=== PATIENT | female | born 1945 | race Caucasian/White ===

== ENCOUNTER 2019-10-15 10:19 | Emergency (ER) | payer OTHER ==
[2019-10-15] MEDS ORDERED: IPRATROPIUM BROM 0.5MG/2.5ML ONE (12:04)
[2019-10-15] MEDS ORDERED: ALBUTEROL 2.5 MG/3 ML NEB SOL ONE (12:04)
--- OUTSIDE RECORDS SUMMARY | 2019-10-15 14:35 | XMS REPORT | Summary of Care ---
:1945 Author Name MARCOS SALDIVAR M.D. Address Unavailable Unavailable , Care Team Providers Name Role Phone JANNA Garzon, MARCOS Unavailable Unavailable JANNA MERCADO [place], MARCOS Espinal Unavailable Unavailable Functional Status Name Dates Details Functional status health issues are not documented Status: Name Dates Details Cognitive status health issues are not documented Status: Problems Name Dates Details Aftercare following right knee joint replacement surgery (V54.81, Z47.1) Status: Active Primary osteoarthritis of left knee (715.16, M17.12) Status: Active Primary osteoarthritis of right knee (715.16, M17.11) Status: Active Status post total right knee replacement using cement (V43.65, Z96.651) Status: Active Left knee pain (719.46, M25.562) Status: Active Medications Name Dates Details Piroxicam 10 MG Oral Capsule Refills: 0 Active Triamterene-HCTZ CAPS Refills: 0 Active Biotin TABS Refills: 0 Active NexIUM CPDR Refills: 0 Active Sucralfate TABS Refills: 0 Active Zyrtec TABS Refills: 0 Active Singulair TABS Refills: 0 Active Premarin TABS Refills: 0 Active Levothyroxine Sodium TABS Refills: 0 Active Allergies and Adverse Reactions Name Dates Details Erythromycin Derivatives (Allergy) Status: Active Penicillins (Allergy) Status: Active Sulfa Drugs (Allergy) Status: Active Past Medical History Name Dates Details History of High blood pressure (401.9, I10) Status: Resolved Procedures Procedure Dates Details History of Total Knee Replacement Right Completed History of Hysterectomy Completed History of Thyroidectomy Completed Immunization Name Dates Details Immunizations not documented Family History Name Dates Details Family history of malignant neoplasm (V16.9, Z80.9) Status: Active Family history of cardiac disorder (V17.49, Z82.49) Status: Active Name Dates Details Family history of cardiac disorder (V17.49, Z82.49) Status: Active Social History Name Dates Details - Status: Name Dates Details Never smoker Vital Signs Date Test Result Details No Known Vitals to report Results Date Description Value Details [id number] [U] XRAY KNEE 3 VWS RIGHT 83675 XR KNEE 3 VWS RIGHT Images acquired, not reported on this accession number. Plan of Care Name Dates Details Planned Observations Planned Goals not documented Planned Encounters Appointment; MARCOS SALDIVAR M.D. On: 05-Sep-2018 11:30 Interventions Provided Labs/Procedures/Imaging[U] XRAY KNEE 3 VWS RIGHT 15096; Done: 13 Jun 2018PlanCSI left knee given today, we went over brief surgical talk and that pt would have to wait 3 months for surgery after injection and pt wants to wait 3 months so opted for injection to help her get through her trip, home exercise program for quad and ITB range of motion stretching and strengthening education provided, recommend water aerobic and/or elliptical for exercise program, can consider cane inopposite hand when flared up or for her trip, activity modification and advance as tolerated, therapeutic NSAID celebrex 200mg can increase to twice daily call if not helping after 2 weeks can considera different medication in the family, follow up in 2.5 months for possible surgical talk Instructions Name Dates Details Instructions not documented Encounters Appointment; MARCOS SALDIVAR M.D. On: 13-Jun-2018 8:30 Encounter Diagnosis: Problem not documented
--- NOTE | 2019-10-15 15:40 | RAD REPORT ---
EXAM DESCRIPTION: RAD - Chest Single View - 10/15/2019 2:53 pm CLINICAL HISTORY: SOB Chest pain. COMPARISON: CHEST PA AND LAT 2 VIEW dated 12/16/2014; CHEST SINGLE VIEW dated 05/22/2009 FINDINGS: Portable technique limits examination quality. The lungs are grossly clear. The heart is normal in size. No displaced fractures. IMPRESSION: No acute intrathoracic process suspected.
--- NOTE | 2019-10-15 23:32 | EDPHYS ---
Physician Documentation [facility] Name: Carol Ann Matute Age: 74 yrs Sex: Female : 1945 Arrival Date: 10/15/2019 Time: 10:26 Bed DIS1 Private MD: Domingo Cortez V ED Physician Clarice Aguilar HPI: 10/15 11:22 This 74 yrs old Female presents to ER via Ambulatory with complaints of Cough. jr8 11:22 The patient or guardian reports cough, that is intermittent, described as mild, with jr8 productive sputum, that is green. Onset: The symptoms/episode began/occurred acutely, yesterday. Severity of symptoms: At their worst the symptoms were mild, in the emergency department the symptoms are unchanged. Modifying factors: The symptoms are alleviated by nothing, the symptoms are aggravated by nothing. Associated signs and symptoms: Pertinent positives: rhinorrhea, sore throat, headaches. The patient has not experienced similar symptoms in the past. The patient has not recently seen a physician. - Immunization history:: Pneumococcal vaccine is up to date, Flu vaccine is up to date. - Social history:: Smoking status: Patient/guardian denies using tobacco. - Ebola Screening: : No symptoms or risks identified at this time. ROS: 11:22 Eyes: Negative for injury, pain, redness, and discharge, Neck: Negative for injury, jr8 pain, and swelling, Cardiovascular: Negative for chest pain, palpitations, and edema, Abdomen/GI: Negative for abdominal pain, nausea, vomiting, diarrhea, and constipation, Back: Negative for injury and pain, MS/Extremity: Negative for injury and deformity, Skin: Negative for injury, rash, and discoloration. 11:22 ENT: Positive for rhinorrhea, sore throat. 11:22 Respiratory: Positive for cough, with green sputum, Negative for dyspnea on exertion, shortness of breath, wheezing. 11:22 Neuro: Positive for headache, Negative for altered mental status, dizziness, gait disturbance. Exam: 11:22 Eyes: Pupils equal round and reactive to light, extra-ocular motions intact. Lids and jr8 lashes normal. Conjunctiva and sclera are non-icteric and not injected. Cornea within normal limits. Periorbital areas with no swelling, redness, or edema. ENT: Nares patent. No nasal discharge, no septal abnormalities noted. Tympanic membranes are normal and external auditory canals are clear. Oropharynx with no redness, swelling, or masses, exudates, or evidence of obstruction, uvula midline. Mucous membranes moist. Neck: Trachea midline, no thyromegaly or masses palpated, and no cervical lymphadenopathy. Supple, full range of motion without nuchal rigidity, or vertebral point tenderness. No Meningismus. Cardiovascular: Regular rate and rhythm with a normal S1 and S2. No gallops, murmurs, or rubs. Normal PMI, no JVD. No pulse deficits. Respiratory: Lungs have equal breath sounds bilaterally, clear to auscultation and percussion. No rales, rhonchi or wheezes noted. No increased work of breathing, no retractions or nasal flaring. Abdomen/GI: Soft, non-tender, with normal bowel sounds. No distension or tympany. No guarding or rebound. No evidence of tenderness throughout. Back: No spinal tenderness. No costovertebral tenderness. Full range of motion. Skin: Warm, dry with normal turgor. Normal color with no rashes, no lesions, and no evidence of cellulitis. MS/ Extremity: Pulses equal, no cyanosis. Neurovascular intact. Full, normal range of motion. Neuro: Awake and alert, GCS 15, oriented to person, place, time, and situation. Cranial nerves II-XII grossly intact. Motor strength 5/5 in all extremities. Sensory grossly intact. Cerebellar exam normal. Normal gait. Vital Signs: 10:32 BP 128 / 83; Pulse 73; Resp 16 S; Temp 97.5(O); Pulse Ox 98% on R/A; Weight 90.72 kg aa5 (R); Height 5 ft. 6 in. (167.64 cm) (R); 12:30 BP 122 / 78; Pulse 70; Resp 15; Pulse Ox 100% on R/A; Pain 0/10; hb 10:32 Body Mass Index 32.28 (90.72 kg, 167.64 cm) aa5 MDM: 11:04 Patient medically screened. jr8 11:50 Data reviewed: vital signs, nurses notes, lab test result(s), radiologic studies, plain jr8 films. Data interpreted: Pulse oximetry: on room air is 98 %. Interpretation: normal. Counseling: I had a detailed discussion with the patient and/or guardian regarding: the historical points, exam findings, and any diagnostic results supporting the discharge/admit diagnosis, lab results, radiology results, the need for outpatient follow up, a family practitioner, to return to the emergency department if symptoms worsen or persist or if there are any questions or concerns that arise at home. Administered Medications: 12:12 Drug: Albuterol 2.5 mg Route: Inhalation; hb 12:34 Follow up: Response: No adverse reaction hb Disposition: 15:52 Co-signature as Attending Physician, Clarice Aguilar MD. ma2 Disposition: 10/15/19 11:51 Discharged to Home. Impression: Acute upper respiratory infection, unspecified, Acute bronchitis. - Condition is Stable. - Discharge Instructions: Acute Bronchitis, Adult, Upper Respiratory Infection, Adult. - Prescriptions for Prednisone 20 mg Oral Tablet - take 1 tablet by ORAL route once daily for 5 days; 5 tablet. Tessalon Perles 100 mg Oral Capsule - take 1 capsule by ORAL route every 8 hours As needed; 15 capsule. Albuterol Sulfate 90 mcg/actuation - inhale 1-2 puff by INHALATION route every 4-6 hours; 1 Inhaler. - Medication Reconciliation Form, Thank You Letter, Antibiotic Education, Prescription Opioid Use form. - Follow up: Domingo Cortez MD; When: 5 - 6 days; Reason: Recheck today's complaints, Continuance of care, Re-evaluation by your physician. - Problem is new. - Symptoms have improved. Signatures: Santa Orellana RN RN aa5 Ben Lundy PA PA jr8 Jing Moreno RN RN Clarice Aguilar MD MD ma2 Corrections: (The following items were deleted from the chart) 11:57 11:51 10/15/2019 11:51 Discharged to Home. Impression: Acute upper respiratory jr8 infection, unspecified. Condition is Stable. Forms are Medication Reconciliation Form, Thank You Letter, Antibiotic Education, Prescription Opioid Use. Follow up: Domingo Cortez; When: 5 - 6 days; Reason: Recheck today's complaints, Continuance of care, Re-evaluation by your physician. Problem is new. Symptoms have improved. jr8 12:35 11:57 10/15/2019 11:51 Discharged to Home. Impression: Acute upper respiratory hb infection, unspecified; Acute bronchitis. Condition is Stable. Discharge Instructions: Upper Respiratory Infection, Adult. Prescriptions for Prednisone 20 mg Oral Tablet - take 1 tablet by ORAL route once daily for 5 days; 5 tablet, Tessalon Perles 100 mg Oral Capsule - take 1 capsule by ORAL route every 8 hours As needed; 15 capsule, Albuterol Sulfate 90 mcg/actuation - inhale 1-2 puff by INHALATION route every 4-6 hours; 1 Inhaler. and Forms are Medication Reconciliation Form, Thank You Letter, Antibiotic Education, Prescription Opioid Use. Follow up: Domingo Cortez; When: 5 - 6 days; Reason: Recheck today's complaints, Continuance of care, Re-evaluation by your physician. Problem is new. Symptoms have improved. jr8
--- NOTE | 2019-10-15 23:32 | ER ---
Nurse's Notes [facility] Name: Carol Ann Matute Age: 74 yrs Sex: Female : 1945 Arrival Date: 10/15/2019 Time: 10:26 Bed DIS1 Private MD: Domingo Cortez V Diagnosis: Acute upper respiratory infection, unspecified;Acute bronchitis Presentation: 10/15 10:31 Presenting complaint: Patient states: cough, sore throat, and ha ear pain that began aa5 on Monday. Transition of care: patient was not received from another setting of care. Onset of symptoms was September 2019. Risk Assessment: Do you want to hurt yourself or someone else? Patient reports no desire to harm self or others. Initial Sepsis Screen: Does the patient meet any 2 criteria? No. Patient's initial sepsis screen is negative. Does the patient have a suspected source of infection? No. Patient's initial sepsis screen is negative. Care prior to arrival: None. 10:31 Acuity: ALTHEA 4 aa5 10:31 Method Of Arrival: Ambulatory aa5 - Immunization history:: Pneumococcal vaccine is up to date, Flu vaccine is up to date. - Social history:: Smoking status: Patient/guardian denies using tobacco. - Ebola Screening: : No symptoms or risks identified at this time. Assessment: 11:13 Reassessment: see paper chart. hb 12:34 Reassessment: Patient appears in no apparent distress at this time. Patient and/or hb family updated on plan of care and expected duration. Pain level reassessed. Patient is alert, oriented x 3, equal unlabored respirations, skin warm/dry/pink. Vital Signs: 10:32 BP 128 / 83; Pulse 73; Resp 16 S; Temp 97.5(O); Pulse Ox 98% on R/A; Weight 90.72 kg aa5 (R); Height 5 ft. 6 in. (167.64 cm) (R); 12:30 BP 122 / 78; Pulse 70; Resp 15; Pulse Ox 100% on R/A; Pain 0/10; hb 10:32 Body Mass Index 32.28 (90.72 kg, 167.64 cm) aa5 ED Course: 10:26 Patient arrived in ED. ag5 10:27 Domingo Cortez MD is Private Physician. ag5 10:31 Triage completed. aa5 10:31 Arm band placed on. aa5 10:42 Hilario Peters PA is PHCP. [facility] 10:42 Clarice Aguilar MD is Attending Physician. [facility] 10:43 PHCP role handed off by Hilario Peters PA jr 10:43 Ben Lundy PA is PHCP. jr8 11:51 Domingo Cortez MD is Referral Physician. jr 12:12 Jing Moreno, RN is Primary Nurse. hb 12:35 No provider procedures requiring assistance completed. Patient did not have IV access hb during this emergency room visit. Administered Medications: 12:12 Drug: Albuterol 2.5 mg Route: Inhalation; hb 12:34 Follow up: Response: No adverse reaction hb Outcome: 11:51 Discharge ordered by MD. jr8 12:35 Discharged to home ambulatory, with family. hb 12:35 Condition: stable 12:35 Discharge instructions given to patient, Instructed on discharge instructions, follow up and referral plans. medication usage, Demonstrated understanding of instructions, follow-up care, medications, Prescriptions given X 3. 12:35 Patient left the ED. hb Signatures: Hilario Peters PA PA jmm Calderon, Audri, RN RN [facility] Ben Lundy PA [facility] Jing Moreno, RN RN [place] [id number]
== END 2019-10-15 12:35 | disposition home or self-care (01) ==
LOC: ER 12:35
DX: J20.9 Acute bronchitis, unspecified (principal)
CPT/HCPCS: 71045; 87804; 99284

== ENCOUNTER 2019-11-02 11:43 | Emergency (ER) | payer OTHER ==
[2019-11-02] MEDS ORDERED: TRAMADOL HCL 50 MG TAB ONE (12:05)
[2019-11-02] MEDS ORDERED: predniSONE 20 MG TAB ONE (12:05)
--- NOTE | 2019-11-02 12:06 | EDPHYS ---
Physician Documentation [facility] Name: Carol Ann Matute Age: 74 yrs Sex: Female : 1945 Arrival Date: 11/02/2019 Time: 11:45 Bed 23 Private MD: Domingo Cortez V ED Physician Bryan Vicente HPI: 11/02 12:02 This 74 yrs old Female presents to ER via Ambulatory with complaints of kb Shoulder Pain. 12:02 The patient or guardian complains of pain, that is acute. left scapular area. Context: kb The problem was sustained at home, resulted from an unknown reason, The patient reports no decreased range of motion. The patient reports no obvious deformity. Onset: The symptoms/episode began/occurred 5 day(s) ago. Modifying factors: the symptoms are alleviated by nothing. The symptoms are aggravated by left arm adduction across chest. Associated signs and symptoms: The patient has no apparent associated signs or symptoms. Severity of symptoms: At their worst the symptoms were moderate, in the emergency department the symptoms are unchanged. Treatment prior to arrival includes: prescription medications. The patient has not experienced similar symptoms in the past. The patient has been recently seen by a physician: the patient's primary care provider, Dr. Cortez in the office, 4 day(s) ago, with similar presenting complaints. Pt reports left scapular pain started on Monday. Denies injury or trauma. Saw Dr Cortez on Monday and was given a shot of steroids, rx for muscle relaxers and a cream. Reports the pain was better for about 24 hours then came back and the medications aren't working. Full ROM of shoulder/arm. . Historical: - Allergies: 11:48 PENICILLINS; sv - PMHx: 11:48 Hypertension; Thyroid problem; sv - PSHx: 11:48 Knee surgery; Hysterectomy; thumb; thyroid; sv - Immunization history:: Adult Immunizations up to date. - Social history:: Smoking status: Patient/guardian denies using tobacco. - Ebola Screening: : No symptoms or risks identified at this time. ROS: 12:00 Constitutional: Negative for fever, chills, and weight loss, ENT: Negative for injury, kb pain, and discharge, Neck: Negative for injury, pain, and swelling, Cardiovascular: Negative for chest pain, palpitations, and edema, Respiratory: Negative for shortness of breath, cough, wheezing, and pleuritic chest pain, Abdomen/GI: Negative for abdominal pain, nausea, vomiting, diarrhea, and constipation, : Negative for injury, bleeding, discharge, and swelling, MS/Extremity: Negative for injury and deformity, Skin: Negative for injury, rash, and discoloration, Neuro: Negative for headache, weakness, numbness, tingling, and seizure. 12:00 Back: Positive for pain at rest, pain with movement, radiated pain, of the left scapular area. Exam: 12:00 Constitutional: This is a well developed, well nourished patient who is awake, alert, kb and in no acute distress. Head/Face: Normocephalic, atraumatic. ENT: Nares patent. No nasal discharge, no septal abnormalities noted. Tympanic membranes are normal and external auditory canals are clear. Oropharynx with no redness, swelling, or masses, exudates, or evidence of obstruction, uvula midline. Mucous membranes moist. Neck: Trachea midline, no thyromegaly or masses palpated, and no cervical lymphadenopathy. Supple, full range of motion without nuchal rigidity, or vertebral point tenderness. No Meningismus. Chest/axilla: Normal chest wall appearance and motion. Nontender with no deformity. No lesions are appreciated. Cardiovascular: Regular rate and rhythm with a normal S1 and S2. No gallops, murmurs, or rubs. Normal PMI, no JVD. No pulse deficits. Respiratory: Lungs have equal breath sounds bilaterally, clear to auscultation and percussion. No rales, rhonchi or wheezes noted. No increased work of breathing, no retractions or nasal flaring. Abdomen/GI: Soft, non-tender, with normal bowel sounds. No distension or tympany. No guarding or rebound. No evidence of tenderness throughout. Back: No spinal tenderness. No costovertebral tenderness. Full range of motion. Point tenderness to left scapula on exam. Pt also reports pain with adduction of arm across chest. Skin: Warm, dry with normal turgor. Normal color with no rashes, no lesions, and no evidence of cellulitis. MS/ Extremity: Pulses equal, no cyanosis. Neurovascular intact. Full, normal range of motion. Neuro: Awake and alert, GCS 15, oriented to person, place, time, and situation. Cranial nerves II-XII grossly intact. Motor strength 5/5 in all extremities. Sensory grossly intact. Cerebellar exam normal. Normal gait. Vital Signs: 11:48 BP 172 / 71; Pulse 67; Resp 20; Temp 97.2; Pulse Ox 99% ; Weight 90.72 kg; Height 5 ft. sv 6 in. (167.64 cm); Pain 8/10; 11:48 Body Mass Index 32.28 (90.72 kg, 167.64 cm) sv MDM: 11:50 Patient medically screened. kb 12:02 Data reviewed: vital signs, nurses notes. Data interpreted: Pulse oximetry: on room air kb is 99 %. Interpretation: normal. Counseling: I had a detailed discussion with the patient and/or guardian regarding: the historical points, exam findings, and any diagnostic results supporting the discharge/admit diagnosis, the need for outpatient follow up, a family practitioner, to return to the emergency department if symptoms worsen or persist or if there are any questions or concerns that arise at home. Administered Medications: 12:05 Drug: traMADol 50 mg Route: PO; 12:05 Drug: predniSONE 40 mg Route: PO; Disposition: 15:34 Co-signature as Attending Physician, Bryan Vicente MD. rn Disposition: 11/02/19 12:05 Discharged to Home. Impression: Radiculopathy. - Condition is Stable. - Discharge Instructions: Radicular Pain. - Prescriptions for Prednisone 20 mg Oral Tablet - take 1 tablet by ORAL route once daily for 5 days; 5 tablet. - Medication Reconciliation Form, Thank You Letter, Antibiotic Education, Prescription Opioid Use form. - Follow up: Emergency Department; When: As needed; Reason: Worsening of condition. Follow up: Domingo Cortez MD; When: 2 - 3 days; Reason: Recheck today's complaints, Continuance of care, Re-evaluation by your physician. Signatures: Dispatcher [employer] EDChani Mane FNP-C FNP-Ckb Verde, Stephanie, RN RN Bob Torre RN RN Bryan Hanson MD MD education intern: (The following items were deleted from the chart) 12:12 12:05 11/02/2019 12:05 Discharged to Home. Impression: Radiculopathy. Condition is sg Stable. Forms are Medication Reconciliation Form, Thank You Letter, Antibiotic Education, Prescription Opioid Use. Follow up: Emergency Department; When: As needed; Reason: Worsening of condition. Follow up: Domingo Cortez; When: 2 - 3 days; Reason: Recheck today's complaints, Continuance of care, Re-evaluation by your physician. kb
--- NOTE | 2019-11-02 12:06 | ER ---
Nurse's Notes [facility] Name: Carol Ann Matute Age: 74 yrs Sex: Female : 1945 Arrival Date: 11/02/2019 Time: 11:45 Bed 23 Private MD: Domingo Cortez V Diagnosis: Radiculopathy Presentation: 11/02 11:46 Presenting complaint: Patient states: left shoulder pain since Monday. Denies injury sv or fall, reports seeing her PCP and was given prescriptions but they are not helping. Transition of care: patient was not received from another setting of care. Onset of symptoms was October 29, 2019. Risk Assessment: Do you want to hurt yourself or someone else? Patient reports no desire to harm self or others. Care prior to arrival: None. 11:46 Method Of Arrival: Ambulatory sv 11:46 Acuity: ALTHEA 4 sv 11:49 Initial Sepsis Screen: Does the patient meet any 2 criteria? No. Patient's initial sv sepsis screen is negative. Does the patient have a suspected source of infection? No. Patient's initial sepsis screen is negative. Historical: - Allergies: 11:48 PENICILLINS; sv - PMHx: 11:48 Hypertension; Thyroid problem; sv - PSHx: 11:48 Knee surgery; Hysterectomy; thumb; thyroid; sv - Immunization history:: Adult Immunizations up to date. - Social history:: Smoking status: Patient/guardian denies using tobacco. - Ebola Screening: : No symptoms or risks identified at this time. Screenin:00 Abuse screen: Denies threats or abuse. Denies injuries from another. Nutritional sg screening: No deficits noted. Tuberculosis screening: No symptoms or risk factors identified. Never had TB. Fall Risk None identified. Assessment: 12:00 General: Appears in no apparent distress. well groomed, well developed, well nourished, sg Behavior is calm, cooperative, appropriate for age. Pain: Complains of pain in left scapular area Quality of pain is described as aching, sharp. 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 Cardiovascular: Capillary refill is brisk in bilateral fingers Patient's skin is warm and dry. Chest pain is denied. Respiratory: Airway is patent Respiratory effort is even, unlabored, Respiratory pattern is regular, symmetrical. GI: No signs and/or symptoms were reported involving the gastrointestinal system. : No signs and/or symptoms were reported regarding the genitourinary system. EENT: No signs and/or symptoms were reported regarding the EENT system. Derm: Skin is pink, warm \T\ dry. Musculoskeletal: Circulation, motion, and sensation intact. Range of motion: limited in left shoulder. 12:10 Reassessment: Patient appears in no apparent distress at this time. pt informed ben Koo TOY MAKER states that the prednisone will be only prescription for discharge as patient has been medicated for pain in the unit with Tramadol PO, pt states understanding and stated that will be fine, pt to be dc to home. Vital Signs: 11:48 BP 172 / 71; Pulse 67; Resp 20; Temp 97.2; Pulse Ox 99% ; Weight 90.72 kg; Height 5 ft. sv 6 in. (167.64 cm); Pain 8/10; 11:48 Body Mass Index 32.28 (90.72 kg, 167.64 cm) sv ED Course: 11:45 Patient arrived in ED. as 11:45 Domingo Cortez MD is Private Physician. as 11:46 Arm band placed on. sv 11:47 Triage completed. sv 11:50 Chani Ly F[facility]-C [facility]. kb 11:50 Bryan Vicente MD is Attending Physician. kb 12:00 Patient has correct armband on for positive identification. Bed in low position. Call sg light in reach. Pulse ox on. NIBP on. 12:00 No provider procedures requiring assistance completed. Patient did not have IV access sg during this emergency room visit. 12:01 Bob Chilel, RN is Primary Nurse. sg 12:05 Domingo Cortez MD is Referral Physician. kb Administered Medications: 12:05 Drug: traMADol 50 mg Route: PO; sg 12:05 Drug: predniSONE 40 mg Route: PO; sg Outcome: 12:05 Discharge ordered by . kb 12:10 Discharged to home ambulatory, with family. sg 12:10 Condition: good 12:10 Discharge instructions given to patient, Instructed on discharge instructions, follow up and referral plans. medication usage, safety practices, Demonstrated understanding of instructions, follow-up care, medications, Prescriptions given X 1. 12:12 Patient left the ED. sg Signatures: Chani Ly FNP-C FNP-Ivis Ambrose RN RN Bob Torre RN RN Yovana Shah as Corrections: (The following items were deleted from the chart) 11:50 11:48 Pulse 67bpm; Resp 20bpm; Pulse Ox 99%; Temp 97.2F; 90.72 kg; Height 5 ft. 6 in.; sv BMI: 32.2; Pain 8/10; sv
[2019-11-02 12:32] VITALS: BP 172/71; TEMP 97.2; O2SAT 99
== END 2019-11-02 12:12 | disposition home or self-care (01) ==
LOC: ER 11:43
DX: M54.10 Radiculopathy, site unspecified (principal); I10 Essential (primary) hypertension; Z88.0 Allergy status to penicillin
CPT/HCPCS: 99283; J7512

== ENCOUNTER 2023-03-27 10:11 | Emergency (ER) | payer OTHER ==
[2023-03-27] MEDS ORDERED: MECLIZINE HCL 12.5 MG TAB ONE (10:47)
--- OUTSIDE RECORDS SUMMARY | 2023-03-27 10:54 | XMS REPORT | Continuity of Care Document ---
:1945 Author Organization [facility] t Address [address] [facility] [address] [place] [address] Care Team Providers Name Role Phone Domingo Cortez Attending Clinician Unavailable MARCOS SALDIVAR M.D. Attending Clinician Unavailable Payers Payer Name Policy Type Policy Number Effective Date Expiration Date [facility] [id number] Common Spiri t [facility] Problems Condition Condition Condition Status Onset Resolution Last Treating Co mments Source Name Details Category Date Date Treatment Clinician Date Primary Primary Problem Active [facility] osteoarthr osteoarthr HL7.CCDAR2 Physici itis of itis of ans right knee right knee Status Status Problem Active [facility] post total post total HL7.CCDAR2 Physici right knee right knee an s replacemen replacemen t using t using cement cement Aftercare Aftercare Problem Active [facility] following following HL7.CCDAR2 Physici right knee right knee an s joint joint replacemen replacemen t surgery t surgery Left knee Left knee Problem Active [facility] pain pain HL7.CCDAR2 Physic i ans Primary Primary Problem Active [facility] osteoarthr osteoarthr HL7.CCDAR2 Physici itis of itis of ans left knee left knee History of History of Problem Resolve UT High blood High blood HL7.CCDAR2 d Physici pressure pressure ans [id number] Arthritis Problem Co mmon [id number] of knee, [facility] Allergies, Adverse Reactions, Alerts Allergy Allergy Status Severity Reaction(s) Onset Inactive Treating Comm ents Source Name Type Date Date Clinician Erythrom drug Active [facility] ycin allergy Physici Derivati ans ves Penicill drug Active [facility] ins allergy Physici ans penicill penicill Active Unknown Commo n in G in G [facility] Sulfa drug Active [facility] Drugs allergy Physici ans Family History Family Member Diagnosis Comments Start Date Stop Date Source Mother Family history of cardiac [facility] disorder Mother Family history of malignant [facility] neoplasm Father Family history of cardiac [facility] disorder Social History Social Habit Start Date Stop Date Quantity Comments Source History of Tobacco Use Co mmon [facility] Sex Assigned At Com mon [facility] Smoking Status Start Date Stop Date Source Never Smoker Common [facility] Medications Ordered Filled Start Stop Current Ordering Indication Dosage Frequency Signature Comments Components Source Medication Medication Date Date Medication? Clinician (SIG) Name Name [facility] No 16mg Common 1- [facility] 00:00: - [facility]-10 No 16mg Common - [facility] 00:00: - [facility] Synvis Synvisc 2021-10 No 16mg Common 2-29 Spirit 00:00: - [facility] Synvis Synvisc 2021-10 No 16mg Common - [facility] 00:00: - [facility] Klaudia Rudolph 2021-10 No 40mg Common (Triamcinol (Triamcinol 2-19 S pirit one) one) 00:00: - [facility] Bupivicaine Bupivicaine 2021-10 No 2.5mg Common Eureka Eureka 2-19 Spirit 00:00: - [facility] Bupivicaine Bupivicaine 2021-10 No 2.5mg Common [place] Eureka 2-19 Spirit 00:00: - [facility] Synvisc Synvisc 2021-10 No 16mg Common 2-19 Spirit 00:00: - [facility] Kengracia Kenalog 2021-10 No 40mg Common (Triamcinol (Triamcinol 2-19 S pirit one) one) 00:00: - [facility] 00 [facility] Bupivicaine Bupivicaine 2021-1 No 2.5mg Common E[place] Eureka 2-19 Spirit 00:00: - [facility] 00 [facility] Synvisc Synvisc 2021-1 No 16mg Common 2-19 [facility] 00:00: - [facility] 00 [facility] Kenalog Kenalog 1 No 40mg Common (Triamcinol (Triamcinol 2-19 S pirit one) one) 00:00: - [facility] 00 [facility] Kenalog Kenalog 2021-0 No 40mg Common (Triamcinol (Triamcinol 7-11 S pirit one) one) 00:00: - [facility] 00 [facility] Bupivicaine Bupivicaine 2021-0 No 2.5mg Common E[place]ka Eureka 7-11 Spirit 00:00: - [facility] 00 [facility] Kenalog Kenalog 2021-0 No 40mg Common (Triamcinol (Triamcinol 7-11 S pirit one) one) 00:00: - [facility] 00 [facility] Bupivicaine Bupivicaine 2021-0 No 2.5mg Common E[place] Eureka 7-11 Spirit 00:00: - [facility] 00 [facility] Kenalog Kenalog 2021-0 No 40mg Common (Triamcinol (Triamcinol 7-11 S pirit one) one) 00:00: - [facility] 00 [facility] Bupivicaine Bupivicaine 2021-0 No 2.5mg Common E[place] Eureka 7-11 Spirit 00:00: - [facility] 00 [facility] Kenalog Kenalog 2021-0 No 40mg Common (Triamcinol (Triamcinol 7-11 S pirit one) one) 00:00: - [facility] 00 [facility] Bupivicaine Bupivicaine 2021-0 No 2.5mg Common E[place] Eureka 7-11 Spirit 00:00: - [facility] 00 [facility] Kenalog Kenalog 2021-0 No 40mg Common (Triamcinol (Triamcinol 7-11 S pirit one) one) 00:00: - [facility] 00 [facility] Bupivicaine Bupivicaine 2021-0 No 2.5mg Common E[place] Eureka 7-11 Spirit 00:00: - [facility] 00 [facility] Kenalog Kenalog 2021-0 No 40mg Common (Triamcinol (Triamcinol 7-11 S pirit one) one) 00:00: - [facility] 00 [facility] Bupivicaine Bupivicaine 2021-0 No 2.5mg Common E[place] Eureka 7-11 Spirit 00:00: - [facility] 00 [facility] Synvisc Synvisc 2021-0 No 16mg Common 3-10 Spirit 00:00: - [facility] 00 [facility] Synvisc Synvisc 2021-0 No 16mg Common 3-10 Spirit 00:00: - [facility] 00 [facility] Synvisc Synvisc 2-0 No 16mg Common 3-10 Spirit 00:00: - [facility] 00 [facility] Synvisc Synvisc 2-0 No 16mg Common 3-10 Spirit 00:00: - [facility] 00 [facility] Synvisc Synvisc 2-0 No 16mg Common 3-10 Spirit 00:00: - [facility] 00 [facility] Synvisc Synvisc 2-0 No 16mg Common 3-10 Spirit 00:00: - [facility] 00 [facility] Synvisc Synvisc 2-0 No 16mg Common 3-10 Spirit 00:00: - [facility] 00 [facility] Synvisc Synvisc 2-0 No 16mg Common 3-03 Spirit 00:00: - [facility] 00 [facility] Synvisc Synvisc 2-0 No 16mg Common 3-03 Spirit 00:00: - [facility] 00 [facility] Synvisc Synvisc 2-0 No 16mg Common 3-03 Spirit 00:00: - [facility] 00 [facility] Synvisc Synvisc 2-0 No 16mg Common 3-03 Spirit 00:00: - [facility] 00 [facility] Synvisc Synvisc 2-0 No 16mg Common 3-03 Spirit 00:00: - [facility] 00 [facility] Synvisc Synvisc 2-0 No 16mg Common 3-03 Spirit 00:00: - [facility] 00 [facility] Synvisc Synvisc 2021-0 No 16mg Common 3-03 Spirit 00:00: - [facility] 00 [facility] Synvisc Synvisc 2021-0 No 16mg Common 3-03 [facility] 00:00: - [facility] 00 [facility] Kenalog Kenalog 2021-0 No 40mg Common (Triamcinol (Triamcinol 2-24 S pirit one) one) 00:00: - [facility] 00 [facility] Bupivicaine Bupivicaine 2021-0 No Common Eureka Eureka 2-24 Spirit 00:00: - [facility] 00 [facility] Synvisc Synvisc 2021-0 No 16mg Common 2-24 [facility] 00:00: - [facility] 00 [facility] Kenalog Kenalog 2021-0 No 40mg Common (Triamcinol (Triamcinol 2-24 S pirit one) one) 00:00: - [facility] 00 [facility] Bupivicaine Bupivicaine 2021-0 No 2.5mg Common E[place] Eureka 2-24 [facility] 00:00: - [facility] 00 [facility] Synvisc Synvisc 2021-0 No 16mg Common 2-24 [facility] 00:00: - [facility] 00 [facility] Kenalog Kenalog 2021-0 No 40mg Common (Triamcinol (Triamcinol 2-24 S pirit one) one) 00:00: - [facility] 00 [facility] Bupivicaine Bupivicaine 2021-0 No 2.5mg Common E[place] Eureka 2-24 Spirit 00:00: - [facility] 00 [facility] Synvisc Synvisc 2021-0 No 16mg Common 2-24 [facility] 00:00: - [facility] 00 [facility] Kenalog Kenalog 2-0 No 40mg Common (Triamcinol (Triamcinol 2-24 S pirit one) one) 00:00: - [facility] 00 [facility] Bupivicaine Bupivicaine 2-0 No 2.5mg Common E[place] Eureka 2-24 Spirit 00:00: - [facility] 00 [facility] Synvisc Synvisc 2021-0 No 16mg Common 2-24 Spirit 00:00: - [facility] 00 [facility] Kenalog Kenalog 2021-0 No 40mg Common (Triamcinol (Triamcinol 2-24 S pirit one) one) 00:00: - [facility] 00 [facility] Bupivicaine Bupivicaine 2-0 No 2.5mg Common E[place] Eureka 2-24 Spirit 00:00: - [facility] 00 [facility] Synvisc Synvisc 2021-0 No 16mg Common 2-24 Spirit 00:00: - [facility] 00 [facility] Kenalog Kenalog 2021-0 No 40mg Common (Triamcinol (Triamcinol 2-24 S pirit one) one) 00:00: - [facility] 00 [facility] Kenalog Kenalog 2021-0 No 40mg Common (Triamcinol (Triamcinol 2-24 S pirit one) one) 00:00: - [facility] 00 [facility] Bupivicaine Bupivicaine 2021-0 No 2.5mg Common E[place] Eureka 2-24 Spirit 00:00: - [facility] 00 [facility] Synvisc Synvisc 2021-0 No 16mg Common 2-24 [facility] 00:00: - [facility] 00 [facility] Kengracia Kenalog 2021-0 No 40mg Common (Triamcinol (Triamcinol 2-24 S pirit one) one) 00:00: - [facility] 00 [facility] Bupivicaine Bupivicaine 2021-0 No 2.5mg Common E[place] Eureka 2-24 Spirit 00:00: - [facility] 00 [facility] Synvisc Synvisc 2021-0 No 16mg Common 2-24 [facility] 00:00: - [facility] 00 [facility] Bupivicaine Bupivicaine 2-0 No Common Eureka Eureka 2-24 Spirit 00:00: - [facility] 00 [facility] Synvisc Synvisc 2021-0 No 16mg Common 2-24 [facility] 00:00: - [facility] 00 [facility] Kenalog Kenalog 2-0 No 40mg Common (Triamcinol (Triamcinol 2-24 S pirit one) one) 00:00: - [facility] 00 [facility] Bupivicaine Bupivicaine 2-0 No Common Eureka Eureka 2-24 Spirit 00:00: - [facility] 00 [facility] Synvisc Synvisc 2-0 No 16mg Common 2-24 [facility] 00:00: - [facility] 00 [facility] Kenalog Kenalog 2020-0 No 40mg Common (Triamcinol (Triamcinol 8-24 S pirit one) one) 00:00: - [facility] 00 [facility] Bupivicaine Bupivicaine 2020-0 No Common E[place] Eureka 8-24 Spirit 00:00: - [facility] 00 [facility] Kenalog Kenalog 2020-0 No 40mg Common (Triamcinol (Triamcinol 8-24 S pirit one) one) 00:00: - [facility] 00 [facility] Bupivicaine Bupivicaine 2020-0 No 2.5mg Common E[place] Eureka 8-24 Spirit 00:00: - [facility] 00 [facility] Kenalog Kenalog 2020-0 No 40mg Common (Triamcinol (Triamcinol 8-24 S pirit one) one) 00:00: - [facility] 00 [facility] Bupivicaine Bupivicaine 2020-0 No 2.5mg Common E[place] Eureka 8-24 [facility] 00:00: - [facility] 00 [facility] Kenalog Kenalog 2020-0 No 40mg Common (Triamcinol (Triamcinol 8-24 S pirit one) one) 00:00: - [facility] 00 [facility] Bupivicaine Bupivicaine 1-0 No 2.5mg Common E[place] Eureka 8-24 [facility] 00:00: - [facility] 00 [facility] Kenalog Kenalog 2020-0 No 40mg Common (Triamcinol (Triamcinol 8-24 S pirit one) one) 00:00: - [facility] 00 [facility] Bupivicaine Bupivicaine 1-0 No 2.5mg Common [place] Eureka 8-24 [facility] 00:00: - [facility] 00 [facility] Kenalog Kenalog 1-0 No 40mg Common (Triamcinol (Triamcinol 8-24 S pirit one) one) 00:00: - [facility] 00 [facility] Bupivicaine Bupivicaine 1-0 No 2.5mg Common E[place] Eureka 8-24 [facility] 00:00: - [facility] Kenalog Kenalog No 40mg Common (Triamcinol (Triamcinol 8-24 S pirit one) one) 00:00: - [facility] Bupivicaine Bupivicaine 0 No 2.5mg Common E[place] Eureka 8-24 [facility] 00:00: - [facility] Kenalog Kenalog No 40mg Common (Triamcinol (Triamcinol 8-24 S pirit one) one) 00:00: - [facility] Bupivicaine Bupivicaine 2020-0 No Common Eureka Eureka 8-24 [facility] 00:00: - [facility] Klaudia Kenalog No 40mg Common (Triamcinol (Triamcinol 8-24 S pirit one) one) 00:00: - [facility] Bupivicaine Bupivicaine No Common E[place] Eureka 8-24 [facility] 00:00: - [facility] 00 [facility] Piroxicam Piroxicam Yes UT 10 MG Oral 10 MG Oral Phy sici Capsule Capsule ans Triamterene Triamterene Yes U T -HCTZ CAPS -HCTZ CAPS Phy sici ans Biotin TABS Biotin TABS Yes U T Physici ans NexIUM CPDR NexIUM CPDR Yes U T Physici ans Bisoprolol- Bisoprolol- No Bisoprolol hydroCHLORO hydroCHLORO -hydroCHLO thiazide thiazide ROthiazide Azithromyci Azithromyci No Azithromyc n n in methylPREDN methylPREDN No methylPRED ISolone ISolone NISolone Denta 5000 Denta 5000 No Denta 5000 Plus Plus Plus Sucralfate Sucralfate Yes UT TABS TABS Physici ans Premarin Premarin No Premarin Cosamin ASU Cosamin ASU No Cosamin for Joint for Joint ASU for Health Health Joint Health ZyrTEC ZyrTEC No ZyrTEC Levothyroxi Levothyroxi No Levothyrox ne Sodium ne Sodium ine Sodium Caltrate Caltrate No Caltrate 600 600 600 Celecoxib Celecoxib No Celecoxib Co Q 10 Co Q 10 No Co Q 10 Montelukast Montelukast No Montelukas Sodium Sodium t Sodium Famotidine Famotidine No Famotidine methylPREDN methylPREDN No methylPRED ISolone ISolone NISolone Zyrtec TABS Zyrtec TABS Yes U T Physici ans Co Q 10 Co Q 10 No Co Q 10 Levothyroxi Levothyroxi No Levothyrox ne Sodium ne Sodium ine Sodium Cosamin ASU Cosamin ASU No Cosamin for Joint for Joint ASU for [facility] Caltrate Caltrate No Caltrate 600 600 600 Denta 5000 Denta 5000 No Denta 5000 Plus Plus Plus Premarin Premarin No Premarin Azithromyci Azithromyci No Azithromyc n n in Celecoxib Celecoxib No Celecoxib Montelukast Montelukast No Montelukas Sodium Sodium t Sodium Famotidine Famotidine No Famotidine Singulair Singulair Yes UT TABS TABS Physici ans Bisoprolol- Bisoprolol- No Bisoprolol hydroCHLORO hydroCHLORO -hydroCHLO thiazide thiazide ROthiazide ZyrTEC ZyrTEC No ZyrTEC Bisoprolol- Bisoprolol- No Bisoprolol hydroCHLORO hydroCHLORO -hydroCHLO thiazide thiazide ROthiazide ZyrTEC ZyrTEC No ZyrTEC Montelukast Montelukast No Montelukas Sodium Sodium t Sodium methylPREDN methylPREDN No methylPRED ISolone ISolone NISolone Denta 5000 Denta 5000 No Denta 5000 Plus Plus Plus Caltrate Caltrate No Caltrate 600 600 600 Celecoxib Celecoxib No Celecoxib Azithromyci Azithromyci No Azithromyc n n in Premarin Premarin Yes UT TABS TABS Physici ans Cosamin ASU Cosamin ASU No Cosamin for Joint for Joint ASU for [facility] Levothyroxi Levothyroxi No Levothyrox ne Sodium ne Sodium ine Sodium Co Q 10 Co Q 10 No Co Q 10 Premarin Premarin No Premarin Famotidine Famotidine No Famotidine Bisoprolol- Bisoprolol- No Bisoprolol hydroCHLORO hydroCHLORO -hydroCHLO thiazide thiazide ROthiazide ZyrTEC ZyrTEC No ZyrTEC Montelukast Montelukast No Montelukas Sodium Sodium t Sodium methylPREDN methylPREDN No methylPRED ISolone ISolone NISolone Denta 5000 Denta 5000 No Denta 5000 Plus Plus Plus Levothyroxi Levothyroxi Yes U T ne Sodium ne Sodium Physi ci TABS TABS ans Caltrate Caltrate No Caltrate 600 600 600 Celecoxib Celecoxib No Celecoxib Azithromyci Azithromyci No Azithromyc n n in Cosamin ASU Cosamin ASU No Cosamin for Joint for Joint ASU for [facility] Levothyroxi Levothyroxi No Levothyrox ne Sodium ne Sodium ine Sodium Co Q 10 Co Q 10 No Co Q 10 Premarin Premarin No Premarin Famotidine Famotidine No Famotidine Levothyroxi Levothyroxi No Levothyrox ne Sodium ne Sodium ine Sodium methylPREDN methylPREDN No methylPRED ISolone ISolone NISolone Denta 5000 Denta 5000 No Denta 5000 Plus Plus Plus Montelukast Montelukast No Montelukas Sodium Sodium t Sodium Premarin Premarin No Premarin Co Q 10 Co Q 10 No Co Q 10 Caltrate Caltrate No Caltrate 600 600 600 Bisoprolol- Bisoprolol- No Bisoprolol hydroCHLORO hydroCHLORO -hydroCHLO thiazide thiazide ROthiazide ZyrTEC ZyrTEC No ZyrTEC Famotidine Famotidine No Famotidine Cosamin ASU Cosamin ASU No Cosamin for Joint for Joint ASU for [facility] Azithromyci Azithromyci No Azithromyc n n in Celecoxib Celecoxib No Celecoxib Denta 5000 Denta 5000 No Denta 5000 Plus Plus Plus Denta 5000 Denta 5000 No Denta 5000 Plus Plus Plus Bisoprolol- Bisoprolol- No Bisoprolol hydroCHLORO hydroCHLORO -hydroCHLO thiazide thiazide ROthiazide Co Q 10 Co Q 10 No Co Q 10 Cosamin ASU Cosamin ASU No Cosamin for Joint for Joint ASU for [facility] Caltrate Caltrate No Caltrate 600 600 600 Cosamin ASU Cosamin ASU No Cosamin for Joint for Joint ASU for [facility] Levothyroxi Levothyroxi No Levothyrox ne Sodium ne Sodium ine Sodium Azithromyci Azithromyci No Azithromyc n n in Montelukast Montelukast No Montelukas Sodium Sodium t Sodium Celecoxib Celecoxib No Celecoxib Premarin Premarin No Premarin Famotidine Famotidine No Famotidine ZyrTEC ZyrTEC No ZyrTEC methylPREDN methylPREDN No methylPRED ISolone ISolone NISolone Caltrate Caltrate No Caltrate 600 600 600 Co Q 10 Co Q 10 No Co Q 10 Levothyroxi Levothyroxi No Levothyrox ne Sodium ne Sodium ine Sodium ZyrTEC ZyrTEC No ZyrTEC methylPREDN methylPREDN No methylPRED ISolone ISolone NISolone Denta 5000 Denta 5000 No Denta 5000 Plus Plus Plus Montelukast Montelukast No Montelukas Sodium Sodium t Sodium Premarin Premarin No Premarin Famotidine Famotidine No Famotidine Celecoxib Celecoxib No Celecoxib methylPREDN methylPREDN No methylPRED ISolone ISolone NISolone Bisoprolol- Bisoprolol- No Bisoprolol hydroCHLORO hydroCHLORO -hydroCHLO thiazide thiazide ROthiazide Caltrate Caltrate No Caltrate 600 600 600 Cosamin ASU Cosamin ASU No Cosamin for Joint for Joint ASU for Health [facility] Levothyroxi Levothyroxi No Levothyrox ne Sodium ne Sodium ine Sodium Azithromyci Azithromyci No Azithromyc n n in Co Q 10 Co Q 10 No Co Q 10 Montelukast Montelukast No Montelukas Sodium Sodium t Sodium ZyrTEC ZyrTEC No ZyrTEC Celecoxib Celecoxib No Celecoxib Premarin Premarin No Premarin Bisoprolol- Bisoprolol- No Bisoprolol hydroCHLORO hydroCHLORO -hydroCHLO thiazide thiazide ROthiazide Famotidine Famotidine No Famotidine Azithromyci Azithromyci No Azithromyc n n in Denta 5000 Denta 5000 No Denta 5000 Plus Plus Plus Cosamin ASU Cosamin ASU No Cosamin for Joint for Joint ASU for [facility] Caltrate Caltrate No Caltrate 600 600 600 Co Q 10 Co Q 10 No Co Q 10 Levothyroxi Levothyroxi No Levothyrox ne Sodium ne Sodium ine Sodium methylPREDN methylPREDN No methylPRED ISolone ISolone NISolone Montelukast Montelukast No Montelukas Sodium Sodium t Sodium ZyrTEC ZyrTEC No ZyrTEC Celecoxib Celecoxib No Celecoxib Premarin Premarin No Premarin Bisoprolol- Bisoprolol- No Bisoprolol hydroCHLORO hydroCHLORO -hydroCHLO thiazide thiazide ROthiazide Famotidine Famotidine No Famotidine Azithromyci Azithromyci No Azithromyc n n in Montelukast Montelukast No Montelukas Sodium Sodium t Sodium Levothyroxi Levothyroxi No Levothyrox ne Sodium ne Sodium ine Sodium Co Q 10 Co Q 10 No Co Q 10 Cosamin ASU Cosamin ASU No Cosamin for Joint for Joint ASU for [facility] Famotidine Famotidine No Famotidine ZyrTEC ZyrTEC No ZyrTEC methylPREDN methylPREDN No methylPRED ISolone ISolone NISolone Caltrate Caltrate No Caltrate 600 600 600 Bisoprolol- Bisoprolol- No Bisoprolol hydroCHLORO hydroCHLORO -hydroCHLO thiazide thiazide ROthiazide Denta 5000 Denta 5000 No Denta 5000 Plus Plus Plus Azithromyci Azithromyci No Azithromyc n n in Celecoxib Celecoxib No Celecoxib Premarin Premarin No Premarin Cosamin ASU Cosamin ASU No Cosamin for Joint for Joint ASU for [facility] Denta 5000 Denta 5000 No Denta 5000 Plus Plus Plus Azithromyci Azithromyci No Azithromyc n n in Bisoprolol- Bisoprolol- No Bisoprolol hydroCHLORO hydroCHLORO -hydroCHLO thiazide thiazide ROthiazide Montelukast Montelukast No Montelukas Sodium Sodium t Sodium ZyrTEC ZyrTEC No ZyrTEC Premarin Premarin No Premarin Caltrate Caltrate No Caltrate 600 600 600 methylPREDN methylPREDN No methylPRED ISolone ISolone NISolone Levothyroxi Levothyroxi No Levothyrox ne Sodium ne Sodium ine Sodium Co Q 10 Co Q 10 No Co Q 10 Celecoxib Celecoxib No Celecoxib Famotidine Famotidine No Famotidine Immunizations Ordered Immunization Filled Immunization Date Status Commen ts Source Name Name Klaudia Rudolph 2021-06-15 Completed [facility] (Triamcinolone) (Triamcinolone) 10:41:00 - I [facility] Bupivicaine [place] Bupivicaine [place] 2021-06-15 Completed [facility] 10:40:[facility] Vital Signs Vital Name Observation Time Observation Value Comments Source height 2022-10-28 08:00:00 66 [in_i] [facility] weight 2022-10-28 08:00:00 203 [lb_av] Common [facility] temperature 2022-10-28 08:00:00 97.7 [degF] [facility] bmi 2022-10-28 08:00:00 32.76 kg/m2 [facility] blood pressure 2022-10-28 08:00:00 128 mm[Hg] [facility] - systolic [facility] blood pressure 2022-10-28 08:00:00 78 mm[Hg] [facility] - diastolic [facility] height 2022-10-20 13:15:00 66 [in_i] Common [facility] weight 2022-10-20 13:15:00 203 [lb_av] [facility] temperature 2022-10-20 13:15:00 97.2 [degF] Common [facility] bmi 2022-10-20 13:15:00 32.76 kg/m2 [facility] blood pressure 2022-10-20 13:15:00 126 mm[Hg] [facility] - systolic [facility] blood pressure 2022-10-20 13:15:00 80 mm[Hg] [facility] - diastolic [facility] height 2022-10-10 14:15:00 66 [in_i] Common [facility] weight 2022-10-10 14:15:00 203 [lb_av] [facility] temperature 2022-10-10 14:15:00 97.9 [degF] [facility] bmi 2022-10-10 14:15:00 32.76 kg/m2 [facility] blood pressure 2022-10-10 14:15:00 125 mm[Hg] [facility] - systolic [facility] blood pressure 2022-10-10 14:15:00 80 mm[Hg] [facility] - diastolic [facility] height 2022-08-29 09:45:00 66 [in_i] [facility] - [facility] weight 2022-08-29 09:45:00 203.1 [lb_av] [facility] - [facility] temperature 2022-08-29 09:45:00 96.5 [degF] [facility] - [facility] bmi 2022-08-29 09:45:00 32.78 kg/m2 [facility] - [facility] blood pressure 2022-08-29 09:45:00 126 mm[Hg] [facility] - systolic [facility] blood pressure 2022-08-29 09:45:00 82 mm[Hg] [facility] - diastolic [facility] height 2022-05-02 15:15:00 66 [in_i] [facility] - [facility] weight 2022-05-02 15:15:00 200 [lb_av] [facility] - [facility] temperature 2022-05-02 15:15:00 98.3 [degF] [facility] - [facility] bmi 2022-05-02 15:15:00 32.28 kg/m2 [facility] blood pressure 2022-05-02 15:15:00 124 mm[Hg] [facility] - systolic [facility] blood pressure 2022-05-02 15:15:00 78 mm[Hg] [facility] - diastolic [facility] height 2021-12-30 09:30:00 66 [in_i] [facility] - [facility] weight 2021-12-30 09:30:00 200 [lb_av] [facility] temperature 2021-12-30 09:30:00 97.3 [degF] [facility] bmi 2021-12-30 09:30:00 32.28 kg/m2 [facility] - [facility] blood pressure 2021-12-30 09:30:00 128 mm[Hg] [facility] - systolic [facility] blood pressure 2021-12-30 09:30:00 84 mm[Hg] [facility] - diastolic [facility] height 2021-12-23 15:00:00 66 [in_i] [facility] - [facility] weight 2021-12-23 15:00:00 200 [lb_av] [facility] - [facility] bmi 2021-12-23 15:00:00 32.28 kg/m2 [facility] - [facility] blood pressure 2021-12-23 15:00:00 126 mm[Hg] [facility] blood pressure 2021-12-23 15:00:00 84 mm[Hg] [facility] diastolic [facility] height 2021-12-16 09:00:00 66 [in_i] [facility] weight 2021-12-16 09:00:00 200 [lb_av] [facility] temperature 2021-12-16 09:00:00 96.2 [degF] [facility] bmi 2021-12-16 09:00:00 32.28 kg/m2 [facility] blood pressure 2021-12-16 09:00:00 138 mm[Hg] [facility] blood pressure 2021-12-16 09:00:00 84 mm[Hg] [facility] height 2021-06-15 09:30:00 66 [in_i] [facility] weight 2021-06-15 09:30:00 200.1 [lb_av] [facility] bmi 2021-06-15 09:30:00 32.29 kg/m2 [facility] blood pressure 2021-06-15 09:30:00 153 mm[Hg] [facility] blood pressure 2021-06-15 09:30:00 80 mm[Hg] [facility] [place] Procedures Procedure Date / Time Performed Performing Clinician [facility] e History of [facility] K[facility]ste[facility]roidectomy [facility] Encounters Start End Encounter Admission Attending Care Care Encounter Source Date/Time Date/Time Type Type Clinicians Facility Department ID 2022-10-28 Outpatient Dana, STLMLC STLMLC [id number] Common 09:38:02 Domingo [id number] [facility] 2021-12-16 Outpatient Dana, STLMLC STLMLC [id number] Common 08:45:02 Domingo [facility] 2021-11-17 Outpatient Dana, STLMLC STLMLC [id number] Common 13:41:59 Domingo [id number] [facility] 2022-10-28 2022-10-28 (IN/ASP) STLMLC STLMLC [id number] C ommon 00:00:00 00:00:00 INJ ASP [facility] 2022-10-20 2022-10-20 (IN/ASP) STLMLC STLMLC [id number] C ommon 00:00:00 00:00:00 INJ ASP [facility] 2022-10-10 2022-10-10 (IN/ASP) STLMLC STLMLC [id number] C ommon 00:00:00 00:00:00 INJ ASP [facility] 2022-09-22 2022-09-22 (TEL) STLMLC STLMLC [id number] Co mmon 00:00:00 00:00:00 [facility] 2022-08-29 2022-08-29 OFFICE STLMLC STLMLC [id number] Co mmon 00:00:00 00:00:00 [facility] - CHI LEVEL 4 [facility] 2022-05-02 2022-05-02 OFFICE STLMLC STLMLC [id number] Co mmon 00:00:00 00:00:00 [facility] - CHI LEVEL 4 [facility] 2021-12-30 2021-12-30 (IN/ASP) STLMLC STLMLC [id number] C ommon 00:00:00 00:00:00 INJ ASP [facility] 2021-12-23 2021-12-23 (IN/ASP) STLMLC STLMLC [id number] C ommon 00:00:00 00:00:00 INJ ASP [facility] 2021-12-16 2021-12-16 (IN/ASP) STLMLC STLMLC [id number] C ommon 00:00:00 00:00:00 INJ ASP [facility] 2021-11-15 2021-11-15 (TEL) STLMLC STLMLC [id number] Co mmon 00:00:00 00:00:00 [facility] 2021-06-15 2021-06-15 OFFICE STLMLC STLMLC [id number] Co mmon 00:00:00 00:00:00 VISIT NEW [facility] it PT LEVEL 4 - [facility] 2018-06-13 2018-06-13 Appointmen CHRIS SALDIVAR [facility] [id number] 08:30:00 08:30:00 t; Ryann [facility] SALDIVAR [facility] ans Diann RODRÍGUEZ M.D. [place] Results Test Description Test Time Test Comments Results Result Sour e Comments [U] XRAY KNEE 3 2018-06-13 Images [facility] VWS RIGHT [id number] 08:04:00 acquired, not reported on this accession number.
[2023-03-27 11:04] LABS: Absolute Lymphocytes (CBC) 1.3 K/uL (0.7-4.9); Hematocrit 39.3 % (36.0-45.0); Lymphocytes % 17.7 % (15.3-44.8); MCV 93.4 fL (80-100); MPV 7.5 fL (7.6-11.3); RBC Red Blood Cell Count 4.21 M/uL (3.86-4.86)
[2023-03-27 11:22] LABS: Albumin 2.9 g/dL (3.4-5.0); Bilirubin Total 0.7 mg/dL (0.2-1.0); Potassium 4.2 mEq/L (3.5-5.1); Protein, Total 6.3 g/dL (6.4-8.2); Troponin High Sensitivity 7.3 pg/mL (<58.9)
--- NOTE | 2023-03-27 11:56 | RAD REPORT ---
EXAM DESCRIPTION: Mikayla Single View03/27/2023 11:21 am CLINICAL HISTORY: Syncope COMPARISON: 2018 FINDINGS: The lungs appear clear of acute infiltrate. The heart is normal size IMPRESSION: No acute abnormalities displayed
--- NOTE | 2023-03-27 12:10 | ER ---
Nurse's Notes [facility] Name: Carol Ann Matute Age: 77 yrs Sex: Female : 1945 Arrival Date: 03/27/2023 Time: 10:11 Bed 8 Private MD: Diagnosis: Benign paroxysmal vertigo Presentation: 03/27 10:37 Chief complaint: EMS states: SYNCOPE IN SHOWER THIS AM. Coronavirus screen: At this bp time, the client does not indicate any symptoms associated with coronavirus-19. Ebola Screen: No symptoms or risks identified at this time. Initial Sepsis Screen: Does the patient meet any 2 criteria? No. Patient's initial sepsis screen is negative. Does the patient have a suspected source of infection? No. Patient's initial sepsis screen is negative. Risk Assessment: Do you want to hurt yourself or someone else? Patient reports no desire to harm self or others. Onset of symptoms was March 27, 2023 at 10:00. Care prior to arrival: IV initiated. 20 GA, in the left hand. 10:37 Method Of Arrival: EMS: [facility] bp 10:37 Acuity: ALTHEA 3 bp Historical: - Allergies: 10:39 PENICILLINS; bp - PMHx: 10:39 Hypertension; Thyroid problem; bp - Immunization history:: Adult Immunizations up to date. - Social history:: Smoking status: Patient denies any tobacco usage or history of. Screenin:30 [facility] ED Fall Risk Assessment (Adult) History of falling in the last 3 months, bp including since admission No falls in past 3 months (0 pts) Confusion or Disorientation No (0 pts) Intoxicated or Sedated No (0 pts) Impaired Gait No (0 pts) Mobility Assist Device Used No (0 pt) Altered Elimination No (0 pt) Score/Fall Risk Level 0 - 2 = Low Risk Oriented to surroundings, Maintained a safe environment, Educated pt \T\ family on fall prevention, incl call for assistance when getting out of bed, Assessed \T\ reinforced patient's understanding of fall precautions, Provided non-skid footwear, Hourly rounding (assess needs \T\ fall precautionary measures) done, Used ambulatory aids as needed (educated on \T\ assisted with), Used gait belt as appropriate. Abuse screen: Denies threats or abuse. Denies injuries from another. Nutritional screening: No deficits noted. Tuberculosis screening: No symptoms or risk factors identified. Assessment: 10:30 General: Appears in no apparent distress. comfortable, Behavior is calm, cooperative, bp appropriate for age. Pain: Denies pain. Neuro: No deficits noted. Cardiovascular: Reports syncope. Respiratory: No deficits noted. GI: No deficits noted. : No deficits noted. EENT: No deficits noted. Derm: No deficits noted. Musculoskeletal: No deficits noted. Vital Signs: 10:37 BP 136 / 87; Pulse 76; Resp 16; Temp 97.5; Pulse Ox 100% ; bp 11:00 BP 152 / 77; Pulse 71; Resp 16; Pulse Ox 97% on R/A; ko1 11:30 BP 151 / 76; Pulse 65; Resp 16; Pulse Ox 100% on R/A; ko1 ED Course: 10:26 Patient arrived in ED. ko1 10:26 Edna Ware, RN is Primary Nurse. ko1 10:26 Dino Nicolas MD is Attending Physician. rt 10:30 No provider procedures requiring assistance completed. bp 10:30 Patient has correct armband on for positive identification. Placed in gown. Bed in low bp position. Side rails up X2. Client placed on continuous cardiac and pulse oximetry monitoring. NIBP monitoring applied. bus driver/monitor on. Door closed. Noise minimized. Lights dimmed. Warm blanket given. 10:30 Arm band placed on right wrist. Patient placed in an exam room, on a stretcher, on nj1 bus driver/monitor, on pulse oximetry, Patient notified of wait time. 10:38 Triage completed. bp 10:39 Maintain EMS IV. Dressing intact. Good blood return noted. Site clean \T\ dry. Gauge \T\ bp site: 20 GA LEFT HAND. 11:23 Chest Single View XRAY In Process Unspecified. EDMS 12:30 IV discontinued, intact, bleeding controlled, No redness/swelling at site. Pressure bp dressing applied. Administered Medications: 10:48 Drug: Meclizine PO 50 mg Route: PO; bp 12:30 Follow up: Response: No adverse reaction bp Medication: 10:30 VIS not applicable for this client. bp Outcome: 12:09 Discharge ordered by . rt 12:45 Discharged to home via wheelchair, with family. nj1 12:45 Condition: stable 12:45 Discharge instructions given to patient, family, Instructed on discharge instructions, follow up and referral plans. medication usage, Demonstrated understanding of instructions, follow-up care, medications. 12:45 Patient left the ED. nj1 Signatures: Dispatcher [employer] EDSocrates Beauchamp, RN RN bp Edna Ware RN RN ko1 Dino Nicolas MD MD rt Kristine Fagan RN RN nj1
--- NOTE | 2023-03-27 12:10 | EDPHYS ---
Physician Documentation [facility] Name: Carol Ann Matute Age: 77 yrs Sex: Female : 1945 Arrival Date: 03/27/2023 Time: 10:11 Bed 8 Private MD: SHAI Physician Dino Nicolas HPI: 03/27 10:51 This 77 yrs old Female presents to ER via EMS with complaints of Dizziness. rt 10:51 Patient presents to the ED with dizziness. The patient was in the shower when she rt became acutely lightheaded, felt that the vision was closing in. Patient eased herself down, denies completely losing consciousness, or hitting her head. Denies any pain currently. She states that she still does feel dizzy. She states that it is worse with position changes of the head, not worse with sitting or standing up. Denies other acute complaints at this time. Symptoms are moderate in severity, no other aggravating or alleviating factors.. Historical: - Allergies: 10:39 PENICILLINS; bp - PMHx: 10:39 Hypertension; Thyroid problem; bp - Immunization history:: Adult Immunizations up to date. - Social history:: Smoking status: Patient denies any tobacco usage or history of. ROS: 10:51 Constitutional: Negative for fever, chills, and weight loss, Cardiovascular: Negative rt for chest pain, palpitations, and edema, Respiratory: Negative for shortness of breath, cough, wheezing, and pleuritic chest pain, Abdomen/GI: Negative for abdominal pain, nausea, vomiting, diarrhea, and constipation, MS/Extremity: Negative for injury and deformity, Skin: Negative for injury, rash, and discoloration, Psych: Negative for depression, anxiety, suicide ideation, homicidal ideation, and hallucinations. 10:51 Neuro: Positive for dizziness, syncope. Exam: 10:51 Constitutional: This is a well developed, well nourished patient who is awake, alert, rt and in no acute distress. Head/Face: Normocephalic, atraumatic. Chest/axilla: Normal chest wall appearance and motion. Nontender with no deformity. No lesions are appreciated. Cardiovascular: Regular rate and rhythm with a normal S1 and S2. No gallops, murmurs, or rubs. Normal PMI, no JVD. No pulse deficits. Respiratory: Lungs have equal breath sounds bilaterally, clear to auscultation and percussion. No rales, rhonchi or wheezes noted. No increased work of breathing, no retractions or nasal flaring. Abdomen/GI: Soft, non-tender, with normal bowel sounds. No distension or tympany. No guarding or rebound. No evidence of tenderness throughout. Skin: Warm, dry with normal turgor. Normal color with no rashes, no lesions, and no evidence of cellulitis. MS/ Extremity: Pulses equal, no cyanosis. Neurovascular intact. Full, normal range of motion. Neuro: Awake and alert, GCS 15, oriented to person, place, time, and situation. Cranial nerves II-XII grossly intact. Motor strength 5/5 in all extremities. Sensory grossly intact. Cerebellar exam normal. Normal gait. Psych: Awake, alert, with orientation to person, place and time. Behavior, mood, and affect are within normal limits. 10:51 ENT: No nystagmus on lateral gaze, extraocular muscles intact, head impulse and test of skew negative. 10:51 ECG was reviewed by the Attending Physician. Vital Signs: 10:37 BP 136 / 87; Pulse 76; Resp 16; Temp 97.5; Pulse Ox 100% ; bp 11:00 BP 152 / 77; Pulse 71; Resp 16; Pulse Ox 97% on R/A; ko1 11:30 BP 151 / 76; Pulse 65; Resp 16; Pulse Ox 100% on R/A; ko1 MDM: 10:26 Patient medically screened. rt 12:11 Differential Diagnosis: Vasovagal syncope, dehydration, dysrhythmia, vertigo. Data rt reviewed: vital signs, nurses notes, lab test result(s), EKG, radiologic studies. Consideration of Admission/Observation Escalation of care including admission/observation considered. HI NTS exam is consistent with a peripheral vertigo, not consistent with central vertigo, does not require admission for CVA rule out, symptoms are improving, patient comfortable with discharge, follow-up with primary, return precautions discussed. I considered the following discharge prescriptions or medication management in the emergency department Medications were administered in the Emergency Department. See MAR. Test considered but Not performed: CT: No focal neurodeficits, hints exam benign, no head trauma, CT scan of the head not indicated. Care significantly affected by the following chronic conditions: Hypertension. Counseling: I had a detailed discussion with the patient and/or guardian regarding: the historical points, exam findings, and any diagnostic results supporting the discharge/admit diagnosis, lab results, radiology results, the need for outpatient follow up, to return to the emergency department if symptoms worsen or persist or if there are any questions or concerns that arise at home. 03/27 10:27 Order name: CBC with Diff; Complete Time: 11:08 rt 03/27 10:27 Order name: CMP; Complete Time: 11: rt 03/27 10:27 Order name: Troponin High Sensitivity; Complete Time: 11: rt 03/27 10:27 Order name: Chest Single View XRAY; Complete Time: 11:59 rt 03/27 10: Order name: EKG; Complete Time: : rt 03/27 10:27 Order name: EKG - Nurse/Tech; Complete Time: 10:32 rt EC:51 Rate is 67 beats/min. Rhythm is regular, Normal Sinus Rhythm with Occasional PVCs. QRS rt [place] is Normal. NC interval is normal. QRS interval is normal. QT interval is normal. No Q waves. Clinical impression: NSR w/ Non-specific ST/T Changes. Administered Medications: 10:48 Drug: Meclizine PO 50 mg Route: PO; bp 12:30 Follow up: Response: No adverse reaction bp Disposition Summary: 03/27/23 12:09 Discharge Ordered Location: Home rt Problem: an acute exacerbation rt Symptoms: have improved rt Condition: Stable rt Diagnosis - Benign paroxysmal vertigo rt Followup: rt - With: Private Physician - When: 2 - 3 days - Reason: Discharge Instructions: - Discharge Summary Sheet rt - Benign Positional Vertigo rt Forms: - Medication Reconciliation Form rt - Thank You Letter rt - Antibiotic Education rt - Prescription Opioid Use rt Signatures: Dispatcher [employer] Socrates Pichardo RN RN bp Dino Nicolas MD MD rt
[2023-03-27 12:50] VITALS: TEMP 97.5
[2023-03-27 12:53] VITALS: BP 151/76; O2SAT 100
--- NOTE | 2023-03-29 07:22 | EKG ---
Test Date: 2023-03-27 Test Time: 10:27:53 [employer]: BP MEASUREMENT RESULTS: Intervals: Rate: 67 RI: 188 QRSD: 110 QT: 438 QTc: 462 Gary: P: 38 RI: 188 QRS: -1 T: 111 INTERPRETIVE STATEMENTS: Sinus rhythm Anteroseptal infarct, age undetermined Abnormal ECG Compared to ECG 05/24/2009 13:57:37 Myocardial infarct finding now present Electronically Signed On 03-29-23 07:15:23 CDT by Saad Whitley
== END 2023-03-27 12:45 | disposition home or self-care (01) ==
LOC: ER 10:11
DX: H81.10 Benign paroxysmal vertigo, unspecified ear (principal); I10 Essential (primary) hypertension; Z88.0 Allergy status to penicillin
CPT/HCPCS: 93005; 85025; 36415; 84484; 80053; 71045; 99284; J8597

== ENCOUNTER 2023-05-07 15:58 | Emergency (ER) | payer OTHER ==
--- OUTSIDE RECORDS SUMMARY | 2023-05-07 16:03 | XMS REPORT | Continuity of Care Document ---
:1945 Author Organization [facility] t Address [address] [place] [address] Care Team Providers Name Role Phone Domingo Cortez Attending Clinician Unavailable MARCOS SALDIVAR M.D. Attending Clinician Unavailable Payers Payer Name Policy Type Policy Number Effective Date Expiration Date [facility] [id number] Common Spiri t Medicare - [facility] [...] blood [id number] d Physici pressure pressure ans [id number] Arthritis Problem Co mmon [id number] of knee, [facility] Allergies, Adverse Reactions, Alerts Allergy Allergy Status Severity Reaction(s) Onset Inactive Treating Comm ents Source Name Type Date Date Clinician Erythrom drug Active [facility] ycin allergy Physici Derivati ans ves Penicill drug Active [facility] ins allergy Physici ans penicill penicill Active Unknown Commo n in G in G [facility] Sulfa drug Active [facility] allergy Physici ans Family History Family Member Diagnosis Comments Start Date Stop Date Source Mother Family history of cardiac [facility] disorder Mother Family history of malignant [facility] neoplasm Father Family history of cardiac [facility] disorder Social History Social Habit Start Date Stop Date Quantity Comments Source History of Tobacco Use Co mmon [facility] Sex Assigned At Com mon [facility] Smoking Status Start Date Stop Date Source Never Smoker Common [facility] Medications Ordered Filled Start Stop Current Ordering Indication Dosage Frequency Signature Comments Components Source Medication Medication Date Date Medication? Clinician (SIG) Name Name [facility] No 16mg Common 1- Spirit 00:00: - [facility] Synvisc 2021-10 No 16mg Common - Spirit 00:00: - [facility] Synvis Synvisc 2021-10 No 16mg Common 2-29 Spirit 00:00: - [facility] Synvis Synvisc 2021-10 No 16mg Common - Spirit 00:00: - [facility] Klaudia Rudolph 2021-10 No 40mg Common (Triamcinol (Triamcinol 2-19 S pirit one) one) 00:00: - [facility] Bupivicaine Bupivicaine 2021-10 No 2.5mg Common Crowley Crowley 2-19 Spirit 00:00: - [facility] Bupivicaine Bupivicaine 2021-10 No 2.5mg Common Crowley Crowley 2-19 Spirit 00:00: - [facility] Synvisc Synvisc 2021-10 No 16mg Common 2-19 Spirit 00:00: - [facility] Kengracia Kenalog 2021-10 No 40mg Common (Triamcinol (Triamcinol 2-19 S pirit one) one) 00:00: - [facility] 00 [facility] Bupivicaine Bupivicaine 2021-1 No 2.5mg Common Crowley Crowley 2-19 Spirit 00:00: - [facility] 00 [facility] Synvisc Synvisc 2021-1 No 16mg Common 2-19 Spirit 00:00: - [facility] 00 [facility] Kenalog Kenalog 1 No 40mg Common (Triamcinol (Triamcinol 2-19 S pirit one) one) 00:00: - [facility] 00 [facility] Kenalog Kenalog 2021-0 No 40mg Common (Triamcinol (Triamcinol 7-11 S pirit one) one) 00:00: - [facility] 00 [facility] Bupivicaine Bupivicaine 2021-0 No 2.5mg Common Crowley Crowley 7-11 Spirit 00:00: - [facility] 00 [facility] Kenalog Kenalog 2021-0 No 40mg Common (Triamcinol (Triamcinol 7-11 S pirit one) one) 00:00: - [facility] 00 [facility] Bupivicaine Bupivicaine 2021-0 No 2.5mg Common Crowley Crowley 7-11 Spirit 00:00: - [facility] 00 [facility] Kenalog Kenalog 2021-0 No 40mg Common (Triamcinol (Triamcinol 7-11 S pirit one) one) 00:00: - [facility] 00 [facility] Bupivicaine Bupivicaine 2021-0 No 2.5mg Common Crowley Crowley 7-11 Spirit 00:00: - [facility] 00 [facility] Kenalog Kenalog 2021-0 No 40mg Common (Triamcinol (Triamcinol 7-11 S pirit one) one) 00:00: - [facility] 00 [facility] Bupivicaine Bupivicaine 2021-0 No 2.5mg Common Crowley Crowley 7-11 Spirit 00:00: - [facility] 00 [facility] Kenalog Kenalog 2021-0 No 40mg Common (Triamcinol (Triamcinol 7-11 S pirit one) one) 00:00: - [facility] 00 [facility] Bupivicaine Bupivicaine 2021-0 No 2.5mg Common Crowley Crowley 7-11 Spirit 00:00: - [facility] 00 [facility] Kenalog Kenalog 2021-0 No 40mg Common (Triamcinol (Triamcinol 7-11 S pirit one) one) 00:00: - [facility] 00 [facility] Bupivicaine Bupivicaine 2021-0 No 2.5mg Common Crowley Crowley 7-11 Spirit 00:00: - [facility] 00 [facility] Synvisc Synvisc 2021-0 No 16mg Common 3-10 Spirit 00:00: - [facility] 00 [facility] Synvisc Synvisc 2021-0 No 16mg Common 3-10 Spirit 00:00: - [facility] 00 [facility] Synvisc Synvisc 2-0 No 16mg Common 3-10 Spirit 00:00: - [facility] 00 [facility] Synvisc Synvisc 2-0 No 16mg Common 3-10 Spirit 00:00: - [facility] 00 [facility] Synvisc Synvisc 2-0 No 16mg Common 3-10 Spirit 00:00: - [facility] 00 [facility] Synvisc Synvisc 2-0 No 16mg Common 3-10 Spirit 00:00: - [facility] 00 [facility] Synvisc Synvisc 2-0 No 16mg Common 3-10 Spirit 00:00: - [facility] 00 [facility] Synvisc Synvisc 2-0 No 16mg Common 3-03 Spirit 00:00: - [facility] 00 [facility] Synvisc Synvisc 2-0 No 16mg Common 3-03 Spirit 00:00: - [facility] 00 [facility] Synvisc Synvisc 2-0 No 16mg Common 3-03 Spirit 00:00: - [facility] 00 [facility] Synvisc Synvisc 2-0 No 16mg Common 3-03 Spirit 00:00: - [facility] 00 [facility] Synvisc Synvisc 2-0 No 16mg Common 3-03 Spirit 00:00: - [facility] 00 [facility] Synvisc Synvisc 2-0 No 16mg Common 3-03 Spirit 00:00: - [facility] 00 [facility] Synvisc Synvisc 2021-0 No 16mg Common 3-03 Spirit 00:00: - [facility] 00 [facility] Synvisc Synvisc 2021-0 No 16mg Common 3-03 Spirit 00:00: - [facility] 00 [facility] Kenalog Kenalog 2021-0 No 40mg Common (Triamcinol (Triamcinol 2-24 S pirit one) one) 00:00: - [facility] 00 [facility] Bupivicaine Bupivicaine 2021-0 No Common Crowley Crowley 2-24 Spirit 00:00: - [facility] 00 [facility] Synvisc Synvisc 2021-0 No 16mg Common 2-24 Spirit 00:00: - [facility] 00 [facility] Kenalog Kenalog 2021-0 No 40mg Common (Triamcinol (Triamcinol 2-24 S pirit one) one) 00:00: - [facility] 00 [facility] Bupivicaine Bupivicaine 2021-0 No 2.5mg Common Crowley Crowley 2-24 Spirit 00:00: - [facility] 00 [facility] Synvisc Synvisc 2021-0 No 16mg Common 2-24 Spirit 00:00: - [facility] 00 [facility] Kenalog Kenalog 2021-0 No 40mg Common (Triamcinol (Triamcinol 2-24 S pirit one) one) 00:00: - [facility] 00 [facility] Bupivicaine Bupivicaine 2021-0 No 2.5mg Common Crowley Crowley 2-24 Spirit 00:00: - [facility] 00 [facility] Synvisc Synvisc 2021-0 No 16mg Common 2-24 Spirit 00:00: - [facility] 00 [facility] Kenalog Kenalog 2-0 No 40mg Common (Triamcinol (Triamcinol 2-24 S pirit one) one) 00:00: - [facility] 00 [facility] Bupivicaine Bupivicaine 2-0 No 2.5mg Common Crowley Crowley 2-24 Spirit 00:00: - [facility] 00 [facility] Synvisc Synvisc 2021-0 No 16mg Common 2-24 Spirit 00:00: - [facility] 00 [facility] Kenalog Kenalog 2021-0 No 40mg Common (Triamcinol (Triamcinol 2-24 S pirit one) one) 00:00: - [facility] 00 [facility] Bupivicaine Bupivicaine 2-0 No 2.5mg Common Crowley Crowley 2-24 Spirit 00:00: - [facility] 00 [facility] Synvisc Synvisc 2021-0 No 16mg Common 2-24 Spirit 00:00: - [facility] 00 [facility] Kenalog Kenalog 2021-0 No 40mg Common (Triamcinol (Triamcinol 2-24 S pirit one) one) 00:00: - [facility] 00 [facility] Kenalog Kenalog 2021-0 No 40mg Common (Triamcinol (Triamcinol 2-24 S pirit one) one) 00:00: - [facility] 00 [facility] Bupivicaine Bupivicaine 2021-0 No 2.5mg Common Crowley Crowley 2-24 Spirit 00:00: - [facility] 00 [facility] Synvisc Synvisc 2021-0 No 16mg Common 2-24 Spirit 00:00: - [facility] 00 [facility] Kengracia Kenalog 2021-0 No 40mg Common (Triamcinol (Triamcinol 2-24 S pirit one) one) 00:00: - [facility] 00 [facility] Bupivicaine Bupivicaine 2021-0 No 2.5mg Common Crowley Crowley 2-24 Spirit 00:00: - [facility] 00 [facility] Synvisc Synvisc 2021-0 No 16mg Common 2-24 Spirit 00:00: - [facility] 00 [facility] Bupivicaine Bupivicaine 2-0 No Common Crowley Crowley 2-24 Spirit 00:00: - [facility] 00 [facility] Synvisc Synvisc 2021-0 No 16mg Common 2-24 Spirit 00:00: - [facility] 00 [facility] Kenalog Kenalog 2-0 No 40mg Common (Triamcinol (Triamcinol 2-24 S pirit one) one) 00:00: - [facility] 00 [facility] Bupivicaine Bupivicaine 2-0 No Common Crowley Crowley 2-24 Spirit 00:00: - [facility] 00 [facility] Synvisc Synvisc 2-0 No 16mg Common 2-24 Spirit 00:00: - [facility] 00 [facility] Kenalog Kenalog 2020-0 No 40mg Common (Triamcinol (Triamcinol 8-24 S pirit one) one) 00:00: - [facility] 00 [facility] Bupivicaine Bupivicaine 2020-0 No Common Crowley Crowley 8-24 Spirit 00:00: - [facility] 00 [facility] Kenalog Kenalog 2020-0 No 40mg Common (Triamcinol (Triamcinol 8-24 S pirit one) one) 00:00: - [facility] 00 [facility] Bupivicaine Bupivicaine 2020-0 No 2.5mg Common Crowley Crowley 8-24 Spirit 00:00: - [facility] 00 [facility] Kenalog Kenalog 2020-0 No 40mg Common (Triamcinol (Triamcinol 8-24 S pirit one) one) 00:00: - [facility] 00 [facility] Bupivicaine Bupivicaine 2020-0 No 2.5mg Common Crowley Crowley 8-24 Spirit 00:00: - [facility] 00 [facility] Kenalog Kenalog 2020-0 No 40mg Common (Triamcinol (Triamcinol 8-24 S pirit one) one) 00:00: - [facility] 00 [facility] Bupivicaine Bupivicaine 1-0 No 2.5mg Common Crowley Crowley 8-24 Spirit 00:00: - [facility] 00 [facility] Kenalog Kenalog 2020-0 No 40mg Common (Triamcinol (Triamcinol 8-24 S pirit one) one) 00:00: - [facility] 00 [facility] Bupivicaine Bupivicaine 1-0 No 2.5mg Common Crowley Crowley 8-24 Spirit 00:00: - [facility] 00 [facility] Kenalog Kenalog 1-0 No 40mg Common (Triamcinol (Triamcinol 8-24 S pirit one) one) 00:00: - [facility] 00 [facility] Bupivicaine Bupivicaine 1-0 No 2.5mg Common Crowley Crowley 8-24 Spirit 00:00: - [facility] Kenalog Kenalog No 40mg Common (Triamcinol (Triamcinol 8-24 S pirit one) one) 00:00: - CH[facility] Bupivicaine Bupivicaine 0 No 2.5mg Common Crowley Crowley 8-24 Spirit 00:00: - [facility] Kenalog Kenalog No 40mg Common (Triamcinol (Triamcinol 8-24 S pirit one) one) 00:00: - [facility] Bupivicaine Bupivicaine 2020-0 No Common Crowley Crowley 8-24 Spirit 00:00: - [facility] Klaudia Kenalog No 40mg Common (Triamcinol (Triamcinol 8-24 S pirit one) one) 00:00: - CHI [facility] Bupivicaine Bupivicaine No Common Crowley Crowley 8-24 Spirit 00:00: - [facility] 00 [facility] Piroxicam Piroxicam Yes UT 10 MG [...] Cosamin for Joint for Joint ASU for [facility] Caltrate Caltrate No Caltrate 600 600 600 [...] Cosamin for Joint for Joint ASU for [facility] Levothyroxi Levothyroxi No Levothyrox ne Sodium ne [...] Cosamin for Joint for Joint ASU for [facility] Levothyroxi Levothyroxi No Levothyrox ne Sodium ne [...] Cosamin for Joint for Joint ASU for [facility] Azithromyci Azithromyci No Azithromyc n n in Celecoxib Celecoxib No Celecoxib Denta 5000 Denta 5000 No Denta 5000 Plus Plus Plus Denta 5000 Denta 5000 No Denta 5000 Plus Plus Plus Bisoprolol- Bisoprolol- No Bisoprolol hydroCHLORO hydroCHLORO -hydroCHLO thiazide thiazide ROthiazide Co Q 10 Co Q 10 No Co Q 10 Cosamin ASU Cosamin ASU No Cosamin for Joint for Joint ASU for [facility] Caltrate Caltrate No Caltrate 600 600 600 Cosamin ASU Cosamin ASU No Cosamin for Joint for Joint ASU for [facility] Levothyroxi Levothyroxi No Levothyrox ne Sodium ne [...] for Joint for Joint ASU for Health [facility] Levothyroxi Levothyroxi No Levothyrox ne Sodium [...] Cosamin for Joint for Joint ASU for [facility] Caltrate Caltrate No Caltrate 600 600 600 [...] Cosamin for Joint for Joint ASU for [facility] Famotidine Famotidine No Famotidine ZyrTEC ZyrTEC No [...] Cosamin for Joint for Joint ASU for [facility] Denta 5000 Denta 5000 No Denta 5000 [...] [facility] (Triamcinolone) (Triamcinolone) 10:41:00 - I [facility] Bupivicaine Crowley Bupivicaine Crowley 2021-06-15 Completed [facility] 10:40:00 [facility] Vital Signs Vital Name Observation Time Observation Value Comments Source height 2022-10-28 08:00:00 66 [in_i] Common pirit [facility] weight 2022-10-28 08:00:00 203 [lb_av] Common [facility] temperature 2022-10-28 08:00:00 97.7 [degF] Common S pirit [facility] bmi 2022-10-28 08:00:00 32.76 kg/m2 Common S pirit [facility] blood pressure 2022-10-28 08:00:00 128 mm[Hg] Common [facility] - systolic [facility] blood pressure 2022-10-28 08:00:00 78 mm[Hg] Common [facility] - diastolic [facility] height 2022-10-20 13:15:00 66 [in_i] Common [facility] weight 2022-10-20 13:15:00 203 [lb_av] [facility] temperature 2022-10-20 13:15:00 97.2 [degF] Common S [facility] bmi 2022-10-20 13:15:00 32.76 kg/m2 [facility] blood pressure 2022-10-20 13:15:00 126 mm[Hg] Common [facility] - systolic [facility] blood pressure 2022-10-20 13:15:00 80 mm[Hg] Common [facility] - diastolic [facility] height 2022-10-10 14:15:00 66 [in_i] Common S pirit [facility] weight 2022-10-10 14:15:00 203 [lb_av] Common [facility] temperature 2022-10-10 14:15:00 97.9 [degF] Common [facility] bmi 2022-10-10 14:15:00 32.76 kg/m2 [facility] blood pressure 2022-10-10 14:15:00 125 mm[Hg] Common [facility] - systolic [facility] blood pressure 2022-10-10 14:15:00 80 mm[Hg] Common [facility] - diastolic [facility] height 2022-08-29 09:45:00 66 [in_i] Common S pirit - [facility] weight 2022-08-29 09:45:00 203.1 [lb_av] Common [facility] - [facility] temperature 2022-08-29 09:45:00 96.5 [degF] Common S pirit - [facility] bmi 2022-08-29 09:45:00 32.78 kg/m2 Common S pirit - [facility] blood pressure 2022-08-29 09:45:00 126 mm[Hg] Common [facility] - systolic [facility] blood pressure 2022-08-29 09:45:00 82 mm[Hg] Common [facility] - diastolic [facility] height 2022-05-02 15:15:00 66 [in_i] Common S pirit - [facility] weight 2022-05-02 15:15:00 200 [lb_av] Common S pirit - [facility] temperature 2022-05-02 15:15:00 98.3 [degF] Common S pirit - [facility] bmi 2022-05-02 15:15:00 32.28 kg/m2 Common S pirit [facility] blood pressure 2022-05-02 15:15:00 124 mm[Hg] Common [facility] - systolic [facility] blood pressure 2022-05-02 15:15:00 78 mm[Hg] Common [facility] - diastolic [facility] height 2021-12-30 09:30:00 66 [in_i] Common S pirit - [facility] weight 2021-12-30 09:30:00 200 [lb_av] Common S pirit [facility] temperature 2021-12-30 09:30:00 97.3 [degF] Common S pirit [facility] bmi 2021-12-30 09:30:00 32.28 kg/m2 Common S pirit - [facility] blood pressure 2021-12-30 09:30:00 128 mm[Hg] Common [facility] - systolic [facility] blood pressure 2021-12-30 09:30:00 84 mm[Hg] Common [facility] - diastolic [facility] height 2021-12-23 15:00:00 66 [in_i] Common S pirit - [facility] weight 2021-12-23 15:00:00 200 [lb_av] Common S pirit - [facility] bmi 2021-12-23 15:00:00 32.28 kg/m2 Common S pirit - [facility] blood pressure 2021-12-23 15:00:00 126 mm[Hg] Common [facility] - systolic [facility] blood pressure 2021-12-23 15:00:00 84 mm[Hg] Common [facility] - diastolic [facility] height 2021-12-16 09:00:00 66 [in_i] Common S pirit - [facility] weight 2021-12-16 09:00:00 200 [lb_av] Common S pirit - [facility] temperature 2021-12-16 09:00:00 96.2 [degF] Common S pirit [facility] bmi 2021-12-16 09:00:00 32.28 kg/m2 Common S pirit - [facility] blood pressure 2021-12-16 09:00:00 138 mm[Hg] Common [facility] - systolic [facility] blood pressure 2021-12-16 09:00:00 84 mm[Hg] Common [facility] - diastolic [facility] height 2021-06-15 09:30:00 66 [in_i] Common S pirit - [facility] weight 2021-06-15 09:30:00 200.1 [lb_av] Common [facility] - [facility] bmi 2021-06-15 09:30:00 32.29 kg/m2 Common S pirit - [facility] blood pressure 2021-06-15 09:30:00 153 mm[Hg] Common [facility] - systolic [facility] blood pressure 2021-06-15 09:30:00 80 mm[Hg] Common [facility] Procedures Procedure Date / Time Performed Performing Clinician [facility] e History of Total Knee [facility] Replacement Right History of Hysterectomy [facility] History of Thyroidectomy [facility] Encounters Start End Encounter Admission Attending Care Care Encounter Source Date/Time Date/Time Type Type Clinicians Facility Department ID 2022-10-28 Outpatient Dana, STLMLC STLMLC [id number] Common 09:38:02 Domingo [id number] [facility] 2021-12-16 Outpatient Dana, STLMLC STLMLC [id number] Common 08:45:02 Domingo [facility] 2021-11-17 Outpatient Dana, STLMLC STLMLC [id number] Common 13:41:59 Domingo [id number] [facility] 2022-10-28 2022-10-28 (IN/ASP) STLMLC STLMLC [id number] C ommon 00:00:00 00:00:00 INJ ASP [facility] 2022-10-20 2022-10-20 (IN/ASP) STLMLC STLMLC [id number] C ommon 00:00:00 00:00:00 INJ ASP [facility] 2022-10-10 2022-10-10 (IN/ASP) STLMLC STLMLC [id number] C ommon 00:00:00 00:00:00 INJ ASP [facility] 2022-09-22 2022-09-22 (TEL) STLMLC STLMLC [id number] Co mmon 00:00:00 00:00:00 [facility] 2022-08-29 2022-08-29 OFFICE STLMLC STLMLC [id number] Co mmon 00:00:00 00:00:00 VISIT Spirit ESTAB PT - CHI LEVEL 4 [facility] 2022-05-02 2022-05-02 OFFICE STLMLC STLMLC [id number] Co mmon 00:00:00 00:00:00 VISIT Spirit ESTAB PT - [facility] LEVEL 4 [facility] 2021-12-30 2021-12-30 (IN/ASP) STLMLC STLMLC [id number] C ommon 00:00:00 00:00:00 INJ ASP [facility] 2021-12-23 2021-12-23 (IN/ASP) STLMLC STLMLC [id number] C ommon 00:00:00 00:00:00 INJ ASP [facility] 2021-12-16 2021-12-16 (IN/ASP) STLMLC STLMLC [id number] C ommon 00:00:00 00:00:00 INJ ASP [facility] 2021-11-15 2021-11-15 (TEL) STLMLC STLMLC [id number] Co mmon 00:00:00 00:00:00 [facility] 2021-06-15 2021-06-15 OFFICE STLMLC STLMLC [id number] Co mmon 00:00:00 00:00:00 VISIT NEW [facility] it PT LEVEL 4 - [facility] 2018-06-13 2018-06-13 Appointmen [facility] [id number] [place] 08:30:00 08:30:00 t; Ryann RODRÍGUEZ [facility] ans Diann RODRÍGUEZ M.D. [place] Results Test Description Test Time Test Comments Results Result Sour e Comments [U] XRAY KNEE 3 2018-06-13 Images [facility] VWS RIGHT [id number] 08:04:00 acquired, not reported on this accession number.
[2023-05-07 16:14] LABS: Absolute Lymphocytes (CBC) 1.8 K/uL (0.7-4.9); Hematocrit 42.1 % (36.0-45.0); Lymphocytes % 18.4 % (15.3-44.8); MCV 93.2 fL (80-100); MPV 7.6 fL (7.6-11.3); RBC Red Blood Cell Count 4.52 M/uL (3.86-4.86)
[2023-05-07 16:21] LABS: Protime INR 1.05
--- NOTE | 2023-05-07 16:27 | RAD REPORT ---
EXAM DESCRIPTION: CT - Ct Stroke Brain Wo Cont - 05/07/2023 4:06 pm CLINICAL HISTORY: STROKE ALERT COMPARISON: SINUS W O CONTRAST dated 11/21/2008; Brain W/Wo Cont dated 04/17/2023 TECHNIQUE: Noncontrast head CT images were obtained without IV contrast. Multiplanar reformats were generated and reviewed. All CT scans are performed using dose optimization technique as appropriate and may include automated exposure control or mA/KV adjustment according to patient size. FINDINGS: No intracranial hemorrhage, mass, or edema. Midline structures are unremarkable. Normal ventricular caliber for age. Foci of white matter and left basal ganglia hypoattenuation are nonspecific and could relate to chron ic small vessel ischemic changes, although 1 of these may represent a small infarct of indeterminate age. Nunez-white matter differentiation is otherwise preserved, without evidence of acute infarct. No abnormal extra-axial fluid collections. Mastoid air cells and visualized portions of the paranasal sinuses are clear. No acute bony findings. IMPRESSION: No acute intracranial hemorrhage or territorial infarcts. Foci of white matter and left basal ganglia hypoattenuation are nonspecific and could relate to chronic small vessel ischemic johnson es, although 1 of these may represent a small infarct of indeterminate age. The findings were communicated to Barry Nino on 05/07/2023 at 16:21 hours.
[2023-05-07 16:33] LABS: Troponin High Sensitivity 9.8 pg/mL (<58.9)
[2023-05-07] MEDS ORDERED: NA CHLORIDE 0.9% 1,000 ML ONE (16:35)
[2023-05-07] MEDS ORDERED: FOLIC ACID 5 MG/ML VIAL ONE (16:35)
[2023-05-07 16:41] LABS: Albumin 3.6 g/dL (3.4-5.0); Bilirubin Direct 0.2 mg/dL (0-0.2); Bilirubin Indirect, Calculated 0.8 mg/dL (0.2-0.8); C-Reactive Protein 4.92 mg/L (<3.00); Protein, Total 7.4 g/dL (6.4-8.2)
--- NOTE | 2023-05-07 16:57 | RAD REPORT ---
EXAM DESCRIPTION: RADChest Single View05/07/2023 4:37 pm CLINICAL HISTORY: ams COMPARISON: Chest Single View dated 03/27/2023; Chest Single View dated 10/15/2019; CHEST PA AND LAT 2 VIEW dated 12/16/2014; CHEST SINGLE VIEW dated 05/22/2009 TECHNIQUE: Portable AP view of the chest. FINDINGS: Developing left basilar hazy opacification 3 No pneumothorax or effusion. The cardiomedias tinal contours are unremarkable. IMPRESSION: Developing left basilar hazy opacification, raising concern for pneumonia.
[2023-05-07] MEDS ORDERED: ASPIRIN 81 MG CHEWABLE TABLET ONE (17:29)
[2023-05-07] MEDS ORDERED: CLOPIDOGREL 75 MG TABLET ONE (17:29)
[2023-05-07] MEDS ORDERED: ATORVASTATIN 20 MG TAB ONE (17:30)
[2023-05-07] MEDS ORDERED: Levofloxacin500mg IV 500 MG/100 ML BAG IV ONE (17:30)
--- NOTE | 2023-05-07 17:34 | RAD REPORT ---
EXAM DESCRIPTION: CT - Head angio - 05/07/2023 5:08 pm CLINICAL HISTORY: TIA COMPARISON: Ct Stroke Brain Wo Cont dated 05/07/2023; SINUS W O CONTRAST dated 11/21/2008; Neck Angio dated 05/07/2023 TECHNIQUE: Axial CT angiography images of the head was performed with multiplanar and maximum intens ity projection reconstructions. Images performed following intravenous administration of 90mL Isovue 370. All CT scans are performed using dose optimization technique as appropriate and may include automated exposure control or mA/KV adjustment according to patient size. 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 Some of the left MCA branches demonstrate sluggish flow, including abrupt transition of an M3 branch 2 minimal opacification within the sylvian fissure, images 77-78 of the same series. Bilatera l JOSS, and right MCA, and bilateral vertebral arteries, basilar artery, and bilateral patient svcs mgr with their proximal branches are patent. No evidence of aneurysm or dissection flap is detected. No vascular malformation. Antegrade flow is seen in the vertebral arteries. The vertebral arteries are codominant. The visualized dural venous sinuses are grossly patent. 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 Sluggish dex w along more distal branches of the left MCA as above. The findings were communicated to Barry Nino on 05/07/2023 at 17:27 hours.
--- NOTE | 2023-05-07 17:37 | ER ---
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 AOx4 at baseline. Last known normal was 8pm last night. BP 158/78, HR 61, SpO2 96%, BLG 110. 20g LAC. Coronavirus screen: At this time, the client does not indicate any symptoms associated with coronavirus-19. Ebola Screen: No symptoms or risks identified at this time. Initial Sepsis Screen: Does the patient meet any 2 criteria? No. Patient's initial sepsis screen is negative. Does the patient have a suspected source of infection? No. Patient's initial sepsis screen is negative. Risk Assessment: Do you want to hurt yourself or someone else? Patient reports no desire to harm self or others. Onset of symptoms was May 07, 2023. 16:00 Method Of Arrival: EMS: [facility] hb 16:00 Acuity: ALTHEA 2 hb Triage Assessment: 16:00 General: Appears in no apparent distress. comfortable, Behavior is calm, cooperative, eh3 appropriate for age. Historical: - Allergies: 16:03 PENICILLINS; hb - Home Meds: 16:03 Meclizine Oral [Active]; hb - PMHx: 16:03 Hypertension; Thyroid problem; hb - PSHx: 16:03 Unable to Obtain; hb - Immunization history:: Adult Immunizations up to date. - Social history:: Smoking status: unknown. Screenin:00 [facility] ED Fall Risk Assessment (Adult) Score/Fall Risk Level 0 - 2 = Low Risk. Abuse eh3 screen: Denies threats or abuse. Denies injuries from another. Nutritional screening: No deficits noted. Tuberculosis screening: No symptoms or risk factors identified. 16:32 [place] Swallow Protocol Exclusion Criteria: Exclusion Criteria Result: Proceed Brief eh3 Cognitive Screen What is your name? Abnormal: cannot form the words of her name but responds yes when asked if her name is Carol Ann. Where are you right now? Abnormal: cannot form the word hospital but responds yes when asked if she is at the hospital. What year is it? Abnormal: not oriented to time. Oral Mechanism Examination Facial Symmetry: Normal, Motion: Normal, Lip Closure: Normal, Oral Mechanism Result: Normal. 3 oz Water Swallow Challenge: Pt able to drink all water without stopping, coughing, choking or throat clearing: Yes Result: PASS MD Notified: Barry Nino MD. Assessment: 15:47 Reassessment: CODE STROKE CALLED, PT IN CT DIRECT FROM EMS BAY. hb 16:00 General: Appears in no apparent distress. comfortable, Behavior is calm, cooperative, eh3 appropriate for age. Pain: Denies pain. Neuro: Level of Consciousness is awake, alert, obeys commands, Oriented to person, place. Neuro: Channel Specialist are weak on right Speech with expressive aphasia noted, Facial symmetry appears normal, Pupils are PERRLA. Cardiovascular: Capillary refill < 3 seconds Patient's skin is warm and dry. Cardiovascular: Rhythm is sinus rhythm. Respiratory: Airway is patent Respiratory effort is even, unlabored, Respiratory pattern is regular, symmetrical. GI: Abdomen is round non-distended. Derm: Skin is pink, warm \T\ dry. 18:31 Reassessment: Nurse to nurse report received by ALAYNA Brown at [facility]. 3 Vital Signs: 16:00 BP 167 / 67; Pulse 61; Resp 16; Temp 98.3; Pulse Ox 100% on R/A; Weight 99.79 kg; hb Height 5 ft. 6 in. ; Pain 0/10; 16:00 BP 146 / 79; Pulse 58; Resp 15; Pulse Ox 99% on R/A; mb9 16:30 BP 162 / 67; Pulse 62; Resp 16; Pulse Ox 100% on R/A; eh3 17:00 BP 164 / 76; Pulse 59; Resp 14; Pulse Ox 100% on R/A; mb9 17:30 BP 140 / 117; Pulse 57; Resp 20; Pulse Ox 100% on R/A; mb9 18:00 BP 157 / 117; Pulse 58; Resp 15; Pulse Ox 100% on R/A; mb9 16:00 Body Mass Index 35.51 (99.79 kg, 167.64 cm) hb 16:00 Pain Scale: Adult hb NIH Stroke Scale Scores: 17:08 NIHSS Score: 2 vipul ED Course: 16:00 Patient arrived in ED. hb 16:02 Maintain EMS IV. Dressing intact. Good blood return noted. Site clean \T\ dry. Gauge \T\ eh 3 site: 20g LAC. 16:03 Triage completed. hb 16:03 Barry Nino MD is Attending Physician. [facility] 16:04 Joyce Frazier, ALAYNA is Primary Nurse. eh3 16:05 Arm band placed on. hb 16:06 CT Stroke Brain w/o Contrast In Process Unspecified. EDMS 16:39 Stroke CXR 1 View In Process Unspecified. EDMS 16:48 Initial lab(s) drawn, by me, sent to lab. EKG done, by ED staff, reviewed by Barry Nino MD. 16:49 Patient has correct armband on for positive identification. Fall risk band placed. mm9 Placed in gown. Bed in low position. Call light in reach. Side rails up X 1. Side rails up X2. Adult w/ patient. Warm blanket given. Pillow given. Client placed on continuous cardiac and pulse oximetry monitoring. NIBP monitoring applied. bus monitor on. Pulse ox on. 17:10 CT Head Angio In Process Unspecified. EDMS 17:10 CT Neck Angio In Process Unspecified. EDMS 17:30 Inserted saline lock: 22 gauge in right antecubital area, using aseptic technique. eh3 Blood collected. 17:32 First set of blood cultures drawn by me. eh3 17:48 Second set of blood cultures drawn by ar. eh3 17:58 Clayton cath inserted, using sterile technique, 16 Fr., by me, balloon inflated, to mb9 gravity drainage, returned rick urine. Patient tolerated well. 18:14 Provided Education on: N/A. 3 18:14 No provider procedures requiring assistance completed. Patient transferred, IV remains eh3 in place. Administered Medications: 16:32 Drug: foLIC Acid IVPB 1 mg Route: IVPB; Site: left antecubital; 3 18:14 Follow up: Response: No adverse reaction; IV Status: Completed infusion; IV Intake: eh3 0.2ml 16:32 Drug: NS 0.9% IV 1000 ml Route: IV; Rate: 1 bolus; Site: left antecubital; 3 18:14 Follow up: IV Status: Completed infusion; IV Intake: 1000ml 3 18:00 Drug: Aspirin PO Chewable Tablet 324 mg Route: PO; mb9 18:14 Follow up: Response: No adverse reaction eh3 18:00 Drug: Clopidogrel PO 75 mg Route: PO; mb9 18:14 Follow up: Response: No adverse reaction eh3 18:00 Drug: Atorvastatin PO 20 mg Route: PO; mb9 18:14 Follow up: Response: No adverse reaction 3 18:12 Drug: levofloxacin IVPB 500 mg Volume: 100 ml; Route: IVPB; Infused Over: 60 mins; mb9 Site: left antecubital; 18:14 Follow up: Response: No adverse reaction; IV Status: [facility] Medication: 18:14 VIS not applicable for this client. 3 Intake: 18:14 IV: 1ml; Total: 1ml. eh3 18:14 IV: 1000ml; Total: 1001ml. eh3 18:14 IV: 0ml; Total: 1001ml. 3 Outcome: 17:37 ER care complete, transfer ordered by . vipul 18:14 Patient left the ED. mb9 18:14 Transferred by helicopter to [facility], Transfer form completed. 3 18:14 Condition: stable 18:14 Instructed on the need for transfer. NIH Stroke Scale - NIH Stroke Score Date: 05/07/2023 Time: 17:08 Total Score = 2 10. Dysarthria (speech clarity - read or repeat words) - 1(Mild to Moderate) 11. Extinction and Inattention (visual/tactile/auditory/spatial/personal) - 0(No abnormality) 1a. Level of Consciousness (LOC) - 0(Alert) 1b. Level of Consciousness (LOC) (Month \T\ Age) - 0(Both) 1c. LOC Commands (Open \T\ Closes Eyes/Set Up Operator) - 0(Both) 2. Best Gaze (Lateral Gaze Paresis) - 0(Normal) 3. Visual Field Loss - 0(No visual loss) 4. Facial Palsy - 0(Normal) 5a. Left Arm: Motor (10-second hold) - 0(No drift) 5b. Right Arm: Motor (10-second hold) - 0(No drift) 6a. Left Leg: Motor (5-second hold - always test supine) - 0(No drift) 6b. Right Leg: Motor (5-second hold - always test supine) - 0(No drift) 7. Limb Ataxia (finger/nose \T\ heel/hodgson - test with eyes open) - 0(Absent) 8. Sensory Loss (pinprick arms/legs/face) - 0(Normal) 9. Best Language: Aphasia (description/naming/reading) - 1(Mild to moderate aphasia) Initials: [facility] Signatures: Dispatcher [employer] Barry Culver MD MD cha Baxter, Heather, RN RN Joyce Frazier RN RN 3 Gail Champagne mm9 Ryan, Marlen Mitchell, RN RN mb9 Corrections: (The following items were deleted from the chart) 16:05 16:03 PSHx: None; [facility] 21:04 21:04 Social history: Smoking status: eh3 eh3
--- NOTE | 2023-05-07 17:37 | EDPHYS ---
Physician Documentation [facility] Name: Carol Ann Matute Age: 77 yrs Sex: Female : 1945 Arrival Date: 05/07/2023 Time: 15:58 Bed 16 Private MD: ED Physician Barry Nino HPI: 05/07 17:05 This 77 yrs old Female presents to ER via EMS with complaints of S/S of vipul Possible Stroke. 17:05 The patient's problem is reported as dysphasia, incoherent speech. Onset: The vipul symptoms/episode began/occurred this morning. Duration: The episode is continuous. Context: the episode(s) was witnessed, by family, son, granddaughter. The symptoms are alleviated by nothing. The symptoms are aggravated by nothing. Associated signs and symptoms: Pertinent positives: gait abnormality, lightheadedness, weakness. Severity of symptoms: At their worst the symptoms were moderate in the emergency department the symptoms are unchanged. Patient's baseline: Neuro: alert and fully oriented. The patient has not experienced similar symptoms in the past. Historical: - Allergies: 16:03 PENICILLINS; hb - Home Meds: 16:03 Meclizine Oral [Active]; hb - PMHx: 16:03 Hypertension; Thyroid problem; hb - PSHx: 16:03 Unable to Obtain; hb - Immunization history:: Adult Immunizations up to date. - Social history:: Smoking status: unknown. ROS: 17:08 Constitutional: Negative for fever, chills, and weight loss, Eyes: Negative for injury, vipul pain, redness, and discharge, ENT: Negative for injury, pain, and discharge, Neck: Negative for injury, pain, and swelling, Cardiovascular: Negative for chest pain, palpitations, and edema, Respiratory: Negative for shortness of breath, cough, wheezing, and pleuritic chest pain, Abdomen/GI: Negative for abdominal pain, nausea, vomiting, diarrhea, and constipation, Back: Negative for injury and pain, : Negative for injury, bleeding, discharge, and swelling, MS/Extremity: Negative for injury and deformity, Skin: Negative for injury, rash, and discoloration, Psych: Negative for depression, anxiety, suicide ideation, homicidal ideation, and hallucinations, Allergy/Immunology: Negative for hives, rash, and allergies, Endocrine: Negative for neck swelling, polydipsia, polyuria, polyphagia, and marked weight changes, Hematologic/Lymphatic: Negative for swollen nodes, abnormal bleeding, and unusual bruising. 17:08 Neuro: Positive for speech changes, weakness. Exam: 17:08 CT study not indicated or reported. Reason for not performing CT: ischemic changes vipul 17:08 Constitutional: This is a well developed, well nourished patient who is awake, alert, and in no acute distress. Head/Face: Normocephalic, atraumatic. Eyes: Pupils equal round and reactive to light, extra-ocular motions intact. Lids and lashes normal. Conjunctiva and sclera are non-icteric and not injected. Cornea within normal limits. Periorbital areas with no swelling, redness, or edema. ENT: Nares patent. No nasal discharge, no septal abnormalities noted. Tympanic membranes are normal and external auditory canals are clear. Oropharynx with no redness, swelling, or masses, exudates, or evidence of obstruction, uvula midline. Mucous membranes moist. Neck: Trachea midline, no thyromegaly or masses palpated, and no cervical lymphadenopathy. Supple, full range of motion without nuchal rigidity, or vertebral point tenderness. No Meningismus. Chest/axilla: Normal chest wall appearance and motion. Nontender with no deformity. No lesions are appreciated. Cardiovascular: Regular rate and rhythm with a normal S1 and S2. No gallops, murmurs, or rubs. Normal PMI, no JVD. No pulse deficits. Respiratory: Lungs have equal breath sounds bilaterally, clear to auscultation and percussion. No rales, rhonchi or wheezes noted. No increased work of breathing, no retractions or nasal flaring. Abdomen/GI: Soft, non-tender, with normal bowel sounds. No distension or tympany. No guarding or rebound. No evidence of tenderness throughout. Back: No spinal tenderness. No costovertebral tenderness. Full range of motion. Female : Normal external genitalia. Skin: Warm, dry with normal turgor. Normal color with no rashes, no lesions, and no evidence of cellulitis. MS/ Extremity: Pulses equal, no cyanosis. Neurovascular intact. Full, normal range of motion. Psych: Awake, alert, with orientation to person, place and time. Behavior, mood, and affect are within normal limits. 17:08 ECG was reviewed by the Attending Physician. 17:08 Neuro: Orientation: unable to test, aphasic, Mentation: appropriate for stated age, no acute changes, responsive to voice slow to respond, Memory: unable to test, Cranial nerves: grossly normal, is grossly normal based on the patient's age, no acute changes, Cerebellar function: is grossly normal, is grossly normal based on the patient's age, no acute changes, Motor: is normal, is grossly normal based on the patient's age, no acute changes, moves all fours, strength is normal, strength is 5/5 in all extremities, Sensation: is normal, no obvious gross deficits, appropriate no acute changes, Gait: not tested. Deep tendon reflexes are 1 (trace) + in the bilateral brachioradialis, bicep, tricep and patellar and Achilles tendons, Babinski testing is normal, seizure activity, is not displayed by the patient. Vital Signs: 16:00 BP 167 / 67; Pulse 61; Resp 16; Temp 98.3; Pulse Ox 100% on R/A; Weight 99.79 kg; hb Height 5 ft. 6 in. ; Pain 0/10; 16:00 BP 146 / 79; Pulse 58; Resp 15; Pulse Ox 99% on R/A; mb9 16:30 BP 162 / 67; Pulse 62; Resp 16; Pulse Ox 100% on R/A; eh3 17:00 BP 164 / 76; Pulse 59; Resp 14; Pulse Ox 100% on R/A; mb9 17:30 BP 140 / 117; Pulse 57; Resp 20; Pulse Ox 100% on R/A; mb9 18:00 BP 157 / 117; Pulse 58; Resp 15; Pulse Ox 100% on R/A; mb9 16:00 Body Mass Index 35.51 (99.79 kg, 167.64 cm) hb 16:00 Pain Scale: Adult hb NIH Stroke Scale Scores: 17:08 NIHSS Score: 2 vipul MDM: 16:04 Patient medically screened. vipul 17:16 Differential diagnosis: CVA, TIA, Dementia, paralysis. Data reviewed: vital signs, [facility] nurses notes, lab test result(s), EKG, radiologic studies, CT scan, plain films. Consideration of Admission/Observation Escalation of care including admission/observation considered. I considered the following discharge prescriptions or medication management in the emergency department Medications were administered in the Emergency Department. See MAR. Independent interpretation of the following test(s) in the Emergency Department EKG: See my EKG interpretation above. Test considered but Not performed: MRI: no mri available. Historians other than the Patient: Family Member: granddaughter and son. Care significantly affected by the following chronic conditions: Hypertension. Counseling: I had a detailed discussion with the patient and/or guardian regarding: the historical points, exam findings, and any diagnostic results supporting the discharge/admit diagnosis, the presence of at least one elevated blood pressure reading (>120/80) during this emergency department visit, lab results, radiology results, the need for further work-up and treatment in the hospital. 05/07 16:03 Order name: Basic Metabolic Panel; Complete Time: 16:58 [facility] 05/07 16:03 Order name: CBC with Diff; Complete Time: 16:58 [facility] 05/07 16:03 Order name: High Sensitivity Troponin; Complete Time: 16:58 [facility] 05/07 16:03 Order name: Protime (+inr); Complete Time: 16:58 [facility] 05/07 16:03 Order name: Ptt, Activated; Complete Time: 16:58 [facility] 05/07 16:05 Order name: LFT's; Complete Time: 16:58 [facility] 05/07 16:05 Order name: Magnesium; Complete Time: 16:58 [facility] 05/07 16:05 Order name: NT PRO-BNP; Complete Time: 16:58 [facility] 05/07 16:05 Order name: CRP; Complete Time: 16:58 [facility] 05/07 16:17 Order name: Glucose, Ancillary Testing; Complete Time: 16:58 [facility] 05/07 17:00 Order name: Blood Culture Adult (2) 05/07 17:00 Order name: Lactate w/ 2H reflex if indic. 05/07 17:05 Order name: Lipid Profile [facility] 05/07 16:03 Order name: CT Stroke Brain w/o Contrast; Complete Time: 16:58 [facility] 05/07 16:03 Order name: Stroke CXR 1 View; Complete Time: 16:58 [facility] 05/07 16:05 Order name: CT Head Angio 05/07 16:05 Order name: CT Neck Angio 05/07 16:03 Order name: EKG; Complete Time: 16:04 kj 16 16:03 Order name: Accucheck; Complete Time: 16:04 05/07 16:03 Order name: Cardiac monitoring; Complete Time: 16:04 05/07 16:03 Order name: EKG - Nurse/Tech; Complete Time: 16:23 05/07 16:03 Order name: IV Saline Lock; Complete Time: 16:05 05/07 16:03 Order name: Labs collected and sent; Complete Time: 16:32 05/07 16:03 Order name: NPO; Complete Time: 16:05 05/07 16:03 Order name: O2 Per Protocol; Complete Time: 16:05 05/07 16:03 Order name: O2 Sat Monitoring; Complete Time: 16:05 05/07 16:03 Order name: Stroke Swallow Screen; Complete Time: 16:32 05/07 16:05 Order name: Clayton; Complete Time: 17:58 vipul EC:08 Rate is 57 beats/min. Rhythm is regular. QRS [place] is Normal. UT interval is normal. QRS vipul interval is normal. QT interval is normal. No Q waves. T waves are Normal. No ST changes noted. Clinical impression: NSR w/ Non-specific ST/T Changes and No evidence of ischemia. Interpreted by me. Reviewed by me. Administered Medications: 16:32 Drug: foLIC Acid IVPB 1 mg Route: IVPB; Site: left antecubital; 3 18:14 Follow up: Response: No adverse reaction; IV Status: Completed infusion; IV Intake: eh3 0.2ml 16:32 Drug: NS 0.9% IV 1000 ml Route: IV; Rate: 1 bolus; Site: left antecubital; eh3 18:14 Follow up: IV Status: Completed infusion; IV Intake: 1000ml eh3 18:00 Drug: Aspirin PO Chewable Tablet 324 mg Route: PO; mb9 18:14 Follow up: Response: No adverse reaction eh3 18:00 Drug: Clopidogrel PO 75 mg Route: PO; mb9 18:14 Follow up: Response: No adverse reaction eh3 18:00 Drug: Atorvastatin PO 20 mg Route: PO; mb9 18:14 Follow up: Response: No adverse reaction 3 18:12 Drug: levofloxacin IVPB 500 mg Volume: 100 ml; Route: IVPB; Infused Over: 60 mins; mb9 Site: left antecubital; 18:14 Follow up: Response: No adverse reaction; IV Status: Infusion continued upon transfer; eh3 IV Intake: 1ml Disposition Summary: 05/07/23 17:37 Transfer Ordered Transfer Location: [facility] vipul Reason: Higher level of care vipul Condition: Fair vipul Problem: new vipul Symptoms: are unchanged vipul Accepting Physician: to nicu(05/07/23 18:14) mb9 Diagnosis - Cerebral infarction, unspecified vipul - Aphasia following cerebral infarction vipul - Essential (primary) hypertension vipul - Cerebral infarction due to unspecified occlusion or stenosis of left middle vipul cerebral artery Forms: - Medication Reconciliation Form vipul - SBAR form vipul NIH Stroke Scale - NIH Stroke Score Date: 05/07/2023 Time: 17:08 Total Score = 2 10. Dysarthria (speech clarity - read or repeat words) - 1(Mild to Moderate) 11. Extinction and Inattention (visual/tactile/auditory/spatial/personal) - 0(No abnormality) 1a. Level of Consciousness (LOC) - 0(Alert) 1b. Level of Consciousness (LOC) (Month \T\ Age) - 0(Both) 1c. LOC Commands (Open \T\ Closes Eyes/Wave Solder Offbearer) - 0(Both) 2. Best Gaze (Lateral Gaze Paresis) - 0(Normal) 3. Visual Field Loss - 0(No visual loss) 4. Facial Palsy - 0(Normal) 5a. Left Arm: Motor (10-second hold) - 0(No drift) 5b. Right Arm: Motor (10-second hold) - 0(No drift) 6a. Left Leg: Motor (5-second hold - always test supine) - 0(No drift) 6b. Right Leg: Motor (5-second hold - always test supine) - 0(No drift) 7. Limb Ataxia (finger/nose \T\ heel/hodgson - test with eyes open) - 0(Absent) 8. Sensory Loss (pinprick arms/legs/face) - 0(Normal) 9. Best Language: Aphasia (description/naming/reading) - 1(Mild to moderate aphasia) Initials: vipul Signatures: Dispatcher [employer] Barry Culver MD MD cha Baxter, Heather, RN RN hb Jackson, Kandis kj1 Joyce Frazier RN RN eh3 Marlen Davis RN RN mb9 Corrections: (The following items were deleted from the chart) 16:05 16:03 PSHx: None; hb hb 18:14 17:37 to nicu vipul mb9 21:04 21:04 Social history: Smoking status: 3 3
--- NOTE | 2023-05-07 17:40 | RAD REPORT ---
EXAM DESCRIPTION: CT - Neck Angio - 05/07/2023 5:09 pm CLINICAL HISTORY: SWELLING COMPARISON: Head angio dated 05/07/2023; Ct Stroke Brain Wo Cont dated 05/07/2023 TECHNIQUE: Axial CT angiography images of the head was performed with multiplanar and maximum intens ity projection reconstructions. Images performed following intravenous administration of mL Isovue [address] scans are performed using dose optimization technique as appropriate and may include automated exposure control or mA/KV adjustment according to patient size. Quantification of carotid stenosis, if any, is performed according to NASCET criteria. FINDINGS: A left aortic arch is identified with normal three vessel configuration of the great vesse ls. No significant flow abnormality is seen of the common carotid bilaterally. No significant stenosis is identified involving the cervical segments of both internal carotid arteri es. Normal flow is seen within both vertebral arteries. Cervical spine degenerative changes are present with gentle reversal of cervical lordosis and multile radha neural foraminal narrowing. IMPRESSION: No significant flow abnormality of the neck vessels is identified. CAROTID STENOSIS REFERENCE USING NASCET CRITERIA: % ICA stenosis = (1 - narrowest ICA diameter/diameter of distal cervical ICA) x 100. Mild - <50% stenosis. Moderate - 50-69% stenosis. Severe - 70-94% stenosis. Near occlusion - 95-99% stenosis. Occluded - 100% stenosis.
[2023-05-07 18:18] VITALS: TEMP 98.3
[2023-05-07 18:19] VITALS: O2SAT 100
[2023-05-07 18:23] VITALS: BP 157/117
--- NOTE | 2023-05-08 11:44 | EKG ---
Test Date: 2023-05-07 Test Time: 16:11:11 Immigration Guard: JB MEASUREMENT RESULTS: Intervals: Rate: 70 SD: 216 QRSD: 116 QT: 488 QTc: 527 [place]: P: 90 SD: 216 QRS: 56 T: 92 INTERPRETIVE STATEMENTS: Normal sinus rhythm with artifact Low voltage QRS Septal infarct, age undetermined ST & T wave abnormality, consider lateral ischemia Prolonged QT Abnormal ECG Compared to ECG 03/27/2023 10:27:53 Low QRS voltage now present ST (T wave) deviation now present Possible ischemia now present Prolonged QT interval now present Myocardial infarct finding still present Electronically Signed On 05-08-23 11:43:40 CDT by Bora Mendez
--- NOTE | 2023-05-08 15:41 | EKG ---
Test Date: 2023-05-07 Test Time: 16:17:26 Fish Icer: JB MEASUREMENT RESULTS: Intervals: Rate: 57 MI: 186 QRSD: 112 QT: 488 QTc: 474 [place]: P: 60 MI: 186 QRS: 53 T: 90 INTERPRETIVE STATEMENTS: Sinus bradycardia Low voltage QRS Septal infarct, age undetermined Abnormal ECG Compared to ECG 05/07/2023 16:11:11 Sinus rhythm no longer present ST (T wave) deviation no longer present Possible ischemia no longer present Prolonged QT interval no longer present Myocardial infarct finding still present Electronically Signed On 05-08-23 15:41:02 CDT by Bora Mendez
== END 2023-05-07 18:14 | disposition short-term general hospital (02) ==
LOC: ER 15:58
DX: I63.512 Cerebral infarction due to unspecified occlusion or stenosis of left middle cerebral artery (principal); I10 Essential (primary) hypertension; R29.702 NIHSS score 2; Z88.0 Allergy status to penicillin
CPT/HCPCS: 96365; 93005 ×2; 87040 ×2; 85025; 80048; 36415; 83735; 85610; 80061; 82947; 80076; 83605; 85730; 84484; 83880; 86140; 70496; 70498; 70450; 71045; 51702; 96375; 99285; 96366; Q9967; J7030

== ENCOUNTER 2023-06-01 08:32 | Emergency (ER) | payer OTHER ==
--- NOTE | 2023-06-01 08:56 | RAD REPORT ---
EXAM DESCRIPTION: CT - Head Brain Wo Cont - 06/01/2023 8:48 am CLINICAL HISTORY: HEADACHE Headache, drowsiness, history of CVA COMPARISON: Head angio dated 05/07/2023; Ct Stroke Brain Wo Cont dated 05/07/2023 TECHNIQUE: All CT scans are performed using dose optimization technique as appropriate and may inclu de automated exposure control or mA/KV adjustment according to patient size. FINDINGS: No intracranial hemorrhage, hydrocephalus or extra-axial fluid collection.Mild generalized brain atrophy is present with mild periventricular and deep white matter chronic microvascular ische matthew changes.No areas of brain edema or evidence of midline shift. The paranasal sinuses and mastoids are clear. The calvarium is intact. IMPRESSION: No acute intracranial abnormality.
--- OUTSIDE RECORDS SUMMARY | 2023-06-01 08:57 | XMS REPORT | Continuity of Care Document ---
:1945 Author Organization [facility] t Address [address] [facility] [address] [place] [address] Care Team Providers Name Role Phone PABLO MONTE Attending Clinician Unavailable Kemar Vides Anavella Attending Clinician Unava ilable [id number] Attending Clinician Unavailable BHARATHI NOEL Attending Clinician Unavailable JESUS LOVETT Attending Clinician Unavailable AILIN MEDRANO Attending Clinician Unavailable Domingo Cortez Attending Clinician Unavailable KASEY KIMBALL Attending Clinician Unavailable MARCOS SALDIVAR M.D. Attending Clinician Unavailable AILIN MEDRANO Admitting Clinician Unavailable Santosh Vides Anav Admitting Clinician Unavailable [id number] Admitting Clinician Unavailable LIOR BAUTISTA Admitting Clinician Unavailable KASEY KIMBALL Admitting Clinician Unavailable Payers Payer Name Policy Type Policy Number Effective Date Expiration Date S ource UNITED MEDICARE [id number] 2022 HMO 00:00:00 [facility] [id number] [facility] [id number] [facility] t Medicare [facility] Problems Condition Condition Condition Status Onset Resolution Last Treating Co mments Source Name Details Category Date Date Treatment Clinician Date [id number] Arthritis Problem Co mmon [id number] of knee, [facility] Primary Primary Problem Active [place] osteoarthr osteoarthr [...] blood [id number] d Physici pressure pressure ans Allergies, Adverse Reactions, Alerts Allergy Allergy Status Severity Reaction(s) Onset Inactive Treating Comm ents Source Name Type Date Date Clinician PENICILL Allergy Active ENCCLR IN 05-30 10:45: 23 Erythrom drug Active [facility] ycin allergy Physici Derivati ans ves Penicill drug Active [facility] ins allergy Physici ans Sulfa drug Active [facility] Drugs allergy Physici ans NO KNOWN Allergy Active [facility] penicill penicill Active Unknown Commo n in G in G [facility] Family History Family Member Diagnosis Comments Start Date Stop Date Source Mother Family history of malignant [facility] neoplasm Mother Family history of cardiac [facility] disorder Father Family history of cardiac [facility] disorder Social History Social Habit Start Date Stop Date Quantity Comments Source History of Tobacco Use Co mmon [facility] Sex Assigned At Com mon [facility] Smoking Status Start Date Stop Date Source Never Smoker Common [facility] Medications Ordered Filled Start Stop Current Ordering Indication Dosage Frequency Signature Comments Components Source Medication Medication Date Date Medication? Clinician (SIG) Name Name Synvisc Synvisc 2023-0 No 16mg Common 1-06 Spirit 00:00: - [facility] Synvisc Synvisc 2021-10 No 16mg Common 2- Spirit 00:00: - [facility] 00 [facility] Synvis Synvisc 2021-10 No 16mg Common 2-29 Spirit 00:00: - [facility] 00 [facility] Synvis Synvisc 2021-10 No 16mg Common 2- [facility] 00:00: - [facility] 00 [facility] Kenalog Kenalog 2021-10 No 40mg Common (Triamcinol (Triamcinol 2-19 S pirit one) one) 00:00: - [facility] 00 [facility] Bupivicaine Bupivicaine 2021-10 No 2.5mg [facility] [place] 2-19 Spirit 00:00: - [facility] 00 [facility] Bupivicaine Bupivicaine 2021-10 No 2.5mg [facility] [place] 2-19 Spirit 00:00: - [facility] 00 [facility] Synvisc Synvisc 2021-10 No 16mg Common 2- Spirit 00:00: - [facility] 00 [facility] Kenalog Kenalog 2021-10 No 40mg Common (Triamcinol (Triamcinol 2-19 S pirit one) one) 00:00: - [facility]I 00 [facility] Bupivicaine Bupivicaine 2021-10 No 2.5mg [facility] [place] 2-19 Spirit 00:00: - [facility] 00 [facility] Synvis Synvisc 2021-10 No 16mg Common 2-19 Spirit 00:00: - [facility] 00 [facility] Kenalog Kenalog 2021-10 No 40mg [facility] (Triamcinol (Triamcinol 2-19 S pirit one) one) 00:00: - [facility]I 00 [facility] Kenalog Kenalog No 40mg Common (Triamcinol (Triamcinol 7-11 S pirit one) one) 00:00: - [facility]I 00 [facility] Bupivicaine Bupivicaine No 2.5mg [facility] [place] 7-11 Spirit 00:00: - [facility] 00 [facility] Kenalog Kenalog 2022-0 No 40mg Common (Triamcinol (Triamcinol 7-11 S pirit one) one) 00:00: - [facility]I 00 [facility] Bupivicaine Bupivicaine 2-0 No 2.5mg [facility] [place] 7-11 Spirit 00:00: - [facility] 00 [facility] Kenalog Kenalog 2-0 No 40mg Common (Triamcinol (Triamcinol 7-11 S pirit one) one) 00:00: - [facility] 00 [facility] Bupivicaine Bupivicaine 2-0 No 2.5mg [facility] [place] 7-11 Spirit 00:00: - [facility] 00 [facility] Kenalog Kenalog 2-0 No 40mg Common (Triamcinol (Triamcinol 7-11 S pirit one) one) 00:00: - [facility]I 00 [facility] Bupivicaine Bupivicaine 2-0 No 2.5mg [facility] [place] 7-11 Spirit 00:00: - [facility] 00 [facility] Kenalog Kenalog 2021-0 No 40mg Common (Triamcinol (Triamcinol 7-11 S pirit one) one) 00:00: - CHI 00 [facility] Bupivicaine Bupivicaine 2-0 No 2.5mg [facility] [place] 7-11 Spirit 00:00: - [facility] 00 [facility] Kenalog Kenalog 2-0 No 40mg Common (Triamcinol (Triamcinol 7-11 S pirit one) one) 00:00: - [facility]I 00 [facility] Bupivicaine Bupivicaine 2-0 No 2.5mg [facility] [place] 7-11 Spirit 00:00: - [facility] 00 [facility] Synvisc Synvisc 2-0 No 16mg Common 3-10 Spirit 00:00: - [facility] 00 [facility] Synvisc Synvisc 2-0 No 16mg Common 3-10 Spirit 00:00: - [facility]I 00 [facility] Synvisc Synvisc 2-0 No 16mg Common 3-10 Spirit 00:00: - [facility] 00 [facility] Synvisc Synvisc 2021-0 No 16mg Common 3-10 Spirit 00:00: - [facility] 00 [facility] Synvisc Synvisc 2-0 No 16mg Common 3- Spirit 00:00: - [facility] 00 [facility] Synvisc Synvisc 2-0 No 16mg Common 3- Spirit 00:00: - [facility] 00 [facility] Synvisc Synvisc 2-0 No 16mg Common 3- Spirit 00:00: - [facility] 00 [facility] Synvisc Synvisc 2-0 No 16mg Common 3- Spirit 00:00: - [facility]I 00 [facility] Synvisc Synvisc 2-0 No 16mg Common 3- Spirit 00:00: - [facility]I 00 [facility] Synvisc Synvisc 2-0 No 16mg Common 3- Spirit 00:00: - [facility] 00 [facility] Synvisc Synvisc 2-0 No 16mg Common 3- Spirit 00:00: - [facility] 00 [facility] Synvisc Synvisc 2-0 No 16mg Common 3- Spirit 00:00: - [facility]I 00 [facility] Synvisc Synvisc 2-0 No 16mg Common 3- Spirit 00:00: - [facility]I 00 [facility] Synvisc Synvisc 2-0 No 16mg Common 3- Spirit 00:00: - [facility] 00 [facility] Synvisc Synvisc 2-0 No 16mg Common 3- Spirit 00:00: - [facility]I 00 [facility] Kenalog Kenalog 2-0 No 40mg Common (Triamcinol (Triamcinol 2-24 S pirit one) one) 00:00: - CHI 00 [facility] Bupivicaine Bupivicaine 2-0 No [place] 2-24 Spirit 00:00: - [facility] 00 [facility] Synvisc Synvisc 2-0 No 16mg Common 2- Spirit 00:00: - [facility]I 00 [facility] Kenalog Kenalog 2-0 No 40mg Common (Triamcinol (Triamcinol 2-24 S pirit one) one) 00:00: - CHI 00 [facility] Bupivicaine Bupivicaine 2-0 No 2.5mg [place] 2-24 Spirit 00:00: - [facility]I 00 [facility] Synvisc Synvisc 2021-0 No 16mg Common 2-24 Spirit 00:00: - [facility]I 00 [facility] Kenalog Kenalog 2021-0 No 40mg Common (Triamcinol (Triamcinol 2-24 S pirit one) one) 00:00: - CHI 00 [facility] Bupivicaine Bupivicaine 2021-0 No 2.5mg [facility] [place] 2-24 Spirit 00:00: - [facility]I 00 [facility] Synvisc Synvisc 2021-0 No 16mg Common 2-24 Spirit 00:00: - [facility]I 00 [facility] Kenalog Kenalog 2021-0 No 40mg Common (Triamcinol (Triamcinol 2-24 S pirit one) one) 00:00: - CHI 00 [facility] Bupivicaine Bupivicaine 2021-0 No 2.5mg [place] 2-24 Spirit 00:00: - [facility]I 00 [facility] Synvisc Synvisc 2021-0 No 16mg Common 2-24 Spirit 00:00: - [facility]I 00 [facility] Kenalog Kenalog 2021-0 No 40mg Common (Triamcinol (Triamcinol 2-24 S pirit one) one) 00:00: - CHI 00 [facility] Bupivicaine Bupivicaine 2-0 No 2.5mg [place] 2-24 Spirit 00:00: - [facility]I 00 [facility] Synvisc Synvisc 2021-0 No 16mg Common 2-24 Spirit 00:00: - [facility]I 00 [facility] Kenalog Kenalog 2-0 No 40mg Common (Triamcinol (Triamcinol 2-24 S pirit one) one) 00:00: - CHI 00 [facility] Kenalog Kenalog 2-0 No 40mg Common (Triamcinol (Triamcinol 2-24 S pirit one) one) 00:00: - CHI 00 [facility] Bupivicaine Bupivicaine 2-0 No 2.5mg [place] 2-24 Spirit 00:00: - [facility]I 00 [facility] Synvisc Synvisc 2021-0 No 16mg Common 2-24 Spirit 00:00: - CHI 00 [facility] Kenalog Kenalog 2021-0 No 40mg [facility] (Triamcinol (Triamcinol 2-24 S pirit one) one) 00:00: - CHI 00 [facility] Bupivicaine Bupivicaine 2021-0 No 2.5mg [place] 2-24 Spirit 00:00: - CHI 00 [facility] Synvisc Synvisc 2021-0 No 16mg [facility] 2-24 Spirit 00:00: - [facility]I 00 [facility] Bupivicaine Bupivicaine 2021-0 No [place] 2-24 Spirit 00:00: - [facility] 00 [facility] Synvisc Synvisc 2021-0 No 16mg Common 2-24 Spirit 00:00: - CHI 00 [facility] Kenalog Kenalog 2021-0 No 40mg Common (Triamcinol (Triamcinol 2-24 S pirit one) one) 00:00: - CHI 00 [facility] Bupivicaine Bupivicaine 2021-0 No [place] 2-24 Spirit 00:00: - [facility] 00 [facility] Synvisc Synvisc 2021-0 No 16mg Common 2-24 Spirit 00:00: - [facility]I 00 [facility] Kenalog Kenalog 2020-0 No 40mg Common (Triamcinol (Triamcinol 8-24 S pirit one) one) 00:00: - CHI 00 [facility] Bupivicaine Bupivicaine 2020-0 No [place] 8-24 Spirit 00:00: - CHI 00 [facility] Kenalog Kenalog 2020-0 No 40mg Common (Triamcinol (Triamcinol 8-24 S pirit one) one) 00:00: - CHI 00 [facility] Bupivicaine Bupivicaine 1-0 No 2.5mg [facility] [place] 8-24 Spirit 00:00: - CHI 00 [facility] Kenalog Kenalog 2020-0 No 40mg Common (Triamcinol (Triamcinol 8-24 S pirit one) one) 00:00: - CHI 00 [facility] Bupivicaine Bupivicaine 2020-0 No 2.5mg [facility] [place] 8-24 Spirit 00:00: - [facility]I 00 [facility] Kenalog Kenalog 2020-0 No 40mg Common (Triamcinol (Triamcinol 8-24 S pirit one) one) 00:00: - CHI 00 [facility] Bupivicaine Bupivicaine 2020-0 No 2.5mg [facility] [place] 8-24 Spirit 00:00: - [facility]I 00 [facility] Kenalog Kenalog 2020-0 No 40mg Common (Triamcinol (Triamcinol 8-24 S pirit one) one) 00:00: - CHI 00 [facility] Bupivicaine Bupivicaine 2020-0 No 2.5mg [facility] [place] 8-24 Spirit 00:00: - [facility]I 00 [facility] Kenalog Kenalog 2020-0 No 40mg Common (Triamcinol (Triamcinol 8-24 S pirit one) one) 00:00: - CHI 00 [facility] Bupivicaine Bupivicaine 2020-0 No 2.5mg [facility] [place] 8-24 Spirit 00:00: - CHI 00 [facility] Kenalog Kenalog 2020-0 No 40mg Common (Triamcinol (Triamcinol 8-24 S pirit one) one) 00:00: - CHI 00 [facility] Bupivicaine Bupivicaine 2020-0 No 2.5mg [facility] [place] 8-24 Spirit 00:00: - CHI 00 [facility] Kenalog Kenalog 2020-0 No 40mg Common (Triamcinol (Triamcinol 8-24 S pirit one) one) 00:00: - CHI 00 [facility] Bupivicaine Bupivicaine 2020-0 No [place] 8-24 Spirit 00:00: - CHI 00 [facility] Kenalog Kenalog 2020-0 No 40mg Common (Triamcinol (Triamcinol 8-24 S pirit one) one) 00:00: - CHI 00 [facility] Bupivicaine Bupivicaine 0 No [place] 8-24 Spirit 00:00: - [facility]I 00 [facility] Bisoprolol- Bisoprolol- No Bisoprolol hydroCHLORO hydroCHLORO -hydroCHLO thiazide thiazide ROthiazide Azithromyci Azithromyci No Azithromyc n n in methylPREDN methylPREDN No methylPRED ISolone ISolone NISolone Denta 5000 Denta 5000 No Denta 5000 Plus Plus Plus Premarin Premarin No Premarin Cosamin ASU Cosamin ASU No Cosamin for Joint for Joint ASU for [facility] ZyrTEC ZyrTEC No ZyrTEC Levothyroxi Levothyroxi No Levothyrox ne Sodium ne Sodium ine Sodium Caltrate Caltrate No Caltrate 600 600 600 Celecoxib Celecoxib No Celecoxib Co Q 10 Co Q 10 No Co Q 10 Montelukast Montelukast No Montelukas Sodium Sodium t Sodium Famotidine Famotidine No Famotidine methylPREDN methylPREDN No methylPRED ISolone ISolone NISolone Co Q 10 Co Q 10 No Co Q 10 Levothyroxi Levothyroxi No Levothyrox ne Sodium ne Sodium ine Sodium Cosamin ASU Cosamin ASU No Cosamin for Joint for Joint ASU for [facility] Caltrate Caltrate No Caltrate 600 600 600 Denta 5000 Denta 5000 No Denta 5000 Plus Plus Plus Premarin Premarin No Premarin Azithromyci Azithromyci No Azithromyc n n in Celecoxib Celecoxib No Celecoxib Montelukast Montelukast No Montelukas Sodium Sodium t Sodium Famotidine Famotidine No Famotidine Bisoprolol- Bisoprolol- No [...] Cosamin for Joint for Joint ASU for [facility] Levothyroxi Levothyroxi No Levothyrox ne Sodium [...] Cosamin for Joint for Joint ASU for [facility] Levothyroxi Levothyroxi No Levothyrox ne Sodium [...] Cosamin for Joint for Joint ASU for [facility] Azithromyci Azithromyci No Azithromyc n n in Celecoxib Celecoxib No Celecoxib Denta 5000 Denta 5000 No Denta 5000 Plus Plus Plus Denta 5000 Denta 5000 No Denta 5000 Plus Plus Plus Bisoprolol- Bisoprolol- No Bisoprolol hydroCHLORO hydroCHLORO -hydroCHLO thiazide thiazide ROthiazide Co Q 10 Co Q 10 No Co Q 10 Cosamin ASU Cosamin ASU No Cosamin for Joint for Joint ASU for [facility] Caltrate Caltrate No Caltrate 600 600 600 Cosamin ASU Cosamin ASU No Cosamin for Joint for Joint ASU for [facility] Levothyroxi Levothyroxi No Levothyrox ne Sodium [...] Cosamin for Joint for Joint ASU for [facility] Levothyroxi Levothyroxi No Levothyrox ne Sodium [...] Cosamin for Joint for Joint ASU for [facility] Health Caltrate Caltrate No Caltrate 600 600 600 [...] Cosamin for Joint for Joint ASU for [facility] Famotidine Famotidine No Famotidine ZyrTEC ZyrTEC No [...] Cosamin for Joint for Joint ASU for [facility] Denta 5000 Denta 5000 No Denta 5000 [...] Celecoxib No Celecoxib Famotidine Famotidine No Famotidine Piroxicam Piroxicam Yes UT 10 MG Oral 10 MG Oral Phy sici Capsule Capsule ans Triamterene Triamterene Yes U T -HCTZ CAPS -HCTZ CAPS Phy sici ans Biotin TABS Biotin TABS Yes U T Physici ans NexIUM CPDR NexIUM CPDR Yes U T Physici ans Sucralfate Sucralfate Yes UT TABS TABS Physici ans Zyrtec TABS Zyrtec TABS Yes U T Physici ans Singulair Singulair Yes UT TABS TABS Physici ans Premarin Premarin Yes UT TABS TABS Physici ans Levothyroxi Levothyroxi Yes U T ne Sodium ne Sodium Physi ci TABS TABS ans Immunizations Ordered Immunization Filled Immunization Date Status Commen ts Source Name Name Klaudia Rudolph 2021-06-15 Completed [facility] (Triamcinolone) (Triamcinolone) 10:41:00 - [facility] Bupivicaine [place] Bupivicaine [place] 2021-06-15 Completed [facility] 10:40:00 [facility] Vital Signs Vital Name Observation Time Observation Value Comments Source HEIGHT 2023-05-07 20:31:00 165.1 cm WEIGHT 2023-05-07 20:31:00 92.2 kg HEIGHT 2023-05-07 20:31:00 165.1 cm WEIGHT 2023-05-07 20:31:00 92.2 kg height 2022-10-28 08:00:00 66 [in_i] [facility] weight 2022-10-28 08:00:00 203 [lb_av] [facility] temperature 2022-10-28 08:00:00 97.7 [degF] [facility] bmi 2022-10-28 08:00:00 32.76 kg/m2 [facility] blood pressure 2022-10-28 08:00:00 128 mm[Hg] [facility] - systolic [facility] blood pressure 2022-10-28 08:00:00 78 mm[Hg] [facility] - diastolic [facility] height 2022-10-20 13:15:00 66 [in_i] [facility] - [facility] weight 2022-10-20 13:15:00 203 [lb_av] [facility] - [facility] temperature 2022-10-20 13:15:00 97.2 [degF] [facility] - [facility] bmi 2022-10-20 13:15:00 32.76 kg/m2 Common S [facility]irit - [facility] blood pressure 2022-10-20 13:15:00 126 mm[Hg] [facility] - systolic [facility] blood pressure 2022-10-20 13:15:00 80 mm[Hg] [facility] - diastolic [facility] height 2022-10-10 14:15:00 66 [in_i] [facility] - [facility] weight 2022-10-10 14:15:00 203 [lb_av] [facility] - [facility] temperature 2022-10-10 14:15:00 97.9 [degF] [facility] - [facility] bmi 2022-10-10 14:15:00 32.76 kg/m2 [facility] S [facility] - [facility] blood pressure 2022-10-10 14:15:00 125 mm[Hg] [facility] - systolic [facility] blood pressure 2022-10-10 14:15:00 80 mm[Hg] [facility] - diastolic [facility] height 2022-08-29 09:45:00 66 [in_i] [facility] - [facility] weight 2022-08-29 09:45:00 203.1 [lb_av] [facility] temperature 2022-08-29 09:45:00 96.5 [degF] [facility] - [facility] bmi 2022-08-29 09:45:00 32.78 kg/m2 [facility] S [facility] - [facility] blood pressure 2022-08-29 09:45:00 126 mm[Hg] [facility] - systolic [facility] blood pressure 2022-08-29 09:45:00 82 mm[Hg] [facility] - diastolic [facility] height 2022-05-02 15:15:00 66 [in_i] [facility] - [facility] weight 2022-05-02 15:15:00 200 [lb_av] [facility] - [facility] temperature 2022-05-02 15:15:00 98.3 [degF] [facility] - [facility] bmi 2022-05-02 15:15:00 32.28 kg/m2 Common S [facility] - [facility] blood pressure 2022-05-02 15:15:00 124 mm[Hg] [facility] - systolic [facility] blood pressure 2022-05-02 15:15:00 78 mm[Hg] [facility] - diastolic [facility] height 2021-12-30 09:30:00 66 [in_i] Common S [facility] - [facility] weight 2021-12-30 09:30:00 200 [lb_av] [facility] - [facility] temperature 2021-12-30 09:30:00 97.3 [degF] [facility] - [facility] bmi 2021-12-30 09:30:00 32.28 kg/m2 [facility] - [facility] blood pressure 2021-12-30 09:30:00 128 mm[Hg] [facility] - systolic [facility] blood pressure 2021-12-30 09:30:00 84 mm[Hg] [facility] - diastolic [facility] height 2021-12-23 15:00:00 66 [in_i] [facility] - [facility] weight 2021-12-23 15:00:00 200 [lb_av] [facility] - [facility] bmi 2021-12-23 15:00:00 32.28 kg/m2 [facility] S [facility] - [facility] blood pressure 2021-12-23 15:00:00 126 mm[Hg] [facility] - systolic [facility] blood pressure 2021-12-23 15:00:00 84 mm[Hg] [facility] - diastolic [facility] height 2021-12-16 09:00:00 66 [in_i] Common [facility] weight 2021-12-16 09:00:00 200 [lb_av] Common [facility] temperature 2021-12-16 09:00:00 96.2 [degF] Common S pirit [facility] bmi 2021-12-16 09:00:00 32.28 kg/m2 [facility] blood pressure 2021-12-16 09:00:00 138 mm[Hg] [facility] - systolic [facility] blood pressure 2021-12-16 09:00:00 84 mm[Hg] [facility] - diastolic [facility] height 2021-06-15 09:30:00 66 [in_i] Common [facility] weight 2021-06-15 09:30:00 200.1 [lb_av] Common [facility] bmi 2021-06-15 09:30:00 32.29 kg/m2 [facility] blood pressure 2021-06-15 09:30:00 153 mm[Hg] [facility] - systolic [facility] blood pressure 2021-06-15 09:30:00 80 mm[Hg] [facility] - diastolic [facility] Procedures Procedure Date / Time Performed Performing Clinician [facility] History of Total Knee [facility] Replacement Right History of Hysterectomy [facility] History of Thyroidectomy [facility] Encounters Start End Encounter Admission Attending Care Care Encounter Source Date/Time Date/Time Type Type Clinicians Facility Department ID 2023-05-16 Inpatient ER MELL SLE[facility] [id number] [facility] 08:09:35 MRINALINI 2023-05-15 Outpatient 3 [facility] ENCPL REF [id number] [facility] 14:43:14 pilar, 0724 [facility] [place] 2023-05-11 Outpatient 3 [id number] ENCPL REF [id number] [facility] 10:08:21 [facility] [place] 2023-05-11 Inpatient ER VENKATASUBB SLEH SLEH [id number] SLEH 04:07:16 A MABRYLOVESALTY 2023-05-10 Inpatient ER VENKATASUBB SLEH SLEH [id number] SLEH 15:10:46 A LOVE MABRYAMNA 2023-05-10 Outpatient 3 [id number] ENCPL REF [id number] [facility] 11:32:11 0719 [facility] [place] 2023-05-10 Inpatient ER PITTARD, SLEH SLEH [id number] SLE[facility] 07:40:13 [facility] 2023-05-09 Inpatient ER PITTARD, SLEH SLEH [id number] SLEH 00:00:00 [facility] 2023-05-08 Inpatient ER VENKATASUBB SLEH SLEH [id number] SLEH 20:03:52 A LOVE MABRYAMNA 2023-05-07 Inpatient ER MEDRANO, SLEH SLEH [id number] SLEH 19:43:50 [facility] 2023-05-07 Inpatient ER MEDRANO, SLEH SLEH [id number] SLEH 19:43:40 [facility] 2022-10-28 Outpatient Dana, STLMLC STLMLC [id number] Common 09:38:02 Domingo [facility] 2021-12-16 Outpatient Dana, STLMLC STLMLC [id number] Common 08:45:02 Domingo [facility] 2021-11-17 Outpatient Dana, STLMLC STLMLC [id number] Common 13:41:59 [facility] 2023-05-30 2023-05-30 Outpatient READMISSKAITLIN CORTEZ, ENCCLR ENCCLR [id number] ENCCLR 00:00:00 00:00:00 N DOMINGO 2023-05-16 2023-05-29 Inpatient 3 [facility] ENCPL CVA [id number] [facility] 11:39:00 11:35:00 Jayme quezada25 [facility] it[facility] [place] 2023-05-07 2023-05-16 Inpatient ER MELL [facility] Surgery [id number] SLEH 18:52:00 10:55:00 MRINALINI 2023-05-11 2023-05-11 Inpatient ER [facility] SLEH SLEH [id number] SLEH 14:48:38 00:00:00 A MABRYBHARATHI 2023-05-11 2023-05-11 Inpatient ER [facility] SLEH SLEH [id number] SLEH 14:48:35 00:00:00 A MABRYBHARATHI 2023-05-11 2023-05-11 Inpatient ER [facility] SLEH SLEH [id number] SLEH 14:48:32 00:00:00 A RAGHAVENDRA LOVESALTY 2023-05-08 2023-05-08 Outpatient SLEH SLEH [id number] SLEH 00:00:00 00:00:00 2023-05-07 2023-05-07 Outpatient EL KIMBALL, SLEH SLEH [id number] SLEH 18:52:35 23:59:00 KASEY 2023-05-07 2023-05-07 Outpatient ER KIMBALL, SLEH SLEH [id number] SLEH 19:00:33 19:00:33 KASEY 2023-05-07 2023-05-07 Outpatient ER KIMBALL, SLEH SLEH [id number] SLEH 18:57:32 18:57:32 KASEY 2023-05-07 2023-05-07 Outpatient [facility] [place], [facility] SLEH [id number] SLEH 18:57:23 18:57:23 KASEY 2022-10-28 2022-10-28 (IN/ASP) STLMLC STLMLC [id number] C ommon 00:00:00 00:00:00 INJ [facility] 2022-10-20 2022-10-20 (IN/ASP) STLMLC STLMLC [id number] C ommon 00:00:00 00:00:00 INJ [facility] 2022-10-10 2022-10-10 (IN/ASP) STLMLC STLMLC [id number] C ommon 00:00:00 00:00:00 INJ [facility] 2022-09-22 2022-09-22 (TEL) STLMLC STLMLC [id number] Co mmon 00:00:00 00:00:00 [facility] 2022-08-29 2022-08-29 OFFICE STLMLC STLMLC [id number] Co mmon 00:00:00 00:00:00 VISIT [facility] ESTAB PT - CHI LEVEL 4 [facility] 2022-05-02 2022-05-02 OFFICE STLMLC STLMLC [id number] Co mmon 00:00:00 00:00:00 VISIT [facility] ESTAB PT - CHI LEVEL 4 [facility] 2021-12-30 2021-12-30 (IN/ASP) STLMLC STLMLC [id number] C ommon 00:00:00 00:00:00 INJ ASP [facility] 2021-12-23 2021-12-23 (IN/ASP) STLMLC STLMLC [id number] C ommon 00:00:00 00:00:00 INJ ASP [facility] 2021-12-16 2021-12-16 (IN/ASP) STLMLC STLMLC [id number] C ommon 00:00:00 00:00:00 INJ ASP [facility] 2021-11-15 2021-11-15 (TEL) STLMLC STLMLC [id number] Co mmon 00:00:00 00:00:00 [facility] 2021-06-15 2021-06-15 OFFICE STLMLC STLMLC [id number] Co mmon 00:00:00 00:00:00 VISIT NEW [facility] it PT LEVEL 4 [facility] 2018-06-13 2018-06-13 AppointCHRIS Wyatt [facility] [id number] UT 08:30:00 08:30:00 tTita RODRÍGUEZ M.D. [facility] ans Diann RODRÍGUEZ M.D. [place] Results Test Description Test Time Test Comments Results Result Comments Source CBC W/PLT COUNT & AUTO DIFFERENTIAL 2023-05-15 07:57:35 Test Item Value Reference Range Interpretation Comme nts WHITE BLOOD CELL COUNT (BEAKER) (test code = 775) 10.4 K/ L 3.5- 10.5 RED BLOOD CELL COUNT (BEAKER) (test code = 761) 3.61 M/ L 3.93-5 .22 L HEMOGLOBIN (BEAKER) (test code = 410) 11.2 GM/DL 11.2-15.7 HEMATOCRIT (BEAKER) (test code = 411) 33.8 % 34.1-44.9 L MEAN CORPUSCULAR VOLUME (BEAKER) (test code = 753) 94 fL 79- 95 MEAN CORPUSCULAR HEMOGLOBIN (BEAKER) (test code = 751) 31.0 pg 25.6-32.2 MEAN CORPUSCULAR HEMOGLOBIN CONC (BEAKER) (test code = 752) 33.1 GM/DL 32.2-35.5 RED CELL DISTRIBUTION WIDTH (BEAKER) (test code = 412) 14.1 % 11.7-14.4 PLATELET COUNT (BEAKER) (test code = 756) 307 K/CU MM 150-450 MEAN PLATELET VOLUME (BEAKER) (test code = 754) 8.5 fL 9.4-12 .3 L NUCLEATED RED BLOOD CELLS (BEAKER) (test code = 413) 0 /100 WBC 0 -0 NEUTROPHILS RELATIVE PERCENT (BEAKER) (test code = 429) 77 % LYMPHOCYTES RELATIVE PERCENT (BEAKER) (test code = 430) 11 % MONOCYTES RELATIVE PERCENT (BEAKER) (test code = 431) 10 % EOSINOPHILS RELATIVE PERCENT (BEAKER) (test code = 432) 1 % BASOPHILS RELATIVE PERCENT (BEAKER) (test code = 437) 1 % NEUTROPHILS ABSOLUTE COUNT (BEAKER) (test code = 670) 8.07 K/ L 1.56-6.13 H LYMPHOCYTES ABSOLUTE COUNT (BEAKER) (test code = 414) 1.11 K/ L 1.18-3.74 L MONOCYTES ABSOLUTE COUNT (BEAKER) (test code = 415) 1.03 K/ L 0. 24-0.36 H EOSINOPHILS ABSOLUTE COUNT (BEAKER) (test code = 416) 0.12 K/ L 0.04-0.36 BASOPHILS ABSOLUTE COUNT (BEAKER) (test code = 417) 0.06 K/ L 0. 01-0.08 IMMATURE GRANULOCYTES-RELATIVE PERCENT (BEAKER) (test code 0.50 % 0.00-1.00 = 2801) BASIC METABOLIC [id number] 05:39:20 Test Item Value Reference Range Interpretation Comments SODIUM (BEAKER) 137 meq/L 136-145 (test code = 381) POTASSIUM 4.5 meq/L 3.5-5.1 Specimen slight ly (BEAKER) (test hemolyzed code = 379) CHLORIDE (BEAKER) 104 meq/L 98-107 (test code = 382) CO2 (BEAKER) 22 meq/L 22-29 (test code = 355) BLOOD UREA 19 mg/dL 7-21 NITROGEN (BEAKER) (test code = 354) CREATININE 0.83 mg/dL 0.57-1.25 Specimen slight ly (BEAKER) (test hemolyzed code = 358) GLUCOSE RANDOM 104 mg/dL 70-105 (BEAKER) (test code = 652) CALCIUM (BEAKER) 8.3 mg/dL 8.4-10.2 L (test code = 697) EGFR (BEAKER) 72 Interpretatio n of eGFR (test code = mL/min/1.73 values Stage De scription 1092) sq m Result G1 Kristine l or high >=90 G2 Mildly decreased 60-89 G3a Mildl y to moderately 45-5 9 G3b Moderately to s everely 30-44 G4 Severl y decreased 15-29 G5 Kidney failure <15Reported eGF R is based on the CKD-EPI 2020 equation that d oes not use a race coefficientEsti mated GFR is not as accur ate as Creatinine Stephanie ribeiro in predicting glom erular filtration rate . Estimated GFR is not appl icable for dialysis patien ts Director Post ID - ADMINCBC (HEMOGRAM ONLY)2023-05-14 05:22:30 Test Item Value Reference Range Interpretation Comments WHITE BLOOD CELL COUNT (BEAKER) 12.8 K/ L 3.5-10.5 H (test code = 775) RED BLOOD CELL COUNT (BEAKER) 3.39 M/ L 3.93-5.22 L (test code = 761) HEMOGLOBIN (BEAKER) (test code = 10.6 GM/DL 11.2-15.7 L 410) HEMATOCRIT (BEAKER) (test code = 31.8 % 34.1-44.9 L 411) MEAN CORPUSCULAR VOLUME (BEAKER) 94 fL 79-95 (test code = 753) MEAN CORPUSCULAR HEMOGLOBIN 31.3 pg 25.6-32.2 (BEAKER) (test code = 751) MEAN CORPUSCULAR HEMOGLOBIN CONC 33.3 GM/DL 32.2-35.5 (BEAKER) (test code = 752) RED CELL DISTRIBUTION WIDTH 14.3 % 11.7-14.4 (BEAKER) (test code = 412) PLATELET COUNT (BEAKER) (test 296 K/CU MM 150-450 code = 756) MEAN PLATELET VOLUME (BEAKER) 9.7 fL 9.4-12.3 (test code = 754) NUCLEATED RED BLOOD CELLS 0 /100 WBC 0-0 (BEAKER) (test code = 413) [id number] 04:35:37 Test Item Value Reference Range Interpretation Comments PHOSPHORUS (BEAKER) 3.7 mg/dL 2.3-4.7 Specimen slightly (test code = 604) hemolyzed Director Post ID - BSBASIC METABOLIC [id number] 04:35:37 Test Item Value Reference Range Interpretation Comments SODIUM (BEAKER) 133 meq/L 136-145 L (test code = 381) POTASSIUM 4.9 meq/L 3.5-5.1 Specimen slight ly (BEAKER) (test hemolyzed code = 379) CHLORIDE (BEAKER) 102 meq/L 98-107 (test code = 382) CO2 (BEAKER) 21 meq/L 22-29 L (test code = 355) BLOOD UREA 19 mg/dL 7-21 NITROGEN (BEAKER) (test code = 354) CREATININE 0.92 mg/dL 0.57-1.25 Specimen slight ly (BEAKER) (test hemolyzed code = 358) GLUCOSE RANDOM 117 mg/dL 70-105 H (BEAKER) (test code = 652) CALCIUM (BEAKER) 8.5 mg/dL 8.4-10.2 (test code = 697) EGFR (BEAKER) 64 Interpretatio n of eGFR (test code = mL/min/1.73 values Stage De scription 1092) sq m Result G1 Norm al or high >=90 G2 Mildly decreased 60-89 G3a Mildl y to moderately 45-5 9 G3b Moderately to s everely 30-44 G4 Severl y decreased 15-29 G5 Kidney failure <15Reported eGF R is based on the CKD-EPI 2020 equation that d oes not use a race coefficientEsti mated GFR is not as accur ate as Creatinine Stephanie ribeiro in predicting glom erular filtration rate . Estimated GFR is not appl icable for dialysis patien ts Director Post ID - [id number] 04:35:36 Test Item Value Reference Range Interpretation Comments MAGNESIUM (BEAKER) 2.2 mg/dL 1.6-2.6 Specimen slightly (test code = 627) hemolyzed Director Post ID - BSCBC W/PLT COUNT & AUTO [id number] 03:34:58 Test Item Value Reference Range Interpretation Comments WHITE BLOOD CELL COUNT (BEAKER) 14.3 K/ L 3.5-10.5 H (test code = 775) RED BLOOD CELL COUNT (BEAKER) 3.95 M/ L 3.93-5.22 (test code = 761) HEMOGLOBIN (BEAKER) (test code = 12.1 GM/DL 11.2-15.7 410) HEMATOCRIT (BEAKER) (test code = 37.1 % 34.1-44.9 411) MEAN CORPUSCULAR VOLUME (BEAKER) 94 fL 79-95 (test code = 753) MEAN CORPUSCULAR HEMOGLOBIN 30.6 pg 25.6-32.2 (BEAKER) (test code = 751) MEAN CORPUSCULAR HEMOGLOBIN CONC 32.6 GM/DL 32.2-35.5 (BEAKER) (test code = 752) RED CELL DISTRIBUTION WIDTH 14.1 % 11.7-14.4 (BEAKER) (test code = 412) PLATELET COUNT (BEAKER) (test 254 K/CU MM 150-450 code = 756) MEAN PLATELET VOLUME (BEAKER) 9.6 fL 9.4-12.3 (test code = 754) NUCLEATED RED BLOOD CELLS 0 /100 WBC 0-0 (BEAKER) (test code = 413) NEUTROPHILS RELATIVE PERCENT 79 % (BEAKER) (test code = 429) LYMPHOCYTES RELATIVE PERCENT 9 % (BEAKER) (test code = 430) MONOCYTES RELATIVE PERCENT 10 % (BEAKER) (test code = 431) EOSINOPHILS RELATIVE PERCENT 1 % (BEAKER) (test code = 432) BASOPHILS RELATIVE PERCENT 0 % (BEAKER) (test code = 437) NEUTROPHILS ABSOLUTE COUNT 11.28 K/ L 1.56-6.13 H (BEAKER) (test code = 670) LYMPHOCYTES ABSOLUTE COUNT 1.32 K/ L 1.18-3.74 (BEAKER) (test code = 414) MONOCYTES ABSOLUTE COUNT (BEAKER) 1.49 K/ L 0.24-0.36 H (test code = 415) EOSINOPHILS ABSOLUTE COUNT 0.14 K/ L 0.04-0.36 (BEAKER) (test code = 416) BASOPHILS ABSOLUTE COUNT (BEAKER) 0.04 K/ L 0.01-0.08 (test code = 417) IMMATURE GRANULOCYTES-RELATIVE 0.50 % 0.00-1.00 PERCENT (BEAKER) (test code = 2801) CBC W/PLT COUNT & AUTO [id number] 04:58:02 Test Item Value Reference Range Interpretation Comments WHITE BLOOD CELL COUNT (BEAKER) 15.7 K/ L 3.5-10.5 H (test code = 775) RED BLOOD CELL COUNT (BEAKER) 4.16 M/ L 3.93-5.22 (test code = 761) HEMOGLOBIN (BEAKER) (test code = 13.0 GM/DL 11.2-15.7 410) HEMATOCRIT (BEAKER) (test code = 38.9 % 34.1-44.9 411) MEAN CORPUSCULAR VOLUME (BEAKER) 94 fL 79-95 (test code = 753) MEAN CORPUSCULAR HEMOGLOBIN 31.3 pg 25.6-32.2 (BEAKER) (test code = 751) MEAN CORPUSCULAR HEMOGLOBIN CONC 33.4 GM/DL 32.2-35.5 (BEAKER) (test code = 752) RED CELL DISTRIBUTION WIDTH 14.1 % 11.7-14.4 (BEAKER) (test code = 412) PLATELET COUNT (BEAKER) (test 267 K/CU MM 150-450 code = 756) MEAN PLATELET VOLUME (BEAKER) 9.4 fL 9.4-12.3 (test code = 754) NUCLEATED RED BLOOD CELLS 0 /100 WBC 0-0 (BEAKER) (test code = 413) (CELLAVISION MANUAL DIFF)2023-05-12 04:58:02 Test Item Value Reference Range Interpretation Comments NEUTROPHILS - REL 87 % (CELLAVISION)(BEAKER) (test code = 2816) LYMPHOCYTES - REL 7 % (CELLAVISION)(BEAKER) (test code = 2817) MONOCYTES - REL 6 % (CELLAVISION)(BEAKER) (test code = 2818) NEUTROPHILS - ABS 13.66 K/ul 1.56-6.13 H (CELLAVISION)(BEAKER) (test code = 2830) LYMPHOCYTES - ABS 1.10 K/ul 1.18-3.74 L (CELLAVISION)(BEAKER) (test code = 2831) MONOCYTES - ABS 0.94 K/uL 0.24-0.36 H (CELLAVISION)(BEAKER) (test code = 2832) TOTAL COUNTED (BEAKER) (test code 100 = 1351) WBC MORPHOLOGY (BEAKER) (test code Normal = 487) GIANT PLATELETS (BEAKER) (test Present code = 313) ANISOCYTOSIS (BEAKER) (test code = 1+ few 961) POIKILOCYTES (BEAKER) (test code = 1+ few 966) OVALOCYTES (BEAKER) (test code = 1+ few 477) KERRIE CELLS (BEAKER) (test code = 1+ few 474) ARTIFACT (CELLAVISION)(BEAKER) Present (test code = 3432) PLATELET CONCENTRATION Adequate (CELLAVISION)(BEAKER) (test code = 3438) Director Post ID - Denisa Santamaria comments: Slide comments:T4, [id number] 04:57:30 Test Item Value Reference Range Interpretation Comments FREE T4 (BEAKER) (test code = 655) 1.67 ng/dL 0.70-1.48 H Director Post ID - [id number] 04:24:19 Test Item Value Reference Range Interpretation Comments MAGNESIUM (BEAKER) (test code = 2.0 mg/dL 1.6-2.6 627) Director Post ID - [id number] 04:24:19 Test Item Value Reference Range Interpretation Comments PHOSPHORUS (BEAKER) (test code = 4.9 mg/dL 2.3-4.7 H 604) Director Post ID - DBBASIC METABOLIC [id number] 04:24:18 Test Item Value Reference Range Interpretation Comments SODIUM (BEAKER) 134 meq/L 136-145 L (test code = 381) POTASSIUM 4.2 meq/L 3.5-5.1 (BEAKER) (test code = 379) CHLORIDE (BEAKER) 103 meq/L 98-107 (test code = 382) CO2 (BEAKER) 20 meq/L 22-29 L (test code = 355) BLOOD UREA 19 mg/dL 7-21 NITROGEN (BEAKER) (test code = 354) CREATININE 0.97 mg/dL 0.57-1.25 (BEAKER) (test code = 358) GLUCOSE RANDOM 119 mg/dL 70-105 H (BEAKER) (test code = 652) CALCIUM (BEAKER) 8.4 mg/dL 8.4-10.2 (test code = 697) EGFR (BEAKER) 60 Interpretatio n of eGFR (test code = mL/min/1.73 values Stage De scription 1092) sq m Result G1 Kristine l or high >=90 G2 Mildly decreased 60-89 G3a Mildl y to moderately 45-5 9 G3b Moderately to s everely 30-44 G4 Severl y decreased 15-29 G5 Kidney failure <15Reported eGF R is based on the CKD-EPI 2021 equation that d oes not use a race coefficientEsti mated GFR is not as accur ate as Creatinine Stephanie quintin in predicting glom erular filtration rate . Estimated GFR is not appl icable for dialysis patien ts Director Post ID - DBCT BRAIN WITHOUT IV [id number] 15:49:45 [facility] : 1945 Sex: FCTA CAROTID, CTA BRAIN, CT BRAIN WITHOUT IV CONTRASTBRAIN CT WITHOUT CONTRASTINDICATION: Stroke, follow upCOMPARISON: 05/07/2023 CT headTECHNIQUE:Rapid acquisition spiral images were obtained between the aortic archand the cranial vertex during intravenous contrast infusion toreconstruct axial images and angiographic 3D maximum intensityprojections (MIP). 3-D volumetric reformatted images were created at [employer] workstation. Precontrast images of the brain were alsoobtained. Stenosis evaluation reportedin compliance with NASCET criteria.DOSE REDUCTION: Dose modulation, iterative reconstruction, and/orweight-based adjustment of the mA/kV was utilized to reduce theradiation dose to as low as reasonably achievable.FINDINGS:CT BRAIN:No intracranial hemorrhage, midline shift or mass effect. Scatteredsmall hypodensities in the left frontal and parietal lobes., Leftputamen Midline structures are normally developed. Hypoattenuationwithin the periventricular and subcortical white matter is present,nonspecific by imaging, however, statistically representing chronicmicrovascular changes in this age group. Diffuse senescent parenchymal volume loss.No hydrocephalus.Atherosclerotic calcification of the intracranial internal carotid andvertebral arteries. Orbits are within normal limits. No obstructive paranas al sinus disease.CTA BRAIN:Internal carotid arteries: Petrous, cavernous and supraclinoid portionspatent. Middle cerebral arteries: Patent to distal branches.Anterior cerebral arteries: Patent. No A-comm aneurysm.Basilar system: Patent vertebrobasilar system.Posterior cerebral arteries:Patent P1 and P2 segments. Venous opacification: Major dural sinuses unremarkable for bolus timing.Additional findings: None.CTA NECK:Common carotid arteries: The common carotid arteries are normal in size. Bifurcations: No flow-limiting stenosis. Macro scatteredCervical internal carotid arteries: No flow limiting mariel nosis.Vertebral arteries: Hypoplastic right vertebral artery.Arch anatomy: Conventional.Nonvascular findings:Osseous structures: No acute osseous abnormality. Intact calvarium andskull base. Moderate spondylosis and facet arthropathy are presentwithin the spine. Reversal of the normal cervical lordosis.Cervical soft tissues: No adenopathy. Patent aerodigestive tract.Lung apices: No apical consolidation or pneumothorax.IMPRESSION:CT brain:1. No intracranial hemorrhage or large territory infarct.2. 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 No acute vascular abnormality in the head and neck. Resolution ofthe previously seen left MCA M1 occlusion following thrombectomy. 2. Hypoplastic right vertebral artery.Electronically Signed By: Mo Pat05/11/2023 15:51 CDTWorkstation Name: [id number] 15:49:45 [facility] : 1945 Sex: FCTA CAROTID, CTA BRAIN, CT BRAIN WITHOUT IV CONTRASTBRAIN CT WITHOUT CONTRASTINDICATION: Stroke, follow upCOMPARISON: 05/07/2023 CT headTECHNIQUE:Rapid acquisition spiral images were obtained between the aortic archand the cranial vertex during intravenous contrast infusion toreconstruct axial images and angiographic 3D maximum intensityprojections (MIP). 3-D volumetric reformatted images were created at [employer] workstation. Precontrast images of the brain were alsoobtained. Stenosis evaluation reportedin compliance with NASCET criteria.DOSE REDUCTION: Dose modulation, iterative reconstruction, and/orweight-based adjustment of the mA/kV was utilized to reduce theradiation dose to as low as reasonably achievable.FINDINGS:CT BRAIN:No intracranial hemorrhage, midline shift or mass effect. Scatteredsmall hypodensities in the left frontal and parietal lobes., Leftputamen Midline structures are normally developed. Hypoattenuationwithin the periventricular and subcortical white matter is present,nonspecific by imaging, however, statistically representing chronicmicrovascular changes in this age group. Diffuse senescent parenchymal volume loss.No hydrocephalus.Atherosclerotic calcification of the intracranial internal carotid andvertebral arteries. Orbits are within normal limits. No obstructive paranas al sinus disease.CTA BRAIN:Internal carotid arteries: Petrous, cavernous and supraclinoid portionspatent. Middle cerebral arteries: Patent to distal branches.Anterior cerebral arteries: Patent. No A-comm aneurysm.Basilar system: Patent vertebrobasilar system.Posterior cerebral arteries:Patent P1 and P2 segments. Venous opacification: Major dural sinuses unremarkable for bolus timing.Additional findings: None.CTA NECK:Common carotid arteries: The common carotid arteries are normal in size. Bifurcations: No flow-limiting stenosis. Macro scatteredCervical internal carotid arteries: No flow limiting mariel nosis.Vertebral arteries: Hypoplastic right vertebral artery.Arch anatomy: Conventional.Nonvascular findings:Osseous structures: No acute osseous abnormality. Intact calvarium andskull base. Moderate spondylosis and facet arthropathy are presentwithin the spine. Reversal of the normal cervical lordosis.Cervical soft tissues: No adenopathy. Patent aerodigestive tract.Lung apices: No apical consolidation or pneumothorax.IMPRESSION:CT brain:1. No intracranial hemorrhage or large territory infarct.2. 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 No acute vascular abnormality in the head and neck. Resolution ofthe previously seen left MCA M1 occlusion following thrombectomy. 2. Hypoplastic right vertebral artery.Electronically Signed By: Mo Pat05/11/2023 15:51 CDTWorkstation Name: [id number] 15:49:45 [facility] : 1945 Sex: FCTA CAROTID, CTA BRAIN, CT BRAIN WITHOUT IV CONTRASTBRAIN CT WITHOUT CONTRASTINDICATION: Stroke, follow upCOMPARISON: 05/07/2023 CT headTECHNIQUE:Rapid acquisition spiral images were obtained between the aortic archand the cranial vertex during intravenous contrast infusion toreconstruct axial images and angiographic 3D maximum intensityprojections (MIP). 3-D volumetric reformatted images were created at [employer] workstation. Precontrast images of the brain were alsoobtained. Stenosis evaluation reportedin compliance with NASCET criteria.DOSE REDUCTION: Dose modulation, iterative reconstruction, and/orweight-based adjustment of the mA/kV was utilized to reduce theradiation dose to as low as reasonably achievable.FINDINGS:CT BRAIN:No intracranial hemorrhage, midline shift or mass effect. Scatteredsmall hypodensities in the left frontal and parietal lobes., Leftputamen Midline structures are normally developed. Hypoattenuationwithin the periventricular and subcortical white matter is present,nonspecific by imaging, however, statistically representing chronicmicrovascular changes in this age group. Diffuse senescent parenchymal volume loss.No hydrocephalus.Atherosclerotic calcification of the intracranial internal carotid andvertebral arteries. Orbits are within normal limits. No obstructive paranas al sinus disease.CTA BRAIN:Internal carotid arteries: Petrous, cavernous and supraclinoid portionspatent. Middle cerebral arteries: Patent to distal branches.Anterior cerebral arteries: Patent. No A-comm aneurysm.Basilar system: Patent vertebrobasilar system.Posterior cerebral arteries:Patent P1 and P2 segments. Venous opacification: Major dural sinuses unremarkable for bolus timing.Additional findings: None.CTA NECK:Common carotid arteries: The common carotid arteries are normal in size. Bifurcations: No flow-limiting stenosis. Macro scatteredCervical internal carotid arteries: No flow limiting mariel nosis.Vertebral arteries: Hypoplastic right vertebral artery.Arch anatomy: Conventional.Nonvascular findings:Osseous structures: No acute osseous abnormality. Intact calvarium andskull base. Moderate spondylosis and facet arthropathy are presentwithin the spine. Reversal of the normal cervical lordosis.Cervical soft tissues: No adenopathy. Patent aerodigestive tract.Lung apices: No apical consolidation or pneumothorax.IMPRESSION:CT brain:1. No intracranial hemorrhage or large territory infarct.2. 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 No acute vascular abnormality in the head and neck. Resolution ofthe previously seen left MCA M1 occlusion following thrombectomy. 2. Hypoplastic right vertebral artery.Electronically Signed By: Mo Pat05/11/2023 15:51 CDTWorkstation Name: [id number] 07:50:58 Test Item Value Reference Range Interpretation Comments PROCALCITONIN (BEAKER) (test code = < ng/mL <0.05 6646) SEPSIS RISK (ng/mL)Low: 0.05-0.50Intermediate: 0.51-2.00High: >=2.01LACTIC ACID, [id number] 07:17:33 Test Item Value Reference Range Interpretation Comments LACTATE BLOOD VENOUS 1.04 mmol/L 0.50-2.00 Specime n slightly (2) (BEAKER) (test hemolyzed code = 2872) Director Post ID - BS(CELLAVISION MANUAL DIFF)2023-05-11 07:00:15 Test Item Value Reference Range Interpretation Comments NEUTROPHILS - REL 75 % (CELLAVISION)(BEAKER) (test code = 2816) LYMPHOCYTES - REL 12 % (CELLAVISION)(BEAKER) (test code = 2817) MONOCYTES - REL 10 % (CELLAVISION)(BEAKER) (test code = 2818) EOSINOPHILS - REL 2 % (CELLAVISION)(BEAKER) (test code = 2819) BASOPHILS - REL 1 % (CELLAVISION)(BEAKER) (test code = 2820) NEUTROPHILS - ABS 9.75 K/ul 1.56-6.13 H (CELLAVISION)(BEAKER) (test code = 2830) LYMPHOCYTES - ABS 1.56 K/ul 1.18-3.74 (CELLAVISION)(BEAKER) (test code = 2831) MONOCYTES - ABS 1.30 K/uL 0.24-0.36 H (CELLAVISION)(BEAKER) (test code = 2832) EOSINOPHILS - ABS 0.26 K/uL 0.04-0.36 (CELLAVISION)(BEAKER) (test code = 2834) BASOPHILS - ABS 0.13 K/uL 0.01-0.08 H (CELLAVISION)(BEAKER) (test code = 2835) TOTAL COUNTED (BEAKER) (test code = 100 1351) WBC MORPHOLOGY (BEAKER) (test code Normal = 487) PLT MORPHOLOGY (BEAKER) (test code Normal = 486) ANISOCYTOSIS (BEAKER) (test code = 1+ few 961) MACROCYTES (BEAKER) (test code = 1+ few 964) POIKILOCYTES (BEAKER) (test code = 1+ few 966) OVALOCYTES (BEAKER) (test code = 1+ few 477) ARTIFACT (CELLAVISION)(BEAKER) Present (test code = 3432) PLATELET CONCENTRATION Adequate (CELLAVISION)(BEAKER) (test code = 3438) Director Post ID - Misti OverholtUser comments: Slide comments:CBC W/PLT COUNT & AUTO [id number] 07:00:14 Test Item Value Reference Range Interpretation Comments WHITE BLOOD CELL COUNT (BEAKER) 13.0 K/ L 3.5-10.5 H (test code = 775) RED BLOOD CELL COUNT (BEAKER) 4.15 M/ L 3.93-5.22 (test code = 761) HEMOGLOBIN (BEAKER) (test code = 13.2 GM/DL 11.2-15.7 410) HEMATOCRIT (BEAKER) (test code = 39.5 % 34.1-44.9 411) MEAN CORPUSCULAR VOLUME (BEAKER) 95 fL 79-95 (test code = 753) MEAN CORPUSCULAR HEMOGLOBIN 31.8 pg 25.6-32.2 (BEAKER) (test code = 751) MEAN CORPUSCULAR HEMOGLOBIN CONC 33.4 GM/DL 32.2-35.5 (BEAKER) (test code = 752) RED CELL DISTRIBUTION WIDTH 14.3 % 11.7-14.4 (BEAKER) (test code = 412) PLATELET COUNT (BEAKER) (test 233 K/CU MM 150-450 code = 756) MEAN PLATELET VOLUME (BEAKER) 9.3 fL 9.4-12.3 L (test code = 754) NUCLEATED RED BLOOD CELLS 0 /100 WBC 0-0 (BEAKER) (test code = 413) CT ABDOMEN/PELVIS WITH IV [id number] 06:10:13 [facility] : 1945 Sex: FABDOMINAL AND PELVIS CT DATED 3CLINICAL INFORMATION: RLQ abdominal pain (Age >= 14y)TECHNIQUE: Axial images of the abdomen and pelvis were obtained fromdiaphragm to the pubic symphysis with intravenous contrast. This exam was performed according to our departmental dose-optimizationprogram, whichincludes automated exposure control, adjustment of the mAand/or kV according to patient size and/or use of interactivereconstruction technique.COMMENT: Liver and spleen are normal in size. There is diffuselydecreased attenuation in the liver suggestive of fatty hepaticinfiltrate. A 2.1 x 2.4 cm cyst is seen in the segment 4A of the liver.Gallbladder is distended. No gallstone or biliary dilatation isnoted. Pancreas and adrenals are unremarkable. Both kidneys are normal in size and functioning. A 2 mm stone is seen inthe midpole right kidney. A 1 mm stone is seen in the upper pole leftkidney. No hydronephrosis or hydroureter is seen.Diverticular disease is seen in the large bowel without diverticulitis.The small bowel is normal in caliber.Uterus is surgically absent. The urinary bladder is contracted.Soft tissue stranding is seen in the right inguinal region adjacent tothe right external and common femoral vasculature. No fluid collectionis present to suggest hematoma or abscess.IMPRESSION:1. Fatty liver with a liver cyst2. Nonobstructive bilateral stones.3. Soft tissue stranding in the right inguinal region and represent postprocedure changes. Please correlate clinically.4. Unable to identify appendix. No inflammatory changes adjacent to thececum.Electronically Signed By: Kelvin Fofana05/11/2023 06:13 CDTWorkstation Name: [id number] 03:56:56 Test Item Value Reference Range Interpretation Comments MAGNESIUM (BEAKER) 2.0 mg/dL 1.6-2.6 Specimen slightly (test code = 627) hemolyzed Director Post ID - [id number] 03:56:56 Test Item Value Reference Range Interpretation Comments PHOSPHORUS (BEAKER) 4.4 mg/dL 2.3-4.7 Specimen slightly (test code = 604) hemolyzed Director Post ID - MMBASIC METABOLIC [id number] 03:56:56 Test Item Value Reference Range Interpretation Comments SODIUM (BEAKER) 137 meq/L 136-145 (test code = 381) POTASSIUM 4.6 meq/L 3.5-5.1 Specimen slight ly (BEAKER) (test hemolyzed code = 379) CHLORIDE (BEAKER) 103 meq/L 98-107 (test code = 382) CO2 (BEAKER) 23 meq/L 22-29 (test code = 355) BLOOD UREA 16 mg/dL 7-21 NITROGEN (BEAKER) (test code = 354) CREATININE 0.89 mg/dL 0.57-1.25 Specimen slight ly (BEAKER) (test hemolyzed code = 358) GLUCOSE RANDOM 120 mg/dL 70-105 H (BEAKER) (test code = 652) CALCIUM (BEAKER) 8.8 mg/dL 8.4-10.2 (test code = 697) EGFR (BEAKER) 66 Interpretatio n of eGFR (test code = mL/min/1.73 values Stage De scription 1092) sq m Result G1 Kristine l or high >=90 G2 Mildly decreased 60-89 G3a Mild ly to moderately 45-5 9 G3b Moderately to s everely 30-44 G4 Severl y decreased 15-29 G5 Kidney failure <15Reported eGF R is based on the CKD-EPI 2020 equation that d oes not use a race coefficientEsti mated GFR is not as accur ate as Creatinine Stephanie ribeiro in predicting glom erular filtration rate . Estimated GFR is not appl icable for dialysis patien ts Director Post ID - MM(CELLAVISION MANUAL DIFF)2023-05-10 06:41:42 Test Item Value Reference Range Interpretation Comments NEUTROPHILS - REL 66 % (CELLAVISION)(BEAKER) (test code = 2816) LYMPHOCYTES - REL 23 % (CELLAVISION)(BEAKER) (test code = 2817) MONOCYTES - REL 6 % (CELLAVISION)(BEAKER) (test code = 2818) EOSINOPHILS - REL 2 % (CELLAVISION)(BEAKER) (test code = 2819) BASOPHILS - REL 1 % (CELLAVISION)(BEAKER) (test code = 2820) BANDS - REL (CELLAVISION)(BEAKER) 1 % 0-10 (test code = 2826) ATYPICAL LYMPHOCYTES - REL 1 % 0-0 H (CELLAVISION)(BEAKER) (test code = 2829) NEUTROPHILS - ABS 9.70 K/ul 1.56-6.13 H (CELLAVISION)(BEAKER) (test code = 2830) LYMPHOCYTES - ABS 3.38 K/ul 1.18-3.74 (CELLAVISION)(BEAKER) (test code = 2831) MONOCYTES - ABS 0.88 K/uL 0.24-0.36 H (CELLAVISION)(BEAKER) (test code = 2832) EOSINOPHILS - ABS 0.29 K/uL 0.04-0.36 (CELLAVISION)(BEAKER) (test code = 2834) BASOPHILS - ABS 0.15 K/uL 0.01-0.08 H (CELLAVISION)(BEAKER) (test code = 2835) BANDS - ABS (CELLAVISION)(BEAKER) 0.15 K/uL 0.00-0.80 (test code = 2840) ATYPICAL LYMPHOCYTES - ABS 0.15 K/uL 0.00-0.00 H (CELLAVISION)(BEAKER) (test code = 1798) TOTAL COUNTED (BEAKER) (test code = 100 1351) WBC MORPHOLOGY (BEAKER) (test code Normal = 487) PLT MORPHOLOGY (BEAKER) (test code Normal = 486) ANISOCYTOSIS (BEAKER) (test code = 1+ few 961) MICROCYTES (BEAKER) (test code = 1+ few 965) ARTIFACT (CELLAVISION)(BEAKER) Present (test code = 8852) PLATELET CONCENTRATION Adequate (CELLAVISION)(BEAKER) (test code = 3438) Director Post ID - Isabela Francisco comments: Slide comments:CBC W/PLT COUNT & AUTO [id number] 06:41:31 Test Item Value Reference Range Interpretation Comments WHITE BLOOD CELL COUNT (BEAKER) 14.7 K/ L 3.5-10.5 H (test code = 775) RED BLOOD CELL COUNT (BEAKER) 4.47 M/ L 3.93-5.22 (test code = 761) HEMOGLOBIN (BEAKER) (test code = 13.9 GM/DL 11.2-15.7 410) HEMATOCRIT (BEAKER) (test code = 41.4 % 34.1-44.9 411) MEAN CORPUSCULAR VOLUME (BEAKER) 93 fL 79-95 (test code = 753) MEAN CORPUSCULAR HEMOGLOBIN 31.1 pg 25.6-32.2 (BEAKER) (test code = 751) MEAN CORPUSCULAR HEMOGLOBIN CONC 33.6 GM/DL 32.2-35.5 (BEAKER) (test code = 752) RED CELL DISTRIBUTION WIDTH 14.2 % 11.7-14.4 (BEAKER) (test code = 412) PLATELET COUNT (BEAKER) (test 267 K/CU MM 150-450 code = 756) MEAN PLATELET VOLUME (BEAKER) 9.4 fL 9.4-12.3 (test code = 754) NUCLEATED RED BLOOD CELLS 0 /100 WBC 0-0 (BEAKER) (test code = 413) HEPATIC FUNCTION [id number] 04:40:23 Test Item Value Reference Range Interpretation Comments TOTAL PROTEIN (BEAKER) (test code = 7.2 gm/dL 6.0-8.3 770) ALBUMIN (BEAKER) (test code = 1145) 3.9 g/dL 3.5-5.0 BILIRUBIN TOTAL (BEAKER) (test code 0.8 mg/dL 0.2-1.2 = 377) BILIRUBIN DIRECT (BEAKER) (test 0.4 mg/dL 0.1-0.5 code = 706) ALKALINE PHOSPHATASE (BEAKER) (test 70 U/L 40-150 code = 346) AST (SGOT) (BEAKER) (test code = 32 U/L 5-34 353) ALT (SGPT) (BEAKER) (test code = 23 U/L 6-55 347) Director Post ID - EOOCREATINE KINASE (CK)2023-05-10 04:40:23 Test Item Value Reference Range Interpretation Comments CREATINE KINASE TOTAL (BEAKER) (test 322 U/L 29-200 H code = 380) Director Post ID - EOOBASIC METABOLIC [id number] 04:40:22 Test Item Value Reference Range Interpretation Comments SODIUM (BEAKER) 142 meq/L 136-145 (test code = 381) POTASSIUM 4.1 meq/L 3.5-5.1 (BEAKER) (test code = 379) CHLORIDE (BEAKER) 107 meq/L 98-107 (test code = 382) CO2 (BEAKER) 23 meq/L 22-29 (test code = 355) BLOOD UREA 18 mg/dL 7-21 NITROGEN (BEAKER) (test code = 354) CREATININE 0.90 mg/dL 0.57-1.25 (BEAKER) (test code = 358) GLUCOSE RANDOM 112 mg/dL 70-105 H (BEAKER) (test code = 652) CALCIUM (BEAKER) 8.7 mg/dL 8.4-10.2 (test code = 697) EGFR (BEAKER) 65 Interpretatio n of eGFR (test code = mL/min/1.73 values Stage De scription 1092) sq m Result G1 Kristine l or high >=90 G2 Mildly decreased 60-89 G3a Mild ly to moderately 45-5 9 G3b Moderately to s everely 30-44 G4 Severl y decreased 15-29 G5 Kidney failure <15Reported eGF R is based on the CKD-EPI 2020 equation that d oes not use a race coefficientEsti mated GFR is not as accur ate as Creatinine Stephanie quintin in predicting glom erular filtration rate . Estimated GFR is not appl icable for dialysis patien ts Director Post ID - [id number] 04:40:22 Test Item Value Reference Range Interpretation Comments MAGNESIUM (BEAKER) (test code = 2.0 mg/dL 1.6-2.6 627) Director Post ID - [id number] 04:40:22 Test Item Value Reference Range Interpretation Comments PHOSPHORUS (BEAKER) (test code = 3.6 mg/dL 2.3-4.7 604) Director Post ID - EOOHIGH SENSITIVITY TROPONIN [id number] 00:08:50 Test Item Value Reference Range Interpretation Comments HIGH SENSITIVITY TROPONIN I (test 5 pg/ml <=17 code = 0818994) Director Post ID - BSThe CONFLICT RESOLUTION PROFESSIONAL STAT High Sensitivity Troponin-I results should be used in conjunctionwith other diagnostic information such as ECG, clinical observations and information, and patient symptoms to aid in the diagnosis of IL.HIGH SENSITIVITY TROPONIN [id number] 19:07:35 Test Item Value Reference Range Interpretation Comments HIGH SENSITIVITY TROPONIN I (test 6 pg/ml <=17 code = 3231632) Director Post ID - ADMINThe CONFLICT RESOLUTION PROFESSIONAL STAT High Sensitivity Troponin-I results should be used in conjunction with other diagnostic information such as ECG, clinical observations and information, and patientsymptoms to aid in the diagnosis of IL. HIGH SENSITIVITY TROPONIN [id number] 15:31:50 Test Item Value Reference Range Interpretation Comments HIGH SENSITIVITY TROPONIN I (test 5 pg/ml <=17 code = 7597742) The CONFLICT RESOLUTION PROFESSIONAL STAT High Sensitivity Troponin-I results should be used in conjunction with other diagnostic information such as ECG, clinical observations and information, and patient symptoms to aid inthe diagnosis of IL.NV EMBOLIZATION [id number] 09:18:51 [facility] : 1945 Sex: FDATE: 05/07/2023SURGEON: Christo Khan MD PhDFIRST CIRCUIT BREAKER SUPERVISOR: Ronit Esparza MD PhDPREOPERATIVE DIAGNOSIS: Left MCA (M1) occlusionPOST OPERATIVE DIAGNOSIS: Left MCA occlusion s/p successfulrecanalization, TICI 3PROCEDURE: Diagnostic cerebral angiogram with left MCA aspirationthrombectomy ANESTHESIA: General anesthesiaESTIMATED BLOOD LOSS: 5ccCOMPLICATIONS: NoneVessels catheterizedRight femoral arteryLeft common carotid arteryLeft internal carotid arteryLeft middle cerebral arteryEquipment used8F femoral sheathGlidewire 5Fr select catheterZoom 88 SendIt aspiration catheterAristotle guidewirePenumbra aspiration device and tubingAngiosealINDICATIONS: The patient is a 77-year-old female who presented with newonset aphasia and a prior CTA at outside hospital demonstrated a left K6dftqzyvzx occlusive thrombus she was transferred here for furthermanagement. CTP on arrival showed a 29 cc penumbra with 6 cc core andshe was taken for emergent thrombectomyPROCEDURE: Due to emergent nature and no immediately sneha ilable family or surrogatedecision maker, thrombectomy performed under emergency consent.A time-out was performed. Both groins were prepped in the usual sterilefashion using Chloroprep, and sterilely draped. A single wall punctureof the right femoral artery was performed and a 8Fr guide sheath wasadvanced into the descending aorta, back-bled, and flushed in the usualfashion. Using coaxial technique, the shuttle was advanced over theselect catheter and glidewire into the aortic arch, and then the leftcommon carotid artery and using roadmap and careful guidewiremanipulation, the left internal carotidwas catheterized. Upon eachsuccessive selective catheterization, digital subtraction angiographyusing the appropriate rate and volume of contrast in multipleprojections was performed. ENDOVASCULAR INTERVENTION:M1 Thrombectomy:A roadmap was obtained and a dual system comprising a Zoom88 parked inthe communicating carotid segment, a SendIt catheter advanced to theface of the thrombus, and an Larry microwire advanced beyond thethrombus into a proximal M2 branch. The microwire was removed once theSendIt encountered the clot, and aspiration was initiated for twominutes. The aspiration catheter was then removed under continuoussimultaneous dual aspiration (Zoom88 and SendIt), and subsequent runshowed TICI 3 reperfusion. FINDINGS:RIGHT COMMON FEMORAL ARTERY (DSA - AP, LATERAL - ILIAC)The sheath enters above the femoral bifurcation. The femoral artery andbifurcation are widely patent without evidence of ulceration orstenosis.LEFT INTERNAL CAROTID ARTERY (DSA - PA, LATERAL - OBLIQUE HEAD)The ICA is normal in course diameter and flow, There is a proximal I8ajyntcmlx occlusive thrombus with good pialcollateral flow from distalACA and FLUTE POLISHER branches. 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 There is a large patentP-commartery with normal course and flow. The ophthalmic artery is normal incourse caliber and flow with normal choroidal blush. There are no signsfor vessel wall dissection, aneurysm, or A-V shunting. Capillary phasedemonstrate partially obscured left MCA territory (baseline TICI 2b)some pial collateralization.Post thrombectomy TICI 3 recanalization, capillary phase covers the whole MCA territory. SUPERVISION AND INTERPRETATION: 1. Angiographic study demonstrates partially occlusive thrombus of theproximal M1 segment of the left middle cerebral artery with sluggishflow 2. Successful recanalizationusing aspiration, 1 pass, final TICI 3.4. No immediate technical or clinical complications.Dr. Khan was present for the entire procedure. Electronically Signed By: Christo Khan05/09/2023 09:20 CDTWorkstation Name: [id number] CEREBRAL 4 VESSEL [id number] 09:18:51 [facility] : 1945 Sex: FDATE: 05/07/2023SURGEON: Christo Khan MD PhDFIRST CIRCUIT BREAKER SUPERVISOR: Roint Esparza MD PhDPREOPERATIVE DIAGNOSIS: Left MCA (M1) occlusionPOST OPERATIVE DIAGNOSIS: Left MCA occlusion s/p successfulrecanalization, TICI 3PROCEDURE: Diagnostic cerebral angiogram with left MCA aspirationthrombectomy ANESTHESIA: General anesthesiaESTIMATED BLOOD LOSS: 5ccCOMPLICATIONS: NoneVessels catheterizedRight femoral arteryLeft common carotid arteryLeft internal carotid arteryLeft middle cerebral arteryEquipment used8F femoral sheathGlidewire 5Fr select catheterZoom 88 SendIt aspiration catheterAristotle guidewirePenumbra aspiration device and tubingAngiosealINDICATIONS: The patient is a 77-year-old female who presented with newonset aphasia and a prior CTA at outside hospital demonstrated a left H0uncayuwbq occlusive thrombus she was transferred here for furthermanagement. CTP on arrival showed a 29 cc penumbra with 6 cc core andshe was taken for emergent thrombectomyPROCEDURE: Due to emergent nature and no immediately sneha ilable family or surrogatedecision maker, thrombectomy performed under emergency consent.A time-out was performed. Both groins were prepped in the usual sterilefashion using Chloroprep, and sterilely draped. A single wall punctureof the right femoral artery was performed and a 8Fr guide sheath wasadvanced into the descending aorta, back-bled, and flushed in the usualfashion. Using coaxial technique, the shuttle was advanced over theselect catheter and glidewire into the aortic arch, and then the leftcommon carotid artery and using roadmap and careful guidewiremanipulation, the left internal carotidwas catheterized. Upon eachsuccessive selective catheterization, digital subtraction angiographyusing the appropriate rate and volume of contrast in multipleprojections was performed. ENDOVASCULAR INTERVENTION:M1 Thrombectomy:A roadmap was obtained and a dual system comprising a Zoom88 parked inthe communicating carotid segment, a SendIt catheter advanced to theface of the thrombus, and an Larry microwire advanced beyond thethrombus into a proximal M2 branch. The microwire was removed once theSendIt encountered the clot, and aspiration was initiated for twominutes. The aspiration catheter was then removed under continuoussimultaneous dual aspiration (Zoom88 and SendIt), and subsequent runshowed TICI 3 reperfusion. FINDINGS:RIGHT COMMON FEMORAL ARTERY (DSA - AP, LATERAL - ILIAC)The sheath enters above the femoral bifurcation. The femoral artery andbifurcation are widely patent without evidence of ulceration orstenosis.LEFT INTERNAL CAROTID ARTERY (DSA - PA, LATERAL - OBLIQUE HEAD)The ICA is normal in course diameter and flow, There is a proximal X0hnqycppft occlusive thrombus with good pialcollateral flow from distalACA and FLUTE POLISHER branches. 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 There is a large patentP-commartery with normal course and flow. The ophthalmic artery is normal incourse caliber and flow with normal choroidal blush. There are no signsfor vessel wall dissection, aneurysm, or A-V shunting. Capillary phasedemonstrate partially obscured left MCA territory (baseline TICI 2b)some pial collateralization.Post thrombectomy TICI 3 recanalization, capillary phase covers the whole MCA territory. SUPERVISION AND INTERPRETATION: 1. Angiographic study demonstrates partially occlusive thrombus of theproximal M1 segment of the left middle cerebral artery with sluggishflow 2. Successful recanalizationusing aspiration, 1 pass, final TICI 3.4. No immediate technical or clinical complications.Dr. Khan was present for the entire procedure. Electronically Signed By: Christo Khan05/09/2023 09:20 CDTWorkstation Name: [id number] 04:00:40 Test Item Value Reference Range Interpretation Comments PHOSPHORUS (BEAKER) (test code = 3.8 mg/dL 2.3-4.7 604) BASIC METABOLIC [id number] 04:00:39 Test Item Value Reference Range Interpretation Comments SODIUM (BEAKER) 140 meq/L 136-145 (test code = 381) POTASSIUM 4.0 meq/L 3.5-5.1 (BEAKER) (test code = 379) CHLORIDE (BEAKER) 108 meq/L 98-107 H (test code = 382) CO2 (BEAKER) 24 meq/L 22-29 (test code = 355) BLOOD UREA 22 mg/dL 7-21 H NITROGEN (BEAKER) (test code = 354) CREATININE 0.90 mg/dL 0.57-1.25 (BEAKER) (test code = 358) GLUCOSE RANDOM 121 mg/dL 70-105 H (BEAKER) (test code = 652) CALCIUM (BEAKER) 8.0 mg/dL 8.4-10.2 L (test code = 697) EGFR (BEAKER) 65 Interpretatio n of eGFR (test code = mL/min/1.73 values Stage De scription 1092) sq m Result G1 Kristine l or high >=90 G2 Mildly decreased 60-89 G3a Mildl y to moderately 45-5 9 G3b Moderately to s everely 30-44 G4 Severl y decreased 15-29 G5 Kidney failure <15Reported eGF R is based on the CKD-EPI 2020 equation that d oes not use a race coefficientEsti mated GFR is not as accur ate as Creatinine Stephanie ribeiro in predicting glom erular filtration rate . Estimated GFR is not appl icable for dialysis patien ts [id number] 04:00:39 Test Item Value Reference Range Interpretation Comments MAGNESIUM (BEAKER) (test code = 2.1 mg/dL 1.6-2.6 627) CBC W/PLT COUNT & AUTO [id number] 03:47:19 Test Item Value Reference Range Interpretation Comments WHITE BLOOD CELL COUNT (BEAKER) 14.1 K/ L 3.5-10.5 H (test code = 775) RED BLOOD CELL COUNT (BEAKER) 3.68 M/ L 3.93-5.22 L (test code = 761) HEMOGLOBIN (BEAKER) (test code = 11.4 GM/DL 11.2-15.7 410) HEMATOCRIT (BEAKER) (test code = 34.0 % 34.1-44.9 L 411) MEAN CORPUSCULAR VOLUME (BEAKER) 92 fL 79-95 (test code = 753) MEAN CORPUSCULAR HEMOGLOBIN 31.0 pg 25.6-32.2 (BEAKER) (test code = 751) MEAN CORPUSCULAR HEMOGLOBIN CONC 33.5 GM/DL 32.2-35.5 (BEAKER) (test code = 752) RED CELL DISTRIBUTION WIDTH 13.9 % 11.7-14.4 (BEAKER) (test code = 412) PLATELET COUNT (BEAKER) (test 234 K/CU MM 150-450 code = 756) MEAN PLATELET VOLUME (BEAKER) 9.5 fL 9.4-12.3 (test code = 754) NUCLEATED RED BLOOD CELLS 0 /100 WBC 0-0 (BEAKER) (test code = 413) NEUTROPHILS RELATIVE PERCENT 75 % (BEAKER) (test code = 429) LYMPHOCYTES RELATIVE PERCENT 16 % (BEAKER) (test code = 430) MONOCYTES RELATIVE PERCENT 8 % (BEAKER) (test code = 431) EOSINOPHILS RELATIVE PERCENT 0 % (BEAKER) (test code = 432) BASOPHILS RELATIVE PERCENT 0 % (BEAKER) (test code = 437) NEUTROPHILS ABSOLUTE COUNT 10.53 K/ L 1.56-6.13 H (BEAKER) (test code = 670) LYMPHOCYTES ABSOLUTE COUNT 2.26 K/ L 1.18-3.74 (BEAKER) (test code = 414) MONOCYTES ABSOLUTE COUNT (BEAKER) 1.15 K/ L 0.24-0.36 H (test code = 415) EOSINOPHILS ABSOLUTE COUNT 0.03 K/ L 0.04-0.36 L (BEAKER) (test code = 416) BASOPHILS ABSOLUTE COUNT (BEAKER) 0.04 K/ L 0.01-0.08 (test code = 417) IMMATURE GRANULOCYTES-RELATIVE 0.40 % 0.00-1.00 PERCENT (BEAKER) (test code = 2801) MR BRAIN WITHOUT IV [id number] 22:26:02 [facility] : 1945 Sex: FEXAM/TECHNIQUE: MRI of the brain without contrast. Multiplanarmultisequence images were acquired.INDICATION: Stroke. Left MCA occlusion.COMPARISON: CTA head from 05/07/2023.FINDINGS: Numerous foci of DWI hyperintensity with corresponding ADC hypointensityalong the left MCA JOSS and FLUTE POLISHER watershed.Global parenchymal volume loss. Moderate burden of T2/FLAIR white matterhyperintense lesions, likely reflect chronic microvascular changes. Noabnormal parenchymal DWI hyperintensity. No abnormal susceptibilityartifact. The area of hyperattenuation in the right posterior temporallobe on prior CT does not correspond to susceptibility artifact onpresent exam.Ventricles are normal. Basal cisterns are patent. No midline shift. Notonsillar ectopia. Empty sella. Visualized face and upper neck areunremarkable. FLAIR hyperintensity of the vessels in the left sylvianfissure.Orbits are normal. Paranasal sinuses are clear. Mastoid air cells areclear. No suspicious osseous lesion.IMPRESSION:Impression:1. Several punctate acute infarcts on left MCA watershed territorieswith the JOSS and FLUTE POLISHER.2. FLAIR hyperintensity of left X4mtvtryd may represent slow flow orocclusion.Electronically Signed By: Javier Warner05/08/2023 22:28 CDTWorkstation Name: [id number] 15:27:05 Test Item Value Reference Range Interpretation Comments RPR SCREEN (Intelen) (test code = Nonreactive Nonreactive 420) POCT-GLUCOSE [id number] 11:25:07 Test Item Value Reference Range Interpretation Comments POC-GLUCOSE METER 138 mg/dL 70-110 H : [facility] (Intelen) (test code = HARESH Wilkins [facility], 1538) [address]: Director Post/Techni carol ID = [id number] for Shelby Askew HEMOGLOBIN [id number] 10:36:47 Test Item Value Reference Range Interpretation Comments HEMOGLOBIN A1C 5.6 % See_Comment [Automated m essage] ELECTROPHORESIS (Intelen) The system which (test code = 3811) generated this result transmitted ref erence range: <=5.6%. The reference range was not used to int erpret this result as normal/abnormal . "The A1c is measured using a NGSP-certified method. HbA1c value equal to or greater than 6.5% as thediagnosis cutoff for diabetes. An HbA1c value of 5.7- 6.4% indicates increased risk for diabetes (prediabetes)."Director Post ID - ADMHIGH SENSITIVITY TROPONIN [id number] 07:10:06 Test Item Value Reference Range Interpretation Comments HIGH SENSITIVITY TROPONIN I (test 5 pg/ml <=17 code = 1177741) Director Post ID - EOOThe CONFLICT RESOLUTION PROFESSIONAL STAT High Sensitivity Troponin-I results should be used in conjunction with other diagnostic information such as ECG, clinical observations and information, and patient symptoms to aid in the diagnosis of IL.BASIC METABOLIC [id number] 03:57:23 Test Item Value Reference Range Interpretation Comments SODIUM (BEAKER) 139 meq/L 136-145 (test code = 381) POTASSIUM 4.1 meq/L 3.5-5.1 Specimen slight ly (BEAKER) (test hemolyzed code = 379) CHLORIDE (BEAKER) 106 meq/L 98-107 (test code = 382) CO2 (BEAKER) 24 meq/L 22-29 (test code = 355) BLOOD UREA 16 mg/dL 7-21 NITROGEN (BEAKER) (test code = 354) CREATININE 0.90 mg/dL 0.57-1.25 Specimen slight ly (BEAKER) (test hemolyzed code = 358) GLUCOSE RANDOM 151 mg/dL 70-105 H (BEAKER) (test code = 652) CALCIUM (BEAKER) 8.9 mg/dL 8.4-10.2 (test code = 697) EGFR (BEAKER) 65 Interpretatio n of eGFR (test code = mL/min/1.73 values Stage De scription 1092) sq m Result G1 Kristine l or high >=90 G2 Mildly decreased 60-89 G3a Mildl y to moderately 45-5 9 G3b Moderately to s everely 30-44 G4 Severl y decreased 15-29 G5 Kidney failure <15Reported eGF R is based on the CKD-EPI 2020 equation that d oes not use a race coefficientEsti mated GFR is not as accur ate as Creatinine Stephanie quintin in predicting glom erular filtration rate . Estimated GFR is not appl icable for dialysis patien ts Director Post ID - EOOCBC W/PLT COUNT & AUTO [id number] 03:40:12 Test Item Value Reference Range Interpretation Comments WHITE BLOOD CELL COUNT (BEAKER) 7.3 K/ L 3.5-10.5 (test code = 775) RED BLOOD CELL COUNT (BEAKER) 4.22 M/ L 3.93-5.22 (test code = 761) HEMOGLOBIN (BEAKER) (test code = 12.9 GM/DL 11.2-15.7 410) HEMATOCRIT (BEAKER) (test code = 39.1 % 34.1-44.9 411) MEAN CORPUSCULAR VOLUME (BEAKER) 93 fL 79-95 (test code = 753) MEAN CORPUSCULAR HEMOGLOBIN 30.6 pg 25.6-32.2 (BEAKER) (test code = 751) MEAN CORPUSCULAR HEMOGLOBIN CONC 33.0 GM/DL 32.2-35.5 (BEAKER) (test code = 752) RED CELL DISTRIBUTION WIDTH 13.6 % 11.7-14.4 (BEAKER) (test code = 412) PLATELET COUNT (BEAKER) (test 208 K/CU MM 150-450 code = 756) MEAN PLATELET VOLUME (BEAKER) 9.5 fL 9.4-12.3 (test code = 754) NUCLEATED RED BLOOD CELLS 0 /100 WBC 0-0 (BEAKER) (test code = 413) NEUTROPHILS RELATIVE PERCENT 92 % (BEAKER) (test code = 429) LYMPHOCYTES RELATIVE PERCENT 7 % (BEAKER) (test code = 430) MONOCYTES RELATIVE PERCENT 1 % (BEAKER) (test code = 431) EOSINOPHILS RELATIVE PERCENT 0 % (BEAKER) (test code = 432) BASOPHILS RELATIVE PERCENT 0 % (BEAKER) (test code = 437) NEUTROPHILS ABSOLUTE COUNT 6.71 K/ L 1.56-6.13 H (BEAKER) (test code = 670) LYMPHOCYTES ABSOLUTE COUNT 0.47 K/ L 1.18-3.74 L (BEAKER) (test code = 414) MONOCYTES ABSOLUTE COUNT (BEAKER) 0.07 K/ L 0.24-0.36 L (test code = 415) EOSINOPHILS ABSOLUTE COUNT 0.00 K/ L 0.04-0.36 L (BEAKER) (test code = 416) BASOPHILS ABSOLUTE COUNT (BEAKER) 0.01 K/ L 0.01-0.08 (test code = 417) IMMATURE GRANULOCYTES-RELATIVE 0.30 % 0.00-1.00 PERCENT (BEAKER) (test code = 2801) POCT-GLUCOSE [id number] 23:31:46 Test Item Value Reference Range Interpretation Comments POC-GLUCOSE METER 124 mg/dL 70-110 H : TESTED A T [facility] (BEAKER) (test code = HARESH DUBON, 1538) [address]92[address]: Director Post/Techni carol ID = [id number] for Chandrakant jaramilloYolanda VITAMIN [id number] 22:06:25 Test Item Value Reference Range Interpretation Comments VITAMIN B12 (BEAKER) (test code = 1417 pg/mL 213-816 H 774) Director Post ID - LISHAOTSH/FREE T4 IF [id number] 22:06:25 Test Item Value Reference Range Interpretation Comments THYROID STIMULATING HORMONE 0.671 uIU/mL 0.350-4.940 (BEAKER) (test code = 772) Director Post ID - [id number] 21:41:45 Test Item Value Reference Range Interpretation Comments MAGNESIUM (BEAKER) (test code = 1.7 mg/dL 1.6-2.6 627) Director Post ID - [id number] 21:41:45 Test Item Value Reference Range Interpretation Comments PHOSPHORUS (BEAKER) (test code = 4.5 mg/dL 2.3-4.7 604) Director Post ID - MARCOLIPID [id number] 21:41:45 Test Item Value Reference Range Interpretation Comments TRIGLYCERIDES (BEAKER) (test code = 84 mg/dL 540) CHOLESTEROL (BEAKER) (test code = 103 mg/dL 631) HDL CHOLESTEROL (BEAKER) (test code 40 mg/dL = 976) LDL CHOLESTEROL CALCULATED (BEAKER) 46 mg/dL (test code = 633) Triglyceride Reference Range: Low Risk <150 Borderline 150-199 High Risk 200-499 Very High Risk >=500Cholesterol Reference Range: Low Risk <200 Borderline 200-239 High Risk >240HDL Cholesterol Reference Range: Low Risk >=60 High Risk <40LDL Cholesterol Reference Range: Optimal <100 Near Optimal 100-129 Borderline 130-159 High 160-189 Very High >=190 Director Post ID - MARCOCOMPREHENSIVE METABOLIC [id number] 21:41:44 Test Item Value Reference Range Interpretation Comments TOTAL PROTEIN 6.6 gm/dL 6.0-8.3 (BEAKER) (test code = 770) ALBUMIN (BEAKER) 3.6 g/dL 3.5-5.0 (test code = 1145) ALKALINE 64 U/L 40-150 PHOSPHATASE (BEAKER) (test code = 346) BILIRUBIN TOTAL 1.0 mg/dL 0.2-1.2 (BEAKER) (test code = 377) SODIUM (BEAKER) 139 meq/L 136-145 (test code = 381) POTASSIUM (BEAKER) 3.9 meq/L 3.5-5.1 (test code = 379) CHLORIDE (BEAKER) 104 meq/L 98-107 (test code = 382) CO2 (BEAKER) (test 25 meq/L 22-29 code = 355) BLOOD UREA 15 mg/dL 7-21 NITROGEN (BEAKER) (test code = 354) CREATININE 0.83 mg/dL 0.57-1.25 (BEAKER) (test code = 358) GLUCOSE RANDOM 98 mg/dL 70-105 (BEAKER) (test code = 652) CALCIUM (BEAKER) 8.5 mg/dL 8.4-10.2 (test code = 697) AST (SGOT) 25 U/L 5-34 (BEAKER) (test code = 353) ALT (SGPT) 16 U/L 6-55 (BEAKER) (test code = 347) EGFR (BEAKER) 72 Interpretatio n of eGFR (test code = 1092) mL/min/1.[address] age Description sq m Result G1 Kristine l or high >=90 G2 Mildly decreased 60-89 G3a Mildl y to moderately 45-5 9 G3b Moderately to s everely 30-44 G4 Sever ly decreased 15-29 G5 Kidney failure <15Repo rted eGFR is based on the CKD-EPI 2020 equation t hat does not use a race coefficientEsti mated GFR is not as accur ate as Creatinine Stephanie ribeiro in predicting glom erular filtration rate . Estimated GFR is not appl icable for dialysis patien ts Director Post ID - MARCOCBC W/PLT COUNT & AUTO [id number] 21:04:04 Test Item Value Reference Range Interpretation Comments WHITE BLOOD CELL COUNT (BEAKER) 9.5 K/ L 3.5-10.5 (test code = 775) RED BLOOD CELL COUNT (BEAKER) 4.19 M/ L 3.93-5.22 (test code = 761) HEMOGLOBIN (BEAKER) (test code = 12.9 GM/DL 11.2-15.7 410) HEMATOCRIT (BEAKER) (test code = 39.6 % 34.1-44.9 411) MEAN CORPUSCULAR VOLUME (BEAKER) 95 fL 79-95 (test code = 753) MEAN CORPUSCULAR HEMOGLOBIN 30.8 pg 25.6-32.2 (BEAKER) (test code = 751) MEAN CORPUSCULAR HEMOGLOBIN CONC 32.6 GM/DL 32.2-35.5 (BEAKER) (test code = 752) RED CELL DISTRIBUTION WIDTH 13.8 % 11.7-14.4 (BEAKER) (test code = 412) PLATELET COUNT (BEAKER) (test 208 K/CU MM 150-450 code = 756) MEAN PLATELET VOLUME (BEAKER) 9.4 fL 9.4-12.3 (test code = 754) NUCLEATED RED BLOOD CELLS 0 /100 WBC 0-0 (BEAKER) (test code = 413) NEUTROPHILS RELATIVE PERCENT 80 % (BEAKER) (test code = 429) LYMPHOCYTES RELATIVE PERCENT 13 % (BEAKER) (test code = 430) MONOCYTES RELATIVE PERCENT 5 % (BEAKER) (test code = 431) EOSINOPHILS RELATIVE PERCENT 1 % (BEAKER) (test code = 432) BASOPHILS RELATIVE PERCENT 1 % (BEAKER) (test code = 437) NEUTROPHILS ABSOLUTE COUNT 7.63 K/ L 1.56-6.13 H (BEAKER) (test code = 670) LYMPHOCYTES ABSOLUTE COUNT 1.19 K/ L 1.18-3.74 (BEAKER) (test code = 414) MONOCYTES ABSOLUTE COUNT (BEAKER) 0.50 K/ L 0.24-0.36 H (test code = 415) EOSINOPHILS ABSOLUTE COUNT 0.12 K/ L 0.04-0.36 (BEAKER) (test code = 416) BASOPHILS ABSOLUTE COUNT (BEAKER) 0.05 K/ L 0.01-0.08 (test code = 417) IMMATURE GRANULOCYTES-RELATIVE 0.40 % 0.00-1.00 PERCENT (BEAKER) (test code = 2801) CALCIUM, [id number] 20:52:47 Test Item Value Reference Range Interpretation Comments CALCIUM IONIZED (BEAKER) (test 1.10 mmol/L 1.12-1.27 L code = 698) PH, BLOOD (BEAKER) (test code = 7.35 1810) CTA [id number] 19:27:09 [facility] 1945 Sex: FCT BRAIN CEREBRAL PERFUSION ANALYSIS, CTA CAROTID, CTA BRAINBRAIN CT WITHOUT CONTRASTINDICATION: Symptom onset less than 6 hours and NIHSS 6 or greaterCOMPARISON: CT head of the same dateTECHNIQUE:Rapid acquisition spiral images were obtained between the aortic archand the cranial vertex during intravenous contrast infusion toreconstruct axial images and angiographic 3D maximum intensityprojections (MIP). 3-D volumetric reformatted images were created at [employer] workstation. Precontrast images of the brain were alsoobtained. Stenosis evaluation reported in compliance with NASCET criteria.DOSE REDUCTION: Dose modulation, iterative reconstruction, and/orweight-based adjustment of the mA/kV was utilizedto reduce theradiation dose to as low as reasonably achievable.FINDINGS: CTA BRAIN:Internal carotid arteries: Petrous, cavernous and supraclinoid portionspatent. Middle cerebral arteries: Left M1 occlusion. Right MCA M1-M2 branchesdemonstrate normal contrast enhancement.Anterior cerebral arteries: Bila teral JOSS A1-A2 branches demonstratenormal contrast enhancement.Basilar system: Normal contrast opacification of the vertebrobasilarsystem.Posterior cerebral arteries: Normal contrast opacification of thebilateral FLUTE POLISHER P1-P2 branches.Venous opacification: Major dural sinuses unremarkable for bolus timin g.Additional findings: None.CT PERFUSION:Technique:Arterial input function: ACAVenous outflow function: TorcularSite of normal perfusion: right anterior territoryParametric Maps: Core infarct: Using the threshold of cerebral blood flow less than 30%,there is an ischemic core in the left MCA territory with a total volumeof ischemic core of 3 cc.Total hypoperfusion: Using the threshold of Tmax greater than 6 seconds,there is an area of hypoperfusion in the left MCA territory with a totalvolume of hypoperfusion of 29 cc.Penumbra: The mismatch volume is 26 cc. The mismatch ratio is 9.7.CTA NECK:Common carotid arteries: There is normal contrast opacification of thebilateral common carotid arteries.Cervical internal carotid arteries: Normal contrast opacification of thebilateral cervical internal carotid arteries without significantstenosis by NASCET criteria.Vertebral arteries: Normal contrast opacification of the bilateralcervical vertebral arteries.Arch anatomy: Conventional.Nonvascular findings:No acute findings within the neck soft tissues.IMPRESSION:1. Left M1 occlusion. Neurosurgery is aware of finding at time of thisdictation.2. Hypoperfusion in the left MCA territory with a central ischemic coreof 3 cc, total volume of hypoperfusion of 29 cc, and penumbra of 26 cc.Electronically Signed By: Idalmis Carrasco05/07/2023 19:29 CDTWorkstation Name: [id number] 19:27:09 [facility] : 1945 Sex: FCT BRAIN CEREBRAL PERFUSION ANALYSIS, CTA CAROTID, CTA BRAINBRAIN CT WITHOUT CONTRASTINDICATION: Symptom onset less than 6 hours and NIHSS 6 or greaterCOMPARISON: CT head of the same dateTECHNIQUE:Rapid acquisition spiral images were obtained between the aortic archand the cranial vertex during intravenous contrast infusion toreconstruct axial images and angiographic 3D maximum intensityprojections (MIP). 3-D volumetric reformatted images were created at [employer] workstation. Precontrast images of the brain were alsoobtained. Stenosis evaluation reported in compliance with NASCET criteria.DOSE REDUCTION: Dose modulation, iterative reconstruction, and/orweight-based adjustment of the mA/kV was utilizedto reduce theradiation dose to as low as reasonably achievable.FINDINGS: CTA BRAIN:Internal carotid arteries: Petrous, cavernous and supraclinoid portionspatent. Middle cerebral arteries: Left M1 occlusion. Right MCA M1-M2 branchesdemonstrate normal contrast enhancement.Anterior cerebral arteries: Bila teral JOSS A1-A2 branches demonstratenormal contrast enhancement.Basilar system: Normal contrast opacification of the vertebrobasilarsystem.Posterior cerebral arteries: Normal contrast opacification of thebilateral FLUTE POLISHER P1-P2 branches.Venous opacification: Major dural sinuses unremarkable for bolus timin g.Additional findings: None.CT PERFUSION:Technique:Arterial input function: ACAVenous outflow function: TorcularSite of normal perfusion: right anterior territoryParametric Maps: Core infarct: Using the threshold of cerebral blood flow less than 30%,there is an ischemic core in the left MCA territory with a total volumeof ischemic core of 3 cc.Total hypoperfusion: Using the threshold of Tmax greater than 6 seconds,there is an area of hypoperfusion in the left MCA territory with a totalvolume of hypoperfusion of 29 cc.Penumbra: The mismatch volume is 26 cc. The mismatch ratio is 9.7.CTA NECK:Common carotid arteries: There is normal contrast opacification of thebilateral common carotid arteries.Cervical internal carotid arteries: Normal contrast opacification of thebilateral cervical internal carotid arteries without significantstenosis by NASCET criteria.Vertebral arteries: Normal contrast opacification of the bilateralcervical vertebral arteries.Arch anatomy: Conventional.Nonvascular findings:No acute findings within the neck soft tissues.IMPRESSION:1. Left M1 occlusion. Neurosurgery is aware of finding at time of thisdictation.2. Hypoperfusion in the left MCA territory with a central ischemic coreof 3 cc, total volume of hypoperfusion of 29 cc, and penumbra of 26 cc.Electronically Signed By: Idalmis Carrasco05/07/2023 19:29 CDTWorkstation Name: [id number] BRAIN CEREBRAL PERFUSION [id number] 19:27:09 [facility] 1945 Sex: FCT BRAIN CEREBRAL PERFUSION ANALYSIS, CTA CAROTID, CTA BRAINBRAIN CT WITHOUT CONTRASTINDICATION: Symptom onset less than 6 hours and NIHSS 6 or greaterCOMPARISON: CT head of the same dateTECHNIQUE:Rapid acquisition spiral images were obtained between the aortic archand the cranial vertex during intravenous contrast infusion toreconstruct axial images and angiographic 3D maximum intensityprojections (MIP). 3-D volumetric reformatted images were created at [employer] workstation. Precontrast images of the brain were alsoobtained. Stenosis evaluation reported in compliance with NASCET criteria.DOSE REDUCTION: Dose modulation, iterative reconstruction, and/orweight-based adjustment of the mA/kV was utilizedto reduce theradiation dose to as low as reasonably achievable.FINDINGS: CTA BRAIN:Internal carotid arteries: Petrous, cavernous and supraclinoid portionspatent. Middle cerebral arteries: Left M1 occlusion. Right MCA M1-M2 branchesdemonstrate normal contrast enhancement.Anterior cerebral arteries: Bila teral JOSS A1-A2 branches demonstratenormal contrast enhancement.Basilar system: Normal contrast opacification of the vertebrobasilarsystem.Posterior cerebral arteries: Normal contrast opacification of thebilateral FLUTE POLISHER P1-P2 branches.Venous opacification: Major dural sinuses unremarkable for bolus timin g.Additional findings: None.CT PERFUSION:Technique:Arterial input function: ACAVenous outflow function: TorcularSite of normal perfusion: right anterior territoryParametric Maps: Core infarct: Using the threshold of cerebral blood flow less than 30%,there is an ischemic core in the left MCA territory with a total volumeof ischemic core of 3 cc.Total hypoperfusion: Using the threshold of Tmax greater than 6 seconds,there is an area of hypoperfusion in the left MCA territory with a totalvolume of hypoperfusion of 29 cc.Penumbra: The mismatch volume is 26 cc. The mismatch ratio is 9.7.CTA NECK:Common carotid arteries: There is normal contrast opacification of thebilateral common carotid arteries.Cervical internal carotid arteries: Normal contrast opacification of thebilateral cervical internal carotid arteries without significantstenosis by NASCET criteria.Vertebral arteries: Normal contrast opacification of the bilateralcervical vertebral arteries.Arch anatomy: Conventional.Nonvascular findings:No acute findings within the neck soft tissues.IMPRESSION:1. Left M1 occlusion. Neurosurgery is aware of finding at time of thisdictation.2. Hypoperfusion in the left MCA territory with a central ischemic coreof 3 cc, total volume of hypoperfusion of 29 cc, and penumbra of 26 cc.Electronically Signed By: Idalmis Carrasco05/07/2023 19:29 CDTWorkstation Name: [id number] BRAIN/STROKE TEST [id number] 19:22:47 [facility] : 1945 Sex: F ADDENDUM #1 Addendum: I was able to speak with neurology and patient receivedcontrast at outside hospital before being transferred. Thus,hyperdensity within the right posterior temporal lobelikely representscontrast staining of infarct.Electronically Signed By: Idalmis Carrasco ORIGINAL REPORT CT BRAIN/STROKE TEST DESIGNINDICATION: Neuro deficit, acute, stroke suspectedCOMPARISON: NoneTECHNIQUE: Noncontrast axial CT imaging of the brain and skull. DOSE REDUCTION: Dose modulation, iterative reconstruction, and/orweight-based adjustment of the mA/kV was utilized to reduce theradiation dose to as low as reasonably achievable.FINDINGS:Hyperdensity along the right posterior temporal lobe. It is unclear ifthis represents contrast staining from prior contrast enhanced exam (assome of the vessels also appear more dense than expected) or trace bloodproducts. Correlation for history of recent contrast enhanced exam issuggested. Scattered foci of hypoattenuation are present throug hout theperiventricular and subcortical white matter, and, although nonspecificby imaging, statistically represent mild chronic microvascular ischemicchanges in this age group.No hydrocephalus.Orbits are within normal limits.No obstructive paranasal sinus disease.IMPRESSION:Hyperdensity along the right posterior temporal lobe. It is unclear ifthis represents contrast staining from prior contrast enhanced exam (assome of the vessels also appear more dense than expected) or trace bloodproducts. Correlation for history of recent contrast enhanced exam issuggested.If there is persistent clinical concern for intracranial pathology, MRexamination is recommended for further characterization.Electronically Signed By: Idalmis Carrasco05/07/2023 19:24 CDTWorkstation Name: [id number][U] XRAY KNEE 3 VWS RIGHT [id number] 08:04:00 Images acquired, not reported on this accession number.[employer]
[2023-06-01 09:11] LABS: Absolute Lymphocytes (CBC) 1.2 K/uL (0.7-4.9); Lymphocytes % 16.1 % (15.3-44.8); MCV 92.3 fL (80-100); MPV 6.5 fL (7.6-11.3); Platelets 408 thou/uL (152-406); RBC Red Blood Cell Count 3.68 M/uL (3.86-4.86)
[2023-06-01 09:14] LABS: Protime INR 1.39
[2023-06-01 09:31] LABS: Albumin 2.6 g/dL (3.4-5.0); Bilirubin Direct 0.2 mg/dL (0-0.2); Bilirubin Indirect, Calculated 0.2 mg/dL (0.2-0.8); Bilirubin Total 0.4 mg/dL (0.2-1.0); Potassium 3.9 mEq/L (3.5-5.1); Protein, Total 7.1 g/dL (6.4-8.2); Troponin High Sensitivity 6.4 pg/mL (<58.9)
[2023-06-01] MEDS ORDERED: ACETAMINOPHEN 325 MG TABLET ONE (09:37)
[2023-06-01] MEDS ORDERED: ONDANSETRON 4 MG/2 ML VIAL ONE (09:37)
--- NOTE | 2023-06-01 10:14 | EDPHYS ---
Physician Documentation [facility] Name: Carol Ann Matute Age: 77 yrs Sex: Female : 1945 Arrival Date: 06/01/2023 Time: 08:32 Bed 5 Private MD: ED Physician Amanda An HPI: 06/01 08:49 This 77 yrs old Female presents to ER via Ambulatory with complaints of Headache, sp3 Dizziness. 08:49 . 69-year-old female with a history of recent ischemic stroke, hypertension, sp3 hypothyroidism now presents to the ED with chief complaint left-sided parietal headache that started over the last 24 hours. No thunderclap or sudden onset reported. Patient has no new neurological symptoms other than the when she is recovering from which are mainly speech related. She denies fever, URI symptoms, neck pain, weakness, worsening speech, changes in vision, chest pain, shortness of breath, back pain, abdominal pain, nausea, vomiting, diarrhea, or any other signs or symptoms on ROS at this time.. Historical: - Allergies: 08:41 PENICILLINS; ss - Home Meds: 08:41 levothyroxine 137 mcg tablet 1 tab daily [Active]; amiodarone 200 mg Oral tablet 1 tab ss daily [Active]; duloxetine 20 mg oral capsule,delayed release (e.c.) 1 cap 2 times per day [Active]; aspirin 81 mg Oral capsule 1 cap daily [Active]; metoprolol tartrate 50 mg Oral tablet 1 tabs 2 times per day [Active]; Eliquis 5 mg oral tablet 1 tab 2 times per day [Active]; atorvastatin 20 mg oral tablet 1 tab every evening [Active]; - PMHx: 08:41 Hypertension; Thyroid problem; Ischemic stroke; ss - Immunization history:: Client reports receiving the 2nd dose of the Covid vaccine. - Social history:: Smoking status: Patient denies any tobacco usage or history of. ROS: 08:51 Constitutional: Negative for fever, chills, and weight loss, Eyes: Negative for injury, sp3 pain, redness, and discharge, ENT: Negative for injury, pain, and discharge, Neck: Negative for injury, pain, and swelling, Cardiovascular: Negative for chest pain, palpitations, and edema, Respiratory: Negative for shortness of breath, cough, wheezing, and pleuritic chest pain, Abdomen/GI: Negative for abdominal pain, nausea, vomiting, diarrhea, and constipation, Back: Negative for injury and pain, MS/Extremity: Negative for injury and deformity, Skin: Negative for injury, rash, and discoloration, Psych: Negative for depression, anxiety, suicide ideation, homicidal ideation, and hallucinations, Allergy/Immunology: Negative for hives, rash, and allergies, Endocrine: Negative for neck swelling, polydipsia, polyuria, polyphagia, and marked weight changes. 08:51 All other systems are negative. Exam: 08:51 Constitutional: This is a well developed, well nourished patient who is awake, alert, sp3 and in no acute distress. Head/Face: Normocephalic, atraumatic. Eyes: Pupils equal round and reactive to light, extra-ocular motions intact. Lids and lashes normal. Conjunctiva and sclera are non-icteric and not injected. Cornea within normal limits. Periorbital areas with no swelling, redness, or edema. ENT: Nares patent. No nasal discharge, no septal abnormalities noted. External auditory canals are clear. Oropharynx with no redness, swelling, or masses, exudates, or evidence of obstruction, uvula midline. Mucous membranes moist. Neck: Trachea midline, no thyromegaly or masses palpated, and no cervical lymphadenopathy. Supple, full range of motion without nuchal rigidity, or vertebral point tenderness. No Meningismus. Chest/axilla: Normal chest wall appearance and motion. Nontender with no deformity. No lesions are appreciated. Cardiovascular: Regular rate and rhythm with a normal S1 and S2. No gallops, murmurs, or rubs. Normal PMI, no JVD. No pulse deficits. Respiratory: Lungs have equal breath sounds bilaterally, clear to auscultation and percussion. No rales, rhonchi or wheezes noted. No increased work of breathing, no retractions or nasal flaring. Abdomen/GI: Soft, non-tender, with normal bowel sounds. No distension or tympany. No guarding or rebound. No evidence of tenderness throughout. Back: No spinal tenderness. No costovertebral tenderness. Full range of motion. Skin: Warm, dry with normal turgor. Normal color with no rashes, no lesions, and no evidence of cellulitis. MS/ Extremity: Pulses equal, no cyanosis. Neurovascular intact. Full, normal range of motion. Psych: Awake, alert, with orientation to person, place and time. Behavior, mood, and affect are within normal limits. 08:51 Neuro: Mild left-sided weakness noted. This is baseline as a part of her recovery process from her ischemic episode. Speech is clear and cognition is normal. No other gross focal deficits noted.. Vital Signs: 08:37 BP 151 / 69; Pulse 64; Resp 17; Temp 98.2(TE); Pulse Ox 100% on R/A; Weight 90.72 kg; ss Height 5 ft. 6 in. ; Pain 6/10; 08:37 Body Mass Index 32.28 (90.72 kg, 167.64 cm) ss 08:37 Pain Scale: Adult ss MDM: 08:38 Patient medically screened. sp3 08:52 Data reviewed: vital signs, nurses notes, EMS record, old medical records, lab test sp3 result(s), EKG, radiologic studies. ED course: 77-year-old female with recent ischemic stroke now presents with headache. Differential diagnosis includes postischemic hemorrhage, other mass effect, functional headache, sinus headache, among others. I am not highly suspicious for recurrent ischemia, acute coronary syndrome, vascular dissection, sepsis, shock, or any other critical findings at this time. Workup will include CT scan of the head, laboratory values and pain medication. Disposition pending workup and patient course.. 10:13 ED course: CT scan demonstrates no bleed or other abnormality. Laboratory values are sp3 within normal limits. Blood pressures come down and her pain is almost resolved. She is requesting to be discharged which I think is appropriate at this time. She will follow-up with her PCP and return back if anything worsens.. 06/01 08:38 Order name: Basic Metabolic Panel; Complete Time: 10: sp3 06/01 08:38 Order name: CBC with Diff; Complete Time: 09:12 sp3 06/01 08:38 Order name: Hepatic Function; Complete Time: : sp3 06/01 08:38 Order name: Magnesium; Complete Time: 10: sp3 06/01 08:38 Order name: Protime (+inr); Complete Time: : sp3 06/01 08:38 Order name: Troponin High Sensitivity; Complete Time: 10: sp3 06/01 08:38 Order name: CT Head Brain wo Cont; Complete Time: 09:12 sp3 06/01 08:38 Order name: EKG; Complete Time: 08:39 sp3 06/01 08:38 Order name: Cardiac monitoring; Complete Time: 08:55 sp3 06/01 08:38 Order name: EKG - Nurse/Tech; Complete Time: 09:11 sp3 06/01 08:38 Order name: IV Saline Lock; Complete Time: 08:55 sp3 06/01 08:38 Order name: Labs collected and sent; Complete Time: 08:56 sp3 06/01 08:38 Order name: NPO; Complete Time: 08:55 sp3 06/01 08:38 Order name: O2 Per Protocol; Complete Time: 08:55 sp3 06/01 08:38 Order name: O2 Sat Monitoring; Complete Time: 08:55 sp3 Administered Medications: 09:11 Not Given (Patient Refused): morphine IVP or IV 2 mg IVP once over 4 mins ss 09:39 Drug: Acetaminophen PO 650 mg Route: PO; ss 09:40 Drug: Ondansetron IVP 4 mg Route: IVP; Site: right forearm; ss Disposition Summary: 06/01/23 10:14 Discharge Ordered Location: Home sp3 Condition: Stable sp3 Diagnosis - Headache sp3 Followup: sp3 - With: Private Physician - When: As needed - Reason: If symptoms return Discharge Instructions: - Discharge Summary Sheet sp3 - General Headache Without Cause sp3 Forms: - Medication Reconciliation Form sp3 - Thank You Letter sp3 - Antibiotic Education sp3 - Prescription Opioid Use sp3 - Patient Portal Instructions sp3 Signatures: Dispatcher [employer] Silva Mccabe, ALAYNA RN Amanda Barnes MD MD sp3
--- NOTE | 2023-06-01 10:14 | ER ---
Nurse's Notes [facility] [place] Name: Carol Ann Matute Age: 77 yrs Sex: Female : 1945 Arrival Date: 06/01/2023 Time: 08:32 Bed 5 Private MD: Diagnosis: Headache Presentation: 06/01 08:37 Chief complaint: Patient states: Headache that began this morning around 0700 and ss dizziness when repositioning. PT had CVA on May 07 and was flown to [facility] and had occlusion removed from behind L ear. Coronavirus screen: Client denies travel out of the [place] in the last 14 days. Ebola Screen: Patient denies exposure to infectious person. Patient denies travel to an Ebola-affected area in the 21 days before illness onset. Initial Sepsis Screen: Does the patient meet any 2 criteria? No. Patient's initial sepsis screen is negative. Does the patient have a suspected source of infection? No. Patient's initial sepsis screen is negative. Risk Assessment: Do you want to hurt yourself or someone else? Patient reports no desire to harm self or others. Onset of symptoms was June 01, 2023. Care prior to arrival: IV initiated. 22 GA, in the right forearm. Transition of care: patient was not received from another setting of care. 08:37 Method Of Arrival: Ambulatory ss 08:37 Acuity: ALTHEA 3 ss Historical: - Allergies: 08:41 PENICILLINS; ss - Home Meds: 08:41 levothyroxine 137 mcg tablet 1 tab daily [Active]; amiodarone 200 mg Oral tablet 1 tab ss daily [Active]; duloxetine 20 mg oral capsule,delayed release (e.c.) 1 cap 2 times per day [Active]; aspirin 81 mg Oral capsule 1 cap daily [Active]; metoprolol tartrate 50 mg Oral tablet 1 tabs 2 times per day [Active]; Eliquis 5 mg oral tablet 1 tab 2 times per day [Active]; atorvastatin 20 mg oral tablet 1 tab every evening [Active]; - PMHx: 08:41 Hypertension; Thyroid problem; Ischemic stroke; ss - Immunization history:: Client reports receiving the 2nd dose of the Covid vaccine. - Social history:: Smoking status: Patient denies any tobacco usage or history of. Screenin:43 [facility] ED Fall Risk Assessment (Adult) History of falling in the last 3 months, ss including since admission No falls in past 3 months (0 pts). Abuse screen: Denies threats or abuse. Denies injuries from another. Nutritional screening: No deficits noted. Tuberculosis screening: Never had TB. Assessment: 08:44 Reassessment: Pt to CT at this time VIA stretcher. ss 09:40 Reassessment: Patient appears in no apparent distress at this time. Patient and/or ss family updated on plan of care and expected duration. Pain level reassessed. Patient is alert, oriented x 3, equal unlabored respirations, skin warm/dry/pink. Still c/o headache 04/01. 10:43 Reassessment: family at bedside. Pt reports she is feeling better. Verbalizes ss understanding importance of follow up care and returning for any new or worsening symptoms. General: Appears in no apparent distress. comfortable, Behavior is calm, cooperative. Vital Signs: 08:37 BP 151 / 69; Pulse 64; Resp 17; Temp 98.2(TE); Pulse Ox 100% on R/A; Weight 90.72 kg; ss Height 5 ft. 6 in. ; Pain 04/01; 08:37 Body Mass Index 32.28 (90.72 kg, 167.64 cm) ss 08:37 Pain Scale: Adult ss ED Course: 08:34 Patient arrived in ED. eb 08:37 Amanda An MD is Attending Physician. sp3 08:41 Triage completed. ss 08:41 Arm band placed on right wrist. ss 08:50 CT Head Brain wo Cont In Process Unspecified. EDMS 08:56 Silva Cannon, ALAYNA is Primary Nurse. ss 10:43 Patient has correct armband on for positive identification. Bed in low position. ss 10:43 No provider procedures requiring assistance completed. IV discontinued, intact, ss bleeding controlled, No redness/swelling at site. Pressure dressing applied. Administered Medications: 09:11 Not Given (Patient Refused): morphine IVP or IV 2 mg IVP once over 4 mins ss 09:39 Drug: Acetaminophen PO 650 mg Route: PO; ss 09:40 Drug: Ondansetron IVP 4 mg Route: IVP; Site: right forearm; ss Medication: 10:43 VIS not applicable for this client. ss Outcome: 10:14 Discharge ordered by MD. sp3 10:43 Discharged to home ambulatory. 10:43 Condition: good 10:43 Discharge instructions given to patient, family, Instructed on discharge instructions, follow up and referral plans. Demonstrated understanding of instructions, follow-up care. 10:44 Patient left the ED. Signatures: Dispatcher [employer] Silva Mccabe RN RN Negra Manuel Setul, MD MD sp3
[2023-06-01 10:49] VITALS: BP 151/69; TEMP 98.2; O2SAT 100
--- NOTE | 2023-06-04 15:37 | EKG ---
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
== END 2023-06-01 10:44 | disposition home or self-care (01) ==
LOC: ER 08:32
DX: R51.9 Headache, unspecified (principal); I10 Essential (primary) hypertension; E07.9 Disorder of thyroid, unspecified; Z86.73 Personal history of transient ischemic attack (TIA), and cerebral infarction without residual deficits; Z79.82 Long term (current) use of aspirin
CPT/HCPCS: 93005; 85025; 80048; 36415; 83735; 85610; 80076; 84484; 70450; 96374; 99284; J2405

== ENCOUNTER 2023-06-07 11:54 | Observation (INO) | payer OTHER ==
--- OUTSIDE RECORDS SUMMARY | 2023-06-07 12:01 | XMS REPORT | Continuity of Care Document ---
:1945 Author Organization [facility] t Address [address] [facility] [address] [place] [address] Care Team Providers Name Role Phone No, Pcp [facility] Primary Care Physician Unavailable PABLO MONTE Attending Clinician Unavailable Kemar Vides Anavella Attending Clinician Unava ilable [id number] Attending Clinician Unavailable BHARATHI WEATHERS Attending Clinician Unavailable EDILIA LOVETT Attending Clinician Unavailable AMADOU PATEL Attending Clinician Unavailable Armando Cortez Attending Clinician Unavailable Juve MERCADO, Kasey Huntley Attending Clinician [phone] Amadou Patel MD Attending Clinician [phone] Bharathi Weathers MD Attending Clinici an Elva Terry MD Attending Clinician Mell MERCADO, Pablo Beckwith Attending Clinician [phone] Virtual, Surgeon Attending Clinician Unavailable No, Pcp Attending Clinician Unavailable KASEY AN Attending Clinician Unavailable Pritesh Kent MD Attending Clinician Ritter MERCADO, Mychal Mcfarlane Attending Clinician MARCOS SALDIVAR M.D. Attending Clinician Unavailable AMADOU PATLE Admitting Clinician Unavailable Santosh Vides Anav Admitting Clinician Unavailable [id number] Admitting Clinician Unavailable LIOR BAUTISTA Admitting Clinician Unavailable KASEY AN Admitting Clinician Unavailable Payers Payer Name Policy Type Policy Number Effective Date Expiration Date S fredy [place]ICARE [id number] 2022 [facility] [place] [facility] [id number] [facility] [id number] [facility] Medicare - [facility] Problems Condition Condition Condition Status Onset Resolution Last Treating Co mments Source Name Details Category Date Date Treatment Clinician Date Hypothyroi Hypothyroi Disease Active C [facility] dism due dism due 05-12 to to 00:00: Medical acquired acquired 00 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 Simple Simple Disease Recurre [facility] bronchitis bronchitis 00:[facility]: Me dical 00 Center Atrial Atrial Disease Active [facility] fibrillati fibrillati 7-19 Val kes on with on with 00:00: Medical rapid rapid 00 Center ventricula ventricula r response r response 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 7[facility]18 [facility] 00:[facility]: Medical [facility] Center Primary Primary Disease Recurre [facility] hypertensi hypertensi nce 7-17 Val kes on on 00:00: Medical 00 Center Acute Acute Disease Active [facility] encephalop encephalop 7-17 Val kes athy athy 00:00: Medical 00 Osteen Aphasia Aphasia Disease Active [facility] 7[facility]17 [facility] 00:[facility]: Medical 00 Osteen Acute Acute Disease Active [facility] ischemic ischemic 7-16 [facility] left left 00:00: [place] [id number] Center cerebral cerebral artery artery (MCA) (MCA) stroke stroke Primary Primary Problem Active [facility] osteoarthr osteoarthr [...] blood [id number] d Physici pressure pressure ans [id number] Arthritis Problem Co mmon [id number] of knee, Spirit left - [facility] Allergies, Adverse Reactions, Alerts Allergy Allergy Status Severity Reaction(s) Onset Inactive Treating Comm ents Source Name Type Date Date Clinician PENICILL Allergy Active ENCCLR IN 05-30 10:45: 23 penicill penicill Active Unknown Commo n in G in G [facility] NO KNOWN Allergy Active [facility] Erythrom drug Active [facility] ycin allergy Physici [...] Date Quantity Comments Source History of Tobacco [facility] - Use [facility] History SDOH [facility] Transport Non-Med Medical Center Exposure to 2023-04-28 2023-05-08 Not sure [facility] SARS-CoV-2 (event) 00:00:00 10:18:00 Medica Center Tobacco use and 2023-05-08 2023-05-08 Smokeless tobacco [facility] exposure 00:00:00 00:00:00 non-user Medical Center Alcohol intake 2023-05-08 2023-05-08 Lifetime [facility] es 00:00:00 00:00:00 non-drinker Medical Cente r (finding) History [facility] 2023-05-08 2023-05-[address] [facility] Transport Med 00:00:00 00:00:[address] [facility] 2023-05-08 2023-05-[address] [facility] Housing Unable to 00:00:00 00:00:00 Medical Center Pay History [facility] 2023-05-08 2023-05-[address] [facility] Housing Places 00:00:00 00:00:00 Medical Ce nter Lived History [facility] 2023-05-08 2023-05-[address] [facility] Housing Homeless 00:00:00 00:00:00 Medical Center Last Year Sex Assigned At [birth year] [facility] kes 00:00:00 00:00:00 Medical Center Smoking Status Start Date Stop Date Source Never smoked tobacco [facility] Medications Ordered Filled Start Stop Current Ordering Indication Dosage Frequency Signature Comments Components Source Medication Medication Date Date Medication? Clinician (SIG) Name Name apixaban Yes 5mg Q.5D Take [address] [address] (ELIQUIS) 5 -28 tablet (5 Pennie es mg Tab 00:00: mg total) Medica l tablet 00 by mouth 2 Center (two) times daily. meclizine Yes 25mg [id number] Take [address] (ANTIVERT) - [id number] tablet (25 [facility] 25 mg 10:55: 3D mg total) Medical tablet 02 by mouth 3 Center (three) times daily. atorvastati 2023- Yes 20mg QD Take [address] n (LIPITOR) 05-17-25 tablet (20 L ukes 20 MG 00:00: 23:59 mg total) Medica l tablet 00 :00 by mouth Center daily. levothyroxi 2023- Yes 68.5ug Take 0.[address] ne - 07-25 tablets [facility] (SYNTHROID, 00:00: 23:59 (68.5 mcg Medical LEVOTHROID) 00 :00 total) by Cat ter 137 MCG mouth tablet Every morning on an empty stomach. metoprolol 2023- Yes 50mg Q.5D Take [address] tartrate 05-16-24 tablet (50 Luke s (LOPRESSOR) 00:00: 23:59 mg total) Medical 50 MG 00 :00 by mouth 2 Center tablet (two) times daily. polyethylen 2022- No 17g Q.5D Take [address] e glycol 05-16 08 by mouth 2 Luke s (GLYCOLAX) 00:00: 23:59 (two) Medic al 17 gram 00 :00 times Center packet daily for 7 days. amiodarone 2022- No 400mg Q.5D Take [address] (PACERONE) 05-16 07 tablet [facility] 400 MG 00:00: 23:59 (400 mg Medical tablet 00 :00 total) by Center mouth 2 (two) times daily for 2 days. Synvisc Synvisc No 16mg Common 1-06 [facility] 00:00: - [facility] Synvisc Synvisc 2021-10 No 16mg Common 2-29 [facility] 00:00: - [facility] Synvisc Synvisc 2021-10 No 16mg Common 2-29 Spirit 00:00: - [facility] Synvisc Synvisc 2021-10 No 16mg Common 2-19 [facility] 00:00: - [facility] Kenalog Kenalog 2021-10 No 40mg Common (Triamcinol (Triamcinol 2-19 S pirit one) one) 00:00: - [facility] Bupivicaine Bupivicaine 2021-10 No 2.5mg Common Talala Talala 2-19 Spirit 00:00: - [facility] Bupivicaine Bupivicaine 2021-10 No 2.5mg Common Talala Talala 2-19 Spirit 00:00: - [facility] Synvisc Synvisc 2021-10 No 16mg Common 2-19 Spirit 00:00: - [facility] Kenalog Kenalog 2021-10 No 40mg Common (Triamcinol (Triamcinol 2-19 S pirit one) one) 00:00: - [facility] Bupivicaine Bupivicaine 2022-1 No 2.5mg Common Talala Talala 2-19 Spirit 00:00: - [facility] Synvisc Synvisc 2021-1 No 16mg Common 2-19 Spirit 00:00: - [facility] Kenalog Kenalog 2021-1 No 40mg Common (Triamcinol (Triamcinol 2-19 S pirit one) one) 00:00: - [facility] Kenalog Kenalog 2021-0 No 40mg Common (Triamcinol (Triamcinol 7-11 S pirit one) one) 00:00: - [facility] Bupivicaine Bupivicaine 2021-0 No 2.5mg Common Talala Talala 7-11 Spirit 00:00: - [facility] Kenalog Kenalog 2021-0 No 40mg Common (Triamcinol (Triamcinol 7-11 S pirit one) one) 00:00: - [facility] Bupivicaine Bupivicaine 2021-0 No 2.5mg Common Talala Talala 7-11 Spirit 00:00: - [facility] Kenalog Kenalog 2021-0 No 40mg Common (Triamcinol (Triamcinol 7-11 S pirit one) one) 00:00: - [facility] Bupivicaine Bupivicaine 2021-0 No 2.5mg Common Talala Talala 7-11 Spirit 00:00: - [facility] Kenalog Kenalog 2021-0 No 40mg Common (Triamcinol (Triamcinol 7-11 S pirit one) one) 00:00: - [facility] Bupivicaine Bupivicaine 2021-0 No 2.5mg Common Talala Talala 7-11 Spirit 00:00: - [facility] Kenalog Kenalog 2021-0 No 40mg Common (Triamcinol (Triamcinol 7-11 S pirit one) one) 00:00: - [facility] Bupivicaine Bupivicaine 2-0 No 2.5mg Common Talala Talala 7-11 Spirit 00:00: - [facility] Kenalog Kenalog 2021-0 No 40mg Common (Triamcinol (Triamcinol 7-11 S pirit one) one) 00:00: - [facility] Bupivicaine Bupivicaine 2021-0 No 2.5mg Common Talala Talala 7-11 Spirit 00:00: - [facility] Synvisc Synvisc 2021-0 No 16mg Common 3-10 Spirit 00:00: - [facility] Synvisc Synvisc 2021-0 No 16mg Common 3-10 Spirit 00:00: - [facility] Synvisc Synvisc 2021-0 No 16mg Common 3-10 [facility] 00:00: - [facility] Synvisc Synvisc 2021-0 No 16mg Common 3-10 [facility] 00:00: - [facility] Synvisc Synvisc 2-0 No 16mg Common 3-10 Spirit 00:00: - [facility] Synvisc Synvisc 2021-0 No 16mg Common 3-10 [facility] 00:00: - [facility] Synvisc Synvisc 2-0 No 16mg Common 3-10 Spirit 00:00: - [facility] Synvisc Synvisc 2-0 No 16mg Common 3-03 [facility] 00:00: - [facility] Synvisc Synvisc 2-0 No 16mg Common 3-03 [facility] 00:00: - [facility] 00 [facility] Synvisc Synvisc 2-0 No 16mg Common 3-03 [facility] 00:00: - [facility] Synvisc Synvisc 2-0 No 16mg Common 3-03 [facility] 00:00: - [facility] Synvisc Synvisc 2-0 No 16mg Common 3- Spirit 00:00: - [facility] Synvisc Synvisc 2-0 No 16mg Common 3-03 [facility] 00:00: - [facility] Synvisc Synvisc 2-0 No 16mg Common 3- Spirit 00:00: - [facility] Synvisc Synvisc 2021-0 No 16mg Common 3-03 Spirit 00:00: - [facility] Kenalog Kenalog 2021-0 No 40mg Common (Triamcinol (Triamcinol 2-24 S pirit one) one) 00:00: - [facility] Bupivicaine Bupivicaine 2-0 No Common Talala Talala 2-24 Spirit 00:00: - [facility] Synvis Synvisc 2021-0 No 16mg Common 2-24 [facility] 00:00: - [facility] Kenalog Kenalog 2021-0 No 40mg Common (Triamcinol (Triamcinol 2-24 S pirit one) one) 00:00: - [facility] Bupivicaine Bupivicaine 2021-0 No 2.5mg Common Talala Talala 2-24 Spirit 00:00: - [facility] Synvis Synvisc 2021-0 No 16mg Common 2-24 Spirit 00:00: - [facility] Kenalog Kenalog 2021-0 No 40mg Common (Triamcinol (Triamcinol 2-24 S pirit one) one) 00:00: - [facility] Bupivicaine Bupivicaine 2021-0 No 2.5mg Common Talala Talala 2-24 [facility] 00:00: - [facility] Synvis Synvisc 2021-0 No 16mg Common 2-24 [facility] 00:00: - [facility] Kenalog Kenalog 2021-0 No 40mg Common (Triamcinol (Triamcinol 2-24 S pirit one) one) 00:00: - [facility] Bupivicaine Bupivicaine 2-0 No 2.5mg Common Talala Talala 2-24 Spirit 00:00: - [facility] Synvis Synvisc 2021-0 No 16mg Common 2-24 [facility] 00:00: - [facility] Kenalog Kenalog 2-0 No 40mg Common (Triamcinol (Triamcinol 2-24 S pirit one) one) 00:00: - [facility] Bupivicaine Bupivicaine 2-0 No 2.5mg Common Talala Talala 2-24 Spirit 00:00: - [facility] Synvisc Synvisc 2021-0 No 16mg Common 2-24 [facility] 00:00: - [facility] Kenalog Kenalog 2-0 No 40mg Common (Triamcinol (Triamcinol 2-24 S pirit one) one) 00:00: - [facility] Kenalog Kenalog 2-0 No 40mg Common (Triamcinol (Triamcinol 2-24 S pirit one) one) 00:00: - [facility] Bupivicaine Bupivicaine 2-0 No 2.5mg Common Talala Talala 2-24 [facility] 00:00: - [facility] Synvisc Synvisc 2-0 No 16mg Common 2-24 [facility] 00:00: - [facility] Kenalog Kenalog 2021-0 No 40mg Common (Triamcinol (Triamcinol 2-24 S pirit one) one) 00:00: - [facility] Bupivicaine Bupivicaine 2021-0 No 2.5mg Common Talala Talala 2-24 Spirit 00:00: - [facility] Synvisc Synvisc 2021-0 No 16mg Common 2-24 [facility] 00:00: - [facility] Bupivicaine Bupivicaine 2-0 No Common Talala Talala 2-24 Spirit 00:00: - [facility] Synvisc Synvisc 2021-0 No 16mg Common 2-24 [facility] 00:00: - [facility] Kenalog Kenalog 2-0 No 40mg Common (Triamcinol (Triamcinol 2-24 S pirit one) one) 00:00: - [facility] Bupivicaine Bupivicaine 2-0 No Common Talala Talala 2-24 Spirit 00:00: - [facility] Synvisc Synvisc 2021-0 No 16mg Common 2-24 [facility] 00:00: - [facility] Kenalog Kenalog 2020-0 No 40mg Common (Triamcinol (Triamcinol 8-24 S pirit one) one) 00:00: - [facility] Bupivicaine Bupivicaine 2020-0 No Common Talala Talala 8-24 Spirit 00:00: - [facility] Kenalog Kenalog 2020-0 No 40mg Common (Triamcinol (Triamcinol 8-24 S pirit one) one) 00:00: - [facility] Bupivicaine Bupivicaine 2020-0 No 2.5mg Common Talala Talala 8-24 Spirit 00:00: - [facility] Kenalog Kenalog 2020-0 No 40mg Common (Triamcinol (Triamcinol 8-24 S pirit one) one) 00:00: - [facility] Bupivicaine Bupivicaine 2020-0 No 2.5mg Common Talala Talala 8-24 Spirit 00:00: - [facility] Kenalog Kenalog 2020-0 No 40mg Common (Triamcinol (Triamcinol 8-24 S pirit one) one) 00:00: - [facility] Bupivicaine Bupivicaine 2020-0 No 2.5mg Common Talala Talala 8-24 [facility] 00:00: - [facility] Kenalog Kenalog 2020-0 No 40mg Common (Triamcinol (Triamcinol 8-24 S pirit one) one) 00:00: - [facility] Bupivicaine Bupivicaine 2020-0 No 2.5mg Common Talala Talala 8-24 Spirit 00:00: - [facility] Kenalog Kenalog 2020-0 No 40mg Common (Triamcinol (Triamcinol 8-24 S pirit one) one) 00:00: - [facility] Bupivicaine Bupivicaine 2020-0 No 2.5mg Common Talala Talala 8-24 Spirit 00:00: - [facility] Kenalog Kenalog 2020-0 No 40mg Common (Triamcinol (Triamcinol 8-24 S pirit one) one) 00:00: - [facility] Bupivicaine Bupivicaine 2020-0 No 2.5mg Common Talala Talala 8-24 [facility] 00:00: - [facility] Kenalog Kenalog 2020-0 No 40mg Common (Triamcinol (Triamcinol 8-24 S pirit one) one) 00:00: - [facility] Bupivicaine Bupivicaine 2020-0 No Common Talala Talala 8-24 [facility] 00:00: - [facility] Kenalog Kenalog 2020-0 No 40mg Common (Triamcinol (Triamcinol 8-24 S pirit one) one) 00:00: - [facility] Bupivicaine Bupivicaine 2020-0 No Common Talala Talala 8-24 [facility] 00:00: - [facility] Bisoprolol- Bisoprolol- No Bisoprolol hydroCHLORO hydroCHLORO -hydroCHLO thiazide thiazide ROthiazide Azithromyci Azithromyci No Azithromyc n n in methylPREDN methylPREDN No methylPRED ISolone ISolone NISolone Denta 5000 Denta 5000 No Denta 5000 Plus Plus Plus Premarin Premarin No Premarin Cosamin ASU Cosamin ASU No Cosamin for Joint for Joint ASU for [facility] ZyrTEC ZyrTEC No ZyrTEC Levothyroxi Levothyroxi No [...] Cosamin for Joint for Joint ASU for [facility] Caltrate Caltrate No Caltrate 600 600 [...] Cosamin for Joint for Joint ASU for [facility] Levothyroxi Levothyroxi No Levothyrox ne Sodium [...] Cosamin for Joint for Joint ASU for [facility] Levothyroxi Levothyroxi No Levothyrox ne Sodium [...] Cosamin for Joint for Joint ASU for [facility] Azithromyci Azithromyci No Azithromyc n n [...] Cosamin for Joint for Joint ASU for [facility] Caltrate Caltrate No Caltrate 600 600 600 Cosamin ASU Cosamin ASU No Cosamin for Joint for Joint ASU for [facility] Levothyroxi Levothyroxi No Levothyrox ne Sodium [...] Levothyrox ne Sodium ne Sodium ine Sodium Piroxicam Piroxicam Yes UT 10 MG Oral 10 MG Oral Phy sici Capsule Capsule ans ZyrTEC ZyrTEC No ZyrTEC methylPREDN methylPREDN No methylPRED ISolone ISolone NISolone Denta 5000 Denta 5000 No Denta 5000 Plus Plus Plus Montelukast Montelukast No Montelukas Sodium Sodium t Sodium Triamterene Triamterene Yes U T -HCTZ CAPS -HCTZ CAPS Phy sici ans Premarin Premarin No Premarin Famotidine Famotidine No Famotidine Celecoxib Celecoxib No Celecoxib methylPREDN methylPREDN No methylPRED ISolone ISolone NISolone Bisoprolol- Bisoprolol- No Bisoprolol hydroCHLORO hydroCHLORO -hydroCHLO thiazide thiazide ROthiazide Biotin TABS Biotin TABS Yes U T Physici ans Caltrate Caltrate No Caltrate 600 600 600 Cosamin ASU Cosamin ASU No Cosamin for Joint for Joint ASU for [facility] Levothyroxi Levothyroxi No Levothyrox ne Sodium ne Sodium ine Sodium Azithromyci Azithromyci No Azithromyc n n in Co Q 10 Co Q 10 No Co Q 10 NexIUM CPDR NexIUM CPDR Yes U T Physici ans Montelukast Montelukast No Montelukas Sodium Sodium t Sodium ZyrTEC ZyrTEC No ZyrTEC Celecoxib Celecoxib No Celecoxib Premarin Premarin No Premarin Bisoprolol- Bisoprolol- No Bisoprolol hydroCHLORO hydroCHLORO -hydroCHLO thiazide thiazide ROthiazide Sucralfate Sucralfate Yes UT TABS TABS Physici ans Famotidine Famotidine No Famotidine Azithromyci Azithromyci No Azithromyc n n in Denta 5000 Denta 5000 No Denta 5000 Plus Plus Plus Cosamin ASU Cosamin ASU No Cosamin for Joint for Joint ASU for [facility] Caltrate Caltrate No Caltrate 600 600 600 Zyrtec TABS Zyrtec TABS Yes U T Physici ans Co Q 10 Co Q 10 No Co Q 10 Levothyroxi Levothyroxi No Levothyrox ne Sodium ne Sodium ine Sodium methylPREDN methylPREDN No methylPRED ISolone ISolone NISolone Montelukast Montelukast No Montelukas Sodium Sodium t Sodium ZyrTEC ZyrTEC No ZyrTEC Singulair Singulair Yes UT TABS TABS Physici ans Celecoxib Celecoxib No Celecoxib Premarin Premarin No Premarin Bisoprolol- Bisoprolol- No Bisoprolol hydroCHLORO hydroCHLORO -hydroCHLO thiazide thiazide ROthiazide Famotidine Famotidine No Famotidine Azithromyci Azithromyci No Azithromyc n n in Premarin Premarin Yes UT TABS TABS Physici ans Montelukast Montelukast No Montelukas Sodium Sodium t Sodium Levothyroxi Levothyroxi No Levothyrox ne Sodium ne Sodium ine Sodium Co Q 10 Co Q 10 No Co Q 10 Cosamin ASU Cosamin ASU No Cosamin for Joint for Joint ASU for [facility] Famotidine Famotidine No Famotidine ZyrTEC ZyrTEC No ZyrTEC Levothyroxi Levothyroxi Yes U T ne Sodium ne Sodium Physi ci TABS TABS ans methylPREDN methylPREDN No methylPRED ISolone ISolone NISolone Caltrate Caltrate No Caltrate 600 600 600 Bisoprolol- Bisoprolol- No Bisoprolol hydroCHLORO hydroCHLORO -hydroCHLO thiazide thiazide ROthiazide Denta 5000 Denta 5000 No Denta 5000 Plus Plus Plus Azithromyci Azithromyci No Azithromyc n n in Celecoxib Celecoxib No Celecoxib Premarin Premarin No Premarin Cosamin ASU Cosamin ASU No Cosamin for Joint for Joint ASU for [facility] Denta 5000 Denta 5000 No Denta [...] [facility] (Triamcinolone) (Triamcinolone) 10:41:00 - [facility] Bupivicaine Talala Bupivicaine Talala 2021-06-15 Completed [facility] 10:40:00 - [facility] Vital Signs Vital Name Observation Time Observation Value Comments Source WEIGHT 2023-05-07 20:31:00 92.2 kg HEIGHT 2023-05-07 20:31:00 165.1 cm WEIGHT 2023-05-07 20:31:00 92.2 kg HEIGHT 2023-05-07 20:31:00 165.1 cm height 2022-10-28 08:00:00 66 [in_i] [facility] weight 2022-10-28 08:00:00 203 [lb_av] Common S [facility]irit [facility] temperature 2022-10-28 08:00:00 97.7 [degF] Common S pirit [facility] bmi 2022-10-28 08:00:00 32.76 kg/m2 Common S [facility] blood pressure 2022-10-28 08:00:00 128 mm[Hg] [facility] - systolic [facility] blood pressure 2022-10-28 08:00:00 78 mm[Hg] [facility] - diastolic [facility] height 2022-10-20 13:15:00 66 [in_i] Common S pirit [facility] weight 2022-10-20 13:15:00 203 [lb_av] Common S [facility] temperature 2022-10-20 13:15:00 97.2 [degF] Common [facility] bmi 2022-10-20 13:15:00 32.76 kg[facility]m2 [facility]22-10-20 13:15:00 126 mm[Hg] [facility] - systolic [facility] blood pressure 2022-10-20 13:15:00 80 mm[Hg] [facility] - diastolic [facility] height 2022-10-10 14:15:00 66 [in_i] Common S pirit [facility] weight 2022-10-10 14:15:00 203 [lb_av] Common S pirit [facility] temperature 2022-10-10 14:15:00 97.9 [degF] [facility] bmi 2022-10-10 14:15:00 32.76 kg/m2 [facility] - [facility] [place] pressure 2022-10-10 14:15:00 125 mm[Hg] [facility] - systolic [facility] blood pressure 2022-10-10 14:15:00 80 mm[Hg] [facility] - diastolic [facility] height 2022-08-29 09:45:00 66 [in_i] Common S [facility] - [facility] weight 2022-08-29 09:45:00 203.1 [lb_av] [facility] temperature 2022-08-29 09:45:00 96.5 [degF] Common S pirit - [facility] bmi 2022-08-29 09:45:00 32.78 kg/m2 Common [facility] - [facility] blood pressure 2022-08-29 09:45:00 126 mm[Hg] [facility] - systolic [facility] blood pressure 2022-08-29 09:45:00 82 mm[Hg] [facility] - diastolic [facility] height 2022-05-02 15:15:00 66 [in_i] Common S pirit - [facility] weight 2022-05-02 15:15:00 200 [lb_av] Common S pirit - [facility] temperature 2022-05-02 15:15:00 98.3 [degF] Common S pirit [facility] bmi 2022-05-02 15:15:00 32.28 kg/m2 Common S pirit - [facility] blood pressure 2022-05-02 15:15:00 124 mm[Hg] [facility] - systolic [facility] blood pressure 2022-05-02 15:15:00 78 mm[Hg] [facility] - diastolic [facility] height 2021-12-30 09:30:00 66 [in_i] Common S pirit - [facility] weight 2021-12-30 09:30:00 200 [lb_av] Common S pirit - [facility] temperature 2021-12-30 09:30:00 97.3 [degF] [facility] bmi 2021-12-30 09:30:00 32.28 kg/m2 [facility] [place] pressure 2021-12-30 09:30:00 128 mm[Hg] [facility] systolic [facility] blood pressure 2021-12-30 09:30:00 84 mm[Hg] [facility] diastolic [facility] height 2021-12-23 15:00:00 66 [in_i] [facility] weight 2021-12-23 15:00:00 200 [lb_av] [facility] bmi 2021-12-23 15:00:00 32.28 kg/m2 [facility] blood pressure 2021-12-23 15:00:00 126 mm[Hg] [facility] systolic [facility] blood pressure 2021-12-23 15:00:00 84 mm[Hg] [facility] diastolic [facility] height 2021-12-16 09:00:00 66 [in_i] [facility] weight 2021-12-16 09:00:00 200 [lb_av] [facility] temperature 2021-12-16 09:00:00 96.2 [degF] [facility] bmi 2021-12-16 09:00:00 32.28 kg/m2 [facility] blood pressure 2021-12-16 09:00:00 138 mm[Hg] [facility] blood pressure 2021-12-16 09:00:00 84 mm[Hg] [facility] height 2021-06-15 09:30:00 66 [in_i] [facility] weight 2021-06-15 09:30:00 200.1 [lb_av] [facility] bmi 2021-06-15 09:30:00 32.29 kg/m2 [facility] blood pressure 2021-06-15 09:30:00 153 mm[Hg] [facility] systolic [facility] blood pressure 2021-06-15 09:30:00 80 mm[Hg] [facility] Body temperature 2023-05-16 08:15:00 35.89 Alicia [facility] Respiratory rate 2023-05-16 08:15:00 18 /min [facility] Oxygen saturation in 2023-05-16 08:15:00 96 /min [facility] Arterial blood by Medical Ce nter Pulse oximetry Systolic blood 2023-05-16 08:15:00 143 mm[Hg] [facility] Diastolic blood 2023-05-16 08:15:00 67 mm[Hg] [facility] Heart rate 2023-05-16 08:15:00 78 /min [facility] Body height 2023-05-07 20:31:00 165.1 cm [facility] Body weight 2023-05-07 20:31:00 92.2 kg [facility] BMI 2023-05-07 20:31:00 33.82 kg/m2 [facility] Procedures Procedure Date / Time Performing Clinician Source Performed VENOUS DOPPLER ARM, 2023-05-16 09:24:04 Pablo Monte [facility] LEFT [facility] CBC W/PLT COUNT & AUTO 2023-05-15 07:43:00 Pablo Monte [facility] DIFFERENTIAL [facility] CBC W/PLT COUNT & AUTO 2023-05-15 07:43:00 Pablo Monte [facility] CBC (HEMOGRAM ONLY) 2023-05-14 04:39:00 Elva Terry [facility] BASIC METABOLIC PANEL 2023-05-14 04:39:00 Elva Terry [facility] CBC W/PLT COUNT & AUTO 2023-05-13 03:13:00 Ronen Yu [facility] BASIC METABOLIC PANEL 2023-05-13 03:13:00 Ronen Yu [facility] MAGNESIUM 2023-05-13 03:13:00 [facility] PHOSPHORUS 2023-05-13 03:13:00 Ronen Yu [facility] CBC W/PLT COUNT & AUTO 2023-05-13 03:13:00 Ronen Yu [facility] ECG 12-LEAD 2023-05-12 17:38:40 Km Jose [facility] ECG 12-LEAD 2023-05-12 17:38:40 Unknown, Hl7 Doctor [facility] CBC W/PLT COUNT & AUTO 2023-05-12 03:46:[address] [facility] [place] [place] BASIC METABOLIC PANEL 2023-05-12 03:46:00 Ronen Yu [facility] MAGNESIUM 2023-05-12 03:46:00 Gigi [facility] PHOSPHORUS 2023-05-12 03:46:00 Gigi [facility] T4, FREE 2023-05-12 03:46:00 Km [facility] CBC W/PLT COUNT & AUTO 2023-05-12 03:46:[address] [facility] [place] (CELLAVISION MANUAL 2023-05-12 03:46:00 Gigi [facility]) [facility] CT BRAIN WITHOUT IV 2023-05-11 15:10:00 [facility] CONTRAST Center CTA BRAIN 2023-05-11 15:10:00 [facility] CTA CAROTID 2023-05-11 15:10:00 [facility] PROCALCITONIN 2023-05-11 06:48:00 Gigi [facility] LACTIC ACID, VENOUS 2023-05-11 06:48:00 Postolowski, Ronen [facility] CT ABDOMEN/PELVIS WITH 2023-05-11 04:43:00 Milo Nunez [facility] IV CONTRAST Center CBC W/PLT COUNT & AUTO 2023-05-11 03:08:00 Ronen Yu [facility] DIFFERENTIAL [facility] BASIC METABOLIC PANEL 2023-05-11 03:08:00 Ronen Yu [facility] MAGNESIUM 2023-05-11 03:08:00 Ronen Yu [facility] PHOSPHORUS 2023-05-11 03:08:00 Gigi [facility] CBC W/PLT COUNT & AUTO 2023-05-11 03:08:00 Ronen Yu [facility] DIFFERENTIAL [facility] (CELLAVISION MANUAL 2023-05-11 03:08:00 Gigi [facility] DIFF) [facility] VENOUS DOPPLER LEGS 2023-05-10 17:36:00 Jose Barbour [facility] BILATERAL Center 2D ECHO W/ DOPPLER 2023-05-10 09:15:00 Edilia Lovett [facility] (CW/PW/COLOR) Osteen BASIC METABOLIC PANEL 2023-05-10 03:57:00 Kadeem Cuadra [facility] CBC W/PLT COUNT & AUTO 2023-05-10 03:57:00 [facility] PHOSPH[facility]US 2023-05-10 03:57:00 Kadeem Cuadra [facility] MAGNESIUM 2023-05-10 03:57:00 [facility] Kadeem [facility] CREATINE KINASE (CK) 2023-05-10 03:57:00 Rishahb [facility] Everett [facility] HEPATIC FUNCTION PANEL 2023-05-10 03:57:00 Hang Keating [facility] CBC W/PLT COUNT & AUTO 2023-05-10 03:57:00 Kadeem Cuadra [facility] (CELLAVISION MANUAL 2023-05-10 03:57:00 Kadeem Cuadradip [facility] HIGH SENSITIVITY 2023-05-09 23:33:00 Ronen Yu [facility] TROPONIN I [facility] HIGH SENSITIVITY 2023-05-09 18:26:00 Ronen Yu [facility] TROPONIN I [facility] HIGH SENSITIVITY 2023-05-09 14:37:00 [facility] ECG 12-LEAD 2023-05-09 13:26:56 Pitoswald Edilia [facility] ECG 12-LEAD 2023-05-09 13:26:56 Unknown, Hl7 [facility] ECG 12-LEAD 2023-05-09 13:25:30 PostRonen howard [facility] ECG 12-LEAD 2023-05-09 13:25:30 Unknown, Hl7 Doctor [facility] BASIC METABOLIC PANEL 2023-05-09 03:16:00 Kadeem Cuadra [facility] CBC W/PLT COUNT & AUTO 2023-05-09 03:16:00 VeneciaKadeem [facility] DIFFERENTIAL Center PHOSPHORUS 2023-05-09 03:16:00 VeneciaKadeem [facility] MAGNESIUM 2023-05-09 03:16:00 [facility] CBC W/PLT COUNT & AUTO 2023-05-09 03:16:00 VeneciaKadeem [facility] MR BRAIN WITHOUT IV 2023-05-08 20:49:00 Jose Barbour [facility] CONTRAST [facility] POCT-GLUCOSE METER 2023-05-08 11:14:00 Uzma Mabry [facility] Chethan Padavanapalli [facility] HIGH SENSITIVITY 2023-05-08 06:20:00 Ronen Yu [facility] TROPONIN I [facility] ECG 12-LEAD 2023-05-08 05:12:13 Jose Barbour [facility] ECG 12-LEAD 2023-05-08 05:12:13 Unknown, Hl7 Doctor [facility] ECG 12-LEAD 2023-05-08 03:36:05 Unknown, 7 [facility] ECG 12-LEAD 2023-05-08 03:35:37 PostappleRonen finn [facility] ECG 12-LEAD 2023-05-08 03:35:37 Unknown, Hl7 [facility] HEMOGLOBIN A1C 2023-05-08 03:13:00 Pitta, [facility] RPR 2023-05-08 03:13:00 Milo Nuenz [facility] CBC W/PLT COUNT & AUTO 2023-05-08 03:13:00 [facility] 2023-05-08 03:[facility]O 2023-05-08 03:13[facility]00 [facility] POCT-GLUCOSE METER 2023-05-07 23:20:00 Amadou Patel [facility] CBC W/PLT COUNT & AUTO 2023-05-07 20:45:00 [facility] COMPREHENSIVE METABOLIC 2023-05-07 20:45:00 [facility] MAGNESIUM 2023-05-07 20:45:00 [facility]US 2023-05-07 20:45:00 [facility] TSH/FREE T4 IF 2023-05-07 20:45:00 [facility] LIPID PANEL 2023-05-07 20:45:00 [facility] CALCIUM, IONIZED 2023-05-07 20:45:00 [facility] VITAMIN B12 2023-05-07 20:45:00 PittaEdilia [facility] CBC W/PLT COUNT & AUTO 2023-05-07 20:45:[address] [facility] DIFFERENTIAL Center [place] CEREBRAL 4 VESSEL 2023-05-07 20:13:13 Vilma Ronit [facility] ANGIOGRAM [facility] [place] EMBOLIZATION 2023-05-07 19:35:00 Vilma Ronit [facility] es Medical EXTENSIVE [facility] CT HEAD WITHOUT CODE 2023-05-07 19:00:48 Milo Nunez [facility] STROKE Center CTA BRAIN 2023-05-07 18:59:55 Enrique [facility] CTA CAROTID 2023-05-07 18:57:[address] [facility] CT BRAIN CEREBRAL 2023-05-07 18:56:[address] [facility] PERFUSION ANALYSIS Center [facility] Replacement Right [facility] of [facility]ste[facility] of [facility] Thyroidectomy Plan of Care Planned Activity Planned Date Details Comments Source Future Scheduled 2024-05-[address] [facility] Test 00:00:00 [facility] Cent[facility] r Screening (12+) [code = Tobacco Cessation Counseling and Screening (12+)] Future Scheduled 2023-06-23 Influenza Vaccine (#1) [facility] 00:00:00 [code = Influenza Medical Ce nter Vaccine (#1)] Future Scheduled 2022-10-23 Medicare IPPE (WELCOME [facility] 00:00:00 TO MEDICARE) [code = Medical Center Medicare IPPE (WELCOME TO MEDICARE)] Future Scheduled 2009 PNEUMOCOCCAL 65+ YRS [facility] Test 00:00:00 (1 - PCV) [code = Medical Ce nter PNEUMOCOCCAL 65+ YRS (1 - PCV)] Future Scheduled 1994 SHINGLES VACCINES ([address] [facility] Test 00:00:00 of 2) [code = SHINGLES Medic al Center VACCINES (1 of 2)] Future Scheduled 1963 DTAP/TDAP/TD VACCINES [facility] 00:00:00 (1 - Tdap) [code = Medical C enter DTAP/TDAP/TD VACCINES (1 - Tdap)] Future Scheduled 1962 HEPATITIS C SCREENING [facility] 00:00:00 [code = HEPATITIS C Medical Center SCREENING] Future Scheduled 1945 COVID-19 VACCINE (#1) [facility] 00:00:00 [code = COVID-[address] VACCINE (#1)] Future Scheduled 1945 DXA SCAN [code = DXA [facility] Test 00:00:00 SCAN] Medical Center Encounters Start End Encounter Admission Attending Care Care Encounter Source Date/Time Date/Time Type Type Clinicians Facility Department ID 2023-05-16 Inpatient ER MELL SLE SLE [id number] [facility] 08:09:35 MRINALINI 2023-05-15 [facility]patient [facility] REF [id number] [facility] 14:43:14 [facility] [place] 2023-05-11 Outpatient 3 [id number] ENCPL REF [id number] [facility] 10:08:21 0720 [facility] [place] 2023-05-11 Inpatient ER VENKATASUBB SLE SLE [id number] SLEH 04:07:16 A BHARATHI MABRY 2023-05-10 Inpatient ER VENKATASUBB SLE SLE [id number] SLEH 15:10:46 A BHARATHI MABRY 2023-05-10 Outpatient 3 [id number] ENCPL REF [id number] [facility] 11:32:11 0719 [facility] [place] 2023-05-10 Inpatient ER PITTARD, SLE SLE [id number] SLEH 07:40:13 EDILIA 2023-05-09 Inpatient ER PITTARD, [facility] SLE [id number] SLEH 00:00:00 EDILIA 2023-05-08 Inpatient ER VENKATASUBB SLEH SLEH [id number] SLEH 20:03:52 A BHARATHI MABRY 2023-05-07 Inpatient ER PATEL, [facility] SLE [id number] SLEH 19:43:50 AMADOU 2023-05-07 Inpatient ER PATEL, SLEH SLEH [id number] SLEH 19:43:40 AMADOU 2022-10-28 [facility] [id number] Common 09:38:02 Armando 22468 [facility] 2021-12-16 Outpatient Dana, [facility] [id number] Common 08:45:02 Armando [facility] 2021-11-17 [facility] [id number] Common 13:41:59 Armando [id number] [facility] 2023-05-30 2023-05-30 Outpatient READMISSIO DANA, ENCCLR ENCCLR [id number] ENCCLR 00:00:00 00:00:00 N ARMANDO 2023-05-16 2023-05-29 Inpatient 3 [facility] ENCPL CVA [id number] [facility] 11:39:00 11:35:00 pilar, 0725 [facility] 2023-05-07 2023-05-16 Hospital [id number] 18:52:00 10:55:00 Encounter Amadou Patel [facility] Bharathi [facility], Pablo Beckwith 2023-05-07 2023-05-[address] [facility] Surgery [id number] SLE 18:52:00 10:55:00 MRIWILMAN 2023-05-11 2023-05-11 Surgery Virtual, [facility] [id number] 16:53:00 17:16:00 [facility] 2023-05-11 2023-05-11 Inpatient ER [facility] [id number] SLEH 14:48:38 00:00:00 BHARATHI HERNANDEZ 2023-05-11 2023-05-11 Inpatient ER [facility] [id number] SLEH 14:48:35 00:00:00 A BHARATHI MABRY 2023-05-11 2023-05-11 Inpatient ER [facility] SLE SLE [id number] SLE 14:48:32 00:00:00 A BHARATHI MABRY 2023-05-08 2023-05-08 Outpatient [facility] SLE [id number] SLEH 00:00:00 00:00:00 2023-05-08 2023-05-[address] [facility] [id number] 00:00:00 00:00:00 Only [facility] 2023-05-08 2023-05-08 Outside No, Pcp [facility] [id number] 00:00:00 00:00:00 Orders [facility] 2023-05-08 2023-05-08 Travel [facility] [id number] [facility] 00:[facility]00 00:00:00 [facility] 2023-05-07 2023-05-07 Hospital An, [facility] [id number] 18:52:35 23:59:00 Encounter Kasey [facility] 2023-05-07 2023-05-07 Outpatient EL AN, SLE SLE [id number] SLEH 18:52:35 23:59:00 KASEY 2023-05-07 2023-05-07 Surgery Virtual, [facility] [id number] 20:00:00 20:23:00 Surgeon [facility] 2023-05-07 2023-05-[address] [facility] [id number] 19:08:00 20:18:00 Event Mychal Mathis [facility] 2023-05-07 2023-05-07 Outpatient ER AN, SLE SLE [id number] SLEH 19:00:33 19:00:33 KASEY 2023-05-07 2023-05-07 Outpatient ER AN, SLE SLE [id number] SLEH 18:57:32 18:57:32 KASEY 2023-05-07 2023-05-07 Outpatient ER AN, [facility] [id number] SLEH 18:57:23 18:57:23 KASEY 2022-10-28 2022-10-28 (IN/ASP) STLMLC STLMLC [id number] C ommon 00:00:00 00:00:00 INJ [facility] 2022-10-20 2022-10-20 (IN/ASP) STLMLC STLMLC [id number] C ommon 00:00:00 00:00:00 INJ [facility] 2022-10-10 2022-10-10 (IN/ASP) STLMLC STLMLC [id number] C ommon 00:00:00 00:00:00 INJ [facility] 2022-09-22 2022-09-22 (TEL) STLMLC STLMLC [id number] Co mmon 00:00:00 00:00:00 [facility] 2022-08-29 2022-08-29 OFFICE STLMLC STLMLC [id number] Co mmon 00:00:00 00:00:00 VISIT Spirit ESTAB [facility] - [facility] 2022-05-02 2022-05-02 OFFICE STLMLC STLMLC [id number] Co mmon 00:00:00 00:00:00 VISIT [facility]AB [facility] - [facility] 2021-12-30 2021-12-30 (IN/ASP) STLMLC STLMLC [id number] C ommon 00:00:00 00:00:00 INJ [facility] 2021-12-23 2021-12-23 (IN/ASP) STLMLC STLMLC [id number] C ommon 00:00:00 00:00:00 INJ [facility] 2021-12-16 2021-12-16 (IN/ASP) STLMLC STLMLC [id number] C ommon 00:00:00 00:00:00 INJ [facility] 2021-11-15 2021-11-15 (TEL) STLMLC STLMLC [id number] Co mmon 00:00:00 00:00:00 [facility] 2021-06-15 2021-06-15 [facility] [id number] Co mmon 00:00:00 00:00:00 VISIT NEW Spir it PT LEVEL 4 - [facility] 2018-06-13 2018-06-13 Appointmen CHRIS SALDIVAR [facility] [id number] [place] 08:30:00 08:30:00 t; Ryann RODRÍGUEZ [facility] W[facility] ans Diann RODRÍGUEZ M.D. [place] Results Test Description Test Time Test Comments [...] 0.50 % 0.00-1.00 = 2801) BASIC METABOLIC [id number] 05:39:20 Test Item Value Reference Range Interpretation [...] not appl icable for dialysis patien ts Neonatal Doctor ID - ADMINCBC (HEMOGRAM ONLY)2023-05-14 05:22:30 Test [...] WBC 0-0 (BEAKER) (test code = 413) [id number] 04:35:37 Test Item Value Reference Range Interpretation Comments PHOSPHORUS (BEAKER) 3.7 mg/dL 2.3-4.7 Specimen slightly (test code = 604) hemolyzed Neonatal Doctor ID - BSBASIC METABOLIC [id number] 04:35:37 Test Item Value Reference Range Interpretation [...] not appl icable for dialysis patien ts Neonatal Doctor ID - [id number] 04:35:36 Test Item Value Reference Range Interpretation Comments MAGNESIUM (BEAKER) 2.2 mg/dL 1.6-2.6 Specimen slightly (test code = 627) hemolyzed Neonatal Doctor ID - BSCBC W/PLT COUNT & AUTO [id number] 03:34:58 Test Item Value Reference Range Interpretation [...] = 2801) CBC W/PLT COUNT & AUTO [id number] 04:58:02 Test Item Value Reference Range Interpretation [...] CONCENTRATION Adequate (CELLAVISION)(BEAKER) (test code = 3438) Neonatal Doctor ID - Denisa Santamaria comments: Slide comments:T4, [id number] 04:57:30 Test Item Value Reference Range Interpretation Comments FREE T4 (BEAKER) (test code = 655) 1.67 ng/dL 0.70-1.48 H Neonatal Doctor ID - [id number] 04:24:19 Test Item Value Reference Range Interpretation Comments MAGNESIUM (BEAKER) (test code = 2.0 mg/dL 1.6-2.6 627) Neonatal Doctor ID - [id number] 04:24:19 Test Item Value Reference Range Interpretation Comments PHOSPHORUS (BEAKER) (test code = 4.9 mg/dL 2.3-4.7 H 604) Neonatal Doctor ID - DBBASIC METABOLIC [id number] 04:24:18 Test Item Value Reference Range Interpretation [...] not appl icable for dialysis patien ts Neonatal Doctor ID - DBCT BRAIN WITHOUT IV [id number] 15:49:45 [facility] CENTERName: CAROL ANN MATUTE : 1945 Sex: FCTA CAROTID, CTA BRAIN, CT BRAIN WITHOUT IV CONTRASTBRAIN CT WITHOUT CONTRASTINDICATION: Stroke, follow upCOMPARISON: 05/07/2023 CT headTECHNIQUE:Rapid acquisition spiral images were obtained between the aortic archand the cranial vertex during intravenous contrast infusion toreconstruct axial images and angiographic 3D maximum intensityprojections (MIP). 3-D volumetric reformatted images were created at [employer] workstation. Precontrast images of the brain were [...] Orbits are within normal limits. No obstructive paranasal sinus disease.CTA BRAIN:Internal carotid arteries: Petrous, cavernous [...] Signed By: Mo Pat05/11/2023 15:51 CDTWorkstation Name: [id number] 15:49:45 [facility] 1945 Sex: FCTA CAROTID, CTA BRAIN, CT BRAIN WITHOUT IV CONTRASTBRAIN CT WITHOUT CONTRASTINDICATION: Stroke, follow upCOMPARISON: 05/07/2023 CT headTECHNIQUE:Rapid acquisition spiral images were obtained between the aortic archand the cranial vertex during intravenous contrast infusion toreconstruct axial images and angiographic 3D maximum intensityprojections (MIP). 3-D volumetric reformatted images were created at [employer] workstation. Precontrast images of the brain were [...] Orbits are within normal limits. No obstructive paranasal sinus disease.CTA BRAIN:Internal carotid arteries: Petrous, cavernous [...] Signed By: Mo Pat05/11/2023 15:51 CDTWorkstation Name: [id number] 15:49:45 [facility] 1945 Sex: FCTA CAROTID, CTA BRAIN, CT BRAIN WITHOUT IV CONTRASTBRAIN CT WITHOUT CONTRASTINDICATION: Stroke, follow upCOMPARISON: 05/07/2023 CT headTECHNIQUE:Rapid acquisition spiral images were obtained between the aortic archand the cranial vertex during intravenous contrast infusion toreconstruct axial images and angiographic 3D maximum intensityprojections (MIP). 3-D volumetric reformatted images were created at [employer] workstation. Precontrast images of the brain were [...] Orbits are within normal limits. No obstructive paranasal sinus disease.CTA BRAIN:Internal carotid arteries: Petrous, cavernous [...] Signed By: Mo Pat05/11/2023 15:51 CDTWorkstation Name: [id number] 07:50:58 Test Item Value Reference Range Interpretation Comments PROCALCITONIN (BEAKER) (test code = < ng/mL <0.05 3036) SEPSIS RISK (ng/mL)Low: 0.05-0.50Intermediate: 0.51-2.00High: >=2.01LACTIC ACID, [id number] 07:17:33 Test Item Value Reference Range Interpretation Comments LACTATE BLOOD VENOUS 1.04 mmol/L 0.50-2.00 Specime n slightly (2) (BEAKER) (test hemolyzed code = 2872) Neonatal Doctor ID - BS(CELLAVISION MANUAL DIFF)2023-05-11 07:00:15 Test [...] CONCENTRATION Adequate (CELLAVISION)(BEAKER) (test code = 3438) Neonatal Doctor ID - Misti OverholtUser comments: Slide comments:CBC W/PLT COUNT & AUTO [id number] 07:00:14 Test Item Value Reference Range Interpretation [...] code = 413) CT ABDOMEN/PELVIS WITH IV [id number] 06:10:13 [facility] : 1945 Sex: FABDOMINAL AND [...] Signed By: Kelvin Fofana05/11/2023 06:13 CDTWorkstation Name: [id number] 03:56:56 Test Item Value Reference Range Interpretation Comments MAGNESIUM (BEAKER) 2.0 mg/dL 1.6-2.6 Specimen slightly (test code = 627) hemolyzed Neonatal Doctor ID - [id number] 03:56:56 Test Item Value Reference Range Interpretation Comments PHOSPHORUS (BEAKER) 4.4 mg/dL 2.3-4.7 Specimen slightly (test code = 604) hemolyzed Neonatal Doctor ID - MMBASIC METABOLIC [id number] 03:56:56 Test Item Value Reference Range Interpretation [...] not appl icable for dialysis patien ts Neonatal Doctor ID - MM(CELLAVISION MANUAL DIFF)2023-05-10 06:41:42 Test [...] K/uL 0.01-0.08 H (CELLAVISION)(BEAKER) (test code = 7235) BANDS - ABS (CELLAVISION)(BEAKER) 0.15 K/uL 0.00-0.80 (test code = 9420) ATYPICAL LYMPHOCYTES - ABS 0.15 K/uL 0.00-0.00 H (CELLAVISION)(BEAKER) (test code = 1153) TOTAL COUNTED (BEAKER) (test code = 100 1351) WBC MORPHOLOGY (BEAKER) (test code Normal = 487) PLT MORPHOLOGY (BEAKER) (test code Normal = 486) ANISOCYTOSIS (BEAKER) (test code = 1+ few 961) MICROCYTES (BEAKER) (test code = 1+ few 965) ARTIFACT (CELLAVISION)(BEAKER) Present (test code = 3432) PLATELET CONCENTRATION Adequate (CELLAVISION)(BEAKER) (test code = 3438) Neonatal Doctor ID - Isabela TrevinoBrian comments: Slide comments:CBC W/PLT COUNT & AUTO [id number] 06:41:31 Test Item Value Reference Range Interpretation [...] (BEAKER) (test code = 413) HEPATIC FUNCTION [id number] 04:40:23 Test Item Value Reference Range Interpretation [...] (test code = 23 U/L 6-55 347) Neonatal Doctor ID - EOOCREATINE KINASE (CK)2023-05-10 04:40:23 Test Item Value Reference Range Interpretation Comments CREATINE KINASE TOTAL (BEAKER) (test 322 U/L 29-200 H code = 380) Neonatal Doctor ID - EOOBASIC METABOLIC [id number] 04:40:22 Test Item Value Reference Range Interpretation [...] not appl icable for dialysis patien ts Neonatal Doctor ID - [id number] 04:40:22 Test Item Value Reference Range Interpretation Comments MAGNESIUM (BEAKER) (test code = 2.0 mg/dL 1.6-2.6 627) Neonatal Doctor ID - [id number] 04:40:22 Test Item Value Reference Range Interpretation Comments PHOSPHORUS (BEAKER) (test code = 3.6 mg/dL 2.3-4.7 604) Neonatal Doctor ID - EOOHIGH SENSITIVITY TROPONIN [id number] 00:08:50 Test Item Value Reference Range Interpretation Comments HIGH SENSITIVITY TROPONIN I (test 5 pg/ml <=17 code = 0901953) Neonatal Doctor ID - BSThe TRANSFER SPECIALIST STAT High Sensitivity Troponin-I results should be used in conjunctionwith other diagnostic information such as ECG, clinical observations and information, and patient symptoms to aid in the diagnosis of [place].HIGH SENSITIVITY TROPONIN [id number] 19:07:35 Test Item Value Reference Range Interpretation Comments HIGH SENSITIVITY TROPONIN I (test 6 pg/ml <=17 code = 4461101) Neonatal Doctor ID - ADMINThe TRANSFER SPECIALIST STAT High Sensitivity Troponin-I results should be used in conjunction with other diagnostic information such as ECG, clinical observations and information, and patientsymptoms to aid in the diagnosis of [place]. HIGH SENSITIVITY TROPONIN [id number] 15:31:50 Test Item Value Reference Range Interpretation Comments HIGH SENSITIVITY TROPONIN I (test 5 pg/ml <=17 code = 4231259) The TRANSFER SPECIALIST STAT High Sensitivity Troponin-I results should be used in conjunction with other diagnostic information such as ECG, clinical observations and information, and patient symptoms to aid inthe diagnosis of [place] EMBOLIZATION [id number] 09:18:51 [facility] 1945 Sex: FDATE: 05/07[birth year]23SURGEON: Christo Khan MD PhDFIRST CABINET BUILDER: Ronit Esparza MD PhDPREOPERATIVE DIAGNOSIS: Left MCA [...] CTA at outside hospital demonstrated a left K8ebtkvzjwm occlusive thrombus she was transferred here for [...] diameter and flow, There is a proximal K2ehepedize occlusive thrombus with good pialcollateral flow from distalACA and CUT OUT PRESS OPERATOR branches. The vessels are tortuous with evidence [...] Signed By: Christo Khan05/09/2023 09:20 CDTWorkstation Name: [id number] CEREBRAL 4 VESSEL [id number] 09:18:51 [facility] : 1945 Sex: FDATE: 05/07/[birth year]23SURGEON: Christo Khan MD PhDFIRST CABINET BUILDER: Ronit Esparza MD PhDPREOPERATIVE DIAGNOSIS: Left MCA [...] CTA at outside hospital demonstrated a left T8jxmfqbozk occlusive thrombus she was transferred here for [...] diameter and flow, There is a proximal O5dxigxrmre occlusive thrombus with good pialcollateral flow from distalACA and CUT OUT PRESS OPERATOR branches. The vessels are tortuous with evidence [...] Signed By: Christo Khan05/09/2023 09:20 CDTWorkstation Name: [id number] 04:00:40 Test Item Value Reference Range Interpretation Comments PHOSPHORUS (BEAKER) (test code = 3.8 mg/dL 2.3-4.7 604) BASIC METABOLIC [id number] 04:00:39 Test Item Value Reference Range Interpretation [...] not appl icable for dialysis patien ts [id number] 04:00:39 Test Item Value Reference Range Interpretation Comments MAGNESIUM (BEAKER) (test code = 2.1 mg/dL 1.6-2.6 627) CBC W/PLT COUNT & AUTO [id number] 03:47:19 Test Item Value Reference Range Interpretation [...] code = 2801) MR BRAIN WITHOUT IV [id number] 22:26:02 [facility] : 1945 Sex: FEXAM/TECHNIQUE: MRI of the brain without contrast. Multiplanarmultisequence images were acquired.INDICATION: Stroke. Left MCA occlusion.COMPARISON: CTA head from 05/07/2023.FINDINGS: Numerous foci of DWI hyperintensity with corresponding ADC hypointensityalong the left MCA JOSS and CUT OUT PRESS OPERATOR watershed.Global parenchymal volume loss. Moderate burden of [...] left MCA watershed territorieswith the JOSS and CUT OUT PRESS OPERATOR.2. FLAIR hyperintensity of left T8bfpodzc may represent slow flow orocclusion.Electronically Signed By: Javier Warner05/08/2023 22:28 CDTWorkstation Name: [id number] 15:27:05 Test Item Value Reference Range Interpretation Comments RPR SCREEN ([facility]) (test code = Nonreactive Nonreactive 420) POC-Glucose [id number] 11:25:07 Test Item Value Reference Range Interpretation Comments POC-Glucose Meter (test 138 mg/dL 70-110 H : TE STED AT [facility] code = 1538) [address] [facility], 770 30: Neonatal Doctor/Techni carol ID = [id number] for Hemanes, Katie'Sh ae Lab Interpretation (test Abnormal code = 50941-2) [facility] [id number] 11:25:07 Test Item Value Reference Range Interpretation Comments POC-GLUCOSE METER 138 mg/dL 70-110 H : TESTED A T [facility] 6720 (BEAKER) (test code = HARESH Wilkins [facility], 1538) [address]: Neonatal Doctor/Techni carol ID = [id number] for Shelby Askew HEMOGLOBIN [id number] 10:36:47 Test Item Value Reference Range Interpretation Comments HEMOGLOBIN A1C 5.6 % See_Comment [Automated m essage] ELECTROPHORESIS (BEAKER) The system which (test code = 3811) generated this result transmitted ref erence range: <=5.6%. The reference range was not used to int erpret this result as normal/abnormal . "The A1c is measured using a NGSP-certified method. HbA1c value equal to or greater than 6.5% as thediagnosis cutoff for diabetes. An HbA1c value of 5.7- 6.4% indicates increased risk for diabetes (prediabetes)."Neonatal Doctor ID - ADMHIGH SENSITIVITY TROPONIN [id number] 07:10:06 Test Item Value Reference Range Interpretation Comments HIGH SENSITIVITY TROPONIN I (test 5 pg/ml <=17 code = 6179863) Neonatal Doctor ID - EOOThe TRANSFER SPECIALIST STAT High Sensitivity Troponin-I results should be used in conjunction with other diagnostic information such as ECG, clinical observations and information, and patient symptoms to aid in the diagnosis of [place].BASIC METABOLIC [id number] 03:57:23 Test Item Value Reference Range Interpretation [...] not appl icable for dialysis patien ts Neonatal Doctor ID - EOOCBC W/PLT COUNT & AUTO [id number] 03:40:12 Test Item Value Reference Range Interpretation [...] PERCENT (BEAKER) (test code = 2801) POCT-GLUCOSE [id number] 23:31:46 Test Item Value Reference Range Interpretation Comments POC-GLUCOSE METER 124 mg/dL 70-110 H : TESTED A T [facility] 6720 (BEAKER) (test code = HARESH [place], 1538) [address]: Neonatal Doctor/Techni carol ID = [id number] for Yolanda Epperson VITAMIN [id number] 22:06:25 Test Item Value Reference Range Interpretation Comments VITAMIN B12 (BEAKER) (test code = 1417 pg/mL 213-816 H 774) Neonatal Doctor ID - MARCOTSH/FREE T4 IF [id number] 22:06:25 Test Item Value Reference Range Interpretation Comments THYROID STIMULATING HORMONE 0.671 uIU/mL 0.350-4.940 (BEAKER) (test code = 772) Neonatal Doctor ID - [id number] 21:41:45 Test Item Value Reference Range Interpretation Comments MAGNESIUM (BEAKER) (test code = 1.7 mg/dL 1.6-2.6 627) Neonatal Doctor ID - [id number] 21:41:45 Test Item Value Reference Range Interpretation Comments PHOSPHORUS (BEAKER) (test code = 4.5 mg/dL 2.3-4.7 604) Neonatal Doctor ID - MARCOLIPID [id number] 21:41:45 Test Item Value Reference Range Interpretation Comments TRIGLYCERIDES (BEAKER) (test code = 84 mg/dL 540) CHOLESTEROL (BEAKER) (test code = 103 mg/dL 631) HDL CHOLESTEROL (BEAKER) (test code 40 mg/dL = 976) LDL CHOLESTEROL CALCULATED (BEAKER) 46 mg/dL (test code = 633) Triglyceride Reference Range: Low Risk <150 Borderline 150-199 High Risk 200- 499 Very High Risk >=500Cholesterol Reference Range: Low Risk <200 Borderline 200-239 High Risk >240HDL Cholesterol Reference Range: Low Risk >=60 High Risk <40LDL Cholesterol Reference Range: Optimal <100 Near Optimal 100-129 Borderline 130-159 High 160-189 Very High >=190 Neonatal Doctor ID - MARCOCOMPREHENSIVE METABOLIC [id number] 21:41:44 Test Item Value Reference Range Interpretation [...] not appl icable for dialysis patien ts Neonatal Doctor ID - MARCOCBC W/PLT COUNT & AUTO [id number] 21:04:04 Test Item Value Reference Range Interpretation [...] PERCENT (BEAKER) (test code = 2801) CALCIUM, [id number] 20:52:47 Test Item Value Reference Range Interpretation Comments CALCIUM IONIZED (BEAKER) (test 1.10 mmol/L 1.12-1.27 L code = 698) PH, BLOOD (BEAKER) (test code = 7.35 1810) CTA [id number] 19:27:09 [facility] : 1945 Sex: FCT BRAIN CEREBRAL [...] 3-D volumetric reformatted images were created at [employer] workstation. Precontrast images of the brain were [...] cerebral arteries: Normal contrast opacification of thebilateral CUT OUT PRESS OPERATOR P1-P2 branches.Venous opacification: Major dural sinuses unremarkable [...] Signed By: Idalmis Carrasco05/07/2023 19:29 CDTWorkstation Name: [id number] 19:27:09 [facility] : 1945 Sex: FCT [...] 3-D volumetric reformatted images were created at [employer] workstation. 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
[2023-06-07] MEDS ORDERED: ACETAMINOPHEN 325 MG TABLET PO PRN (13:00)
[2023-06-07] MEDS ORDERED: DIPHENHYDRAMINE 25 MG TAB/CAP PO PRN (13:00)
[2023-06-07] MEDS ORDERED: POLYETHYL GLY 3350 17 GM/DOSE PO PRN (13:00)
[2023-06-07] MEDS ORDERED: ONDANSETRON 4 MG/2 ML VIAL IV PRN (13:00)
[2023-06-07] MEDS ORDERED: LOPERAMIDE HCL 2 MG CAPSULE PO PRN (13:00)
[2023-06-07] MEDS ORDERED: ONDANSETRON 4 MG (ODT) TAB PO PRN (13:00)
[2023-06-07] MEDS ORDERED: NACHLORIDE 0.45% 1,000 ML IV SCH (13:00)
[2023-06-07 13:18] LABS: Protime INR 1.78
[2023-06-07 13:22] LABS: Absolute Lymphocytes (CBC) 1.7 K/uL (0.7-4.9); Hematocrit 35.6 % (36.0-45.0); Lymphocytes % 19.2 % (15.3-44.8); MCV 91.3 fL (80-100); MPV 6.6 fL (7.6-11.3); Platelets 348 thou/uL (152-406)
[2023-06-07 13:50] LABS: Albumin 2.7 g/dL (3.4-5.0); Bilirubin Direct 0.2 mg/dL (0-0.2); Bilirubin Indirect, Calculated 0.3 mg/dL (0.2-0.8); Bilirubin Total 0.5 mg/dL (0.2-1.0); Magnesium 1.8 mg/dL (1.6-2.4); Phosphorus 4.1 mg/dL (2.5-4.9); Potassium 3.8 mEq/L (3.5-5.1); Protein, Total 7.3 g/dL (6.4-8.2); Thyroid Stimulating Hormone 1.82 uIU/mL (0.358-3.740)
--- NOTE | 2023-06-07 14:39 | RAD REPORT ---
EXAM DESCRIPTION: US - Abdomen Exam Complete - 06/07/2023 2:27 pm CLINICAL HISTORY: Abdominal pain. for vaginal or urinary bleeding COMPARISON: <Comparisons> FINDINGS: Mild diffuse fatty liver is present with 2.6 cm septated right liver cyst. No aggressive l iver mass. No intra or extrahepatic biliary tree dilatation. The gallbladder demonstrates no gallstones, pericholecystic fluid or gallbladder wall thickening. Co mmon bile duct is normal in caliber measuring 4 mm. Both kidneys are normal in size, shape and echotexture. No hydronephrosis, focal lesion of concern or perinephric fluid. The spleen is normal in size measuring 8 centimeters. The pancreas and aorta are obscured by bowel gas. The visualized aspects of the IVC are grossly normal. IMPRESSION: Mild diffuse fatty liver is present. 2.6 cm septated hepatic cyst is present.
--- NOTE | 2023-06-07 14:41 | RAD REPORT ---
EXAM DESCRIPTION: US - Pelvis Complete - 06/07/2023 2:27 pm CLINICAL HISTORY: N Pelvic pain. COMPARISON: <Comparisons> FINDINGS: Patient is status post total hysterectomy. No abnormal fluid collections. No pelvic mass identified. . IMPRESSION: Negative study.
--- NOTE | 2023-06-07 15:57 | RAD REPORT ---
EXAM DESCRIPTION: RAD - Chest Pa And Lat (2 Views) - 06/07/2023 3:21 pm CLINICAL HISTORY: SOB Chest pain. COMPARISON: Chest Single View dated 05/07/2023; Chest Single View dated 03/27/2023; Chest Single View d ated 10/15/2019; CHEST PA AND LAT 2 VIEW dated 12/16/2014 TECHNIQUE: PA and lateral views of the chest were obtained. FINDINGS: The lungs are hyperexpanded compatible with COPD. The heart is upper limit of normal in si ze. No fracture or aggressive bony process. IMPRESSION: COPD without acute process identified. The USPSTF recommends annual screening for lung cancer with low-dose CT (LDCT) in adults aged 50 to 80 years who have a 20 pack-year smoking history and currently smoke or have quit within the past 15 years.
--- NOTE | 2023-06-07 18:25 | EKG ---
Test Date: 2023-06-07 Test Time: 12:38:24 Supervisor Shuttle Fitting: CANDE MEASUREMENT RESULTS: Intervals: Rate: 121 LA: QRSD: 116 QT: 358 QTc: 508 [place]: P: LA: QRS: -12 T: 87 INTERPRETIVE STATEMENTS: Atrial flutter with variable AV block Anterior infarct, age undetermined Abnormal ECG Compared to ECG 06/01/2023 09:04:56 Myocardial infarct finding now present Sinus bradycardia no longer present Left bundle-branch block no longer present Electronically Signed On 06-07-23 18:24:16 CDT by Bora Mendez
[2023-06-07] MEDS: METOPROLOL TAR 50 MG TAB PO SCH (20:41)
[2023-06-07] MEDS: DULOXETINE 20 MG CAP PO SCH (20:41)
[2023-06-07] MEDS: APIXABAN 5 MG TABLET PO SCH (20:42)
[2023-06-07] MEDS ORDERED: MELATONIN 3 MG TABLET PO SCH (21:00)
[2023-06-07] MEDS ORDERED: ATORVASTATIN 20 MG TAB PO SCH (21:00)
[2023-06-08 00:38] VITALS: O2SAT 97
[2023-06-08 02:20] LABS: Renal Epithelial <5 /HPF (None Seen); Specific Gravity 1.013 (1.005-1.030); Urine Bacteria None Seen /HPF (<20); Urine Bilirubin NEGATIVE (Negative); Urine Blood 3+ (OVER) (Negative); Urine Clarity Extremely Turbid (Clear); Urine Color Brown (Yellow); Urine Glucose NEGATIVE (Negative); Urine Mucus 1+ /HPF (None Seen); Urine Protein 1+ (Negative); Urine RBC >50 /HPF (None Seen); Urine Urobilinogen Normal (Normal); Urine pH 6.5 (5.0-7.0)
[2023-06-08 05:11] LABS: Absolute Lymphocytes (CBC) 1.6 K/uL (0.7-4.9); Hematocrit 32.3 % (36.0-45.0); Lymphocytes % 20.4 % (15.3-44.8); MCV 90.8 fL (80-100); MPV 6.3 fL (7.6-11.3); Platelets 319 thou/uL (152-406); RBC Red Blood Cell Count 3.55 M/uL (3.86-4.86)
[2023-06-08 05:50] LABS: Magnesium 1.8 mg/dL (1.6-2.4)
[2023-06-08] MEDS ORDERED: LEVOTHYROXINE SOD 0.025 MG TAB PO SCH (06:30)
[2023-06-08] MEDS ORDERED: LEVOTHYROXINE SOD 0.112 MG TAB PO SCH (06:30)
[2023-06-08] MEDS ORDERED: MAGNESIUM SULFATE 1 gm IVPB 1 GM/100 ML BAG IV ONE (07:00)
[2023-06-08] MEDS: METOPROLOL TAR 50 MG TAB PO SCH (08:20)
[2023-06-08] MEDS: DULOXETINE 20 MG CAP PO SCH (08:20)
[2023-06-08] MEDS: APIXABAN 5 MG TABLET PO SCH (08:21)
[2023-06-08] MEDS ORDERED: ASPIRIN 81 MG CHEWABLE TABLET PO SCH (09:00)
[2023-06-08] MEDS ORDERED: AMIODARONE HCL 200 MG TAB PO SCH (09:00)
[2023-06-08] MEDS ORDERED: HOME MED 1 EA UNK (Levothyroxine Sodium [Levothyroxine Sodium] 137 MCG Tablet) PO SCH (09:00)
[2023-06-08 12:10] VITALS: BP 128/65
[2023-06-08 12:29] VITALS: BMI 32.4
[2023-06-08 15:29] LABS: Specific Gravity 1.012 (1.005-1.030); Urine Bacteria <20 /HPF (<20); Urine Bilirubin NEGATIVE (Negative); Urine Blood 3+ (OVER) (Negative); Urine Clarity Extremely Turbid (Clear); Urine Color Light-Brown (Yellow); Urine Glucose NEGATIVE (Negative); Urine Mucus Slight /HPF (None Seen); Urine Protein 1+ (Negative); Urine RBC >50 /HPF (None Seen); Urine Urobilinogen Normal (Normal); Urine WBC Clump Occasional /HPF (None Seen)
[2023-06-08 16:42] VITALS: TEMP 99.8
--- NOTE | 2023-06-08 18:10 | P.DS ---
Admission Date: 06/07/23 Discharge Date: 06/08/23 Disposition: DC HOME/HOME HEALTH CARE Discharge Condition: GOOD Hospital Course: JACINTO HAD RECENT CVA WITH NEW ONSET A FIB. SHE HAS MILD GLOBAL APHASIA. SHE IS ABLE TO AMBULATE. SHE WAS ADMITTED SHE HAD RAPID A FIB AND FATIGUE. SHE WITH NO NEW MEDS HAS BEEN CONTROLLED WELL. I SUSPECT THAT WITH MEMORY LOSS FROM CVA SHE MAY HAVE MISSED MEDS. I TALKED TO FAMILY AND ADVISED TO GET HER TO ASSISTED LIVING. HAS SEVERE COPD AND IS [facility]. SHE IS STABLE TO GO HOME. Vital Signs/Physical Exam: Temp Pulse Resp BP Pulse Ox 99.8 F 70 16 128/65 95 06/08/23 16:00 06/08/23 16:00 06/08/23 16:00 06/08/23 16:00 06/08/23 16:00 Laboratory Data at Discharge: WBC 8.00 thou/uL (4.3-10.9) 06/08/23 05:01 Hgb 10.8 g/dL (12.0-15.0) L 06/08/23 05:01 Hct 32.3 % (36.0-45.0) L 06/08/23 05:01 Plt Count 319 thou/uL (152-406) 06/08/23 05:01 PT 19.6 SECONDS (9.5-12.5) H 06/07/23 12:57 INR 1.78 06/07/23 12:57 APTT 36.5 SECONDS (24.3-36.9) 06/07/23 12:57 Sodium 138 mEq/L (136-145) 06/08/23 05:01 Potassium 4.0 mEq/L (3.5-5.1) 06/08/23 05:01 BUN 17 mg/dL (7-18) 06/08/23 05:01 Creatinine 0.96 mg/dL (0.55-1.02) 06/08/23 05:01 Glucose 120 mg/dL (74-106) H 06/08/23 05:01 Phosphorus 4.1 mg/dL (2.5-4.9) 06/07/23 12:57 Magnesium 1.8 mg/dL (1.6-2.4) 06/08/23 05:01 Total Bilirubin 0.5 mg/dL (0.2-1.0) 06/07/23 12:57 AST 9 U/L (15-37) L 06/07/23 12:57 ALT 18 U/L (13-56) 06/07/23 12:57 Alkaline Phosphatase 81 U/L (45-117) 06/07/23 12:57 Home Medications: Amiodarone HCl [Cordarone*] 200 mg PO DAILY 06/07/23 Apixaban [Eliquis] 5 mg PO BID 06/07/23 Aspirin Chewable [Aspirin Chewable*] 81 mg PO DAILY 06/07/23 Atorvastatin Calcium [Lipitor*] 20 mg PO BEDTIME 06/07/23 Duloxetine HCl [Cymbalta] 20 mg PO BID 06/07/23 Levothyroxine Sodium 137 mcg PO DAILY 06/07/23 Melatonin [Melatonin*] 3 mg PO BEDTIME 06/07/23 Metoprolol Tartrate [Lopressor*] 50 mg PO BID 06/07/23 Nystatin Cream [Mycostatin 100MU/Gm Cream*] 1 mukesh TOP BID 06/07/23 Zinc Oxide [Zinc Oxide 20%*] 1 mukesh TOP BID 06/07/23
--- NOTE | 2023-06-08 19:42 | PN ---
Date of Progress Note: 06/08/2023 Subjective: Seen by bedside, doing very well. Her heart rate is controlled. In fact, she converted to sinus rhythm. Review of Systems: No chest pain, shortness of breath, orthopnea, cough. No nausea, vomiting, diarrhea. All other syst ems reviewed are negative. Physical Examination: Vital Signs: Reviewed. Head and Neck: Pupils are equal, reactive to light. Intact eye movements. No JVD. No cervical lym phadenopathy. Neck is supple. Thyroid is not enlarged. Lungs: Clear to auscultation bilaterally. No rhonchi, wheezing, or crackles. No accessory muscle u se. Heart: Regular rate and rhythm. No extra sounds. Abdomen: Soft, nontender. Bowel sounds positive. No organomegaly. No masses or hernia. No rigidi ty or rebound. Extremities: No edema, clubbing, or cyanosis. Intact pulses. Skin: No rash. Neurologic: Alert, awake, oriented x3. No acute focal deficits appreciated. Investigations: BUN 17, creatinine 0.97. TSH is 1.8. Hemoglobin is 10.8. Assessment/recommendations: 1.Atrial fibrillation with rapid ventricular response, now back in sinus rhythm. Continue on metopr olol and I recommend to continue anticoagulation with Eliquis 5 mg twice a day. 2.Recent cerebrovascular accident due to atrial fibrillation. This patient will benefit from append age closure, which we will plan for doing as an outpatient. 3.Dyslipidemia. Continue statin. The patient can be discharged from cardiology standpoint and foll ow up as an outpatient. SR/MODL Voice ID: [id number] Report ID: [id number]
[2023-06-08] MEDS ORDERED: CEFUROXIME 250 MG TAB PO SCH (21:00)
== END 2023-06-08 17:54 | disposition home health service (06) ==
LOC: 4TH 11:54
PROVIDERS: ADMIT Internal Medicine; ATTEND Internal Medicine
DX: I48.20 Chronic atrial fibrillation, unspecified (principal); I69.920 Aphasia following unspecified cerebrovascular disease; I69.911 Memory deficit following unspecified cerebrovascular disease; E78.5 Hyperlipidemia, unspecified
CPT/HCPCS: 36415; 71046; 76700; 76856; 80048; 80076; 81001; 82306; 82607; 83735; 84100; 84443; 85025; 85610; 85730; 87040; 87086; 87088; 93005; J3475

== ENCOUNTER 2023-06-24 07:41 | Emergency (ER) | payer OTHER ==
--- OUTSIDE RECORDS SUMMARY | 2023-06-24 07:47 | XMS REPORT | Continuity of Care Document ---
:1945 Author Organization [facility] t Address [address] [facility] [address] [place] [address] Care Team Providers Name Role Phone No, Pcp [facility] Primary Care Physician Unavailable PABLO MONTE Attending Clinician Unavailable Kemar Vides Anavella Attending Clinician Unava ilable [id number] Attending Clinician Unavailable BHARATHI WEATHERS Attending Clinician Unavailable EDILIA LOVETT Attending Clinician Unavailable AMADOU PATEL Attending Clinician Unavailable Armando Cortez Attending Clinician Unavailable Kasey An MD Attending Clinician [phone] Amadou Patel MD Attending Clinician [phone] Bharathi Weathers MD Attending Clinici an Elva Terry MD Attending Clinician Mell MERCADO, Pablo Beckwith Attending Clinician [phone] Virtual, Surgeon Attending Clinician Unavailable No, Pcp Attending Clinician Unavailable KASEY AN Attending Clinician Unavailable Pritesh Kent MD Attending Clinician Ritter MERCADO, Mychal Mcfarlane Attending Clinician MARCOS SALDIVAR M.D. Attending Clinician Unavailable AMADOU PATEL Admitting Clinician Unavailable Santosh Vides Anav Admitting Clinician Unavailable [id number] Admitting Clinician Unavailable LIOR BAUTISTA Admitting Clinician Unavailable KASEY AN Admitting Clinician Unavailable Payers Payer Name Policy Type Policy Number Effective Date Expiration Date S ource UNITED MEDICARE [id number] 2022 [facility] 00:00:00 [facility] [id number] [facility] [id number] [facility] t Medicare - [facility] Problems Condition Condition Condition Status Onset Resolution [...] Val kes on on 00:00: Medical 00 [place] Acute Acute Disease Active [facility] encephalop encephalop 7-17 Val kes athy athy 00:00: Medical 00 [place] Aphasia Aphasia Disease Active [facility] 00 [place] Acute Acute Disease Active [facility] ischemic ischemic 7-16 [facility] left left 00:00: [place] [id number] Center cerebral cerebral artery artery (MCA) (MCA) stroke stroke [id number] Arthritis Problem Co mmon [id number] of knee, Spirit left - [facility] Primary Primary Problem Active [facility] osteoarthr [...] Unknown Commo n in G in G [facility] NO KNOWN Allergy Active [facility] Erythrom drug Active [facility] ycin allergy Physici [...] History of Tobacco [facility] - Use [facility] History SDOH [facility] Transport Non-Med Medical Center Exposure to 2023-04-28 2023-05-08 Not sure [facility] SARS-CoV-2 (event) 00:00:00 10:18:00 Medica Center Tobacco use and 2023-05-08 2023-05-08 Smokeless tobacco CH I [facility] exposure 00:00:00 00:00:00 non-user Medical Center Alcohol intake 2023-05-08 2023-05-[address] [facility] 00:00:00 00:00:00 non-drinker Medical Cente r (finding) History [facility] 2023-05-08 2023-05-08 [address] [facility] Transport Med 00:00:00 00:00:[address] History [facility] 2023-05-08 2023-05-[address] [facility] Housing Unable to 00:00:00 00:00:00 Medical Center Pay History [facility] 2023-05-08 2023-05-08 1 [facility] Housing Places 00:00:00 00:00:00 Medical Ce nter Lived History [facility] 2023-05-08 2023-05-08 2 [facility] Housing Homeless 00:00:00 00:00:00 Medical Center Last Year Sex Assigned At [birth year] [facility] 00:[facility] Medical Center Smoking Status Start Date Stop Date Source Never smoked tobacco [facility] Medications Ordered Filled Start Stop Current Ordering Indication Dosage Frequency Signature Comments Components Source Medication Medication Date Date Medication? Clinician (SIG) Name Name apixaban Yes 5mg Q.5D Take [address] [facility] [address] (ELIQUIS) 5 7-28 tablet (5 [place] mg Tab 00:00: mg total) Medica l tablet 00 by mouth 2 Center (two) times daily. meclizine Yes 25mg [id number] Take [address] [facility] [address] (ANTIVERT) - [id number] tablet (25 [facility] 25 mg 10:55: 3D mg total) Medical tablet 02 by mouth 3 Center (three) times daily. atorvastati 2023- Yes 20mg QD Take [address] [facility] n (LIPITOR) - 07-25 tablet (20 L ukes 20 MG 00:00: [...] 50mg Q.5D Take [address] tartrate 05-16 07-24 tablet (50 [facility] s (LOPRESSOR) 00:00: 23:59 mg total) Medical 50 MG 00 :00 by mouth 2 Center tablet (two) times daily. polyethylen 2022- No 17g Q.5D Take [address] [facility] e glycol 05-16 08- by mouth 2 Luke s (GLYCOLAX) 00:00: 23:59 (two) Medic al 17 gram 00 :00 times Center packet daily for 7 days. amiodarone 2022- No 400mg Q.5D Take [address] (PACERONE) 05-16 07-27 tablet [facility] 400 MG 00:00: 23:59 (400 mg Medical tablet 00 :00 total) by Center mouth 2 (two) times daily for 2 days. Synvisc Synvisc No 16mg Common 1-06 Spirit 00:00: - [facility] Synvisc Synvisc 2021-10 No 16mg Common 2-29 Spirit 00:00: - [facility] Synvisc Synvisc 2021-10 No 16mg Common 2-29 Spirit 00:00: - [facility] Synvisc Synvisc 2021-10 No 16mg Common 2-19 Spirit 00:00: - [facility] Kenalog Kenalog 2021-10 No 40mg Common (Triamcinol (Triamcinol 2-19 S pirit one) one) 00:00: - [facility] Bupivicaine Bupivicaine 2021-10 No 2.5mg [facility] 2-19 Spirit 00:00: - [facility] Bupivicaine Bupivicaine 2021-10 No 2.5mg [facility] Encampment Encampment 2-19 Spirit 00:00: - [facility] Synvisc Synvisc 2021-10 No 16mg Common 2-19 Spirit 00:00: - [facility] Kenalog Kenalog 2021-10 No 40mg Common (Triamcinol (Triamcinol 2-19 S pirit one) one) 00:00: - [facility] Bupivicaine Bupivicaine 1 No 2.5mg Common Encampment Encampment 2-19 Spirit 00:00: - [facility] Synvisc Synvisc 2021-1 No 16mg Common 2-19 Spirit 00:00: - [facility] Kenalog Kenalog 1 No 40mg Common (Triamcinol (Triamcinol 2-19 S pirit one) one) 00:00: - [facility] Kenalog Kenalog 2021-0 No 40mg Common (Triamcinol (Triamcinol 7-11 S pirit one) one) 00:00: - [facility] Bupivicaine Bupivicaine 2021-0 No 2.5mg Common Encampment Encampment 7-11 Spirit 00:00: - [facility] Kenalog Kenalog 2021-0 No 40mg Common (Triamcinol (Triamcinol 7-11 S pirit one) one) 00:00: - [facility] Bupivicaine Bupivicaine 2021-0 No 2.5mg Common Encampment Encampment 7-11 Spirit 00:00: - [facility] Kenalog Kenalog 2021-0 No 40mg Common (Triamcinol (Triamcinol 7-11 S pirit one) one) 00:00: - [facility] Bupivicaine Bupivicaine 2021-0 No 2.5mg Common Encampment Encampment 7-11 Spirit 00:00: - [facility] Kenalog Kenalog 2021-0 No 40mg Common (Triamcinol (Triamcinol 7-11 S pirit one) one) 00:00: - [facility] Bupivicaine Bupivicaine 2021-0 No 2.5mg [facility] En[facility]ment Encampment 7-11 Spirit 00:00: - [facility] Kenalog Kenalog 2021-0 No 40mg Common (Triamcinol (Triamcinol 7-11 S pirit one) one) 00:00: - [facility] Bupivicaine Bupivicaine 2021-0 No 2.5mg Common Encampment Encampment 7-11 Spirit 00:00: - [facility] Kenalog Kenalog 2-0 No 40mg Common (Triamcinol (Triamcinol 7-11 S pirit one) one) 00:00: - [facility] Bupivicaine Bupivicaine 2-0 No 2.5mg [facility] En[facility] Encampment 7-11 Spirit 00:00: - [facility] Synvisc Synvisc 2-0 No 16mg Common 3-10 Spirit 00:00: - [facility] Synvisc Synvisc 2-0 No 16mg Common 3-10 Spirit 00:00: - [facility] Synvisc Synvisc 2-0 No 16mg Common 3-10 Spirit 00:00: - [facility] Synvisc Synvisc 2-0 No 16mg Common 3-10 Spirit 00:00: - [facility] Synvisc Synvisc 2-0 No 16mg Common 3-10 Spirit 00:00: - [facility] Synvisc Synvisc 2-0 No 16mg Common 3-10 Spirit 00:00: - [facility] Synvisc Synvisc 2-0 No 16mg Common 3-10 Spirit 00:00: - [facility] Synvisc Synvisc 2-0 No 16mg Common 3-03 Spirit 00:00: - [facility] Synvisc Synvisc 2-0 No 16mg Common 3-03 Spirit 00:00: - [facility] Synvisc Synvisc 2-0 No 16mg Common 3-03 Spirit 00:00: - [facility] Synvisc Synvisc 2-0 No 16mg Common 3-03 Spirit 00:00: - [facility] Synvisc Synvisc 2-0 No 16mg Common 3-03 Spirit 00:00: - [facility] Synvisc Synvisc 2-0 No 16mg Common 3-03 Spirit 00:00: - [facility] Synvisc Synvisc 2-0 No 16mg Common 3-03 Spirit 00:00: - [facility] Synvisc Synvisc 2021-0 No 16mg Common 3-03 Spirit 00:00: - [facility] Kenalog Kenalog 2021-0 No 40mg Common (Triamcinol (Triamcinol 2-24 S pirit one) one) 00:00: - [facility] Bupivicaine Bupivicaine 2-0 No Common Encampment Encampment 2-24 Spirit 00:00: - [facility] Synvisc Synvisc 2021-0 No 16mg Common 2-24 Spirit 00:00: - [facility] Kenalog Kenalog 2021-0 No 40mg Common (Triamcinol (Triamcinol 2-24 S pirit one) one) 00:00: - [facility] Bupivicaine Bupivicaine 2021-0 No 2.5mg [facility] Encampment 2-24 Spirit 00:00: - [facility] Synvisc Synvisc 2021-0 No 16mg Common 2-24 Spirit 00:00: - [facility] Kenalog Kenalog 2021-0 No 40mg Common (Triamcinol (Triamcinol 2-24 S pirit one) one) 00:00: - [facility] Bupivicaine Bupivicaine 2021-0 No 2.5mg [facility] Encampment 2-24 Spirit 00:00: - [facility] Synvisc Synvisc 2021-0 No 16mg Common 2-24 Spirit 00:00: - [facility] Kenalog Kenalog 2021-0 No 40mg Common (Triamcinol (Triamcinol 2-24 S pirit one) one) 00:00: - [facility] Bupivicaine Bupivicaine 2-0 No 2.5mg [facility] Encampment 2-24 Spirit 00:00: - [facility] Synvisc Synvisc 2021-0 No 16mg Common 2-24 Spirit 00:00: - [facility] Kenalog Kenalog 2-0 No 40mg Common (Triamcinol (Triamcinol 2-24 S pirit one) one) 00:00: - [facility] Bupivicaine Bupivicaine 2-0 No 2.5mg [facility] Encampment 2-24 Spirit 00:00: - [facility] Synvisc Synvisc 2-0 No 16mg Common 2-24 Spirit 00:00: - [facility] Kenalog Kenalog 2-0 No 40mg Common (Triamcinol (Triamcinol 2-24 S pirit one) one) 00:00: - [facility] Kenalog Kenalog 2-0 No 40mg Common (Triamcinol (Triamcinol 2-24 S pirit one) one) 00:00: - [facility] Bupivicaine Bupivicaine 2-0 No 2.5mg [facility] En[facility] Encampment 2-24 Spirit 00:00: - [facility] Synvisc Synvisc 2-0 No 16mg Common 2-24 Spirit 00:00: - [facility] Kenalog Kenalog 2-0 No 40mg Common (Triamcinol (Triamcinol 2-24 S pirit one) one) 00:00: - [facility] Bupivicaine Bupivicaine 2-0 No 2.5mg Common En[facility] Encampment 2-24 Spirit 00:00: - [facility] Synvisc Synvisc 2-0 No 16mg Common 2-24 Spirit 00:00: - [facility] Bupivicaine Bupivicaine 2-0 No Common En[facility]ment Encampment 2-24 Spirit 00:00: - [facility] Synvisc Synvisc 2-0 No 16mg Common 2-24 Spirit 00:00: - [facility] Kenalog Kenalog 2-0 No 40mg Common (Triamcinol (Triamcinol 2-24 S pirit one) one) 00:00: - [facility] Bupivicaine Bupivicaine 2-0 No Common Encampment Encampment 2-24 Spirit 00:00: - [facility] Synvisc Synvisc 2-0 No 16mg Common 2-24 Spirit 00:00: - [facility] Kenalog Kenalog 2020-0 No 40mg Common (Triamcinol (Triamcinol 8-24 S pirit one) one) 00:00: - [facility] Bupivicaine Bupivicaine 2020-0 No Common Encampment Encampment 8-24 Spirit 00:00: - [facility] Kenalog Kenalog 2020-0 No 40mg Common (Triamcinol (Triamcinol 8-24 S pirit one) one) 00:00: - [facility] Bupivicaine Bupivicaine 2020-0 No 2.5mg Common En[facility] Encampment 8-24 Spirit 00:00: - [facility] Kenalog Kenalog 2020-0 No 40mg Common (Triamcinol (Triamcinol 8-24 S pirit one) one) 00:00: - [facility] Bupivicaine Bupivicaine 2020-0 No 2.5mg Common Encampment Encampment 8-24 Spirit 00:00: - [facility] Kenalog Kenalog 2020-0 No 40mg Common (Triamcinol (Triamcinol 8-24 S pirit one) one) 00:00: - [facility] Bupivicaine Bupivicaine 2020-0 No 2.5mg Common En[facility]ment Encampment 8-24 Spirit 00:00: - [facility] Kenalog Kenalog 2020-0 No 40mg Common (Triamcinol (Triamcinol 8-24 S pirit one) one) 00:00: - [facility] Bupivicaine Bupivicaine 2020-0 No 2.5mg [facility] En[facility]ment Encampment 8-24 Spirit 00:00: - [facility] Kenalog Kenalog 2020-0 No 40mg Common (Triamcinol (Triamcinol 8-24 S pirit one) one) 00:00: - [facility] Bupivicaine Bupivicaine 1-0 No 2.5mg Common En[facility] Encampment 8-24 Spirit 00:00: - [facility] Kenalog Kenalog 2021-0 No 40mg Common (Triamcinol (Triamcinol 8-24 S pirit one) one) 00:00: - [facility] Bupivicaine Bupivicaine 2020-0 No 2.5mg Common En[facility]ment Encampment 8-24 Spirit 00:00: - [facility] Kenalog Kenalog 2020-0 No 40mg Common (Triamcinol (Triamcinol 8-24 S pirit one) one) 00:00: - [facility] Bupivicaine Bupivicaine 2020-0 No Common En[facility]ment Encampment 8-24 Spirit 00:00: - [facility] Kenalog Kenalog 2020-0 No 40mg Common (Triamcinol (Triamcinol 8-24 S pirit one) one) 00:00: - [facility] Bupivicaine Bupivicaine 2020-0 No Common [facility] Encampment 8-24 [facility] 00:00: - [facility] Bisoprolol- Bisoprolol- No Bisoprolol hydroCHLORO hydroCHLORO -hydroCHLO thiazide thiazide ROthiazide Azithromyci Azithromyci No Azithromyc n n in methylPREDN methylPREDN No methylPRED ISolone ISolone NISolone Denta 5000 Denta 5000 No Denta 5000 Plus Plus Plus Premarin Premarin No Premarin Cosamin ASU Cosamin ASU No Cosamin for Joint for Joint ASU for [facility] ZyrTEC ZyrTEC No ZyrTEC Levothyroxi Levothyroxi No [...] Cosamin for Joint for Joint ASU for [facility] Caltrate Caltrate No Caltrate 600 [...] Cosamin for Joint for Joint ASU for [facility] Levothyroxi Levothyroxi No Levothyrox ne [...] Cosamin for Joint for Joint ASU for [facility] Levothyroxi Levothyroxi No Levothyrox ne [...] Cosamin for Joint for Joint ASU for [facility] Azithromyci Azithromyci No Azithromyc n [...] Cosamin for Joint for Joint ASU for [facility] Caltrate Caltrate No Caltrate 600 600 600 Cosamin ASU Cosamin ASU No Cosamin for Joint for Joint ASU for [facility] Levothyroxi Levothyroxi No Levothyrox ne [...] Cosamin for Joint for Joint ASU for [facility] Levothyroxi Levothyroxi No Levothyrox ne [...] Cosamin for Joint for Joint ASU for [facility] Caltrate Caltrate No Caltrate 600 [...] Cosamin for Joint for Joint ASU for [facility] Famotidine Famotidine No Famotidine ZyrTEC [...] Joint ASU for [facility] Denta 5000 Denta 5000 No Denta [...] [facility] (Triamcinolone) (Triamcinolone) 10:41:00 - [facility] Bupivicaine Encampment Bupivicaine Encampment 2021-06-15 Completed [facility] 10:40:00 - [facility] Vital Signs Vital Name Observation Time Observation Value Comments Source HEIGHT 2023-05-07 20:31:00 165.1 cm WEIGHT 2023-05-07 20:31:00 92.2 kg HEIGHT 2023-05-07 20:31:00 165.1 cm WEIGHT 2023-05-07 20:31:00 92.2 kg height 2022-10-28 08:00:00 66 [in_i] [facility] weight 2022-10-28 08:00:00 203 [lb_av] Common [facility] temperature 2022-10-28 08:00:00 97.7 [degF] [facility] bmi 2022-10-28 08:00:00 32.76 kg/m2 [facility] S [facility] blood pressure 2022-10-28 08:00:00 128 mm[Hg] [facility] - systolic [facility] blood pressure 2022-10-28 08:00:00 78 mm[Hg] [facility] - diastolic [facility] height 2022-10-20 13:15:00 66 [in_i] Common S [facility] weight 2022-10-20 13:15:00 203 [lb_av] [facility] temperature 2022-10-20 13:15:00 97.2 [degF] Common S [facility] bmi 2022-10-20 13:15:00 32.76 kg/m2 Common S [facility] blood pressure 2022-10-20 13:15:00 126 mm[Hg] [facility] - systolic [facility] blood pressure 2022-10-20 13:15:00 80 mm[Hg] [facility] - diastolic [facility] height 2022-10-10 14:15:00 66 [in_i] Common S [facility] weight 2022-10-10 14:15:00 203 [lb_av] Common S [facility] temperature 2022-10-10 14:15:00 97.9 [degF] Common S [facility] bmi 2022-10-10 14:15:00 32.76 kg/m2 Common S pirit - [facility] blood pressure 2022-10-10 14:15:00 125 mm[Hg] [facility] - systolic [facility] blood pressure 2022-10-10 14:15:00 80 mm[Hg] [facility] - diastolic [facility] height 2022-08-29 09:45:00 66 [in_i] Common S [facility]irit - [facility] weight 2022-08-29 09:45:00 203.1 [lb_av] [facility] - [facility] temperature 2022-08-29 09:45:00 96.5 [degF] Common S pirit - [facility] bmi 2022-08-29 09:45:00 32.78 kg/m2 Common S pirit - [facility] blood pressure 2022-08-29 09:45:00 126 mm[Hg] [facility] - systolic [facility] blood pressure 2022-08-29 09:45:00 82 mm[Hg] [facility] - diastolic [facility] height 2022-05-02 15:15:00 66 [in_i] Common S pirit - [facility] weight 2022-05-02 15:15:00 200 [lb_av] Common S pirit - [facility] temperature 2022-05-02 15:15:00 98.3 [degF] Common S pirit - [facility] bmi 2022-05-02 15:15:00 32.28 kg/m2 Common S pirit - [facility] blood pressure 2022-05-02 15:15:00 124 mm[Hg] [facility] - systolic [facility] blood pressure 2022-05-02 15:15:00 78 mm[Hg] [facility] - diastolic [facility] height 2021-12-30 09:30:00 66 [in_i] Common S pirit - [facility] weight 2021-12-30 09:30:00 200 [lb_av] Common S pirit - [facility] temperature 2021-12-30 09:30:00 97.3 [degF] Common S pirit - [facility] bmi 2021-12-30 09:30:00 32.28 kg/m2 Common S pirit - [facility] blood pressure 2021-12-30 09:30:00 128 mm[Hg] [facility] - systolic [facility] blood pressure 2021-12-30 09:30:00 84 mm[Hg] [facility] - diastolic [facility] height 2021-12-23 15:00:00 66 [in_i] Common S pirit - [facility] weight 2021-12-23 15:00:00 200 [lb_av] Common S pirit - [facility] bmi 2021-12-23 15:00:00 32.28 kg/m2 Common S pirit - [facility] blood pressure 2021-12-23 15:00:00 126 mm[Hg] [facility] - systolic [facility] blood pressure 2021-12-23 15:00:00 84 mm[Hg] [facility] - diastolic [facility] height 2021-12-16 09:00:00 66 [in_i] Common S pirit - [facility] weight 2021-12-16 09:00:00 200 [lb_av] Common S pirit - [facility] temperature 2021-12-16 09:00:00 96.2 [degF] Common S pirit - [facility] bmi 2021-12-16 09:00:00 32.28 kg/m2 Common S pirit - [facility] blood pressure 2021-12-16 09:00:00 138 mm[Hg] [facility] - systolic [facility] blood pressure 2021-12-16 09:00:00 84 mm[Hg] [facility] - diastolic [facility] height 2021-06-15 09:30:00 66 [in_i] Common S [facility]irit - [facility] weight 2021-06-15 09:30:00 200.1 [lb_av] [facility] - [facility] bmi 2021-06-15 09:30:00 32.29 kg/m2 Common S pirit - [facility] blood pressure 2021-06-15 09:30:00 153 mm[Hg] [facility] - systolic [facility] blood pressure 2021-06-15 09:30:00 80 mm[Hg] [facility] - diastolic [facility] Body temperature 2023-05-16 08:15:00 35.89 Alicia [facility] Respiratory rate 2023-05-16 08:15:00 18 /min [facility] Oxygen saturation in 2023-05-16 08:15:00 96 /min [facility] Arterial blood by Medical Ce nter Pulse oximetry Systolic blood 2023-05-16 08:15:00 143 mm[Hg] [facility] Diastolic blood 2023-05-16 08:15:00 67 mm[Hg] [facility] Heart rate 2023-05-16 08:15:00 78 /min [facility] Body height 2023-05-07 20:31:00 165.1 cm [facility] Body weight 2023-05-07 20:31:00 92.2 kg [facility] BMI 2023-05-07 20:31:00 33.82 kg/m2 [facility] Procedures Procedure Date / Time Performing Clinician Source Performed VENOUS DOPPLER ARM, 2023-05-16 09:24:04 Pablo Monte [facility] LEFT [facility] CBC W/PLT COUNT & AUTO 2023-05-15 07:43:00 Pablo Monte [facility] DIFFERENTIAL [facility] CBC W/PLT COUNT & AUTO 2023-05-15 07:43:00 Pablo Monte [facility] DIFFERENTIAL [facility] CBC (HEMOGRAM ONLY) 2023-05-14 04:39:00 Elva Terry [facility] BASIC METABOLIC PANEL 2023-05-14 04:39:00 Elva Terry [facility] CBC W/PLT COUNT & AUTO 2023-05-13 03:13:00 Ronen Yu [facility] BASIC METABOLIC PANEL 2023-05-13 03:13:00 Ronen Yu [facility] MAGNESIUM 2023-05-13 03:13:00 Ronen Yu [facility] PHOSPHORUS 2023-05-13 03:13:00 Ronen Yu [facility] CBC W/PLT COUNT & AUTO 2023-05-13 03:13:00 Ronen Yu [facility] ECG 12-LEAD 2023-05-12 17:38:40 Jose Barbour [facility] ECG 12-LEAD 2023-05-12 17:38:40 Unknown, Hl7 Doctor [facility] CBC W/PLT COUNT & AUTO 2023-05-12 03:46:00 Ronen Yu [facility] BASIC METABOLIC PANEL 2023-05-12 03:46:00 Ronen Yu [facility] MAGNESIUM 2023-05-12 03:46:00 Gigi Ronen [facility] PHOSPHORUS 2023-05-12 03:46:00 Gigi [facility] T4, FREE 2023-05-12 03:46:00 Km [facility] CBC W/PLT COUNT & AUTO 2023-05-12 03:46:00 Ronen Yu [facility] (CELLAVISION MANUAL 2023-05-12 03:46:00 Gigi [facility]) [facility] CT BRAIN WITHOUT IV 2023-05-11 15:10:00 [facility] CONTRAST Center CTA BRAIN 2023-05-11 15:10:00 [facility] CTA CAROTID 2023-05-11 15:10:00 [facility] PROCALCITONIN 2023-05-11 06:48:00 Ronen Yu [facility] LACTIC ACID, VENOUS 2023-05-11 06:48:00 Ronen Yu [facility] CT ABDOMEN/PELVIS WITH 2023-05-11 04:43:00 Milo Nunez [facility] IV CONTRAST Center CBC W/PLT COUNT & AUTO 2023-05-11 03:08:00 Ronen Yu [facility] DIFFERENTIAL [facility] BASIC METABOLIC PANEL 2023-05-11 03:08:00 Ronen Yu [facility] MAGNESIUM 2023-05-11 03:08:00 Ronne Yu [facility] PHOSPHORUS 2023-05-11 03:08:00 Gigi [facility] CBC W/PLT COUNT & AUTO 2023-05-11 03:08:00 Ronen Yu [facility] (CELLAVISION MANUAL 2023-05-11 03:08:00 Gigi [facility] DIFF) [facility] VENOUS DOPPLER LEGS 2023-05-10 17:36:00 Jose Barbour [facility] Center 2D ECHO W/ DOPPLER 2023-05-10 09:15:00 Edilia Lovett [facility] (CW/PW/COLOR) [place] BASIC METABOLIC PANEL 2023-05-10 03:57:00 Kadeem Cuadra [facility] CBC W/PLT COUNT & AUTO 2023-05-10 03:57:00 [facility] Center PHOSPHORUS 2023-05-10 03:57:00 Kadeem Cuadra [facility] MAGNESIUM 2023-05-10 03:57:00 [facility] CREATINE KINASE (CK) 2023-05-10 03:57:00 [facility] [facility] HEPATIC FUNCTION PANEL 2023-05-10 03:57:00 Hang Keating [facility] CBC W/PLT COUNT & AUTO 2023-05-10 03:57:00 [facility] (CELLAV[facility] MANUAL 2023-05-10 03:57:00 Kadeem Cuadradip I [facility] DIFF) [place] HIGH SENSITIVITY 2023-05-09 23:33:00 Ronen Yu [facility] TROPONIN I [facility] HIGH SENSITIVITY 2023-05-09 18:26:00 [facility] HIGH SENSITIVITY 2023-05-09 14:37:00 [facility] TROPONIN I [facility] ECG 12-LEAD 2023-05-09 13:26:56 PitoswaldJonathonEdilia [facility] ECG 12-LEAD 2023-05-09 13:26:56 Unknown, Hl7 [facility] ECG 12-LEAD 2023-05-09 13:25:30 [facility] ECG 12-LEAD 2023-05-09 13:25:30 Unknown, Hl7 [facility] BASIC METABOLIC PANEL 2023-05-09 03:16:00 [facility] CBC W/PLT COUNT & AUTO 2023-05-09 03:16:00 [facility] PHOSPHORUS 2023-05-09 03:16:00 [facility] MAGNESIUM 2023-05-09 03:16:00 [facility] CBC W/PLT COUNT & AUTO 2023-05-09 03:16:00 [facility] MR BRAIN WITHOUT IV 2023-05-08 20:49:00 Jose Barbour [facility] CONTRAST [place] POCT-GLUCOSE METER 2023-05-08 11:14:00 Uzma Mabry [facility]ITIVITY 2023-05-08 06:20:00 Ronen Yu [facility] TROPONIN I [facility] ECG 12-LEAD 2023-05-08 05:12:13 Jose Barbour [facility] ECG 12-LEAD 2023-05-08 05:12:13 Unknown, Hl7 [facility] ECG 12-LEAD 2023-05-08 03:36:05 Unknown, 7 [facility] ECG 12-LEAD 2023-05-08 03:35:37 CiriloRonen howard [facility] ECG 12-LEAD 2023-05-08 03:35:37 Unknown, Hl7 [facility] HEMOGLOBIN A1C 2023-05-08 03:13:00 Pitta, [facility] RPR 2023-05-08 03:13:00 Milo Nunez [facility] CBC W/PLT COUNT & AUTO 2023-05-08 03:13:00 [facility] BASIC METABOLIC PANEL 2023-05-08 03:13:00 [facility] W/PLT COUNT & AUTO 2023-05-08 03:13[facility]00 [facility] POCT-GLU[facility]SE METER 2023-05-07 23:20:00 Amadou Patel [facility] CBC W/PLT COUNT & AUTO 2023-05-07 20:45:00 [facility] COMPREHENSIVE METABOLIC 2023-05-07 20:45:00 [facility] MAGNESIUM 2023-05-07 20:45:00 [facility] PHOSPHORUS 2023-05-07 20:45:00 [facility] TSH/FREE T4 IF 2023-05-07 20:45:00 [facility] LIPID PANEL 2023-05-07 20:45:00 [facility] CALCIUM, IONIZED 2023-05-07 20:45:00 [facility] VITAMIN B12 2023-05-07 20:45:00 AngelinaEdilia [facility] CBC W/PLT COUNT & AUTO 2023-05-07 20:45:00 [facility] DIFFERENTIAL Center [place] CEREBRAL 4 VESSEL 2023-05-07 20:13:13 Vilma Ronit [facility] ANGIOGRAM [facility] [place] EMBOLIZATION 2023-05-07 19:35:00 Vilma Ronit [facility] Medical EXTENSIVE [facility] CT HEAD WITHOUT CODE 2023-05-07 19:00:[address] [facility] STROKE Center CTA BRAIN 2023-05-07 18:59:55 Milo Nunez [facility] CTA CAROTID 2023-05-07 18:57:58 Enrique [facility] CT BRAIN CEREBRAL 2023-05-07 18:56:[address] [facility] PERFUSION ANALYSIS Center History of Total Knee [...] Department ID 2023-05-16 Inpatient ER MELL SLEMarie SLE [id number] SLEH 08:09:35 MRINALINI 2023-05-15 Outpatient 3 [facility] ENCPL REF [id number] [facility] 14:43:14 hekortney, 0724 [facility] [place] 2023-05-11 Outpatient 3 [id number] ENCPL REF [id number] [facility] 10:08:21 0720 [facility] [place] 2023-05-11 Inpatient ER VENKATASUBB SLE SLE [id number] SLEH 04:07:16 A BHARATHI MABRY 2023-05-10 Inpatient ER VENKATASUBB SLE SLE [id number] SLEH 15:10:46 A BHARATHI MABRY 2023-05-10 Outpatient 3 [id number] ENCPL REF [id number] [facility] 11:32:11 0719 [facility] [place] 2023-05-10 Inpatient ER PITTARD, [facility] SLE [id number] SLEH 07:40:13 EDILIA 2023-05-09 Inpatient ER PITTARD, [facility] SLE [id number] SLEH 00:00:00 EDILIA 2023-05-08 Inpatient ER VENKATASUBB SLEH SLEH [id number] SLEH 20:03:52 A BHARATHI MABRY 2023-05-07 Inpatient ER PATEL, SLE SLE [id number] SLEH 19:43:50 AMADOU 2023-05-07 [facility] [id number] 19:43:40 AMADOU 2022-10-28 Outpatient Dana, STLMLC [facility] [id number] Common 09:38:02 Armando [address] [facility] 2021-12-16 Outpatient Dana, STLMLC [facility] [id number] Common 08:45:02 Armando [facility] 2021-11-17 [facility] [id number] Common 13:41:59 Armando [address] [facility] 2023-05-30 2023-05-30 Outpatient READMISSIO DANA, ENCCLR ENCCLR [id number] ENCCLR 00:00:00 00:00:00 N ARMANDO 2023-05-16 2023-05-29 Inpatient 3 [facility] ENCPL CVA [id number] [facility] 11:39:00 11:35:00 pilar, 0725 [facility] 2023-05-07 2023-05-16 Hospital ER [facility] [id number] [facility] 18:52:00 10:55:00 Encounter Amadou Patel [facility] Bharathi Mabry [facility] MellPablo rivera 2023-05-07 2023-05-16 Inpatient ER MELL [facility] Surgery [id number] SLE 18:52:00 10:55:00 MRINALINI 2023-05-11 2023-05-11 Surgery Virtual, [facility] [id number] 16:53:00 17:16:00 [facility] 2023-05-11 2023-05-11 Inpatient ER [facility] [id number] SLE 14:48:38 00:00:00 BHARATHI HERNANDEZ 2023-05-11 2023-05-11 Inpatient ER [facility] [id number] SLEH 14:48:35 00:00:00 A BHARATHI MABRY 2023-05-11 2023-05-11 Inpatient ER [facility] SLE SLE [id number] SLE 14:48:32 00:00:00 A BHARATHI MABRY 2023-05-08 2023-05-08 [facility] [id number] SLE 00:00:00 00:00:00 2023-05-08 2023-05-08 Orders [facility] [id number] 00:00:00 00:00:00 Only [facility] 2023-05-08 2023-05-08 Outside No, Pcp [facility] [id number] 00:00:00 00:00:00 Orders [facility] 2023-05-08 2023-05-08 Travel [facility] [id number] [facility] 00:[facility]00 00:00:00 [facility] 2023-05-07 2023-05-07 Hospital An, [facility] [id number] 18:52:35 23:59:00 Encounter Kasey [facility] 2023-05-07 2023-05-07 Outpatient EL AN, SLE SLE [id number] SLE 18:52:35 23:59:00 KASEY 2023-05-07 2023-05-07 Surgery Virtual, [facility] [id number] 20:00:00 20:23:00 Surgeon [facility] 2023-05-07 2023-05-07 Anesthesia YoliPritesh ceron [facility] [id number] 19:08:00 20:18:00 Event Mychal Mathis [facility] 2023-05-07 2023-05-07 Outpatient ER AN, SLE SLE [id number] SLE 19:00:33 19:00:33 KASEY 2023-05-07 2023-05-07 Outpatient ER AN, SLE SLE [id number] SLEH 18:57:32 18:57:32 KASEY 2023-05-07 2023-05-07 Outpatient ER AN, [facility] SLE [id number] SLE 18:57:23 18:57:23 KASEY 2022-10-28 2022-10-28 (IN/ASP) STLMLC STLMLC [id number] C ommon 00:00:00 00:00:00 INJ [facility] 2022-10-20 2022-10-20 (IN/ASP) STLMLC STLMLC [id number] C ommon 00:00:00 00:00:00 INJ ASP [facility] 2022-10-10 2022-10-10 (IN/ASP) STLMLC STLMLC [id number] C ommon 00:00:00 00:00:00 INJ ASP [facility] 2022-09-22 2022-09-22 (TEL) STLMLC STLMLC [id number] Co mmon 00:00:00 00:00:00 [facility] 2022-08-29 2022-08-29 OFFICE STLMLC STLMLC [id number] Co mmon 00:00:00 00:00:00 VISIT [facility] 2022-05-02 2022-05-02 OFFICE STLMLC STLMLC [id number] Co mmon 00:00:00 00:00:00 [facility]IT [facility] - [facility] 2021-12-30 2021-12-30 (IN/ASP) STLMLC STLMLC [id number] C ommon 00:00:00 00:00:00 INJ [facility] 2021-12-23 2021-12-23 (IN/ASP) STLMLC STLMLC [id number] C ommon 00:00:00 00:00:00 INJ [facility] 2021-12-16 2021-12-16 (IN/ASP) STLMLC STLMLC [id number] C ommon 00:00:00 00:00:00 INJ ASP [facility] 2021-11-15 2021-11-15 (TEL) STLMLC STLMLC [id number] Co mmon 00:00:00 00:00:00 [facility] 2021-06-15 2021-06-15 [id number] Co mmon 00:00:00 00:00:00 VISIT NEW Spir it PT LEVEL 4 - [facility] 2018-06-13 2018-06-13 AppointCHRIS Wyatt [facility] [id number] [place] 08:30:00 08:30:00 t; Ryann RODRÍGUEZ [facility] ans Diann RODRÍGUEZ M.D. [place] Results Test Description Test Time Test Comments [...] 0.50 % 0.00-1.00 = 2801) BASIC METABOLIC [id number] 05:39:20 Test Item Value Reference Range Interpretation [...] not appl icable for dialysis patien ts Storm [employer] Maker ID - ADMINCBC (HEMOGRAM ONLY)2023-05-14 05:22:30 Test [...] WBC 0-0 (BEAKER) (test code = 413) [id number] 04:35:37 Test Item Value Reference Range Interpretation Comments PHOSPHORUS (BEAKER) 3.7 mg/dL 2.3-4.7 Specimen slightly (test code = 604) hemolyzed Storm [employer] Maker ID - BSBASIC METABOLIC [id number] 04:35:37 Test Item Value Reference Range Interpretation [...] 30-44 G4 Severl y decreased 15-29 G5 Kidne y failure <15Reported eGF R is based on the CKD-EPI 2020 equation that d oes not use a race coefficientEsti mated GFR is not as accur ate as Creatinine Stephanie quintin in predicting glom erular filtration rate . Estimated GFR is not appl icable for dialysis patien ts [employer] Maker ID - [id number] 04:35:36 Test Item Value Reference Range Interpretation Comments MAGNESIUM (BEAKER) 2.2 mg/dL 1.6-2.6 Specimen slightly (test code = 627) hemolyzed Storm [employer] Maker ID - BSCBC W/PLT COUNT & AUTO [id number] 03:34:58 Test Item Value Reference Range Interpretation [...] = 2801) CBC W/PLT COUNT & AUTO [id number] 04:58:02 Test Item Value Reference Range Interpretation [...] CONCENTRATION Adequate (CELLAVISION)(BEAKER) (test code = 3438) Storm Door Maker ID - Denisa Santamaria comments: Slide comments:T4, [id number] 04:57:30 Test Item Value Reference Range Interpretation Comments FREE T4 (BEAKER) (test code = 655) 1.67 ng/dL 0.70-1.48 H Storm [employer] Maker ID - [id number] 04:24:19 Test Item Value Reference Range Interpretation Comments MAGNESIUM (BEAKER) (test code = 2.0 mg/dL 1.6-2.6 627) Storm Door Maker ID - [id number] 04:24:19 Test Item Value Reference Range Interpretation Comments PHOSPHORUS (BEAKER) (test code = 4.9 mg/dL 2.3-4.7 H 604) Storm Door Maker ID - DBBASIC METABOLIC [id number] 04:24:18 Test Item Value Reference Range Interpretation [...] not appl icable for dialysis patien ts Storm Door Maker ID - DBCT BRAIN WITHOUT IV [id number] 15:49:45 [facility] CENTERName: CAROL ANN MATUTE : 1945 Sex: FCTA CAROTID, CTA BRAIN, CT BRAIN WITHOUT IV CONTRASTBRAIN CT WITHOUT CONTRASTINDICATION: Stroke, follow upCOMPARISON: 05/07/2023 CT headTECHNIQUE:Rapid acquisition spiral images were obtained between the aortic archand the cranial vertex during intravenous contrast infusion toreconstruct axial images and angiographic 3D maximum intensityprojections (MIP). 3-D volumetric reformatted images were created at ad edicated workstation. Precontrast images of the brain were alsoobtained. Stenosis evaluation reported in compliance with NASCET criteria.DOSE REDUCTION: Dose modulation, iterative reconstruction, and/orweight-based adjustment of the mA/kV was utilized to reduce theradiation dose to as low as reasonably achievable.FINDINGS:CT BRAIN:No intracranial hemorrhage, midline shift or mass effect. Scatteredsmall hypodensities in the left frontal and parietal lobes., Leftputamen Midline structures are normallydeveloped. Hypoattenuationwithin the periventricular and subcortical white matter [...] scatteredCervical internal carotid arteries: No flow limiting st enosis.Vertebral arteries: Hypoplastic right vertebral artery.Arch anatomy: Conventional.Nonvascularfindings:Osseous structures: No acute osseous abnormality. Intact calvarium andskull base. Moderate spondylosis and facet arthropathy are presentwithin the spine. Reversal of the normal cervical lordosi s.Cervical soft tissues: No adenopathy. Patent aerodigestive tract.Lung apices: No apical consolidation or pneumothorax.IMPRESSION:CT brain:1. No intracranial hemorrhage or large territory infarct.2. 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 No acute vascularabnormality in the head and neck. Resolution ofthe previously seen left MCA M1 occlusion following thrombectomy. 2. Hypoplastic right vertebral artery.Electronically Signed By: Mo Pat05/11/2023 15:51 CDTWorkstation Name: [id number] BRAIN 2023-05-11 15:49:45 [facility] : 1945 Sex: FCTA CAROTID, CTA BRAIN, CT BRAIN WITHOUT IV CONTRASTBRAIN CT WITHOUT CONTRASTINDICATION: Stroke, follow upCOMPARISON: 05/07/2023 CT headTECHNIQUE:Rapid acquisition spiral images were obtained between the aortic archand the cranial vertex during intravenous contrast infusion toreconstruct axial images and angiographic 3D maximum intensityprojections (MIP). 3-D volumetric reformatted images were created at [employer] workstation. Precontrast images of the brain were alsoobtained. Stenosis evaluation reported in compliance with NASCET criteria.DOSE REDUCTION: Dose modulation, iterative reconstruction, and/orweight-based adjustment of the mA/kV was utilized to reduce theradiation dose to as low as reasonably achievable.FINDINGS:CT BRAIN:No intracranial hemorrhage, midline shift or mass effect. Scatteredsmall hypodensities in the left frontal and parietal lobes., Leftputamen Midline structures are normallydeveloped. Hypoattenuationwithin the periventricular and subcortical white matter [...] scatteredCervical internal carotid arteries: No flow limiting st enosis.Vertebral arteries: Hypoplastic right vertebral artery.Arch anatomy: Conventional.Nonvascularfindings:Osseous structures: No acute osseous abnormality. Intact calvarium andskull base. Moderate spondylosis and facet arthropathy are presentwithin the spine. Reversal of the normal cervical lordosi s.Cervical soft tissues: No adenopathy. Patent aerodigestive tract.Lung apices: No apical consolidation or pneumothorax.IMPRESSION:CT brain:1. No intracranial hemorrhage or large territory infarct.2. 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 No acute vascularabnormality in the head and neck. Resolution ofthe previously seen left MCA M1 occlusion following thrombectomy. 2. Hypoplastic right vertebral artery.Electronically Signed By: Mo Pat05/11/2023 15:51 CDTWorkstation Name: [id number] CAROTID 2023-05-11 15:49:45 [facility] : 1945 Sex: FCTA CAROTID, CTA BRAIN, CT BRAIN WITHOUT IV CONTRASTBRAIN CT WITHOUT CONTRASTINDICATION: Stroke, follow upCOMPARISON: 05/07/2023 CT headTECHNIQUE:Rapid acquisition spiral images were obtained between the aortic archand the cranial vertex during intravenous contrast infusion toreconstruct axial images and angiographic 3D maximum intensityprojections (MIP). 3-D volumetric reformatted images were created at giftee workstation. Precontrast images of the brain were [...] Signed By: Mo Pat05/11/2023 15:51 CDTWorkstation Name: [id number] 07:50:58 Test Item Value Reference Range Interpretation Comments PROCALCITONIN (BEAKER) (test code = < ng/mL <0.05 3036) SEPSIS RISK (ng/mL)Low: 0.05-0.50Intermediate: 0.51-2.00High: >=2.01LACTIC ACID, [id number] 07:17:33 Test Item Value Reference Range Interpretation Comments LACTATE BLOOD VENOUS 1.04 mmol/L 0.50-2.00 Specime n slightly (2) (BEAKER) (test hemolyzed code = 2872) Storm Door Maker ID - BS(CELLAVISION MANUAL DIFF)2023-05-11 07:00:15 Test [...] CONCENTRATION Adequate (CELLAVISION)(BEAKER) (test code = 3438) Storm [employer] Maker ID - Misti OverholtUser comments: Slide comments:CBC W/PLT COUNT & AUTO [id number] 07:00:14 Test Item Value Reference Range Interpretation [...] code = 413) CT ABDOMEN/PELVIS WITH IV [id number] 06:10:13 [facility] CENTERName: CAROL ANN MATUTE : 1945 Sex: FABDOMINAL AND PELVIS CT DATED 05/11/2023LINICAL INFORMATION: RLQ abdominal pain (Age >= 14y)TECHNIQUE: [...] Signed By: Kelvin Fofana05/11/2023 06:13 CDTWorkstation Name: [id number] 03:56:56 Test Item Value Reference Range Interpretation Comments MAGNESIUM (BEAKER) 2.0 mg/dL 1.6-2.6 Specimen slightly (test code = 627) hemolyzed Storm [employer] Maker ID - [id number] 03:56:56 Test Item Value Reference Range Interpretation Comments PHOSPHORUS (BEAKER) 4.4 mg/dL 2.3-4.7 Specimen slightly (test code = 604) hemolyzed Storm [employer] Maker ID - MMBASIC METABOLIC [id number] 03:56:56 Test Item Value Reference Range Interpretation [...] (test code = 697) EGFR (BEAKER) 66 Interpretati on of eGFR (test code = mL/min/1.73 values [...] not appl icable for dialysis patien ts Storm Door Maker ID - MM(CELLAVISION MANUAL DIFF)2023-05-10 06:41:42 Test [...] (CELLAVISION)(BEAKER) 0.15 K/uL 0.00-0.80 (test code = 6720) ATYPICAL LYMPHOCYTES - ABS 0.15 K/uL 0.00-0.00 H (CELLAVISION)(BEAKER) (test code = 2858) TOTAL COUNTED (BEAKER) (test code = 100 1351) WBC MORPHOLOGY (BEAKER) (test code Normal = 487) PLT MORPHOLOGY (BEAKER) (test code Normal = 486) ANISOCYTOSIS (BEAKER) (test code = 1+ few 961) MICROCYTES (BEAKER) (test code = 1+ few 965) ARTIFACT (CELLAVISION)(BEAKER) Present (test code = 3432) PLATELET CONCENTRATION Adequate (CELLAVISION)(BEAKER) (test code = 3438) Storm Door Maker ID - Isabela Maryam comments: Slide comments:CBC W/PLT COUNT & AUTO [id number] 06:41:31 Test Item Value Reference Range Interpretation [...] (BEAKER) (test code = 413) HEPATIC FUNCTION [id number] 04:40:23 Test Item Value Reference Range Interpretation [...] (test code = 23 U/L 6-55 347) Storm Door Maker ID - EOOCREATINE KINASE (CK)2023-05-10 04:40:23 Test Item Value Reference Range Interpretation Comments CREATINE KINASE TOTAL (BEAKER) (test 322 U/L 29-200 H code = 380) Storm [employer] Maker ID - EOOBASIC METABOLIC [id number] 04:40:22 Test Item Value Reference Range Interpretation [...] not appl icable for dialysis patien ts Storm [employer] Maker ID - [id number] 04:40:22 Test Item Value Reference Range Interpretation Comments MAGNESIUM (BEAKER) (test code = 2.0 mg/dL 1.6-2.6 627) Storm Door Maker ID - [id number] 04:40:22 Test Item Value Reference Range Interpretation Comments PHOSPHORUS (BEAKER) (test code = 3.6 mg/dL 2.3-4.7 604) Storm Door Maker ID - EOOHIGH SENSITIVITY TROPONIN [id number] 00:08:50 Test Item Value Reference Range Interpretation Comments HIGH SENSITIVITY TROPONIN I (test 5 pg/ml <=17 code = 0660546) Storm Door Maker ID - BSThe LEMON PICKER STAT High Sensitivity Troponin-I results should be used in conjunctionwith other diagnostic information such as ECG, clinical observations and information, and patient symptoms to aid in the diagnosis of NH.HIGH SENSITIVITY TROPONIN [id number] 19:07:35 Test Item Value Reference Range Interpretation Comments HIGH SENSITIVITY TROPONIN I (test 6 pg/ml <=17 code = 2912965) Storm Door Maker ID - ADMINThe [facility] STAT High Sensitivity Troponin-I results should be used in conjunction with other diagnostic information such as ECG, clinical observations and information, and patientsymptoms to aid in the diagnosis of NH. HIGH SENSITIVITY TROPONIN [id number] 15:31:50 Test Item Value Reference Range Interpretation Comments HIGH SENSITIVITY TROPONIN I (test 5 pg/ml <=17 code = 1906038) The [facility] STAT High Sensitivity Troponin-I results should be used in conjunction with other diagnostic information such as ECG, clinical observations and information, and patient symptoms to aid inthe diagnosis of NH.NV EMBOLIZATION [id number] 09:18:51 [facility] CENTERName: CAROL ANN MATUTE : 1945 Sex: FDATE: 05/07/2023SURGEON: Christo Khan MD PhDFIRST SALES PROMOTION MANAGER: Ronit Esparza MD PhDPREOPERATIVE DIAGNOSIS: Left MCA [...] CTA at outside hospital demonstrated a left G2olcpmwmex occlusive thrombus she was transferred here for [...] diameter and flow, There is a proximal C9bcilprodi occlusive thrombus with good pialcollateral flow from distalACA and TEXTURE ARTIST branches. The vessels are tortuous with evidence [...] Signed By: Christo Khan05/09/2023 09:20 CDTWorkstation Name: [id number] CEREBRAL 4 VESSEL [id number] 09:18:51 [facility] : 1945 Sex: FDATE: 05/07/2023SURGEON: Christo Khan MD PhDFIRST SALES PROMOTION MANAGER: Ronit Esparza MD PhDPREOPERATIVE DIAGNOSIS: Left MCA [...] CTA at outside hospital demonstrated a left T0bftyeinnt occlusive thrombus she was transferred here for [...] diameter and flow, There is a proximal T4idmyecoir occlusive thrombus with good pialcollateral flow from distalACA and TEXTURE ARTIST branches. The vessels are tortuous with evidence [...] Signed By: Christo Khan05/09/2023 09:20 CDTWorkstation Name: [id number] 04:00:40 Test Item Value Reference Range Interpretation Comments PHOSPHORUS (BEAKER) (test code = 3.8 mg/dL 2.3-4.7 604) BASIC METABOLIC [id number] 04:00:39 Test Item Value Reference Range Interpretation [...] eGFR (test code = mL/min/1.73 values Stage D escription 1092) sq m Result G1 Kristine l [...] not appl icable for dialysis patien ts [id number] 04:00:39 Test Item Value Reference Range Interpretation Comments MAGNESIUM (BEAKER) (test code = 2.1 mg/dL 1.6-2.6 627) CBC W/PLT COUNT & AUTO [id number] 03:47:19 Test Item Value Reference Range Interpretation [...] code = 2801) MR BRAIN WITHOUT IV [id number] 22:26:02 [facility] CENTERName: CAROL ANN MATUTE : 1945 Sex: FEXAM/TECHNIQUE: MRI of the brain without contrast. Multiplanarmultisequence images were acquired.INDICATION: Stroke. Left MCA occlusion.COMPARISON: CTA head from 05/07/2023.FINDINGS: Numerous foci of DWI hyperintensity with corresponding ADC hypointensityalong the left MCA JOSS and TEXTURE ARTIST watershed.Global parenchymal volume loss. Moderate burden of [...] left MCA watershed territorieswith the JOSS and TEXTURE ARTIST.2. FLAIR hyperintensity of left Q7fdlfpob may represent slow flow orocclusion.Electronically Signed By: Javier Warner05/08/2023 22:28 CDTWorkstation Name: [id number] 15:27:05 Test Item Value Reference Range Interpretation Comments RPR SCREEN (PHYLLIS) (test code = Nonreactive Nonreactive 420) POC-Glucose [id number] 11:25:07 Test Item Value Reference Range Interpretation Comments POC-Glucose Meter (test 138 mg/dL 70-110 H : TE STED AT [facility] code = 1538) [address] [facility] [place], [address] 30: Storm Door Maker/Techni carol ID = [id number] for Hemanes, Katie'Sh ae Lab Interpretation (test Abnormal code = 97083-1) [facility] [id number] 11:25:07 Test Item Value Reference Range Interpretation Comments POC-GLUCOSE METER 138 mg/dL 70-110 H : TESTED A T [facility] 6720 (BEAKER) (test code = HARESH [facility], 1538) [address]: Storm Door Maker/Techni carol ID = [id number] for Shelby Askew HEMOGLOBIN [id number] 10:36:47 Test Item Value Reference Range Interpretation [...] 5.7- 6.4% indicates increased risk for diabetes (prediabetes)."Storm Door Maker ID - ADMHIGH SENSITIVITY TROPONIN [id number] 07:10:06 Test Item Value Reference Range Interpretation Comments HIGH SENSITIVITY TROPONIN I (test 5 pg/ml <=17 code = 3132169) Storm Door Maker ID - EOOThe [facility]ICKER STAT High Sensitivity Troponin-I results should be used in conjunction with other diagnostic information such as ECG, clinical observations and information, and patient symptoms to aid in the diagnosis of NH.BASIC METABOLIC [id number] 03:57:23 Test Item Value Reference Range Interpretation [...] not appl icable for dialysis patien ts Storm Door Maker ID - EOOCBC W/PLT COUNT & AUTO [id number] 03:40:12 Test Item Value Reference Range Interpretation [...] PERCENT (BEAKER) (test code = 2801) POCT-GLUCOSE [id number] 23:31:46 Test Item Value Reference Range Interpretation Comments POC-GLUCOSE METER 124 mg/dL 70-110 H : [facility] ([facility] (test code = [place], 1538) [address]: Storm Door Maker/Techni carol ID = [id number] for Yolanda Epperson VITAMIN [id number] 22:06:25 Test Item Value Reference Range Interpretation Comments VITAMIN B12 (BEAKER) (test code = 1417 pg/mL 213-816 H 774) Storm Door Maker ID - LISHAOTSH/FREE T4 IF [id number] 22:06:25 Test Item Value Reference Range Interpretation Comments THYROID STIMULATING HORMONE 0.671 uIU/mL 0.350-4.940 (BEAKER) (test code = 772) Storm Door Maker ID - [id number] 21:41:45 Test Item Value Reference Range Interpretation Comments MAGNESIUM (BEAKER) (test code = 1.7 mg/dL 1.6-2.6 627) Storm Door Maker ID - [id number] 21:41:45 Test Item Value Reference Range Interpretation Comments PHOSPHORUS (BEAKER) (test code = 4.5 mg/dL 2.3-4.7 604) Storm Door Maker ID - MARCOLIPID [id number] 21:41:45 Test Item Value Reference Range Interpretation [...] Borderline 130-159 High 160-189 Very High >=190 Storm Door Maker ID - MARCOCOMPREHENSIVE METABOLIC [id number] 21:41:44 Test Item Value Reference Range Interpretation [...] not appl icable for dialysis patien ts Storm Door Maker ID - MARCOCBC W/PLT COUNT & AUTO [id number] 21:04:04 Test Item Value Reference Range Interpretation [...] PERCENT (BEAKER) (test code = 2801) CALCIUM, [id number] 20:52:47 Test Item Value Reference Range Interpretation Comments CALCIUM IONIZED (BEAKER) (test 1.10 mmol/L 1.12-1.27 L code = 698) PH, BLOOD (BEAKER) (test code = 7.35 1810) CTA [id number] 19:27:09 [facility] 1945 Sex: [...] 3-D volumetric reformatted images were created at giftee workstation. Precontrast images of the brain were [...] cerebral arteries: Normal contrast opacification of thebilateral TEXTURE ARTIST P1-P2 branches.Venous opacification: Major dural sinuses unremarkable [...] Signed By: Idalmis Carrasco05/07/2023 19:29 CDTWorkstation Name: [id number] 19:27:09 [facility] 1945 [...] 3-D volumetric reformatted images were created at [employer]iftee workstation. Precontrast images of the brain were [...] cerebral arteries: Normal contrast opacification of thebilateral TEXTURE ARTIST P1-P2 branches.Venous opacification: Major dural sinuses unremarkable [...] Signed By: Idalmis Carrasco05/07/2023 19:29 CDTWorkstation Name: [id number] BRAIN CEREBRAL PERFUSION [id number] 19:27:09 [facility] : 1945 Sex: FCT BRAIN [...] 3-D volumetric reformatted images were created at giftee workstation. Precontrast images of the brain were [...] cerebral arteries: Normal contrast opacification of thebilateral TEXTURE ARTIST P1-P2 branches.Venous opacification: Major dural sinuses unremarkable [...] Signed By: Idalmis Carrasco05/07/2023 19:29 CDTWorkstation Name: [id number] BRAIN/STROKE TEST [id number] 19:22:47 [facility] : [...] Signed By: Idalmis Carrasco05/07/2023 19:24 CDTWorkstation Name: [id number][U] XRAY KNEE 3 VWS RIGHT [id number] 08:04:00 Images acquired, not reported on this accession number.[facility]
--- NOTE | 2023-06-24 08:43 | RAD REPORT ---
EXAM DESCRIPTION: CT - CTHCSPWOC - 06/24/2023 8:19 am CLINICAL HISTORY: Confused;Headache COMPARISON: Neck Angio dated 05/07/2023; Head Brain Wo Cont dated 06/01/2023; Ct Stroke Brain Wo Cont dated 05/07/2023; Brain W/Wo Cont dated 04/17/2023; Head angio dated 05/07/2023 TECHNIQUE: Axial thin cut noncontrast CT images of the head were obtained. Axial thin cut noncontrast CT images of the cervical spine were obtained. Multiplanar reformatted images were generated and reviewed. All CT scans are performed using dose optimization technique as appropriate and may include automated exposure control or mA/KV adjustment according to patient size. FINDINGS: CT HEAD WITHOUT CONTRAST: Left temporoparietal subcortical white matter new hypodensity with minimal mass effect. No acute hemo rrhage, hydrocephalus or extra-axial collection is identified. Incidentally noted partially empty ratna la. No areas of brain edema or midline shift. The paranasal sinuses and mastoids are clear.The calvarium is intact. CT CERVICAL SPINE WITHOUT CONTRAST: No fracture or subluxation. Moderate to advanced degenerative changes of the cervical spine, stable. No prevertebral soft tissues swelling is identified. IMPRESSION: Left temporoparietal subcortical white matter new hypodensity with minimal mass effect. Subacute ischemia is considered most likely please correlate clinically, and consider additional eval uation by MRI if there is concern for acute ischemia. No acute traumatic intracranial or cervical spine findings. Multilevel degenerative cervical spine changes. The findings were communicated to Brendan Kerns on 06/24/2023 at 08:39 hours.
--- NOTE | 2023-06-24 08:43 | RAD REPORT ---
EXAM DESCRIPTION: Shoulder Right 2 View - 06/24/2023 8:30 am CLINICAL HISTORY: PAIN COMPARISON: No comparisons TECHNIQUE: Internal and external rotation views of the right shoulder were obtained. FINDINGS: There is no fracture or dislocation. AC joint shows moderate degenerative changes. Glenohu meral joint appears well preserved on the provided images. Osseous irregularity along the greater tub erosity, suggesting sequelae of chronic rotator cuff changes. No acute or suspicious findings. IMPRESSION: No acute osseous abnormality. Chronic findings as above.
--- NOTE | 2023-06-24 08:43 | RAD REPORT ---
EXAM DESCRIPTION: RADChest Single View06/24/2023 8:30 am CLINICAL HISTORY: fall from standing COMPARISON: Chest Pa And Lat (2 Views) dated 06/07/2023; Chest Single View dated 05/07/2023; Chest Sin gle View dated 03/27/2023; Chest Single View dated 10/15/2019 TECHNIQUE: Portable AP view of the chest. FINDINGS: The lungs are clear. No pneumothorax or effusion. The cardiomediastinal contours are unre markable. IMPRESSION: No acute cardiopulmonary process.
[2023-06-24 08:49] LABS: Absolute Lymphocytes (CBC) 1.1 K/uL (0.7-4.9); Hematocrit 37.3 % (36.0-45.0); Lymphocytes % 12.2 % (15.3-44.8); MCV 89.7 fL (80-100); MPV 6.5 fL (7.6-11.3); Platelets 445 thou/uL (152-406); RBC Red Blood Cell Count 4.16 M/uL (3.86-4.86)
[2023-06-24 09:01] LABS: Albumin 2.7 g/dL (3.4-5.0); Bilirubin Direct 0.2 mg/dL (0-0.2); Bilirubin Indirect, Calculated 0.4 mg/dL (0.2-0.8); Bilirubin Total 0.6 mg/dL (0.2-1.0); Magnesium 2.1 mg/dL (1.6-2.4); Potassium 3.9 mEq/L (3.5-5.1); Protein, Total 7.5 g/dL (6.4-8.2); Troponin High Sensitivity 7.1 pg/mL (<58.9)
--- NOTE | 2023-06-24 09:13 | ER ---
Nurse's Notes [facility] Name: Carol Ann Matute Age: 78 yrs Sex: Female : 1945 Arrival Date: 06/24/2023 Time: 07:41 Bed 20 Private MD: Diagnosis: Altered mental status, unspecified;Pain in right shoulder;Headache Presentation: 06/24 07:40 Chief complaint: EMS states: Patient from [facility]. Became dizzy this AM and fell. db States hurt right arm. Abrasion to right elbow. patient complains of headache last night. hx of on blood thinners Eloquis and stroke. Denies LOC and denies hitting head. Care prior to arrival: IV initiated. 22 GA, in the right hand. Mechanism of Injury: Fall from standing position. Trauma event details: Injury occurred in the [facility]. 07:40 Method Of Arrival: EMS: [facility] db 07:40 Acuity: ALTHEA 2 db 07:40 Coronavirus screen: Client denies travel out of the [place] in the last 14 days. At this db time, the client does not indicate any symptoms associated with coronavirus-19. Ebola Screen: Patient negative for fever greater than or equal to 101.5 degrees Fahrenheit, and additional compatible Ebola Virus Disease symptoms Patient denies exposure to infectious person. Patient denies travel to an Ebola-affected area in the 21 days before illness onset. No symptoms or risks identified at this time. Initial Sepsis Screen: Does the patient meet any 2 criteria? No. Patient's initial sepsis screen is negative. Does the patient have a suspected source of infection? No. Patient's initial sepsis screen is negative. Risk Assessment: Do you want to hurt yourself or someone else? Patient reports no desire to harm self or others. Onset of symptoms was June 24, 2023. Trauma Activation: Not Applicable Physician: ED Physician; Name: ; Notified At: ; Arrived At: Physician: General Surgeon; Name: ; Notified At: ; Arrived At: Physician: Radiology; Name: ; Notified At: ; Arrived At: Physician: Respiratory; Name: ; Notified At: ; Arrived At: Physician: Lab; Name: ; Notified At: ; Arrived At: Historical: - Allergies: 07:54 PENICILLINS; db - Home Meds: 07:54 Eliquis 5 mg Oral tablet 1 tab 2 times per day [Active]; amiodarone 200 mg Oral tablet db 1 tab daily [Active]; 07:55 aspirin 81 mg Oral capsule 1 cap daily [Active]; atorvastatin 20 mg Oral tablet 1 tab db every evening [Active]; duloxetine 20 mg Oral capsule,delayed release (e.c.) 1 cap 2 times per day [Active]; levothyroxine 137 mcg tablet 1 tab daily [Active]; Meclizine Oral [Active]; metoprolol tartrate 50 mg Oral tablet 1 tabs 2 times per day [Active]; - PMHx: 07:54 Hypertension; ischemic stroke; Thyroid problem; db - Immunization history: Last tetanus immunization: unknown. - Social history:: Smoking status: Patient denies any tobacco usage or history of. Screenin:40 Abuse screen: Denies threats or abuse. Denies injuries from another. Tuberculosis db screening: No symptoms or risk factors identified. 12:20 [facility] ED Fall Risk Assessment (Adult) History of falling in the last 3 months, db including since admission Yes- single mechanical fall (1 pt) Confusion or Disorientation No (0 pts) Intoxicated or Sedated No (0 pts) Impaired Gait No (0 pts) Mobility Assist Device Used No (0 pt) Altered Elimination No (0 pt) Score/Fall Risk Level 0 - 2 = Low Risk Oriented to surroundings, Maintained a safe environment. Nutritional screening: No deficits noted. Primary Survey: 07:40 NO uncontrolled hemorrhage observed. A: The client is awake and alert. The airway is db patent. The client is alert. Breathing/Chest: Spontaneous respiratory effort, equal unlabored respirations, breath sounds clear bilaterally, regular pattern, symmetrical chest rise and fall. Respiratory effort: spontaneous, unlabored, Breath sounds: clear, Respiratory pattern: regular, Chest inspection: symmetrical rise and fall of the chest. Circulation: No external hemorrhage present. Regular and strong central pulse, skin warm/dry/normal color. Disability Client is alert. Exposure/Environment: A warming method has been applied: A warm blanket has been provided to the patient. Reassessment Alertness and Airway: Awake and alert. The airway is patent. Breathing: Spontaneous respiratory effort, equal unlabored respirations, breath sounds clear bilaterally, regular pattern with symmetrical chest rise and fall. Circulation: No external hemorrhage noted. Regular and strong central pulse, skin warm/dry/normal color. Disability: Alert. Assessment: 07:40 Reassessment: Patient appears in no apparent distress at this time. Patient and/or db family updated on plan of care and expected duration. Pain level reassessed. Patient is alert, oriented x 3, equal unlabored respirations, skin warm/dry/pink. General: Appears in no apparent distress. comfortable, Behavior is calm, cooperative. Pain: Complains of pain in right arm. Neuro: Level of Consciousness is awake, alert, obeys commands, Oriented to person, place, time, situation. Cardiovascular: No deficits noted. Respiratory: No deficits noted. Airway is patent Respiratory effort is even, unlabored, Respiratory pattern is regular, symmetrical. Musculoskeletal: Circulation, motion, and sensation intact. Capillary refill < 3 seconds, Range of motion: intact in all extremities, Reports pain in right arm. Injury Description: Abrasion sustained to right elbow. 08:13 Reassessment: PATIENT IN CT. db 08:27 Reassessment: PATIENT RETURNED TO ROOM FROM RADIOLOGY. db 08:50 Reassessment: CALLED PT SON TO GIVE PATIENT UPDATE. PLAN TO TRANSFER PATIENT. db 09:19 Reassessment: PATIENT SON IS AT BEDSIDE. db 10:26 Reassessment: Patient appears in no apparent distress at this time. Patient and/or db family updated on plan of care and expected duration. Pain level reassessed. Patient is alert, oriented x 3, equal unlabored respirations, skin warm/dry/pink. 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 10:50 Reassessment: ATTEMPTED TO CALL REPORT TO [facility] . TRANSFER CENTER ANSWERED. db UNABLE TO GET A HOLD OF THE RECEIVING FLOOR. STATES WILL HAVE NURSE CALL ME BACK. 11:13 Reassessment: CALLED TO GIVE REPORT TO RECEIVING RN AT [facility] RM 1226. db REPORT GIVEN TO RISHI. 11:15 Reassessment: PATIENT CHECKED FOR SKIN BREAK DOWN. NO SKIN BREAK DOWN NOTED. SKIN db INTACT. PATIENT CHANGED INTO GOWN. BELONGINGS PLACED IN BELONGINGS BAG. PATIENT BRIEF CHECKED. DRY CLEAN AND INTACT. SOCKS PLACED ON PATIENT. 11:20 Reassessment: Patient appears in no apparent distress at this time. Patient and/or db family updated on plan of care and expected duration. Pain level reassessed. Patient is alert, oriented x 3, equal unlabored respirations, skin warm/dry/pink. 12:20 Reassessment: Patient appears in no apparent distress at this time. Patient and/or db family updated on plan of care and expected duration. Pain level reassessed. Patient is alert, oriented x 3, equal unlabored respirations, skin warm/dry/pink. EMS ARRIVED TO PATIENT ROOM FOR DEAN OF MEN. Patient denies pain at this time. 12:26 Reassessment: PATIENT PLACED ON PURIWICK PRIOR TO LEAVING. STATES NEEDS TO USE RESTROOM.db Vital Signs: 07:40 BP 106 / 90; Pulse 70; Resp 18; Temp 98(O); Pulse Ox 97% on R/A; Weight 63.5 kg; Height db 5 ft. 6 in. ; Pain 6/10; 08:00 BP 139 / 88; Pulse 63; Resp 16; Pulse Ox 97% on R/A; db 08:30 BP 132 / 87; Pulse 126; Resp 18; Pulse Ox 96% on R/A; db 09:00 BP 122 / 93; Pulse 122; Resp 18; Pulse Ox 98% on R/A; db 10:00 BP 121 / 102; Pulse 121; Resp 14; Pulse Ox 96% on R/A; db 12:00 BP 145 / 90; Pulse 125; Resp 16; Pulse Ox 95% on R/A; db 07:40 Body Mass Index 22.60 (63.50 kg, 167.64 cm) db 07:40 Pain Scale: Adult db Vitals: 08:30 Cardiac Rhythm Assessment Atrial fibrillation W/rapid ventricular response. db Ashley Coma Score: 07:40 Eye Response: spontaneous(4). Motor Response: obeys commands(6). Verbal Response: db oriented(5). Total: 15. Trauma Score (Adult): 07:40 Eye Response: spontaneous(1); Verbal Response: oriented(1); Motor Response: obeys db commands(2); Systolic BP: > 89 mm Hg(4); Respiratory Rate: 10 to 29 per min(4); Ashley Score: 15; Trauma Score: 12 ED Course: 07:40 Patient has correct armband on for positive identification. Bed in low position. Call db light in reach. Side rails up X2. 07:40 Patient maintains SpO2 saturation greater than 95% on room air. db 07:49 Patient arrived in ED. db 07:50 Maintain EMS IV. Dressing intact. Good blood return noted. Site clean \T\ dry. Gauge \T\ db site: 22g R hand. 07:51 Triage completed. db 07:51 Brendan Kerns MD is Attending Physician. kdr 07:55 Arm band placed on Patient placed in an exam room. db 08:13 Tierra Bartholomew, ALAYNA is Primary Nurse. db 08:20 CT Head C Spine In Process Unspecified. EDMS 08:32 Shoulder Right (2 View) XRAY In Process Unspecified. EDMS 08:32 XRAY Chest (1 view) In Process Unspecified. EDMS 09:03 initiated a transfer with Aby from the [facility] Transfer [place]. eb 09:[address] Hunter the neurologist nutritional services director for [facility] with Dr. Kerns for eb patient transfer consultation. 10:20 Inserted saline lock: 20 gauge in right antecubital area, using aseptic technique. db 10:22 connected the hospitalist nutritional services director for [facility] with Dr. Kerns for patient eb transfer consultation/. 10:29 administrative approval given by Aby Jonas Rn/ patient has been accepted to [facility] bed 1226/ Dr. Bassam Alcazar has accepted the patient in transfer/ report to be called through the transfer center at [phone]. 10:56 CT Head Angio In Process Unspecified. EDMS 10:56 CT Neck Angio In Process Unspecified. EDMS 12:20 Provided Education on: TRANSFERRED. db 12:20 No provider procedures requiring assistance completed. Patient transferred, IV remains db in place. 12:27 Thermoregulation: warm blanket given to patient. db Administered Medications: 08:45 CANCELLED (Duplicate Order): Metoprolol IVP 5 mg IVP once; Hold for SBP <100 or HR <60. kdr 09:10 Drug: Aspirin PO Chewable Tablet 324 mg Route: PO; db 10:48 Follow up: Response: No adverse reaction db 09:10 Drug: Eliquis PO 5 mg Route: PO; db 10:48 Follow up: Response: No adverse reaction db 09:10 Drug: amiodarone PO 200 mg Route: PO; db 10:48 Follow up: Response: No adverse reaction db Medication: 12:20 VIS not applicable for this client. db Intake: 12:27 PO: 0ml; Total: 0ml. db Outcome: 09:13 ER care complete, transfer ordered by . kdr 12:20 Transferred by ground EMS to [facility], [facility], Transfer form completed. db 12:20 Condition: stable 12:20 Instructed on the need for transfer. 12:27 Patient's length of stay in the Emergency Department was greater than 2 hours. PENDING db TRANSPORT AND ACCEPTANCE TO RECEIVING FACILITYPatient's length of stay extended due to 12:30 Patient left the ED. eb Signatures: Dispatcher [employer] EDMS Brendan Kerns MD MD kdr Botello, Elizabeth eb Benton, Danielle, RN RN db Corrections: (The following items were deleted from the chart) 09:16 07:40 Acuity: ALTHEA 3 db db 09:20 08:50 Reassessment: CALLED PT SON TO GIVE PATIENT UPDATE. db db
--- NOTE | 2023-06-24 09:14 | EDPHYS ---
Physician Documentation [facility] Name: Carol Ann Matute Age: 78 yrs Sex: Female : 1945 Arrival Date: 06/24/2023 Time: 07:41 Bed 20 Private MD: ED Physician Brendan Kerns HPI: 06/24 08:30 This 78 yrs old Female presents to ER via EMS with complaints of Fall Injury, Arm kdr Injury. 08:30 Patient states that she had gotten up to go to the bathroom and when she was returning kdr to bed, she fell on the floor hitting her head and also her right shoulder. She only complains of pain now in her right shoulder and her head. Patient otherwise appears to be stable is responding appropriately to questions though she appears slightly agitated. Patient has no other focal complaints. Patient is nontoxic-appearing on initial evaluation in the following commands appropriately. Onset: The symptoms/episode began/occurred gradually. Severity of symptoms: At their worst the symptoms were mild moderate just prior to arrival, in the emergency department the symptoms have improved mildly. It is unknown whether or not the patient has had similar symptoms in the past. It is unknown whether or not the patient has recently seen a physician. Historical: - Allergies: 07:54 PENICILLINS; db - Home Meds: 07:54 Eliquis 5 mg Oral tablet 1 tab 2 times per day [Active]; amiodarone 200 mg Oral tablet db 1 tab daily [Active]; 07:55 aspirin 81 mg Oral capsule 1 cap daily [Active]; atorvastatin 20 mg Oral tablet 1 tab db every evening [Active]; duloxetine 20 mg Oral capsule,delayed release (e.c.) 1 cap 2 times per day [Active]; levothyroxine 137 mcg tablet 1 tab daily [Active]; Meclizine Oral [Active]; metoprolol tartrate 50 mg Oral tablet 1 tabs 2 times per day [Active]; - PMHx: 07:54 Hypertension; ischemic stroke; Thyroid problem; db - Immunization history: Last tetanus immunization: unknown. - Social history:: Smoking status: Patient denies any tobacco usage or history of. ROS: 08:30 Constitutional: Negative for fever, chills, and weight loss, Eyes: Negative for injury, kdr pain, redness, and discharge, ENT: Negative for injury, pain, and discharge, Neck: Negative for injury, pain, and swelling, Cardiovascular: Negative for chest pain, palpitations, and edema, Respiratory: Negative for shortness of breath, cough, wheezing, and pleuritic chest pain, Abdomen/GI: Negative for abdominal pain, nausea, vomiting, diarrhea, and constipation, Back: Negative for injury and pain, : Negative for injury, bleeding, discharge, and swelling, Skin: Negative for injury, rash, and discoloration, Psych: Negative for depression, anxiety, suicide ideation, homicidal ideation, and hallucinations, Allergy/Immunology: Negative for hives, rash, and allergies, Endocrine: Negative for neck swelling, polydipsia, polyuria, polyphagia, and marked weight changes, Hematologic/Lymphatic: Negative for swollen nodes, abnormal bleeding, and unusual bruising. 08:30 MS/extremity: Positive for injury or acute deformity, decreased range of motion, of the anterior aspect of right shoulder, right axilla and posterior aspect of right shoulder, Negative for deformity, ecchymosis, paresthesias, swelling, warmth. Exam: 08:30 Constitutional: This is a well developed, well nourished patient who is awake, alert, kdr and in no acute distress. Head/Face: Normocephalic, atraumatic. Eyes: Pupils equal round and reactive to light, extra-ocular motions intact. Lids and lashes normal. Conjunctiva and sclera are non-icteric and not injected. Cornea within normal limits. Periorbital areas with no swelling, redness, or edema. Neck: Trachea midline, no thyromegaly or masses palpated, and no cervical lymphadenopathy. Supple, full range of motion without nuchal rigidity, or vertebral point tenderness. No Meningismus. Chest/axilla: Normal chest wall appearance and motion. Nontender with no deformity. No lesions are appreciated. Cardiovascular: Regular rate and rhythm with a normal S1 and S2. No gallops, murmurs, or rubs. Normal PMI, no JVD. No pulse deficits. Respiratory: Lungs have equal breath sounds bilaterally, clear to auscultation and percussion. No rales, rhonchi or wheezes noted. No increased work of breathing, no retractions or nasal flaring. Abdomen/GI: Soft, non-tender, with normal bowel sounds. No distension or tympany. No guarding or rebound. No evidence of tenderness throughout. Back: No spinal tenderness. No costovertebral tenderness. Full range of motion. Skin: Warm, dry with normal turgor. Normal color with no rashes, no lesions, and no evidence of cellulitis. Neuro: Awake and alert, GCS 15, oriented to person, place, time, and situation. Cranial nerves II-XII grossly intact. Motor strength 5/5 in all extremities. Sensory grossly intact. Cerebellar exam normal. Normal gait. Psych: Awake, alert, with orientation to person, place and time. Behavior, mood, and affect are within normal limits. 08:30 Musculoskeletal/extremity: Extremities: all appear grossly normal, with no appreciated pain with palpation, ROM: limited active range of motion, in the right arm, limited passive range of motion. 12:00 ECG was reviewed by the Attending Physician. kdr Vital Signs: 07:40 BP 106 / 90; Pulse 70; Resp 18; Temp 98(O); Pulse Ox 97% on R/A; Weight 63.5 kg; Height db 5 ft. 6 in. ; Pain 6/10; 08:00 BP 139 / 88; Pulse 63; Resp 16; Pulse Ox 97% on R/A; db 08:30 BP 132 / 87; Pulse 126; Resp 18; Pulse Ox 96% on R/A; db 09:00 BP 122 / 93; Pulse 122; Resp 18; Pulse Ox 98% on R/A; db 10:00 BP 121 / 102; Pulse 121; Resp 14; Pulse Ox 96% on R/A; db 12:00 BP 145 / 90; Pulse 125; Resp 16; Pulse Ox 95% on R/A; db 07:40 Body Mass Index 22.60 (63.50 kg, 167.64 cm) db 07:40 Pain Scale: Adult db Ashley Coma Score: 07:40 Eye Response: spontaneous(4). Motor Response: obeys commands(6). Verbal Response: db oriented(5). Total: 15. Trauma Score (Adult): 07:40 Eye Response: spontaneous(1); Verbal Response: oriented(1); Motor Response: obeys db commands(2); Systolic BP: > 89 mm Hg(4); Respiratory Rate: 10 to 29 per min(4); Ashley Score: 15; Trauma Score: 12 MDM: 09:13 Patient medically screened. kdr 12:01 Data reviewed: vital signs, nurses notes, lab test result(s), radiologic studies. kdr 06/24 08:05 Order name: Basic Metabolic Panel; Complete Time: 10:27 kdr 06/24 08:05 Order name: CBC with Diff; Complete Time: 08:50 kdr 06/24 08:05 Order name: LFT's; Complete Time: 10:27 kdr 06/24 08:05 Order name: Magnesium; Complete Time: 10:27 kdr 06/24 08:05 Order name: NT PRO-BNP; Complete Time: 10:27 kdr 06/24 08:05 Order name: Troponin HS; Complete Time: 10:27 kdr 06/24 08:05 Order name: Shoulder Right (2 View) XRAY; Complete Time: 08:46 kdr 06/24 08:05 Order name: CT Head C Spine; Complete Time: 08:46 kdr 06/24 08:05 Order name: XRAY Chest (1 view); Complete Time: 08:46 kdr 06/24 09:24 Order name: CT Head Angio kdr 06/24 09:24 Order name: CT Neck Angio kdr 06/24 08:05 Order name: EKG; Complete Time: 08:06 kdr 06/24 08:05 Order name: Cardiac monitoring; Complete Time: 08:40 kdr 06/24 08:05 Order name: EKG - Nurse/Tech; Complete Time: 08:40 kdr 06/24 08:05 Order name: IV Saline Lock; Complete Time: 08:40 kdr 06/24 08:05 Order name: Labs collected and sent; Complete Time: 08:40 kdr 06/24 08:05 Order name: O2 Per Protocol; Complete Time: 08:40 kdr 06/24 08:05 Order name: O2 Sat Monitoring; Complete Time: 08:40 kdr EC:00 Rate is 129 beats/min. Rhythm is irregularly irregular, A fib with No ectopy. QRS [place] kdr is Normal. MA interval is normal. Clinical impression: Atrial Fibrillation. Administered Medications: 08:45 CANCELLED (Duplicate Order): Metoprolol IVP 5 mg IVP once; Hold for SBP <100 or HR <60. kdr 09:10 Drug: Aspirin PO Chewable Tablet 324 mg Route: PO; db 10:48 Follow up: Response: No adverse reaction db 09:10 Drug: Eliquis PO 5 mg Route: PO; db 10:48 Follow up: Response: No adverse reaction db 09:10 Drug: amiodarone PO 200 mg Route: PO; db 10:48 Follow up: Response: No adverse reaction db Disposition Summary: 06/24/23 09:13 Transfer Ordered Transfer Location: [facility] kdr Reason: Higher level of care kdr Condition: Serious kdr Problem: new kdr Symptoms: are unchanged kdr Accepting Physician: marty(06/24/23 12:30) desmond Diagnosis - Altered mental status, unspecified kdr - Pain in right shoulder kdr - Headache kdr Forms: - Medication Reconciliation Form kdr - SBAR form kdr Signatures: Dispatcher [employer] EDMS Brendan Kerns MD MD kdr Negra Manuel Danielle, RN RN db Corrections: (The following items were deleted from the chart) 08:45 08:45 Metoprolol IVP 5 mg IVP once; Hold for SBP <100 or HR <60. ordered. kdr kdr 10:47 10:07 Head angio ordered. EDMS EDMS 10:47 10:07 Neck Angio ordered. EDMS EDMS 12:30 09:13 sdf kdr eb
[2023-06-24] MEDS ORDERED: AMIODARONE HCL 200 MG TAB ONE (09:22)
[2023-06-24] MEDS ORDERED: ASPIRIN 81 MG CHEWABLE TABLET ONE (09:22)
[2023-06-24] MEDS ORDERED: APIXABAN 5 MG TABLET ONE (09:22)
--- NOTE | 2023-06-24 11:29 | RAD REPORT ---
EXAM DESCRIPTION: CT - Head angio - 06/24/2023 10:54 am CLINICAL HISTORY: CONFUSED COMPARISON: Head Brain Wo Cont dated 06/01/2023; Head angio dated 05/07/2023; Neck Angio dated 3; Head C Spine Mpr Wo Con dated 06/24/2023 TECHNIQUE: Axial CT angiography images of the head was performed with multiplanar and maximum intens ity projection reconstructions. Images performed following intravenous administration of 100mL Isovue 370. All CT scans are performed using dose optimization technique as appropriate and may include automated exposure control or mA/KV adjustment according to patient size. FINDINGS: No evidence of large vessel occlusion. No evidence of aneurysm or dissection flap is detec fabricio. No flow-limiting stenosis or vascular malformation identified. Antegrade flow is seen in the vertebral arteries. The vertebral arteries are codominant. The visualized dural venous sinuses are grossly patent. IMPRESSION: No evidence of large vessel occlusion or flow-limiting stenosis.
--- NOTE | 2023-06-24 11:40 | RAD REPORT ---
EXAM DESCRIPTION: CT - Neck Angio - 06/24/2023 10:54 am CLINICAL HISTORY: HEADACHE COMPARISON: Head C Spine Mpr Wo Con dated 06/24/2023; Neck Angio dated 05/07/2023; Head angio dated 06/24 TECHNIQUE: Axial CT angiography images of the head was performed with multiplanar and maximum intens ity projection reconstructions. Images performed following intravenous administration of 100mL Isovue 370. All CT scans are performed using dose optimization technique as appropriate and may include automated exposure control or mA/KV adjustment according to patient size. Quantification of carotid stenosis, if any, is performed according to NASCET criteria. FINDINGS: A left aortic arch is identified with normal three vessel configuration of the great vesse ls. No significant flow abnormality is seen of the common carotid bilaterally. A segment of the proximal right common carotid artery is obscured by streak artifact resulting from dense venous contrast. No significant stenosis is identified involving the cervical segments of both internal carotid arteri es. Normal flow is seen within both vertebral arteries. Minimal geographic ground-glass opacities at the apices probably relate to atelectasis. Multilevel degenerative cervical spine changes with [id number] pannus formation at C1-2. IMPRESSION: No significant flow abnormality of the neck vessels is identified. CAROTID STENOSIS REFERENCE USING NASCET CRITERIA: % ICA stenosis = (1 - narrowest ICA diameter/diameter of distal cervical ICA) x 100. Mild - <50% stenosis. Moderate - 50-69% stenosis. Severe - 70-94% stenosis. Near occlusion - 95-99% stenosis. Occluded - 100% stenosis.
[2023-06-24 13:03] VITALS: BP 145/90; O2SAT 95
--- NOTE | 2023-06-24 14:35 | EKG ---
Test Date: 2023-06-24 Test Time: 08:34:55 Cleaning Machine Operator: IRENE MEASUREMENT RESULTS: Intervals: Rate: 129 MA: QRSD: 112 QT: 356 QTc: 521 [place]: P: MA: QRS: -12 T: 86 INTERPRETIVE STATEMENTS: Atrial fibrillation with rapid ventricular response Low voltage QRS Septal infarct, age undetermined Abnormal ECG Compared to ECG 06/07/2023 12:38:24 Low QRS voltage now present Atrial flutter no longer present Myocardial infarct finding still present Electronically Signed On 06-24-23 14:35:14 CDT by Bora Mendez
== END 2023-06-24 12:30 | disposition short-term general hospital (02) ==
LOC: ER 07:41
DX: R41.82 Altered mental status, unspecified (principal); M25.511 Pain in right shoulder; R51.9 Headache, unspecified; I10 Essential (primary) hypertension; W18.30XA Fall on same level, unspecified, initial encounter; Z86.73 Personal history of transient ischemic attack (TIA), and cerebral infarction without residual deficits; Z79.01 Long term (current) use of anticoagulants; Z79.82 Long term (current) use of aspirin; Z88.0 Allergy status to penicillin
CPT/HCPCS: 93005; 85025; 80048; 36415; 83735; 80076; 84484; 83880; 70450; 72125; 70496; 70498; 71045; 73030; 99285; Q9967

== ENCOUNTER 2024-11-19 14:36 | Emergency (ER) | payer OTHER ==
--- NOTE | 2024-11-19 15:44 | RAD REPORT ---
EXAMINATION: CT HEAD WITHOUT CONTRAST CT CERVICAL SPINE WITHOUT CONTRAST CLINICAL INDICATION: Female, 79 years old. TRAUMA TECHNIQUE: Axial CT images from the skull base to the vertex without intravenous contrast. Axial CT i mages through the cervical spine were obtained without intravenous contrast. Sagittal and coronal reformatted images were created from the data set. Coronal and sagittal reformatted images were creat ed from the data set. One or more of the following dose reduction techniques were used: Automated exposure control, adjustment of the mA and/or kV according to patient size, and/or iterative reconstr uction. Unless otherwise specified, incidental findings do not require dedicated imaging follow-up. [id number]. COMPARISON: 05/02/2024 FINDINGS: Head: INTRACRANIAL: No acute intracranial hemorrhage. No hydrocephalus. No mass effect or midline shift. Mo derate chronic small vessel ischemic changes.Mild cerebral atrophy. VASCULATURE: No visualized abnormalities in the arteries or dural venous sinuses. SCALP/SKULL: No significant soft tissue or osseous abnormalities. Right parietal scalp hematoma. SINUSES: The visualized paranasal sinuses and mastoid air cells are predominantly clear. Cervical spine: ALIGNMENT: Reversal the normal cervical lordosis. BONE: Vertebral body heights are maintained. No aggressive osseous lesions. DEGENERATIVE CHANGES: Multilevel cervical spondylosis with varying degrees of neural foraminal narrow ing. No high-grade central spinal stenosis. SOFT TISSUE: No significant abnormalities in the soft tissue of the neck. The visualized lung apices are clear. IMPRESSION: No acute intracranial abnormality. No acute fracture or traumatic malalignment of the cervical spine.
--- NOTE | 2024-11-19 15:55 | RAD REPORT ---
EXAMINATION: Elbow Right 3 View CLINICAL INDICATION: Female, 79 years old. PAIN RIGHT COMPARISON: No prior exam. FINDINGS: No acute fracture. No malalignment/dislocation. No significant focal degenerative change. Other: n/a IMPRESSION: No acute osseous abnormality.
[2024-11-19] MEDS ORDERED: MECLIZINE HCL 12.5 MG TAB ONE (15:56)
--- NOTE | 2024-11-19 15:56 | RAD REPORT ---
EXAM: Chest Single View HISTORY: near syncope COMPARISON: 06/25/2023 FINDINGS: LUNGS/PLEURA: Increased prominence of the pulmonary interstitium which is nonspecific. MEDIASTINUM: The mediastinal silhouette is within normal limits. CARDIAC: The cardiac silhouette is within normal limits. UPPER ABDOMEN: No significant abnormality. BONES: No acute abnormality. LINES/TUBES/OTHER: N/A IMPRESSION: Increased interstitial prominence could reflect mild edema. No consolidative airspace disease.
[2024-11-19 16:03] LABS: Absolute Lymphocytes (CBC) 0.3 K/uL (0.7-4.9); Absolute Monocytes 0.1 K/uL (0.1-1.3); Absolute Neutrophil 7.3 K/uL (1.8-8.0); Basophils % 0.1 % (0-1.3); Eosinophils % 0.1 % (0-4.4); Hematocrit 42.9 % (36.0-45.0); Hemoglobin 14.3 g/dL (12.0-15.0); Lymphocytes % 3.8 % (15.3-44.8); MCH 31.4 pg (27.0-35.0); MCHC 33.3 g/dL (32.0-36.0); MCV 94.5 fL (80-100); MPV 7.1 fL (7.6-11.3); Monocytes % 0.7 % (3.3-12.3); Neutrophils % 95.3 % (41.7-73.7); Platelets 261 thou/uL (152-406); RBC Red Blood Cell Count 4.54 M/uL (3.86-4.86)
[2024-11-19 16:24] LABS: ALT/SGPT 25 U/L (13-56); Albumin 3.3 g/dL (3.4-5.0); Albumin/Globulin Ratio 0.8 (1.1-1.8); Alkaline Phosphatase 92 U/L (45-117); Anion Gap 10.5 mEq/L (5.0-15.0); BUN Blood Urea Nitrogen 17 mg/dL (7-18); Bicarbonate 25 mEq/L (21-32); Bilirubin Total 0.3 mg/dL (0.2-1.0); Globulin 4.3 g/dL (2.3-3.5); Glomerular Filtration Rate 39 ml/min (=/>90); Glucose Level 166 mg/dL (74-106); Protein, Total 7.6 g/dL (6.4-8.2); Sodium Level 137 mEq/L (136-145); Troponin High Sensitivity 5.9 pg/mL (<58.9)
[2024-11-19 16:25] LABS: AST/SGOT 25 U/L (15-37); Bilirubin Direct < 0.2 mg/dL (0-0.2); Bilirubin Indirect, Calculated 0.1 mg/dL (0.2-0.8); Potassium 4.5 mEq/L (3.5-5.1)
--- NOTE | 2024-11-19 16:51 | ER ---
Nurse's Notes [facility] Name: Carol Ann Matute Age: 79 yrs Sex: Female : 1945 Arrival Date: 11/19/2024 Time: 14:36 Bed 16 Private MD: Diagnosis: Dizziness and giddiness;Contusion of scalp Presentation: 11/19 15:01 Chief complaint: Patient states: Bent over and became dizzy causing her to fall just ss prior to arrival. Hematoma noted to R elbow and R parietal area. Unknown LOC. Coronavirus screen: Client denies travel out of the [place] in the last 14 days. Ebola Screen: Patient denies exposure to infectious person. Patient denies travel to an Ebola-affected area in the 21 days before illness onset. 15:01 Method Of Arrival: EMS: [facility] 15:02 Initial Sepsis Screen: Does the patient meet any 2 criteria? No. Patient's initial ss sepsis screen is negative. Does the patient have a suspected source of infection? No. Patient's initial sepsis screen is negative. Risk Assessment: Do you want to hurt yourself or someone else? Patient reports no desire to harm self or others. Onset of symptoms was November 19, 2024. 15:02 Acuity: ALTHEA 3 ss 15:03 Care prior to arrival: Medication(s) given: zofran 4 mg, IV initiated. 20 GA, in the ss right antecubital area, Glucose check: 161. Historical: - Allergies: 15:02 PENICILLINS; ss - PMHx: 15:02 Atrial fibrillation; Hypertension; ischemic stroke; Thyroid problem; ss - Immunization history:: Adult Immunizations unknown. - Infectious Disease History:: Denies. - Family history:: not pertinent. - Social history:: Smoking status: unknown. Screenin:01 [facility] ED Fall Risk Assessment (Adult) History of falling in the last 3 months, ph including since admission Yes- physiologic fall (2 pts) Confusion or Disorientation No (0 pts) Intoxicated or Sedated No (0 pts) Impaired Gait No (0 pts) Mobility Assist Device Used No (0 pt) Altered Elimination No (0 pt) Score/Fall Risk Level 0 - 2 = Low Risk Oriented to surroundings, Maintained a safe environment, Hourly rounding (assess needs \T\ fall precautionary measures) done. Abuse screen: Denies threats or abuse. Denies injuries from another. Nutritional screening: No deficits noted. Tuberculosis screening: No symptoms or risk factors identified. Assessment: 16:02 General: Appears in no apparent distress. Behavior is calm, cooperative. Pain: ph Complains of pain in right elbow. Neuro: Level of Consciousness is awake, alert, obeys commands, Oriented to person, place, time, situation, Reports dizziness. Cardiovascular: Capillary refill < 3 seconds in bilateral fingers Patient's skin is warm and dry. Respiratory: Airway is patent Respiratory effort is even, unlabored. Derm: Skin is pink, warm \T\ dry. 17:16 Reassessment: Patient appears in no apparent distress at this time. Patient and/or ph family updated on plan of care and expected duration. Pain level reassessed. Patient is alert, oriented x 3, equal unlabored respirations, skin warm/dry/pink. Report called to nurse at [facility], transport at bedside. Vital Signs: 15:01 BP 179 / 84; Pulse 71; Resp 16; ss 15:15 Temp 97.6(TE); Weight 86.18 kg; Height 5 ft. 6 in. ; Pain 2/10; ss 16:45 BP 147 / 64; Pulse 68; Resp 18; Temp 97.9; Pulse Ox 98% on R/A; ph 15:15 Body Mass Index 30.67 (86.18 kg, 167.64 cm) ss 15:15 Pain Scale: Adult ss Ashley Coma Score: 16:45 Eye Response: spontaneous(4). Motor Response: obeys commands(6). Verbal Response: ph oriented(5). Total: 15. Trauma Score (Adult): 16:45 Eye Response: spontaneous(1); Verbal Response: oriented(1); Motor Response: obeys ph commands(2); Systolic BP: > 89 mm Hg(4); Respiratory Rate: 10 to 29 per min(4); Ashley Score: 15; Trauma Score: 12 ED Course: 14:50 Patient arrived in ED. bd 14:56 Dino Nicolas MD is Attending Physician. rt 15:02 Triage completed. ss 15:02 Arm band placed on right wrist. ss 15:05 Malaika Frazier, ALAYNA is Primary Nurse. ph 15:22 XRAY Chest (1 view) In Process Unspecified. EDMS 15:22 Elbow Right 3 View XRAY In Process Unspecified. EDMS 15:26 CT Head C Spine In Process Unspecified. EDMS 16:01 Patient has correct armband on for positive identification. Bed in low position. Call ph light in reach. Side rails up X 1. Pulse ox on. NIBP on. Door closed. Noise minimized. Warm blanket given. Pillow given. PO fluids given. 16:02 Initial lab(s) drawn, by me, sent to lab. EKG done, by ED staff, reviewed by Dino Nicolas MD. Maintain EMS IV. Dressing intact. Good blood return noted. Site clean \T\ dry. Gauge \T\ site: 20 RAC. Flushed with 10 mL NS. 17:17 No provider procedures requiring assistance completed. intact, bleeding controlled, No ph redness/swelling at site. Pressure dressing applied. Administered Medications: 16:03 Drug: Meclizine PO 50 mg PO once Route: PO; ph 17:16 Follow up: Response: No adverse reaction ph Medication: 16:01 VIS not applicable for this client. ph Outcome: 16:51 Discharge ordered by . rt 17:17 Discharged to Assisted living, [facility] ph 17:17 Condition: good 17:17 Discharge instructions given to patient, mcc, Instructed on discharge instructions, follow up and referral plans. Demonstrated understanding of instructions, follow-up care, 17:18 Patient left the ED. ph Signatures: Dispatcher [employer] EDMS Belinda Zhang Shelby, RN RN ss Hall, Patricia, RN RN ph [place], Ryan, MD MD rt
--- NOTE | 2024-11-19 16:51 | EDPHYS ---
Physician Documentation [facility] Name: Carol Ann Matute Age: 79 yrs Sex: Female : 1945 Arrival Date: 11/19/2024 Time: 14:36 Bed 16 Private MD: ED Physician Dino Nicolas HPI: 11/19 15:57 This 79 yrs old Female presents to ER via EMS with complaints of Dizziness, Closed Head rt Injury-Adult. 15:57 Patient presents to the ED with dizziness, fall. Patient states that she has had rt vertigo before, believes that this is what happened at this time. Denies any loss of consciousness. Patient reports hitting the back of her head and having a bruise to her right elbow but denies any hip pain, other acute complaints, symptoms are moderate in severity, no other aggravating or alleviating factors.. Historical: - Allergies: 15:02 PENICILLINS; ss - PMHx: 15:02 Atrial fibrillation; Hypertension; ischemic stroke; Thyroid problem; ss - Immunization history:: Adult Immunizations unknown. - Infectious Disease History:: Denies. - Family history:: not pertinent. - Social history:: Smoking status: unknown. ROS: 15:57 Constitutional: Negative for fever, chills, and weight loss, Cardiovascular: Negative rt for chest pain, palpitations, and edema, Respiratory: Negative for shortness of breath, cough, wheezing, and pleuritic chest pain, Abdomen/GI: Negative for abdominal pain, nausea, vomiting, diarrhea, and constipation, Skin: Negative for injury, rash, and discoloration, 15:57 MS/extremity: Positive for contusion, Negative for laceration, 15:57 Neuro: Positive for dizziness, headache, Exam: 15:57 Constitutional: This is a well developed, well nourished patient who is awake, alert, rt and in no acute distress. Chest/axilla: Normal chest wall appearance and motion. Nontender with no deformity. No lesions are appreciated. Cardiovascular: Regular rate and rhythm with a normal S1 and S2. No gallops, murmurs, or rubs. Normal PMI, no JVD. No pulse deficits. Respiratory: Lungs have equal breath sounds bilaterally, clear to auscultation and percussion. No rales, rhonchi or wheezes noted. No increased work of breathing, no retractions or nasal flaring. Abdomen/GI: Soft, non-tender, with normal bowel sounds. No distension or tympany. No guarding or rebound. No evidence of tenderness throughout. Neuro: Awake and alert, GCS 15, oriented to person, place, time, and situation. Cranial nerves II-XII grossly intact. Motor strength 5/5 in all extremities. Sensory grossly intact. Cerebellar exam normal. Normal gait. 15:57 Head/face: Posterior scalp contusion, no laceration. 15:57 ECG was reviewed by the Attending Physician. 15:57 Musculoskeletal/extremity: Contusion without deformity, focal areas of tenderness on the right elbow. Vital Signs: 15:01 BP 179 / 84; Pulse 71; Resp 16; ss 15:15 Temp 97.6(TE); Weight 86.18 kg; Height 5 ft. 6 in. ; Pain 2/10; ss 16:45 BP 147 / 64; Pulse 68; Resp 18; Temp 97.9; Pulse Ox 98% on R/A; ph 15:15 Body Mass Index 30.67 (86.18 kg, 167.64 cm) ss 15:15 Pain Scale: Adult ss Ashley Coma Score: 16:45 Eye Response: spontaneous(4). Motor Response: obeys commands(6). Verbal Response: ph oriented(5). Total: 15. Trauma Score (Adult): 16:45 Eye Response: spontaneous(1); Verbal Response: oriented(1); Motor Response: obeys ph commands(2); Systolic BP: > 89 mm Hg(4); Respiratory Rate: 10 to 29 per min(4); [place] Score: 15; Trauma Score: 12 MDM: 14:56 Medical Screening Exam initiated rt 17:03 Differential diagnosis: Vertigo, near syncope, dysrhythmia, anemia, intracranial rt hemorrhage. Data reviewed: vital signs, nurses notes, lab test result(s), EKG, radiologic studies. Consideration of Admission/Observation Escalation of care including admission/observation considered. Workup is benign, CT scan of the head is unremarkable. Patient states that she is no longer dizzy. She states that this dizziness is common for her and she does not wish to be admitted to the hospital. Will discharge patient, she is to follow-up as an outpatient. Return precautions discussed.. I considered the following discharge prescriptions or medication management in the emergency department Medications were administered in the Emergency Department. See MAR. Independent interpretation of the following test(s) in the Emergency Department CT Scan: My interpretation is No intracranial hemorrhage syndrome interpretation of CT scan images. Care significantly affected by the following chronic conditions: Atrial fibrillation. Counseling: I had a detailed discussion with the patient and/or guardian regarding the historical points, exam findings, and any diagnostic results supporting the discharge/admit diagnosis, lab results, radiology results, the need for outpatient follow up, to return to the emergency department if symptoms worsen or persist or if there are any questions or concerns that arise at home. Response to treatment: the patient's symptoms have markedly improved after treatment. 11/19 15:07 Order name: Basic Metabolic Panel; Complete Time: 16: rt 11/19 15:07 Order name: CBC with Diff rt 11/19 15:07 Order name: LFT's; Complete Time: 16: rt 11/19 15:07 Order name: Troponin HS; Complete Time: 16: rt 11/19 15:07 Order name: XRAY Chest (1 view); Complete Time: 15:56 rt 11/19 15:07 Order name: Elbow Right 3 View XRAY; Complete Time: 15:56 rt 11/19 15:07 Order name: CT Head C Spine; Complete Time: 15:56 rt 11/19 15:07 Order name: EKG; Complete Time: 15:11/19 15:07 Order name: Cardiac monitoring; Complete Time: 16:03 rt 11/19 15:07 Order name: EKG - Nurse/Tech; Complete Time: 16:11/19 15:07 Order name: IV Saline Lock; Complete Time: 16:11/19 15:07 Order name: Labs collected and sent; Complete Time: 16: rt 11/19 15:07 Order name: O2 Per Protocol; Complete Time: 16:11/19 15:07 Order name: O2 Sat Monitoring; Complete Time: 16: rt EC:57 Rate is 71 beats/min. Rhythm is regular, 1st Degree Block with No ectopy, nonspecific rt intraventricular block. QRS [place] is Normal. NC interval is normal. QRS interval is normal. QT interval is normal. No Q waves. Administered Medications: 16:03 Drug: Meclizine PO 50 mg PO once Route: PO; ph 17:16 Follow up: Response: No adverse reaction ph Disposition Summary: 11/19/24 16:51 Discharge Ordered Notes: Location: Home rt Problem: new rt Symptoms: have improved rt Condition: Stable rt Diagnosis - Dizziness and giddiness rt - Contusion of scalp rt Followup: rt - With: Private Physician - When: 2 - 3 days - Reason: Discharge Instructions: - Discharge Summary Sheet rt - Dizziness rt - Facial or Scalp Contusion rt Forms: - Medication Reconciliation Form rt - Antibiotic Education rt - Prescription Opioid Use rt - Patient Portal Instructions rt - Leadership Thank You Letter rt Signatures: Dispatcher [employer] EDMS Silva Cannon RN RN ss Malaika Frazier RN RN ph Dino Nicolas MD MD rt Corrections: (The following items were deleted from the chart) 15:08 15:07 Head C Spine MPR Wo [email or web address] ordered. EDMS EDMS
[2024-11-19 19:39] LABS: Blood Morphology Comment NOT SEEN (NOT SEEN); Platelet Estimate ADEQ; White Blood Cell Scan OK (OK)
[2024-11-19 21:15] VITALS: BP 147/64; TEMP 97.9; O2SAT 98
--- NOTE | 2024-11-20 12:30 | EKG ---
Test Date: 2024-11-19 Test Time: 15:48:04 Web Architect: PH MEASUREMENT RESULTS: Intervals: Rate: 71 GA: 226 QRSD: 132 QT: 480 QTc: 521 [place]: P: 84 GA: 226 QRS: 70 T: 88 INTERPRETIVE STATEMENTS: Sinus rhythm with 1st degree AV block Nonspecific intraventricular block Cannot rule out Anteroseptal infarct, age undetermined Abnormal ECG Compared to ECG 06/24/2023 08:34:55 First degree AV block now present Atrial fibrillation no longer present Myocardial infarct finding still present Electronically Signed On 11-20-24 12:28:52 AUTOMATION TESTER by Michael Henao
== END 2024-11-19 17:18 | disposition home or self-care (01) ==
LOC: ER 14:36
DX: R42 Dizziness and giddiness (principal); S00.03XA Contusion of scalp, initial encounter; S50.01XA Contusion of right elbow, initial encounter; W18.30XA Fall on same level, unspecified, initial encounter
CPT/HCPCS: 93005; 85025; 80048; 36415; 80076; 84484; 70450; 72125; 71045; 73080; 99284; J8597